=== PATIENT | male | born 1950 | race Caucasian/White ===

== ENCOUNTER → 2018-10-11 | Outpatient (CLI) | payer OTHER ==
[~2018-10-11] MED LIST: ADVAIR 100/501 E1 INH; ALBUTEROL0.09 MG/A1 INH; AMBIEN5 MG PO; ASPIR-LOX325 MG PO; B12,B-12,B 12500 MC1 PO; CLONAZEPAM0.125 MG PO; DEPAKOTE500 MG PO; FLEXERIL10 MG PO; FLOMAX0.4 MG PO; HYDROCODONE/ACE1 T11 PO; LASIX20 MG PO; LISINOPRIL2.5 MG PO; MAXIPIME2 GM IV; Micro K10 MEQ PO; NAPROSYN500 MG PO; NEURONTIN600 MG PO; NEURONTIN800 MG PO; NEXIUM40 MG PO; NITROGLYCERIN; NORCO 325 MG-101 TAB PO; PAXIL30 M1 PO; PAXIL30 MG PO; PRAVASTATIN SOD10 MG PO; PRAVASTATIN SOD20 MG PO; PRILOSEC20 MG PO; RESTORIL15 MG PO; SOLU-MEDROL IV; SYMBICORT1 AE1 INH; SYMBICORT1 AER INH; VICODIN ES 7501 TA1 PO
[2018-10-11 20:25] LABS: BUN 24 mg/dl (7-24); CHLORIDE 109 mmol/L (98-107); CREATININE 0.93 mg/dL (0.70-1.30); POTASSIUM 3.7 mmol/L (3.5-5.1); SODIUM 144 mmol/L (136-145)
== END | disposition home or self-care (01) ==
LOC: LAB 19:07
PROVIDERS: Internal Medicine
DX: I50.20 Unspecified systolic (congestive) heart failure (principal)

== ENCOUNTER 2019-03-02 05:45 | Emergency (ER) | payer OTHER ==
[~2019-03-02] VITALS: Ht 170.1 cm; Wt 65.8 kg
== END 2019-03-02 08:02 | disposition left against medical advice (07) ==
LOC: ED 05:45
DX: S00.01XA Abrasion of scalp, initial encounter (principal); F10.920 Alcohol use, unspecified with intoxication, uncomplicated; J44.1 Chronic obstructive pulmonary disease with (acute) exacerbation; Z79.899 Other long term (current) drug therapy; Z79.82 Long term (current) use of aspirin; X58.XXXA Exposure to other specified factors, initial encounter; Y93.89 Activity, other specified; Y92.89 Other specified places as the place of occurrence of the external cause; Y99.9 Unspecified external cause status; Y90.9 Presence of alcohol in blood, level not specified

== ENCOUNTER 2019-08-11 05:45 | Inpatient (IN) | payer OTHER ==
[~2019-08-11] VITALS: Ht 172.7 cm; Wt 62.7 kg
[2019-08-11 05:45] VITALS: BP 104/70
--- NOTE | 2019-08-11 06:18 | NUR ---
PATIENT BROUGHT TO THE E.R FOR SHORTNESS OF BREATH. PER DOCTORS ORDER PATIENT PLACED ON A BIPAP AT 12 IPAP/8 EPAP WITH 40% OF OXYGEN. PATIENT SEEMS TO BE COMFORTABLE AND SPO2 IS 99% WITH DIMISHED BREATH SOUNDS, THAT ARE IMPROVING. RN AND DOCTOR ARE AWARE.
[2019-08-11 06:26] LABS: HEMATOCRIT 35.1 % (42.0-52.0); MEAN CELL VOLUME 83.8 fl (80.0-94.0); MEAN CORPUSCULAR HGB 25.8 pg (27.0-31.0); MEAN CORPUSCULAR HGB CONC 30.8 g/dl (33.0-37.0); MEAN PLATELET VOLUME 11.9 fl (9.6-12.3); NUCLEATED RED BLOOD CELL 0.2 % (0.0-0.0); PLATELET COUNT AUTOMATED 291 10*3/uL (130-400); RED BLOOD COUNT 4.19 10*6/uL (4.50-5.90); RED CELL DISTRI WIDTH 19.7 % (0-14.5); WHITE BLOOD COUNT 24.6 10*3/uL (4.8-10.8)
[2019-08-11 06:26] LABS: ABG BASE EXCESS 7.4 mmol/L (-2.0-2.0); ARTERIAL BLOOD GAS PH 7.389 (7.35-7.45)
[2019-08-11 06:39] LABS: ACT PARTIAL THROMBO TIME 28.2 SECONDS (20.0-32.1); INTERNATIONAL NORM RATIO 1.1 (2.0-3.5)
[2019-08-11 06:47] LABS: ALBUMIN 3.3 gm/dl (3.1-4.5); ALKALINE PHOSPHATASE 82 U/L (45-117); BUN 50 mg/dl (7-24); CHLORIDE 97 mmol/L (98-107); CREATININE 1.45 mg/dL (0.70-1.30); POTASSIUM 4.3 mmol/L (3.5-5.1); SGOT/AST 29 IU/L (3-35); SGPT/ALT 35 U/L (12-78); SODIUM 137 mmol/L (136-145); TOTAL PROTEIN 7.6 gm/dL (6.4-8.2)
[2019-08-11 06:48] LABS: TROPONIN I < 0.015 ng/ml (<0.045)
--- NOTE | 2019-08-11 06:59 | NUR ---
PT HAS MULTIPLE SM SCABBED AREAS TO EXTREMITIES.
[2019-08-11 07:09] LABS: PLATELET SUFFICIENCY NORMAL (NORMAL); TOTAL CELLS COUNTED 100 #CELLS
--- NOTE | 2019-08-11 07:21 | NUR ---
PT REFUSING BIPAP MASK, STATES HE WANTS TO WEAR NC. PT PLACED ON 4LPM NC. PT TOLERATING WELL, PT 98% ON 4LPM NC. PT HAS CALL LIGHT IN REACH. DENIES FURTHER NEEDS.
--- NOTE | 2019-08-11 07:33 | NUR ---
PT RESTING QUEITY, REFUSING BI-PAP. REMIANS ON 4L NC POX 97%. PT IS A PATIENT OF [facility]. DR TRACEY TO BE CALLED FOR THE ADMISSION. PT RESPIRATIONS EASY NO DISTRESS NOTED. CALL LIGHT IN REACH WILL MONITOR.
[2019-08-11 07:36] VITALS: BP 105/71
--- NOTE | 2019-08-11 08:16 | NUR ---
PT OFF THE UNIT FOR CT SCAN, THEN WILL BE TRANSFER TO THE 4TH FLOOR, ROOM 408-1.
[2019-08-11 09:00] VITALS: BP 96/57
--- NOTE | 2019-08-11 09:00 | NUR ---
A 69, admitted to , under the services of SWEETIE Chatman MD with a diagnosis of COPD EXACERBATION, PNEUMONIA. Chief complaint is SHORTNESS OF BREATH. Patient arrived via stretcher from ER. Monitor applied. Initial assessment completed. Vital signs taken and recorded. SWEETIE CHATMAN MD notified of admission to the unit. Orders received. See assessment for past medical history, medications and allergies. Patient and/or family oriented to unit. [facility] visitation policy reviewed. Clothing/patient valuable form completed. VIRGINIA ATKINS
[2019-08-11] MEDS ORDERED: XANAX0.5 MG PO (10:52)
[2019-08-11] MEDS ORDERED: CARDIZEM CD240 M1 PO (10:52)
[2019-08-11] MEDS ORDERED: ELIQUIS5 M1 PO (10:53)
[2019-08-11] MEDS ORDERED: LOPRESSOR50 M1 PO (10:54)
[2019-08-11] MEDS ORDERED: PREDNISONE10 M1 PO (10:55)
[2019-08-11] MEDS ORDERED: NEURONTIN300 MG PO (10:55)
[2019-08-11] MEDS ORDERED: TRELEGY ELLIPT1 EACH INH (10:56)
[2019-08-11] MEDS ORDERED: AMIODARONE HYD200 MG PO (10:57)
--- NOTE | 2019-08-11 11:00 | NUR ---
HOME MEDS VERIFIED WITH PHARMACY. [facility] [phone].
--- NOTE | 2019-08-11 11:11 | NUR ---
PATIENT REFUSING ECHO.
--- NOTE | 2019-08-11 11:30 | NUR ---
PHYSICAL THERAPY Ho bauman chart reviewed pt unavailable as out of room for testing,will follow at a later date. Barbara Borrego PT
--- NOTE | 2019-08-11 11:35 | NUR ---
POSTURAL DRAINAGE DONE. PT TOLERATED WELL.
[2019-08-11 11:39] LABS: ABG BASE EXCESS 8.2 mmol/L (-2.0-2.0); ARTERIAL BLOOD GAS PH 7.39 (7.35-7.45)
[2019-08-11 12:00] VITALS: BP 104/78
--- NOTE | 2019-08-11 12:41 | NUR ---
PHYSICAL THERAPY Eval completed on the fourth floor with full report to follow. Spoke with CM reg son concerns for home, however per pt her son lives with her and is "there all the time" helps her with her ADL's and has HH 2 x week. Recomend SNF pending progress with Amb/transfers vs Home with son 24 hr care/support depending on what actual home situation is, per LUIS ALBERTO pt was just discharged from SNF and refusing discharge back to SNF and wants to return home with HH. Barbara Brorego PT
[2019-08-11] MEDS ORDERED: ASPIRIN CHEWABL81 MG PO (13:33)
[2019-08-11] MEDS ORDERED: Ipratropium Brom3 ML INH (13:34)
[2019-08-11] MEDS ORDERED: MAGOX 400400 MG PO (13:35)
[2019-08-11] MEDS ORDERED: KLOR-CON M2020 ME1 PO (13:35)
[2019-08-11] MEDS ORDERED: HEALTHYLAX17 GM PO (13:36)
[2019-08-11] MEDS ORDERED: PRAVACHOL40 MG PO (13:37)
[2019-08-11] MEDS ORDERED: PROAIR DIGIHAL90 MCG INH (13:38)
[2019-08-11] MEDS ORDERED: OMEPRAZOLE MAGN20 MG PO (13:47)
[2019-08-11] MEDS ORDERED: MIRTAZAPINE30 M1 PO (13:47)
[2019-08-11 15:24] LABS: BILIRUBIN NEGATIVE (NEGATIVE); CLARITY SL CLOUDY (CLEAR); COLOR YELLOW (YELLOW); GLUCOSE NEGATIVE (NEGATIVE); KETONE NEGATIVE (NEGATIVE)
[2019-08-11 15:25] LABS: BLOOD 2+ (NEGATIVE); LEUKO ESTERASE 2+ (NEGATIVE); NITRITE POSITIVE (NEGATIVE); PH 7.5 (5.0-9.0); RBC 21-30 rbc/hpf (0-2); SPECIFIC GRAVITY 1.005 (1.005-1.030); UROBILINOGEN 0.2 E.U./dl (0.2-1.0)
[2019-08-11 15:26] LABS: BACTERIA 1+; WBC TNTC wbc/hpf (0-5)
--- NOTE | 2019-08-11 15:30 | NUR ---
PT RESTING IN BED. VOICES NO CONCERNS AT THIS TIME. RESPS EASY AND NON LABORED. NO S/S OF DISTRESS NOTED. VSS. 3L OXYGEN INTACT. DENIES SOB. WHITE BOARD UPDATED. CALL LIGHT WITHIN REACH.
[2019-08-11 15:36] LABS: URINE CHLORIDE, RANDOM < 10 mmol/L
[2019-08-11 16:00] VITALS: BP 94/63
--- NOTE | 2019-08-11 16:53 | NUR ---
DR DAVENPORT NOTIFIED OF NEW CONSULT. NO NEW ORDERS
--- NOTE | 2019-08-11 16:53 | NUR ---
PER DR MCMILLAN OBTAIN RECORDS FROM [facility] AND ORDER MORNING LAB WORK.
--- NOTE | 2019-08-11 18:01 | NUR ---
CONSENT GIVEN FOR REQUEST FOR MEDICAL RECORDS
[2019-08-11 20:00] VITALS: BP 98/68
--- NOTE | 2019-08-11 21:00 | NUR ---
PATIENT RESTING IN BED. VOICES NO COMPLAINTS AT THIS TIME. BED IN LOWEST POSITION,CALL LIGHT WITHIN REACH, BED ALARM ON. WILL CONTINUE TO MONITOR.
[2019-08-12] VITALS: BP 94/74
--- NOTE | 2019-08-12 02:51 | NUR ---
PATIENT REFUSING TO KEEP 2 BED RAILS UP. EXPLAINED TO PATIENT IT IS FOR PATIENT SAFETY. PATIENT STATES "OKAY YOU CAN PUT IT UP BUT I KNOW HOW TO PUT IT BACK DOWN." BED ALAMR ON. WILL CONTINUE TO MONITOR.
--- NOTE | 2019-08-12 03:00 | NUR ---
PATIENT SLEEPING, RESPIRATIONS EASY, NON LABORED. WILL CONTINUE TO MONITOR.
[2019-08-12 06:36] LABS: HEMATOCRIT 32.5 % (42.0-52.0); MEAN CELL VOLUME 86.7 fl (80.0-94.0); MEAN CORPUSCULAR HGB 25.3 pg (27.0-31.0); MEAN CORPUSCULAR HGB CONC 29.2 g/dl (33.0-37.0); MEAN PLATELET VOLUME 10.8 fl (9.6-12.3); NUCLEATED RED BLOOD CELL 0.2 % (0.0-0.0); PLATELET COUNT AUTOMATED 207 10*3/uL (130-400); RED BLOOD COUNT 3.75 10*6/uL (4.50-5.90); RED CELL DISTRI WIDTH 19.7 % (0-14.5); WHITE BLOOD COUNT 17.2 10*3/uL (4.8-10.8)
[2019-08-12 06:51] VITALS: BP 107/50
[2019-08-12 06:53] LABS: BUN 42 mg/dl (7-24); CHLORIDE 103 mmol/L (98-107); CHOLESTEROL 116 mg/dL (<200); CREATININE 1.27 mg/dL (0.70-1.30); HDL CHOLESTEROL 40 mg/dl (40-60); LDL CHOLESTEROL 62 mg/dL (9-159); POTASSIUM 3.7 mmol/L (3.5-5.1); SODIUM 141 mmol/L (136-145); TRIGLYCERIDES 68 mg/dl (<150); VLDL CHOLESTEROL 14 mg/dL (6-40)
--- NOTE | 2019-08-12 06:55 | NUR ---
PATIENT WOKEN UP TO TAKE MORNING MEDICATION, VERY DROWSY. VITALS WNL. WILL CONTINUE TO MONITOR.
[2019-08-12 07:06] LABS: INTERNATIONAL NORM RATIO 1.1 (2.0-3.5)
--- NOTE | 2019-08-12 07:30 | NUR ---
PT SLEEPING/DROWSY. AROUSES EASILY. VSS. RESPS EASY AND NON LABORED. NO S/S OF DISTRESS NOTED. WHITE BOARD UPDATED. POSTERIOR CRACKLES NOTED IN BOTH LUNG BASES. CALL LIGHT WITHIN REACH. BED ALARM ON.
[2019-08-12 07:31] LABS: PLATELET SUFFICIENCY NORMAL (NORMAL); POLYCHROMASIA SLIGHT; TOTAL CELLS COUNTED 100 #CELLS
[2019-08-12 07:32] LABS: TARGET CELLS FEW
[2019-08-12 08:00] VITALS: BP 110/54
[2019-08-12 08:37] LABS: VITAMIN D, 25-HYDROXY 34.6 ng/mL (30-100)
--- NOTE | 2019-08-12 09:28 | NUR ---
CASE MANAGEMENT IN TO SEE PT. STATES HE HAS TO USE BATHROOM. THIS NURSE IN TO HELP PT. PT STARTED YELLING AT THIS NURSE THAT HE DID NOT GET BREAKFAST. EXPLAINED TO HIM THAT I CAME IN THIS MORNING AND TRIED TO WAKE HIM UP MULTIPLE TIMES. PT STATES "YOU PEOPLE CAN WAKE ME UP ALL NIGHT LONG BUT NOT FOR F@#$ING BREAKFAST". OFFERED TO ORDER PT BREAKFAST AND HE THREW PHONE AND VARIOUS OTHER ITEMS AROUND IN ROOM. VERBAL DE-ESCALATION IMPLEMENTED. PT CALMED DOWN. STATES HES GOING BACK TO SLEEP. ASSISTED BACK TO BED. CALL LIGHT WITHIN REACH. BED ALARM ON.
--- NOTE | 2019-08-12 10:06 | NUR ---
PTS FAMILY CALLED IN. UPDATED ON POC. QUESTIONS ANSWERED.
--- NOTE | 2019-08-12 11:25 | NUR ---
PTS CELL PHONE HEARD RINGING IN ROOM. TARI HAD CALLED AND STATED SHE COULD NOT REACH HIM. INTO PTS ROOM. PT AGAIN AGITATED. STATES HES NOT ANSWERING THE PHONE FOR ANYONE. XANAX GIVEN PER PRN ORDER. WILL CONTINUE TO MONITOR. ASKED PT IF HE WOULD LIKE TO ORDER LUNCH AND HE STATED "WHAT FOR I WONT GET THE DAMN SH*T ANYWAYS". EXPLAINED TO PT THAT I WOULD HELP HIM ORDER AND MAKE SURE HE GETS HIS FOOD. STATES TO "GET THE F@#K OUT OF HIS ROOM". CALL LIGHT WITHIN REACH. BED ALARM ON.
--- NOTE | 2019-08-12 11:34 | NUR ---
CIGARETTE PACKAGE EXAMINER IN TO DO 1200 VITALS. PT SCREAMING AT HER TELLING TO GET AWAY FROM HIM.
--- NOTE | 2019-08-12 11:36 | NUR ---
CALL PLACED TO DR MCMILLAN REGARDING PTS BEHAVIOR. STATES TO GIVE ATIVAN 1MG IV NOW AND CONTINUE TO MONITOR. ORDERS VERIFIED AND REPEATED BACK.
--- NOTE | 2019-08-12 11:42 | NUR ---
LATE NOTE: OVERHAULER HELPER ATTEMPTED TO SPEAK WITH THE PATIENT. PATIENT STATED THAT HE RESIDES AT HOME WITH TARI. PATIENT STATED HE USES A CANE AND WEARS OXYGEN AT NIGHT. THIS OVERHAULER HELPER WAS TALKING TO PATIENT HE ATTEMPTED TO GET OUT OF BED TO USE THE BATHROOM. BED ALARM STARTED RINGING. OVERHAULER HELPER WAS ABLE TO GET THE PATIENT TO REMAIN SEATED. OVERHAULER HELPER NOTIFIED JOEY RAMÍREZ OF PATIENT NEEDING TO USE RESTROOM. OVERHAULER HELPER INFORMED THE PATIENT THAT JOEY RAMÍREZ WOULD BE IN TO ASSIST HIM. SECONDS LATER JOEY RAMÍREZ WAS IN TO ASSIST THE PATIENT TO THE BATHROOM. OVERHAULER HELPER SPOKE WITH JOEY RAMÍREZ. PATIENT WAS CURRENTLY HAVING BEHAVIORS. OVERHAULER HELPER REACHED OUT TO FERNY HUNG-DPOA-[facility], SHE STATED THE PATIENT IS CURRENTLY LIVING WITH HER AT [address] [place] [phone]. SHE STATED THAT THE PATIENT DOES STILL HAVE HIS HOME IN [facility]. SHE STATED THE PATIENT HAS BEEN LIVING WITH HER FOR APPROXIMATELY 2 YEARS. SHE IS HIS SECOND OFFICER. SHE STATED THE PATIENT IS PRETTY INDEPENDENT. HE DOES USE A CANE. SHE DOES ASSIT HIM WITH GETTING OUT OF THE BATH TUB. SHE STATED THE PATIENT DOES DRIVE SOME TMES. THE PATIENT DOES HAVE OXYGEN AT HOME FROM [facility]. HE USES [facility]. FERNY STATED THE PATIENT HAS A HX OF BEING BELLIGERENT/COMBATIVE WHEN IN A HOSPITAL SETTING HIS ANXIETY TAKES OVER. PER FERNY THE PATIENT HAS A LOT OF FAMILY STRESSORS AT THE MOMENT. FERNY STATED THAT THE PATIENT DOES BECOME FORGETFUL AT TIMES. FERNY IS UNSURE OF PATIENTS NEEDS UPON DISCHARGE AT THIS TIME. CASE MANAGEMENT TO FOLLOW.
--- NOTE | 2019-08-12 11:48 | NUR ---
PT MEDICATED PER DR SORTO ORDER. WILL CONTINUE TO MONITOR. RESPS EASY AND NON LABORED. NO S/S OF DISTRESS. X2 SIDE RAILS UP. BED ALARM ON. CALL LIGHT WITHIN REACH.
--- NOTE | 2019-08-12 12:24 | NUR ---
PT SLEEPING. MEDICATION APPEARS EFFECTIVE. RESPS EASY AND NON LABORED. NO S/S OF DISTRESS. X2 SIDE RAILS UP. BED ALARM ON. CALL LIGHT WITHIN REACH.
--- NOTE | 2019-08-12 13:15 | NUR ---
PT REFUSING TO RE-APPLY HEART MONITOR AT THIS TIME
--- NOTE | 2019-08-12 13:31 | NUR ---
PT REFUSING IV ANTIBIOTICS AT THIS TIME. STATES HE "ISNT TAKING A F@#$ING THING". EXPLAINED RATIONALE/USE FOR MEDICATION. PT STATES "I HAVNT HAD A F@#$ING THING TO EAT ALL DAY". ASKED PT IF HE WOULD LIKE TO ORDER SOMETHING FOR LUNCH. STATED "NOPE" AND SHOOK HEAD NO. ASKED PT IF HE WOULD LIKE THIS NURSE TO HAVE SOMETHING SENT UP TO HIS ROOM. PT STATED TO GET OUT OF HIS ROOM. CURRENTLY SITTING UP IN BED PLAYING ON PHONE. RESPS EASY AND NON LABORED. NO S/S OF DISTRESS. OXYGEN INTACT. BED ALARM ON. CALL LIGHT WITHIN REACH.
--- NOTE | 2019-08-12 13:55 | NUR ---
TARI CALLED TO CHECK ON PT. ASKED IF PT WAS OKAY BC HE STILL WILL NOT ANSWER THE PHONE. EXPLAINED CURRENT SITUATION TO HER. ASKED IF I COULD TRANSFER CALL INTO PTS ROOM. CALL TRANSFERRED PER REQUEST. ENCOURAGED PT TO ACCEPT THE PHONE CALL.
[2019-08-12 16:00] VITALS: BP 116/82
--- NOTE | 2019-08-12 17:00 | NUR ---
DR DAVENPORT INTO SEE PT
--- NOTE | 2019-08-12 17:20 | NUR ---
PER DR DAVENPORT GIVE 40MG IV LASIX NOW AND REPEAT DOSE IN THE MORNING.
--- NOTE | 2019-08-12 17:31 | NUR ---
PT AGREEABLE TO TAKE LASIX. RESPS EASY AND NON LABORED. PT WAS NOTED TO BE WHEEZING.DENIES SOB. VSS. OXYGEN INTACT-SPO2 WNL.NO S/S OF DISTRESS NOTED. WILL ASK RESPIRATORY TO COME GIVE A BREATHING TX AT THIS TIME. BED ALARM ON. CALL LIGHT WITHIN REACH.
--- NOTE | 2019-08-12 17:40 | NUR ---
RESPIRATORY INTO PTS ROOM
--- NOTE | 2019-08-12 18:00 | NUR ---
PT RESTING IN BED. RESPS EASY AND NON LABORED. NO S/S OF DISTRESS NOTED. BED ALARM ON. CALL LIGHT WITHIN REACH.
--- NOTE | 2019-08-12 19:00 | NUR ---
REPORT RECEIVED FROM DESIREE COOK. PT LYING IN BED AT THIS TIME. O2 INTACT. NO S/S OF DISTRESS NOTED, CALL LIGHT IN REACH
[2019-08-12 20:00] VITALS: BP 96/67
--- NOTE | 2019-08-12 20:00 | NUR ---
PT ENCOURAGED TO WEAR HEART MONITOR, STILL REFUSING
--- NOTE | 2019-08-12 22:10 | NUR ---
PT SLEEPING AT THIS TIME. CALL LIGHT IN REACH
[2019-08-13] VITALS: BP 130/86
--- NOTE | 2019-08-13 02:00 | NUR ---
PT IS SLEEPING AT THIS TIME. O2 INTACT. NO S/S OF DISTRESS, CALL LIGHT IN REACH
--- NOTE | 2019-08-13 07:07 | NUR ---
Shift chart check completed.
--- NOTE | 2019-08-13 07:21 | NUR ---
PER POWER MANAGER RN PT REFUSED MORNING LAB WORK
--- NOTE | 2019-08-13 07:30 | NUR ---
PT SITTING UP IN BED. RESPS EASY AND NON LABORED. NO S/S OF DISTRESS NOTED. 3L OXYGEN INTACT.VSS.WHITE BOARD UPDATED. CONTINUES TO REFUSE HEART MONITOR. PLAN OF CARE DISCUSSED W PT. BED ALARM ON. CALL LIGHT WITHIN REACH. PT ASSISTED TO ORDER BREAKFAST.
--- NOTE | 2019-08-13 07:47 | NUR ---
PT TOOK MORNING MEDICATIONS WITHOUT INCIDENT.
[2019-08-13 08:00] VITALS: BP 125/82
--- NOTE | 2019-08-13 09:14 | NUR ---
Discharge instructions reviewed with patient/family. Patient receptive and verbalizes understanding. Follow-up care arranged. Written instructions given to patient/family. DESIREE SIEGEL The Discharge Plan/Instructions have been completed. discontinued. Site asymptomatic. Pressure applied. Sterile dressing applied. DESIREE SIEGEL
--- NOTE | 2019-08-13 09:25 | NUR ---
FERNY CALLED. UPDATED ON PLAN OF CARE. QUESTIONS ANSWERED
--- NOTE | 2019-08-13 11:49 | NUR ---
PT RESTING IN BED. RESPS EASY AND NON LABORED. NO S/S OF DISTRESS NOTED. OXYGEN INTACT. BED ALARM ON. CALL LIGHT WITHIN REACH.
[2019-08-13 12:00] VITALS: BP 116/66
[2019-08-13 16:00] VITALS: BP 104/71
--- NOTE | 2019-08-13 18:18 | NUR ---
TARI CALLED. UPDATED ON PLAN OF CARE. QUESIONS ANSWERED.
--- NOTE | 2019-08-13 19:10 | NUR ---
REPORT RECEIVED FROM DESIREE COOK. PT SLEEPING AT THIS TIME. NO S/S OF DISTRESS. O2 INTACT. CALL LIGHT IN REACH
[2019-08-13 20:00] VITALS: BP 113/74
--- NOTE | 2019-08-13 20:00 | NUR ---
PT STILL REFUSING HERAT MONITOR AT THIS TIME.
--- NOTE | 2019-08-13 21:00 | NUR ---
PT WATCHING TV AT THIS TIME, CALL LIGHT IN REACH
[2019-08-14] VITALS (7 sets, daily range): BP systolic 100–120; BP diastolic 59–74
--- NOTE | 2019-08-14 00:34 | NUR ---
PT LYING IN BED AT THIS TIME. NO S/S OF DISTRESS NOTED. O2 INTACT. CALL LIGHT IN REACH
--- NOTE | 2019-08-14 01:14 | NUR ---
XANAX GIVEN PER ORDER FOR COMPLAINTS OF ANXITEY. WILL MONITOR
--- NOTE | 2019-08-14 02:00 | NUR ---
XANAX APPEARS EFFECTIVE, PT SLEEPING.
--- NOTE | 2019-08-14 04:00 | NUR ---
PT SLEEPING AT THIS TIME. O2 INTACT. CALL LIGHT IN REACH
--- NOTE | 2019-08-14 05:00 | NUR ---
24 HR chart check completed.
--- NOTE | 2019-08-14 05:19 | NUR ---
IN TO SEE PT. PT REFUSING MORNING MEDICATIONS AT THIS TIME.
--- NOTE | 2019-08-14 05:34 | NUR ---
LAB IN TO SEE PT THIS AM. PT REFUSING LAB WORK. PT ALSO REFUSING BED CHANGE
--- NOTE | 2019-08-14 09:00 | NUR ---
Overweaver in to see patient. He is sitting on the edge of his bed without distress noted. He states he lives with his friend, Edna, in [place]. He states there are 5 outside steps and no steps once inside the home. He uses [facility] in [place] and his PCP is Dr. Borrego. He uses a cane for ambulation and has O2 @ 3L nc prn and a nebulizer. He is unsure of his O2 supplier. He states he used it for about an 1 hour before coming to the hospital. He was recently in [facility]. Discussed short term rehab and he refuses. Discussed home health care services and he is agreeable. He doesn't care what home health company but he would like nursing and therapy. When medically stable he will be discharged to home with home health care services. He states his friend, Edna, will provide transportation on discharge.
--- NOTE | 2019-08-14 09:11 | NUR ---
MEDICATED WITH PRN PO NORCO FOR GENERALIZED CHRONIC BODY PAIN.
--- NOTE | 2019-08-14 09:21 | NUR ---
MEDICATED WITH PRN PO XANAX FOR ANXIETY.
--- NOTE | 2019-08-14 09:30 | NUR ---
Occupational Therapy evaluation completed on four with full evaluation to follow. Recommend occupational therapy per plan of care and home with HH SN, OT, and PT with continued supervision assistance upon discharge. Thank you for this referral. Ifeoma Cline OTR/L
--- NOTE | 2019-08-14 09:30 | NUR ---
Physical Therapy evaluation completed on fourth floor with full evaluation to follow. Recommend physical therapy per plan of care and home w with production metal sprayer and HH services upon discharge if continues to do well. Thank you for this referral. Barbara Borrego PT
--- NOTE | 2019-08-14 10:00 | NUR ---
PRN PO NORCO SOMEWHAT EFFECTIVE, PER PATIENT.
--- NOTE | 2019-08-14 10:30 | NUR ---
Spoke to Dr. Kahn regarding continuation or discontinuation of awake overnight monitor. New orders received to discontinue telemetry.
[2019-08-14 14:55] LABS: HEMATOCRIT 33.5 % (42.0-52.0); MEAN CELL VOLUME 89.1 fl (80.0-94.0); MEAN CORPUSCULAR HGB 25.3 pg (27.0-31.0); MEAN CORPUSCULAR HGB CONC 28.4 g/dl (33.0-37.0); PLATELET COUNT AUTOMATED 200 10*3/uL (130-400); RED BLOOD COUNT 3.76 10*6/uL (4.50-5.90); RED CELL DISTRI WIDTH 20.9 % (0-14.5); WHITE BLOOD COUNT 32.9 10*3/uL (4.8-10.8)
[2019-08-14 15:13] LABS: ALBUMIN 2.8 gm/dl (3.1-4.5); ALKALINE PHOSPHATASE 67 U/L (45-117); BUN 33 mg/dl (7-24); CHLORIDE 107 mmol/L (98-107); CREATININE 1.33 mg/dL (0.70-1.30); POTASSIUM 4.2 mmol/L (3.5-5.1); SGOT/AST 10 IU/L (3-35); SGPT/ALT 29 U/L (12-78); SODIUM 144 mmol/L (136-145); TOTAL PROTEIN 6.5 gm/dL (6.4-8.2)
[2019-08-14 15:19] LABS: PLATELET SUFFICIENCY NORMAL (NORMAL); POLYCHROMASIA SLIGHT; TARGET CELLS FEW; TOTAL CELLS COUNTED 100 #CELLS; TOXIC GRANULATION SLIGHT
[2019-08-14 15:20] LABS: OVALOCYTES FEW
--- NOTE | 2019-08-14 18:20 | NUR ---
MEDICATED WITH PRN PO NORCO AND XANAX FOR GENERALIZED BODY PAIN AND ANXIETY.O
--- NOTE | 2019-08-14 19:10 | NUR ---
REPORT RECEIVED FROM LINDSEY COOK. PT TALKING ON PHONE AT THIS TIME. NO S/S OF DISTRESS NOTED. CALL LIGHT IN REACH
--- NOTE | 2019-08-14 21:00 | NUR ---
PT LYING IN BED AT THIS TIME. NO COMPLAINTS, CALL LIGHT IN REACH
--- NOTE | 2019-08-14 21:08 | NUR ---
RESTORIL GIVEN FOR COMPLAINTS OF INSOMNIA. WILL MONITOR.
--- NOTE | 2019-08-14 22:00 | NUR ---
RESTORIL EFFECTIVE, PT SLEEPING AT THIS TIME.
--- NOTE | 2019-08-14 23:00 | NUR ---
PT ASLEEP. O2 INTACT. CALL LIGHT IN REACH
[2019-08-15] VITALS: BP 128/73
--- NOTE | 2019-08-15 01:00 | NUR ---
PT AWAKE AT THIS TIME. PLAYING ON PHONE O2 INTACT, CALL LIGHT IN REACH
--- NOTE | 2019-08-15 03:00 | NUR ---
PT SLEEPING AT THIS TIME. O2 INTACT, CALL LIGHT IN REACH
[2019-08-15 06:10] LABS: MEAN CELL VOLUME 87.8 fl (80.0-94.0); MEAN CORPUSCULAR HGB 25.5 pg (27.0-31.0); MEAN PLATELET VOLUME 10.6 fl (9.6-12.3); NUCLEATED RED BLOOD CELL 0.1 % (0.0-0.0); PLATELET COUNT AUTOMATED 196 10*3/uL (130-400); RED BLOOD COUNT 3.53 10*6/uL (4.50-5.90); RED CELL DISTRI WIDTH 20.7 % (0-14.5); WHITE BLOOD COUNT 31.9 10*3/uL (4.8-10.8)
[2019-08-15 06:34] LABS: BUN 36 mg/dl (7-24); CHLORIDE 108 mmol/L (98-107); CREATININE 1.32 mg/dL (0.70-1.30); POTASSIUM 4.2 mmol/L (3.5-5.1); SODIUM 143 mmol/L (136-145)
[2019-08-15 06:54] LABS: TOTAL CELLS COUNTED 100 #CELLS
[2019-08-15 06:55] LABS: OVALOCYTES FEW; PLATELET SUFFICIENCY NORMAL (NORMAL); POLYCHROMASIA SLIGHT; TARGET CELLS FEW; TOXIC GRANULATION SLIGHT
--- NOTE | 2019-08-15 07:25 | NUR ---
PHYSICAL THERAPY Patient seen this am 1;1 for therapy visit and was just returning to his room in w/c from x-ray upon therapist arrival. Patient identified by name / and presents with continuos O2-2L via NC. Patient also reports feeling very weak / tired this morning and transfers sit to stand CGA x 1. Patient ambulates with use of st cane, 15'x 1 to bathroom, CGA, then additional 25'x 1, CGA, while demonstrating very slow, unsteady step sequence. Patient needed v/c to increase stride with "head up" posture and returned to bedside chair with increased fatigue. Patient SpO2 / HR remained WFL's throughout all treatment as patient remained in bedside chair with call light, tray table, telephone and body alarm for safety. Will continue per POC as tolerated, total treatment time 16 minutes. Dwight Braden, UTILIZATION MANAGEMENT RN
--- NOTE | 2019-08-15 07:30 | NUR ---
PT SITTING UP IN CHAIR. VOICES NO CONCERNS AT THIS TIME. RESPS EASY AND NON LABORED. NO S/S OF DISTRESS NOTED. VSS. WHITE BOARD UPDATDE. POC DISCUSSED W PT. BODY ALARM INTACT. CALL LIGHT WITHIN REACH. PT STATES HE FEELS MUCH BETTER. LUNGS CLEAR/DIM.
--- NOTE | 2019-08-15 07:45 | NUR ---
OT NOTE Pt was seen this A.M. 1:1 for 15 minute OT session. Upon arrival pt was sitting upright in the transport chair returning from a test. Pt identified by name and and had complaints of "chronic" pain all over. Pt presented to therapy with continuous 2L-O2 via NC which he remained on throughout the entire session. While seated pt donned B socks while bringing one leg up to his knee HI. Sit to stand completed from chair level with CGA and use of straight cane for UE support. Functional mobility was then completed to the bathroom with CGA and use of straight cane. There he transferred on/off standard commode with CGA and use of grab bar for UE support. Pt then stood sink side while washing his hands with CGA for safety. Challenged pt's dynamic standing balance while weight shifting, crossing midline, and reaching over all planes. Pt was able to maintain F+ standing balance throughout. Pt was left sitting upright in the recliner with call light in hand, tray table in place, and body alarm activated for safety. Continue with rec D/C plan to home with home health. SPIKE Sotelo/Stevo
[2019-08-15 08:00] VITALS: BP 138/93
--- NOTE | 2019-08-15 09:00 | NUR ---
Plum Packer in to see patient. No new needs or request at this time. Discussed short term SNF and he refuses. Discussed home health care services and he is agreeable. When provided with a list of agencies he chose [facility]. When medically stable he will be discharged to home with [facility] care services.
--- NOTE | 2019-08-15 09:47 | NUR ---
SPOKE W DR CLEMENTE REGARDING CLARIFICATION OF ULTRASOUND. STATES SHE WANTS PT TO HAVE A RENAL US AND NO CANCEL THE US DOPPLER RENAL.
--- NOTE | 2019-08-15 10:20 | NUR ---
MESSAGE LEFT W DR PATTON ANSWERING SERVICE REGARDING CONSULT
--- NOTE | 2019-08-15 10:28 | NUR ---
SPOKE W DR RAMIREZ REGARDING URINE OUTPUT. TOTAL OUPUT AFTER LASIX THIS MORNING FROM 6-10AM IS 1300CC. STATES GAMEMASTER NEED TO BE MONITORING URINE OUTPUT MORE CLOSELY.
--- NOTE | 2019-08-15 10:34 | NUR ---
PT STATES HE DOESNT FEEL GOOD. WHEN ASKED WHAT IS WRONG HE STATES HE DOES NOT KNOW. VITALS CHECKED AND ALL WNL. 3L OXYGEN INTACT. RESPS EASY AND NON LABORED. NO S/S OF DISTRESS NOTED. WILL CONTINUE TO MONITOR. PT A/O X3. NEURO WNL.
[2019-08-15 11:29] LABS: ABG BASE EXCESS 6.1 mmol/L (-2.0-2.0); ARTERIAL BLOOD GAS PH 7.348 (7.35-7.45)
[2019-08-15 12:00] VITALS: BP 106/78
--- NOTE | 2019-08-15 13:00 | NUR ---
PT SLEEPING IN BED. NO S/S OF DISTRESS NOTED. RESPS EASY AND NON LABORED. OXYGEN INTACT. VSS. WILL CONTINUE TO MONITOR. BED ALARM ON. CALL LIGHT WITHIN REACH
--- NOTE | 2019-08-15 14:16 | NUR ---
FAMILY UPDATED ON POC. QUESTIONS ANSWERED
--- NOTE | 2019-08-15 14:57 | NUR ---
EATING. REQUESTS ECHO TO BE DONE TOMORRROW MORNING.
--- NOTE | 2019-08-15 15:10 | NUR ---
PT SITTING UP IN BED EATING. RESPS EASY AND NON LABORED. NO S/S OF DISTRESS. OXYGEN INTACT. VOICES NO CONCERNS AT THIS TIME. BED ALARM ON. CALL LIGHT WITHIN REACH.
[2019-08-15 16:00] VITALS: BP 115/74
--- NOTE | 2019-08-15 19:10 | NUR ---
REPORT RECEIVED FROM DESIREE COOK. PT SLEEPING AT THIS TIME. O2 INTACT. NO S/S OF DISTRESS NOTED. CALL LIGHT IN REACH OF PT
[2019-08-15 20:00] VITALS: BP 113/68
--- NOTE | 2019-08-15 21:03 | NUR ---
DR. VYAS NOTIFIED OF PT HR IN 120'S. PT RECENTLY HAD BREATHING TX. ORDERED TO KEEP AN EYE ON HR AT THIS TIME. NO NEW ORDERS.
--- NOTE | 2019-08-15 23:00 | NUR ---
PT SLEEPING AT THIS TIME. O2 INTACT. CALL LIGHT IN REACH
--- NOTE | 2019-08-15 23:21 | NUR ---
PT AWAKENED AT THIS TIME. ASKING FOR SLEEPING PILL. RESTORIL GIVEN. WILL MONITOR EFFECTIVENESS
[2019-08-16] VITALS: BP 117/84
--- NOTE | 2019-08-16 00:10 | NUR ---
RESTORIL EFFECTIVE, PT SLEEPING AT THIS TIME.
--- NOTE | 2019-08-16 02:00 | NUR ---
PT SLEEPING AT THIS TIME.
--- NOTE | 2019-08-16 04:00 | NUR ---
PT SLEEPING WITH CALL LIGHT IN REACH. O2 INTACT. RESPIRATIONS EASY AND UNLABORED. NO S/S OF DISTRESS NOTED
[2019-08-16 05:57] LABS: MEAN CELL VOLUME 89.6 fl (80.0-94.0); MEAN CORPUSCULAR HGB 25.4 pg (27.0-31.0); MEAN CORPUSCULAR HGB CONC 28.4 g/dl (33.0-37.0); MEAN PLATELET VOLUME 10.6 fl (9.6-12.3); NUCLEATED RED BLOOD CELL 0.1 10*3/uL (0.0-0.0); NUCLEATED RED BLOOD CELL 0.2 % (0.0-0.0); PLATELET COUNT AUTOMATED 173 10*3/uL (130-400); RED BLOOD COUNT 3.46 10*6/uL (4.50-5.90); RED CELL DISTRI WIDTH 20.8 % (0-14.5); WHITE BLOOD COUNT 32.8 10*3/uL (4.8-10.8)
[2019-08-16 06:11] LABS: BUN 41 mg/dl (7-24); CHLORIDE 104 mmol/L (98-107); CREATININE 1.35 mg/dL (0.70-1.30); POTASSIUM 4.8 mmol/L (3.5-5.1); SODIUM 141 mmol/L (136-145)
[2019-08-16 07:11] LABS: PLATELET SUFFICIENCY NORMAL (NORMAL); TOTAL CELLS COUNTED 100 #CELLS
--- NOTE | 2019-08-16 07:30 | NUR ---
PT RESTING IN BED. VOICES NO CONCERNS AT THIS TIME. RESPS EASY AND TACHYPNEIC. NO IMMEDIATE S/S OF DISTRESS NOTED. VSS. OXYGEN INTACT. WHITE BOARD UPDATED. POC DISCUSSED W PT. BED ALARM ON. CALL LIGHT WITHIN REACH. RHONCHI NOTED T/O.
--- NOTE | 2019-08-16 07:36 | NUR ---
Shift chart check completed.
[2019-08-16 08:00] VITALS: BP 123/79
--- NOTE | 2019-08-16 08:45 | NUR ---
PHYSICAL THERAPY Patient seen this am 1;1 for therapy visit and was in the bathroom upon therapist arrival. Patient identified by name / and presented with continuous O2-3L via NC. Patient ambulated with use st cane, 20'x 1, CGA, demonstrating very slow, unsteady gait pattern and increased SOB / fatigue. Patient SpO2 88%, HR 100 bpm following gait ex and needed seated rest break approx 1 minute to recover with SpO2 95%, however HR ranging between 125-130 bpm before returning to 98 bpm. Patient instructed, then performed seated B LE therex, all planes, x 10 reps each to increase LE strength without c/o and remained seated EOB with call light, tray table and telephone. Will continue per POC as tolerated, total treatment time 16 minutes. Dwight Braden, STRAP MAKING MACHINE OPERATOR
--- NOTE | 2019-08-16 09:08 | NUR ---
Lard Tub Washer in to see patient. He is sitting on the edge of his bed. Therapy in room. Discussed short term rehab and he is agreeable. Discussed the 3 local facilities and he is unsure of where at this time as he wants to see what facilities take his insurance. canvas worker apprentice notified.
--- NOTE | 2019-08-16 09:10 | NUR ---
OT NOTE Pt was seen this A.M. 1:1 for 25 minute OT session. Upon arrival pt was sitting upright in the bathroom on the standard commode. Pt identified by name and and had complaints of generalized fatigue and weakness. Pt presented to therapy with continuous 3L-O2 via NC which he remained on throughout the entire session. Pt completed toileting and clothing manageement with SBA. Pt then stood sink side while washing his hands and completing hair care with SBA for safety. Functional mobility was then completed back to the EOB with CGA and use of straight cane for UE support. Upon returning to the EOB pt's SpO2 dropped to 88% and heart rate 100 bpm. After aprox 2 minutes pt's SpO2 raised to 92% and heart rate 121bpm. Pt was educated on energy conservation and breathing techniques, SpO2 raised to 95% and heart rate 130 bpm. Challenged pt's dynamic standing balance while weight shifting, crossing midline, and reaching over all planes and pt was able to maintain F+/G- standing balance throughout. Pt was left supine in bed with call light in hand, tray table in place, and phone in reach. Continue with POC as able. SPIKE Sotelo/Stevo
--- NOTE | 2019-08-16 09:40 | NUR ---
POLICE RADIO DISPATCHER FAXED DEMOGRAPHICS TO [facility]- FOR OON BENEFITS TO BE REVIEWED.
--- NOTE | 2019-08-16 10:52 | NUR ---
LANDMEN FAXED COMPLETE REFERRAL TO [facility] FOR REVIEW. PRECERT WILL BE REQUIRED.
--- NOTE | 2019-08-16 11:36 | NUR ---
Heading Pinner in to see patient. Informed patient Joel [facility] is reviewing his case for rehab. Explained location is in [place] and he is agreeable. anode worker following.
[2019-08-16 12:00] VITALS: BP 104/74
--- NOTE | 2019-08-16 12:52 | NUR ---
[facility] IS UNABLE TO ACCEPT THE PATIENT DUE COSTLY MEDICATIONS. CHIEF OPERATING OFFICER FAXED REFERRAL TO [facility] TO BE REVIEWED. CRUSHER HERBER IS AWARE.
--- NOTE | 2019-08-16 14:44 | NUR ---
PRECERT WILL BE REQUIRED, PATIENT HAS BEEN ACCEPTED TO [facility].
--- NOTE | 2019-08-16 15:45 | NUR ---
NOTIFIED DR ADRIAN AND DR CLEMENTE OF LACTIC ACID. BOTH STATE TO START NORMAL SALINE @60ML/H AND MAKE SURE LASIX IS HELD
[2019-08-16 16:00] VITALS: BP 118/76
--- NOTE | 2019-08-16 16:17 | NUR ---
NASAL COVID SWAB COLLECTED AT THIS TIME AND WALKED TO LAB.
--- NOTE | 2019-08-16 17:44 | NUR ---
DR ADRIAN NOTIFIED OF LACTIC ACID
--- NOTE | 2019-08-16 19:52 | NUR ---
DR THORNTON NOTIFIED OF LACTIC ACID 2.9.
[2019-08-16 20:00] VITALS: BP 128/88
--- NOTE | 2019-08-16 22:50 | NUR ---
XANAX ADMINISTERED FOR PT C/O ANXIETY AND DIFFICULTY FALLING ASLEEP. WILL MONITOR.
--- NOTE | 2019-08-16 23:45 | NUR ---
PT ASLEEP. NO SIGNS OF DISCOMFORT OR DISTRESS NOTED.
[2019-08-17] VITALS (8 sets, daily range): BP systolic 120–153; BP diastolic 73–90
--- NOTE | 2019-08-17 02:35 | NUR ---
24 HOUR CHART CHECK COMPLETE.
[2019-08-17 05:52] LABS: HEMATOCRIT 30.5 % (42.0-52.0); MEAN CELL VOLUME 88.2 fl (80.0-94.0); MEAN CORPUSCULAR HGB 25.1 pg (27.0-31.0); MEAN CORPUSCULAR HGB CONC 28.5 g/dl (33.0-37.0); MEAN PLATELET VOLUME 10.5 fl (9.6-12.3); NUCLEATED RED BLOOD CELL 0.1 10*3/uL (0.0-0.0); NUCLEATED RED BLOOD CELL 0.3 % (0.0-0.0); PLATELET COUNT AUTOMATED 167 10*3/uL (130-400); RED BLOOD COUNT 3.46 10*6/uL (4.50-5.90); WHITE BLOOD COUNT 31.3 10*3/uL (4.8-10.8)
[2019-08-17 06:14] LABS: CHLORIDE 107 mmol/L (98-107); SODIUM 143 mmol/L (136-145)
[2019-08-17 06:19] LABS: BUN 44 mg/dl (7-24); CREATININE 1.37 mg/dL (0.70-1.30)
[2019-08-17 07:06] LABS: PLATELET SUFFICIENCY NORMAL (NORMAL); TOTAL CELLS COUNTED 100 #CELLS
--- NOTE | 2019-08-17 07:30 | NUR ---
Patient resting quietly with no c/o discomfort. Respirations easy and regular. Vital signs stable. No overt distress. PETAR MENDEZ
--- NOTE | 2019-08-17 07:40 | NUR ---
LEAVING TO SURGERY.
--- NOTE | 2019-08-17 08:00 | NUR ---
PHYSICAL THERAPY Patient was out of his room this am for a medical test when approached for therapy and not available at this time for treatment. Will continue per POC as able. Dwight Braden, CANVAS SHOP LABORER
--- NOTE | 2019-08-17 08:48 | NUR ---
OT NOTE Attempted to see pt this A.M. for OT session and upon arrival pt was out of the room for a medical procedure. Will check back at a later time/date and continue with POC as able. SPIKE Sotelo/Stevo
--- NOTE | 2019-08-17 11:02 | NUR ---
PHYSICAL THERAPY Patient was sound asleep following early am medical procedure and unable to fully arouse / appropriate for therapy. Patient O2 NC was adjusted due to assisted out of his Nose and remained in bed with call light / bed alarm for safety. Will continue per POC as able. Dwight Braden, PACE ANALYST
--- NOTE | 2019-08-17 11:20 | NUR ---
Network Desktop Support Specialist in to see patient. No new needs or request at this time. Discussed he has been accepted at [facility] for rehab and he is agreeable. When medically stable and precert has been received he will be discharged to [facility]. restaurant worker following.
--- NOTE | 2019-08-17 11:28 | NUR ---
PRECERT IS PENDING. [facility] FAXED UPDATES TO [facility].
--- NOTE | 2019-08-17 11:55 | NUR ---
ADJUSTMENT CLERK COMPLETED HENS.
--- NOTE | 2019-08-17 14:03 | NUR ---
OT NOTE Attempted to see pt this P.M. for OT session and upon arrival pt was supine in bed asleep. Pt would arouse to verbal stimuli however would only stay awake for a minute at a time. Pt declined therapy at this time due to level of fatigue. Pt was left supine in bed with bed alarm activated for safety. Continue with POC as able. ANGELES Sotelo
--- NOTE | 2019-08-17 16:00 | NUR ---
Patient resting quietly with no c/o discomfort. Respirations easy and regular. Vital signs stable. No overt distress. PETAR MENDEZ
--- NOTE | 2019-08-17 19:25 | NUR ---
24 HR chart check completed.
[2019-08-18] VITALS: BP 128/64
--- NOTE | 2019-08-18 00:21 | NUR ---
PATIENT REQUESTING A XANEX TO HELP SLEEP. STATES HE KEEPS WAKING UP. MEDICATED AT THIS TIME WITH XANEX. VOICES NO OTHER COMPLAINTS. WILL CHECK EFFECTIVENESS.
--- NOTE | 2019-08-18 02:00 | NUR ---
PATIENT SLEEPING, XANEX EFFECTIVEN. RESPIRATIONS EASY, NON LABORED. NO SIGNS OF DISTRESS. BED IN LOWEST POSITION,CALL LIGHT WITHIN REACH. BED ALARM ON.
--- NOTE | 2019-08-18 05:41 | NUR ---
PATIENT SLEEPING, RESPIRATIONS EASY, NON LABORED. WILL CONTINUE TO MONITOR.
[2019-08-18 06:13] LABS: HEMATOCRIT 29.3 % (42.0-52.0); MEAN CELL VOLUME 87.5 fl (80.0-94.0); MEAN CORPUSCULAR HGB 25.4 pg (27.0-31.0); NUCLEATED RED BLOOD CELL 0.1 10*3/uL (0.0-0.0); NUCLEATED RED BLOOD CELL 0.3 % (0.0-0.0); PLATELET COUNT AUTOMATED 157 10*3/uL (130-400); RED BLOOD COUNT 3.35 10*6/uL (4.50-5.90); WHITE BLOOD COUNT 27.1 10*3/uL (4.8-10.8)
[2019-08-18 06:20] LABS: BUN 43 mg/dl (7-24); CHLORIDE 105 mmol/L (98-107); POTASSIUM 4.8 mmol/L (3.5-5.1); SODIUM 143 mmol/L (136-145)
[2019-08-18 06:47] LABS: TOTAL CELLS COUNTED 100 #CELLS
[2019-08-18 06:48] LABS: PLATELET SUFFICIENCY NORMAL (NORMAL); TARGET CELLS FEW
[2019-08-18 06:50] LABS: POLYCHROMASIA SLIGHT; STOMATOCYTE FEW
--- NOTE | 2019-08-18 07:00 | NUR ---
THERAPY IN TO WORK WITH PATIENT.
--- NOTE | 2019-08-18 07:45 | NUR ---
PHYSICAL THERAPY Patient seen this am 1;1 for therapy visit and was just awakening supine in bed upon therapist arrival. Patient identified by name / while presenting with continuos O2-3L via NC. OT custody assistant was also present for observation only as patient recorded resting SpO2 94%, HR 111 bpm. Patient transfers supine to sit EOB, SBA x 1 and needed a few minutes static EOB sit to collect himself. Patient then transfers sit to stand SBA and ambulates with use st cane, 20'x 2 to bathroom, CGA, demonstrating slow, cautious gait pattern, and unsteady step sequence in tight bathroom spaces. Patient also needed v/c to improve extended O2 hose safety upon return to EOB sit wiht mild fatigue. Patient performed 5 sit to stand transfers to improve standing activity tolerance, recording SpO2 91%, HR 138 bpm and remained EOB sit awaiting breakfast with call light, tray table and telephone. Will continue per POC as tolerated, total treatment time 16 minutes. Dwight Braden, BUTTON PUSHER
[2019-08-18 08:00] VITALS: BP 121/70
--- NOTE | 2019-08-18 08:00 | NUR ---
ASSESSMENT COMPLETE. PATIENT STATES HE IS FEELING BETTER THAN YESTERDAY. NO COMPLAINTS AT THIS TIME. CALL LIGHT IN REACH.
--- NOTE | 2019-08-18 08:10 | NUR ---
OT NOTE Pt was seen this A.M. 1:1 for 25 minute OT session. Upon arrival pt was supine in bed. Pt identified by name and and had no complaints at this time. Pt presented to therapy with continuous 3L-O2 via NC which he remained on throughout the entire session, pt's resting SpO2 94% and heart rate 111 bpm. Pt transferred supine to sit EOB with SBA. While sitting EOB pt donned B socks with SBA. Sit to stand completed from bed level with SBA and use of straight cane followed by functional mobility to the bathroom with CGA and use of straight cane for UE support. There he transferred on/off standard commode with SBA and use of grab bar for UE support. Pt then stood sink side while washing his hands, face, and completing hair care with SBA. Throughout all mobility and transfers pt required max verbal prompts for safety and management of the O2 line. Functional mobility completed back to the EOB, SpO2 92% and heart rate 138 bpm. While sitting EOB he completed BUE towel exercises over all planes of motion for 1 X 10 to increase and restore maximum functional strength. Pt was left sitting upright on the EOB with call light in hand, tray table in place, and phone in reach. Continue with POC as able. SPIKE Sotelo/Stevo
--- NOTE | 2019-08-18 09:30 | NUR ---
PATIENT WAS DENIED SNF. PEER TO PEER MUST BE COMPLETED BY 4:30PM TODAY. P2P NUMBER IS [phone]. WILL NOTIFY PRODUCT SAFETY AND STANDARDS ENGINEER.
--- NOTE | 2019-08-18 10:06 | NUR ---
Notified Dr. Kahn of SNF denial and the option to do a peer to peer. Set up peer to peer to be completed by 4:30 pm today.
[2019-08-18 12:00] VITALS: BP 134/78
--- NOTE | 2019-08-18 12:02 | NUR ---
SNF DENIAL HAS BEEN OVERTURNED PATIENT CAN GO TO [facility] WHEN COVID PCR RETURNS AND IS MEDICALLY STABLE. PER KYARA WITH PATIENTS INSURANCE NEXT REVIEW IS 08/22/2019.
--- NOTE | 2019-08-18 12:46 | NUR ---
OCCUPATIONAL THERAPY CO-SIGN I approve of the Occupational Therapy notes written above. SUNI HOOVER, OTR/L
--- NOTE | 2019-08-18 12:56 | NUR ---
PHYSICAL THERAPY CO-SIGN I approve of the Physical Therapy notes written above. Barbara Borrego PT
--- NOTE | 2019-08-18 13:25 | NUR ---
UPDATED PATIENTS ON POC AND ANSWERED HER QUESTIONS.
--- NOTE | 2019-08-18 15:10 | NUR ---
FIRE TRUCK DRIVER COMPLETED HENS. FIRE TRUCK DRIVER FAXED UPDATES TO [facility].
--- NOTE | 2019-08-18 15:53 | NUR ---
24 HR chart check completed.
[2019-08-18 16:00] VITALS: BP 121/56
[2019-08-18 20:00] VITALS: BP 122/54
--- NOTE | 2019-08-18 21:30 | NUR ---
MEDICATED PATIENT WITH TYLENOL AT THIS TIME FOR COMPLAINTS OF LEFT SHOULDER PAIN. RATES 12/15. WILL CHECK EFFECTIVENESS.
--- NOTE | 2019-08-18 23:49 | NUR ---
CALLED DR. AMANDA TO REORDER NORCO AND XANEX FOR PATIENT. PATIENT C/O LEFT SHOULDER PAIN. RATES 12/15. PREVIOUS TYLENOL GIVEN NOT EFFECTIVE. PATIENT VERY AGITATED, SLAMMING DOOR. PER DR. ADEN KIM TO REORDER BOTH BUT MAKE THE NORCO Q6HR INSTEAD OF Q4HR
[2019-08-19] VITALS: BP 126/61
--- NOTE | 2019-08-19 | NUR ---
OFFERED PATIENT A ABDON. PATIENT VERY AGITATED STATED "TO GET THE FUCK OUT OF MY ROOM. I DONT WANT ANY OF YOUR SHIT." WILL CONTINUE TO MONITOR.
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
--- NOTE | 2019-08-19 01:21 | NUR ---
PATIENT WALKED OUT OF ROOM WITH NO OXYGEN ON. WHEN ASKED WHAT HE WAS DOING PATIENT STATED"GOING ON A FUCKING WALK" PATIENTS GAIT UNSTEADY, HX OF FALLS. PATIENT WALKED TO WINDOW SEAL. WHEN NURSING STAFF ATTEMPTED TO CHECK PATIENT PULSE OX, PATIENT STARTED CUSSING AND YELLING AT STAFF. PULSE OX AT THIS TIME 79%. INSTURCTED PATIENT HE NEEDED TO PUT OXYGEN ON FOR HIS OWN SAFETY. PATIENT REFUSED. PATIENT VERY HOSTILE WITH STAFF AND REFUSING TO RETURN TO HIS ROOM. ROCAEL BERMUDEZ CALLED AT THIS TIME.
--- NOTE | 2019-08-19 01:25 | NUR ---
SECRUITY AND DOCTORS ON FLOOR. PATIENT ESCORTED BACK INTO ROOM.
--- NOTE | 2019-08-19 01:30 | NUR ---
DR. DAVIES AND DR. GONZALES IN PATIENTS ROOM. PATIENT NOW REQUESTING A NORCO FOR PAIN. PATIENT MEDICATED AT THIS TIME. STATES PAIN IS ALL OVER. PATIENT STILL REFUSING OXYGEN BUT NOW AGREEING TO ALLOW RESPIRATORY TO CHECK HIS PULSE OX. AT REST, PATIENTS PULSE OX IS 90-91% ON RA. DOCTORS ARE AWARE AND OKAY WITH HIS PULSE OX. PATIENT STILL VERY RUDE. REFUSING BED ALARM AND REQUESTING DOOR TO BE SHUT. WILL CONTINUE TO MONITOR.
--- NOTE | 2019-08-19 02:51 | NUR ---
PATIENT FORM MAKER PLASTER LIGHT, STATES HE NEEDS HELP. WHEN ENTERING, PATIENT NOW WEARING OXYGEN. STATES HE CANT BREATHE AND WOULD LIKE A BREATHING TREATMENT RESPIRATORY CALLED.
[2019-08-19 07:10] LABS: HEMATOCRIT 30.2 % (42.0-52.0); MEAN CELL VOLUME 86.8 fl (80.0-94.0); MEAN CORPUSCULAR HGB 25.3 pg (27.0-31.0); MEAN CORPUSCULAR HGB CONC 29.1 g/dl (33.0-37.0); MEAN PLATELET VOLUME 10.4 fl (9.6-12.3); NUCLEATED RED BLOOD CELL 0.1 10*3/uL (0.0-0.0); NUCLEATED RED BLOOD CELL 0.3 % (0.0-0.0); PLATELET COUNT AUTOMATED 169 10*3/uL (130-400); RED BLOOD COUNT 3.48 10*6/uL (4.50-5.90); RED CELL DISTRI WIDTH 20.7 % (0-14.5); WHITE BLOOD COUNT 30.7 10*3/uL (4.8-10.8)
[2019-08-19 07:34] LABS: BUN 41 mg/dl (7-24); CHLORIDE 102 mmol/L (98-107); POTASSIUM 4.1 mmol/L (3.5-5.1); SODIUM 142 mmol/L (136-145)
[2019-08-19 08:00] VITALS: BP 115/58
[2019-08-19 08:01] LABS: TOTAL CELLS COUNTED 100 #CELLS
[2019-08-19 08:02] LABS: PLATELET SUFFICIENCY NORMAL (NORMAL); POLYCHROMASIA SLIGHT; TARGET CELLS FEW
[2019-08-19 12:00] VITALS: BP 110/66
[2019-08-19 12:07] LABS: ACID FAST SPEC PROCESSING Concentration (.)
[2019-08-19 16:00] VITALS: BP 109/89
--- NOTE | 2019-08-19 19:00 | NUR ---
ASSUMED CARE FOR THIS PT AT THIS TIME. AWAKE IN BED WATCHING TV. DRY PROJECT GEOPHYSICIST COUGH NOTED. LUNGS CLEAR/DIM T/O. DENIES SOB. CALL LIGHT IN REACH.
[2019-08-19 20:00] VITALS: BP 142/55
--- NOTE | 2019-08-19 20:07 | NUR ---
PT C/O LT SHOULDER PAIN 11/15. MEDICATED W/NORCO. PT RESTING QUIETLY IN BED WATCHING TV. CALL LIGHT IN REACH.
--- NOTE | 2019-08-19 21:07 | NUR ---
PT STATES THAT NORCO DID NOT HELP HIS SHOULDER PAIN. WILL NOTIFY MD. PT REPOSITIONED FOR COMFORT AND AREA MASSAGED. CALL LIGHT IN REACH.
[2019-08-20] VITALS: BP 113/64
[2019-08-20 08:00] VITALS: BP 130/58
--- NOTE | 2019-08-20 08:21 | NUR ---
PT MEDICATED WITH PRN NORCO FOR C/O LEFT SHOULDER PAIN. PT RATES PAIN 09/14. WILL MONITOR.
--- NOTE | 2019-08-20 09:10 | NUR ---
PRN NORCO SOMEWHAT EFFECTIVE PER PT
[2019-08-20 12:00] VITALS: BP 103/77
--- NOTE | 2019-08-20 14:32 | NUR ---
PT MEDICATED WITH PRN NORCO FOR C/O LEFT SHOULDER PAIN WHIC HWAS AN OLD INJURY PER PT. PT RATES PAIN 09/14. WILL MONITOR
--- NOTE | 2019-08-20 15:15 | NUR ---
PRN NORCO EFFECTIVE PER PT.
[2019-08-20 16:00] VITALS: BP 109/55
[2019-08-20 20:00] VITALS: BP 115/89
--- NOTE | 2019-08-20 20:18 | NUR ---
RESTING IN BED. RESPIRATIONS EASY. LUNGS DIMINISHED, CLEAR. PULSE OX 97% RA, O2 PRESENT AT BEDSIDE FOR PRN USE. CLAIMS NON-PROD COUGH. REQUESTED AND RECEIVED NORCO PER PRN ORDER FOR C/O SHOULDER PAIN RATING A 9. CALL LIGHT WITHIN REACH. WILL MONITOR FOR EFFECTIVENESS
--- NOTE | 2019-08-20 21:00 | NUR ---
STATES EARLIER NORCO "HELPING" WITH PAIN. CALL LIGHT WITHIN REACH. NO FURTHER VOICED COMPLAINTS
[2019-08-21] VITALS: BP 135/63
--- NOTE | 2019-08-21 | NUR ---
SLEEPING. NO DISTRESS NOTED. RESPIRATIONS EASY. VSS. CALL LIGHT WITHIN REACH
--- NOTE | 2019-08-21 00:53 | NUR ---
24 HR chart check completed.
--- NOTE | 2019-08-21 02:03 | NUR ---
REQUESTED AND RECEIVED NORCO PER PRN ORDER FOR COMPLAINTS OF SHOULDER PAIN RATING A 10. CALL LIGHT WITHIN REACH. WILL MONITOR
[2019-08-21 05:53] LABS: HEMATOCRIT 27.3 % (42.0-52.0); MEAN CELL VOLUME 85.8 fl (80.0-94.0); MEAN CORPUSCULAR HGB 25.8 pg (27.0-31.0); MEAN PLATELET VOLUME 10.4 fl (9.6-12.3); NUCLEATED RED BLOOD CELL 0.1 10*3/uL (0.0-0.0); NUCLEATED RED BLOOD CELL 0.3 % (0.0-0.0); PLATELET COUNT AUTOMATED 143 10*3/uL (130-400); RED BLOOD COUNT 3.18 10*6/uL (4.50-5.90); WHITE BLOOD COUNT 26.8 10*3/uL (4.8-10.8)
[2019-08-21 05:57] LABS: BUN 41 mg/dl (7-24); CHLORIDE 100 mmol/L (98-107); CREATININE 1.15 mg/dL (0.70-1.30); SODIUM 138 mmol/L (136-145)
--- NOTE | 2019-08-21 06:00 | NUR ---
SLEEPING. NO DISTRESS NOTED. RESPIRATIONS EASY. CALL LIGHT WITHIN REACH. NO VOICED COMPLAINTS
[2019-08-21 06:09] LABS: DIGOXIN 1.19 ng/ml (0.8-2.0)
[2019-08-21 07:06] LABS: PLATELET SUFFICIENCY NORMAL (NORMAL); POLYCHROMASIA SLIGHT; TOTAL CELLS COUNTED 100 #CELLS
[2019-08-21 08:00] VITALS: BP 148/85
--- NOTE | 2019-08-21 08:14 | NUR ---
MEDICATED WITH PRN NORCO PER ORDER AND REQUEST FOR C/O OF "PAIN ALL OVER THIS OLD BODY."
--- NOTE | 2019-08-21 09:00 | NUR ---
PHYSICAL THERAPY Patient seen this am 1:1 for therapy visit and was sitting up on EOB upon therapist arrival. Patient identified by name / and presents with continuous O2-3L via NC. OT volunteer assistant was also present this morning for observation only as patient reports 9/10 L shoulder pain. Patient transfers sit to stand CGA and ambulates with use of st cane, 20'x 2 to bathroom, CGA and recorded resting SpO2 97%, HR 82 bpm. Patient also ambulated additional 100'x 2, st cane, CGA, demonstrating slow mell with decreased stride. Patient fatigued quickly upon return to EOB sit, needing v/c for purse lip breathing technique. Patient recorded SpO2 88%, HR 103 bpm following gait ex and after seated rest break approx 1 minute recorded SpO2 95%, HR 103 bpm. Patient remained EOB sit with call light, tray table and telephone but refused to have bed alarm activated. Patient instructed to not get up without hospistal staff Supervision and verbally agreed. Will continue per POC as tolerated, total treatment time 19 minutes. Dwight Braden, CHERRY CUTTER
--- NOTE | 2019-08-21 09:02 | NUR ---
Spoke to Omer SHORT, regarding SNF. She is adamant about patient not going to a SNF as she also takes care of her 76 yo father and doesn't want to take a chance with [facility]. She states patient has had [facility] home [facility] in the past and would like to have their services. Dr. Kahn notified.
--- NOTE | 2019-08-21 09:04 | NUR ---
ABDON MCDOWELL PATIENT IS PARTICIPATING IN PHYSICAL THERAPY.
--- NOTE | 2019-08-21 09:20 | NUR ---
OT NOTE Pt was seen this A.M. 1:1 for 25 minute OT session. Upon arrival pt was supine in bed. Pt identified by name and and had complaints of L shoulder pain which he did not rate on 0-10 pain scale. Pt presented to therapy with continuous 3L-O2 via NC which he remained on throughout the entire session. Pt's resting SpO2 97% and heart rate 82 bpm. Pt transferred supine to sit EOB with supervision. While sitting EOB pt donned socks and shoes with SBA while using compensatory technique of bringing his leg up to bed level. Sit to stand then completed from bed level with SBA and use of straight cane for UE support. Functional mobility was then completed to the bathroom with SBA and use of cane, throughout mobility pt required mod verbal prompts for slowing down due to being impulsive and presenting with poor safety awareness. Pt was educated on safety awareness which he continued to present with poor carry over increasing risk of falls. Pt transferred on/off standard commode with CGA and use of grab bar. Functional mobility completed back to the EOB. Challenged pt's dynamic standing tolerance needed for increased I in self care tasks and functional transfers, pt was able to tolerate aprox 4 minutes at a time before sitting due to SpO2 dropping to 88% and heart rate 103. With verbal prompts for breathing techniques within aprox 5 seconds pt's SpO2 raised back to 93% and heart rate 105 bpm. While seated EOB pt completed BUE towel exercises with mod resistance for 3 X 10 to increase and restore maximum functional strength. Pt was left sitting upright on the EOB with call light in hand, tray table in place, and phone in reach. Continue with POC as able. ANGELES Sotelo
--- NOTE | 2019-08-21 09:21 | NUR ---
PER SHOW CARD WRITER HERBER SANTOS REFERRAL FAXED TO [facility]. WILL NOTIFIY TAVON ORTEGA OF THE PATIENT RETURNING HOME WITH HOME HEALTH.
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
[2019-08-21] MEDS ORDERED: FLUCONAZOLE100 MG PO ×2 (11:18→15:50)
[2019-08-21 12:00] VITALS: BP 125/77
--- NOTE | 2019-08-21 12:23 | NUR ---
Received call from Velma at [facility] requesting updated address for [facility]. Faxed updated address.
--- NOTE | 2019-08-21 14:38 | NUR ---
MEDICATED WITH PRN NORCO PER ORDER AND REQUEST.
[2019-08-21] MEDS ORDERED: K-TAB20 MEQ PO (16:00)
--- NOTE | 2019-08-21 16:28 | NUR ---
PATIENT TO BE DISCHARGED TO HOME.
--- NOTE | 2019-08-21 17:22 | NUR ---
PATIENT HAS A RIDE HOME NOW AND IS DISCHARGED TO HOME WITH BELONGINGS.
--- NOTE | 2019-08-22 07:20 | NUR ---
Faxed discharge instructions to [facility]
--- NOTE | 2019-08-22 07:35 | NUR ---
PHYSICAL THERAPY CO-SIGN I approve of the Physical Therapy notes written above. Barbara Borrego PT
--- NOTE | 2019-08-22 07:52 | NUR ---
OCCUPATIONAL THERAPY CO-SIGN I approve of the Occupational Therapy notes written above. SUNI HOOVER, OTR/L
== END 2019-08-21 17:34 | disposition home health service (06) | DRG 871 ==
LOC: ED 05:45 → EDHOLD 07:00 → 4E 07:00 → EDHOLD 07:29 → 4E 08:26
PROVIDERS: Emergency Medicine; Internal Medicine; Internal Medicine Cardiovascular Disease; Internal Medicine Critical Care Medicine; Internal Medicine Nephrology; ADMIT Internal Medicine
PROC: 0BC78ZZ Extirpation of Matter from Left Main Bronchus, Via Natural or Artificial Opening Endoscopic (ICD-10-PCS; principal; 2019-08-17)
PROC: 0BC58ZZ Extirpation of Matter from Right Middle Lobe Bronchus, Via Natural or Artificial Opening Endoscopic (ICD-10-PCS; principal; 2019-08-17)
PROC: 0BC88ZZ Extirpation of Matter from Left Upper Lobe Bronchus, Via Natural or Artificial Opening Endoscopic (ICD-10-PCS; principal; 2019-08-17)
PROC: 0BCB8ZZ Extirpation of Matter from Left Lower Lobe Bronchus, Via Natural or Artificial Opening Endoscopic (ICD-10-PCS; principal; 2019-08-17)
PROC: 0BC98ZZ Extirpation of Matter from Lingula Bronchus, Via Natural or Artificial Opening Endoscopic (ICD-10-PCS; principal; 2019-08-17)
PROC: 0BC18ZZ Extirpation of Matter from Trachea, Via Natural or Artificial Opening Endoscopic (ICD-10-PCS; principal; 2019-08-17)
PROC: 0BC48ZZ Extirpation of Matter from Right Upper Lobe Bronchus, Via Natural or Artificial Opening Endoscopic (ICD-10-PCS; principal; 2019-08-17)
PROC: 0BC68ZZ Extirpation of Matter from Right Lower Lobe Bronchus, Via Natural or Artificial Opening Endoscopic (ICD-10-PCS; principal; 2019-08-17)
PROC: 0BC38ZZ Extirpation of Matter from Right Main Bronchus, Via Natural or Artificial Opening Endoscopic (ICD-10-PCS; principal; 2019-08-17)
DX: A41.9 Sepsis, unspecified organism (principal); J18.9 Pneumonia, unspecified organism; N17.0 Acute kidney failure with tubular necrosis; J96.21 Acute and chronic respiratory failure with hypoxia; J96.22 Acute and chronic respiratory failure with hypercapnia; E46 Unspecified protein-calorie malnutrition; I48.92 Unspecified atrial flutter; J44.0 Chronic obstructive pulmonary disease with (acute) lower respiratory infection; N39.0 Urinary tract infection, site not specified; J44.1 Chronic obstructive pulmonary disease with (acute) exacerbation; I48.21 Permanent atrial fibrillation; I50.40 Unspecified combined systolic (congestive) and diastolic (congestive) heart failure; Z68.1 Body mass index [BMI] 19.9 or less, adult; J20.9 Acute bronchitis, unspecified; F32.9 Major depressive disorder, single episode, unspecified; F41.9 Anxiety disorder, unspecified; I25.10 Atherosclerotic heart disease of native coronary artery without angina pectoris; I05.2 Rheumatic mitral stenosis with insufficiency; F17.210 Nicotine dependence, cigarettes, uncomplicated; B96.1 Klebsiella pneumoniae [K. pneumoniae] as the cause of diseases classified elsewhere; R91.1 Solitary pulmonary nodule; E87.5 Hyperkalemia; N18.9 Chronic kidney disease, unspecified; G89.29 Other chronic pain; K21.9 Gastro-esophageal reflux disease without esophagitis; E78.00 Pure hypercholesterolemia, unspecified; N40.0 Benign prostatic hyperplasia without lower urinary tract symptoms; Z20.828 Contact with and (suspected) exposure to other viral communicable diseases; Z88.8 Allergy status to other drugs, medicaments and biological substances; Z79.82 Long term (current) use of aspirin; Z79.899 Other long term (current) drug therapy; Z79.01 Long term (current) use of anticoagulants; Z95.5 Presence of coronary angioplasty implant and graft

== ENCOUNTER 2019-08-22 18:48 | Inpatient (IN) | payer OTHER ==
[~2019-08-22] VITALS: Ht 172.7 cm; Wt 66.5 kg
[~2019-08-22 18:48] MED LIST changes: +AMIODARONE HYD200 MG PO; +ASPIRIN CHEWABL81 MG PO; +CARDIZEM CD240 M1 PO; +ELIQUIS5 M1 PO; +FLUCONAZOLE100 MG PO; +HEALTHYLAX17 GM PO; +Ipratropium Brom3 ML INH; +K-TAB20 MEQ PO; +KLOR-CON M2020 ME1 PO; +LOPRESSOR50 M1 PO; +MAGOX 400400 MG PO; +MIRTAZAPINE30 M1 PO; +NEURONTIN300 MG PO; +OMEPRAZOLE MAGN20 MG PO; +PRAVACHOL40 MG PO; +PREDNISONE10 M1 PO; +PROAIR DIGIHAL90 MCG INH; +TRELEGY ELLIPT1 EACH INH; +XANAX0.5 MG PO
[2019-08-22 18:59] VITALS: BP 110/65
[2019-08-22 19:27] LABS: HEMATOCRIT 28.5 % (42.0-52.0); MEAN CORPUSCULAR HGB 25.3 pg (27.0-31.0); MEAN CORPUSCULAR HGB CONC 28.8 g/dl (33.0-37.0); MEAN PLATELET VOLUME 9.8 fl (9.6-12.3); NUCLEATED RED BLOOD CELL 0.1 10*3/uL (0.0-0.0); NUCLEATED RED BLOOD CELL 0.5 % (0.0-0.0); PLATELET COUNT AUTOMATED 143 10*3/uL (130-400); RED BLOOD COUNT 3.24 10*6/uL (4.50-5.90); RED CELL DISTRI WIDTH 20.6 % (0-14.5); WHITE BLOOD COUNT 21.7 10*3/uL (4.8-10.8)
[2019-08-22 19:43] LABS: ALKALINE PHOSPHATASE 60 U/L (45-117); CHLORIDE 100 mmol/L (98-107); SGOT/AST 16 IU/L (3-35); SGPT/ALT 38 U/L (12-78); SODIUM 138 mmol/L (136-145); TOTAL PROTEIN 6.1 gm/dL (6.4-8.2)
[2019-08-22 19:50] LABS: BUN 63 mg/dl (7-24)
[2019-08-22 19:52] LABS: TROPONIN I 0.056 ng/ml (<0.045)
[2019-08-22 19:59] LABS: PLATELET SUFFICIENCY LOW (NORMAL); TOTAL CELLS COUNTED 100 #CELLS
[2019-08-22 20:00] LABS: POLYCHROMASIA SLIGHT
[2019-08-22 20:01] LABS: OVALOCYTES FEW; STOMATOCYTE FEW
[2019-08-22 20:50] VITALS: BP 113/56
--- NOTE | 2019-08-22 21:15 | NUR ---
RN READY FOR PATIENT TO BE TRANSPORTED TO ICCU AT THIS TIME, RESIDENT ORDERING CT SCAN AND WANTS DONE PRIOR TO TAKING UPSTAIRS. PATIENT GOING TO CT SCAN AT THIS TIME.
[2019-08-22 22:15] VITALS: BP 109/55
--- NOTE | 2019-08-22 22:15 | NUR ---
A 69, admitted to ICCU, under the services of SWEETIE Chatman MD with a diagnosis of CHF. Chief complaint is SHORTNESS OF BREATHE. Patient arrived via bed from ER. Monitor applied. Initial assessment completed. Vital signs taken and recorded. SWEETIE CHATMAN MD notified of admission to the unit. Orders received. See assessment for past medical history, medications and allergies. Patient and/or family oriented to unit. [facility] ICCU visitation policy reviewed. Clothing/patient valuable form completed. SPOKE WITH ERIN VYAS. MED REC UP-TO-DATE, ORDERS RECEIVED. BRANDY CRUZ
[2019-08-22 22:31] LABS: ACT PARTIAL THROMBO TIME 23.1 SECONDS (20.0-32.1)
[2019-08-22 22:41] LABS: BILIRUBIN NEGATIVE (NEGATIVE); BLOOD NEGATIVE (NEGATIVE); CLARITY CLEAR (CLEAR); COLOR YELLOW (YELLOW); GLUCOSE NEGATIVE (NEGATIVE); KETONE NEGATIVE (NEGATIVE); LEUKO ESTERASE NEGATIVE (NEGATIVE); NITRITE NEGATIVE (NEGATIVE); UROBILINOGEN 0.2 E.U./dl (0.2-1.0)
[2019-08-22 23:20] LABS: RBC 0-2 rbc/hpf (0-2); WBC 0-2 wbc/hpf (0-5)
--- NOTE | 2019-08-22 23:30 | NUR ---
DR. DAVENPORT NOTIFIED OF CONSULT FOR ELEVATED TROPONINS. PATIENT CONDITION REVIEWED. DR. DAVENPORT STATES HE WILL SEE THE PATIENT TOMORROW.
[2019-08-23] VITALS: BP 116/56
[2019-08-23 01:11] LABS: BUN 61 mg/dl (7-24); CHLORIDE 99 mmol/L (98-107); CREATININE 1.23 mg/dL (0.70-1.30); SODIUM 139 mmol/L (136-145)
[2019-08-23 01:14] LABS: POTASSIUM 4.5 mmol/L (3.5-5.1)
--- NOTE | 2019-08-23 02:45 | NUR ---
NORCO GIVEN PER PT REQUEST FOR LEFT SHOULDER PAIN RATED A 6/10. PATIENT SAYS THE PAIN ONLY HURTS WHEN HES TRYING TO GET UP. WILL CONTINUE TO MONITOR AND REASSESS. CALL LIGHT WITHIN REACH.
--- NOTE | 2019-08-23 03:40 | NUR ---
NORCO EFFECTIVE. PATIENT SLEEPING AT THIS TIME.
[2019-08-23 04:00] VITALS: BP 107/54
[2019-08-23 05:19] LABS: BUN 60 mg/dl (7-24); CHLORIDE 100 mmol/L (98-107); CREATININE 1.22 mg/dL (0.70-1.30); POTASSIUM 4.3 mmol/L (3.5-5.1); SODIUM 141 mmol/L (136-145)
[2019-08-23 06:04] LABS: HEMATOCRIT 27.9 % (42.0-52.0); MEAN CORPUSCULAR HGB 25.2 pg (27.0-31.0); MEAN CORPUSCULAR HGB CONC 28.7 g/dl (33.0-37.0); MEAN PLATELET VOLUME 11.4 fl (9.6-12.3); NUCLEATED RED BLOOD CELL 0.1 10*3/uL (0.0-0.0); NUCLEATED RED BLOOD CELL 0.5 % (0.0-0.0); PLATELET COUNT AUTOMATED 154 10*3/uL (130-400); RED BLOOD COUNT 3.17 10*6/uL (4.50-5.90); RED CELL DISTRI WIDTH 20.5 % (0-14.5); WHITE BLOOD COUNT 19.5 10*3/uL (4.8-10.8)
[2019-08-23 06:38] LABS: TOTAL CELLS COUNTED 100 #CELLS
[2019-08-23 06:39] LABS: PLATELET SUFFICIENCY NORMAL (NORMAL); POLYCHROMASIA SLIGHT; TARGET CELLS FEW
[2019-08-23 06:40] LABS: OVALOCYTES FEW
--- NOTE | 2019-08-23 07:45 | NUR ---
ORTHOS OBTAINED BY MACKENZIE MACIEL RN, SEE INTERVENTION. PATIENT TOLERATED WELL.
--- NOTE | 2019-08-23 07:47 | NUR ---
PHYSICAL THERAPY Screen and PT eval received will follow thank you Barbara Borrego PT
--- NOTE | 2019-08-23 07:51 | NUR ---
ATTEMPTED TO CALL DR RIVERA REGARDING CONSULT, NO ANSWER. WILL RETRY.
[2019-08-23 08:00] VITALS: BP 110/60
--- NOTE | 2019-08-23 08:13 | NUR ---
CONSULT CALLED TO INFECTIOUS DISEASE AT THIS TIME.
--- NOTE | 2019-08-23 08:30 | NUR ---
CONSULT CALLED TO DR RIVERA AT THIS TIME
--- NOTE | 2019-08-23 09:00 | NUR ---
NORCO GIVEN FOR C/O SHOULDER PAIN, PATIENT YELLING OUT AT THIS TIME. STANDING AT END OF BED, YELLING AT [facility] AND LOUDLY SWEARING. MULTIPLE REDIRECTION ATTEMPTS WERE MADE. NONE WERE SUCCESSFUL
--- NOTE | 2019-08-23 09:30 | NUR ---
PATIENT BATHED AT THIS TIME, BED WAS ALSO CHANGED WHILE PATIENT WAS UP IN THE CHAIR AT THE BEDSIDE. TOLERATED WELL. RN WILL CONTINUE TO MONITOR
--- NOTE | 2019-08-23 09:39 | NUR ---
DR RIVERA IN TALKING WITH PATIENT AT THIS TIME.
--- NOTE | 2019-08-23 10:15 | NUR ---
PATIENT HAS SETTLED DOWN AND IS NO LONGER YELLING. PATIENT STATES PAIN MEDIATION HAS HELPED BUT IT STILL HURTS.
--- NOTE | 2019-08-23 10:45 | NUR ---
Arcade Games Mechanic in to talk to patient. Patient states lives at home with his friend, Omer. There are 5 outside steps in the home. Physician: Dr. Borrego Pharmacy: [facility] Home health services: [facility] Patient's level of ADLs: MINIMAL ASSIST Patient has working utilities: yes DME: cane, O2 @ 3L nc, nebulizer, O2 supplier unknown Follow-up physician's appointment after d/c: he prefers to make his own follow up appt after discharge Does patient want to access PORTAL?: no Discharge plan discussed with patient. He lives with a friend. He needs assistance with his ADLs and ambulates with a cane. Discussed short term rehab and he is agreeable. Asked if CM could call Omer and he said yes. Will reach out to Omer. HERBER SIDDIQI
--- NOTE | 2019-08-23 10:50 | NUR ---
DR DAVENPORT IN TO SEE PATIENT
--- NOTE | 2019-08-23 11:07 | NUR ---
Spoke to friend and POA, Omer, regarding discharge planning. Explained patient would like to go to a SNF and she states "He never said that to me." She would like to discuss with patient prior to making a decision.
--- NOTE | 2019-08-23 11:28 | NUR ---
STATIONARY ENGINEER SUPERVISOR FAXED REFERRAL TO [facility] TO BE REVIEWED.
[2019-08-23 12:00] VITALS: BP 125/76; BP 92/39
[2019-08-23 14:06] LABS: ABG BASE EXCESS 11.3 mmol/L (-2.0-2.0); ARTERIAL BLOOD GAS PH 7.412 (7.35-7.45)
--- NOTE | 2019-08-23 14:40 | NUR ---
NURSING OUTREACH AND EDUCATION SOCIAL WORKER MADE AWARE OF ORDER TO TRANSFER PATIENT TO TELEMETRY
--- NOTE | 2019-08-23 14:43 | NUR ---
Discussed discharge planning with Dr. Vazquez and patient. Patient is agreeable to go to [facility] as previously. Asked if he spoke to his POA, Omer, and he stated that he did and then called her on his cell phone. Discussed short term rehab with Omer and she is agreeable with his decision. Explained it would be [facility] as that was patient's choice. Discussed the facility not having any positive COVID cases as that was a main concern of hers last admission. Discussed all patients have to be tested prior to discharging to any of our local facilities and she verbalized an understanding. piggery worker notified.
--- NOTE | 2019-08-23 15:16 | NUR ---
PRECERT IS REQUIRED FOR SNF PLACEMENT. PATIENT HAS BEEN ACCEPTED AT [facility]. [facility] STATED PATIENT REQUIRES NEW COVID TESTING. HOSE FINISHER HERBER IS AWARE.
--- NOTE | 2019-08-23 15:30 | NUR ---
DR RIVERA CALLED IN AND REQUESTED PATIENT TO HAVE CT CHEST W/O CONTRAST AND TO OBTAIN A FECAL OCCULT BLOOD.
--- NOTE | 2019-08-23 15:56 | NUR ---
Patient resting quietly with no c/o discomfort,APPEARS TO BE SLEEPING WITH EYES CLOSED. Respirations easy and regular. Vital signs stable. No overt distress. AGUSTINA RAY
[2019-08-23 16:00] VITALS: BP 135/82; BP 98/60
--- NOTE | 2019-08-23 16:43 | NUR ---
PATIENT AGAIN STANDING AT THE END OF THE BED, YELLING AT THE RN'S. SWEARING LOUDLY AND BECOMING AGGRESSIVE. PATIENT HAS SLAMMED PHONE DOWN ON THE TABLE.
--- NOTE | 2019-08-23 16:57 | NUR ---
PATIENT HAS MADE MULTIPLE THREATS TO THESE RN, CONTINUES TO COME TO THE DESK AND YELL AND SWEAR AT THE NURSES. CONTINUES TO BE LOUD AND AGGRESSIVE. PATIENT STANDING AT DESK CALLING MULTIPLE PEOPLE ON HIS CELL PHONE. PATIENT HAS SHOVED PHONE IN THE FACE OF THIS RN AND IS BECOMING LOUD. RN CALLED DR MCMILLAN AT THIS TIME, DR MCMILLAN STATES TO CHANGE DIET ORDER TO MAKE PATIENT HAPPY
--- NOTE | 2019-08-23 17:34 | NUR ---
PATIENT HAS RECIEVED DINNER TRAY BUT CONTINUES TO YELL OUT AND SWEAR ABOUT THE DIFFERENT THINGS ON HIS DINNER TRAY. REFUSING TO ALLOW RN TO RECOONECT THE HEART MONITOR.
--- NOTE | 2019-08-23 17:45 | NUR ---
PATIENT CONTINUES TO BE OFF THE HEART MONITOR, IS REFUSING TO ALLOW THIS RN OR OTHERS TO PLACE HIM BACK ON THE HEART MONITOR. PATIENT STATES "WE CAN TRY LATER"
--- NOTE | 2019-08-23 18:07 | NUR ---
PATIENT MEDICATED WITH PRN NORCO FOR COMPLAINTS OF SHOULDER PAIN AT THIS TIME. RN WILL MONITOR FOR EFFECTIVENESS
[2019-08-23 20:00] VITALS: BP 97/44
--- NOTE | 2019-08-23 20:00 | NUR ---
PT SITTING UP ON SIDE OF BED TALKING ON PHONE, A&O, PLESANT AND COOPERATIVE. RESP NONLABORED. NO ACUTE DISTRESS NOTED. NO COMPLAINTS VOICED. DENIES ANY PAIN OR DISCOMFORT AT THIS TIME. SAMARA PATENT.
--- NOTE | 2019-08-23 23:08 | NUR ---
MEDICATED WITH NORCO PER PRN ORDER FOR C/O LEFT SHOULDER PAIN.
[2019-08-24] VITALS (13 sets, daily range): BP systolic 92–134; BP diastolic 42–58
--- NOTE | 2019-08-24 00:48 | NUR ---
DR CAGLE NOTIFIED OF + BLOOD CULTURES GPC IN PAIRS AND CLUSTERS IN ANEROBIC BOTTLE.
--- NOTE | 2019-08-24 04:41 | NUR ---
MEDICATED WITH NORCO PER PRN ORDER FOR C/O LAFT SHOULDER PAIN.
[2019-08-24 06:04] LABS: HEMATOCRIT 26.1 % (42.0-52.0); MEAN CELL VOLUME 87.9 fl (80.0-94.0); MEAN CORPUSCULAR HGB 25.3 pg (27.0-31.0); MEAN CORPUSCULAR HGB CONC 28.7 g/dl (33.0-37.0); MEAN PLATELET VOLUME 10.7 fl (9.6-12.3); NUCLEATED RED BLOOD CELL 0.2 10*3/uL (0.0-0.0); NUCLEATED RED BLOOD CELL 0.8 % (0.0-0.0); PLATELET COUNT AUTOMATED 141 10*3/uL (130-400); RED BLOOD COUNT 2.97 10*6/uL (4.50-5.90); RED CELL DISTRI WIDTH 20.6 % (0-14.5); WHITE BLOOD COUNT 21.2 10*3/uL (4.8-10.8)
[2019-08-24 06:20] LABS: TOTAL CELLS COUNTED 100 #CELLS
[2019-08-24 06:21] LABS: OVALOCYTES FEW; PLATELET SUFFICIENCY NORMAL (NORMAL); POLYCHROMASIA SLIGHT; STOMATOCYTE FEW; TARGET CELLS FEW
[2019-08-24 06:30] LABS: CHLORIDE 99 mmol/L (98-107); CREATININE 1.16 mg/dL (0.70-1.30); POTASSIUM 4.4 mmol/L (3.5-5.1); SODIUM 139 mmol/L (136-145)
[2019-08-24 06:40] LABS: BUN 50 mg/dl (7-24)
--- NOTE | 2019-08-24 09:00 | NUR ---
Deputy Fire Chief in to see patient. No new needs or request at this time. When medically stable and auth is received he will be discharged to [facility]. asbestos removal worker following.
--- NOTE | 2019-08-24 09:15 | NUR ---
Pt voiced pain to left shoulder. Pain radiating to arm, balta 12/15. Medicated with Morco as ordered.
--- NOTE | 2019-08-24 10:55 | NUR ---
PHYSICAL THERAPY Eval received chart reviewed attempted to see pt in ICCU, however pt being transfered to telemetry floor will complete eval later this PM as pt available. Barbara Borrego PT
--- NOTE | 2019-08-24 11:25 | NUR ---
PT VOCIED FEELING BETTER AFTER NORCO. SOME RELIEF FROM SHOULDER PAIN. PT DID NOT WANT A BATH THIS AM. VOICED HE WOULD GET ONE LATER. PT TRANSFERED TO MED-SURG VIA BED IN STABLE CONDITION. REPORT GIVEN TO DEBBY.
--- NOTE | 2019-08-24 12:28 | NUR ---
Occupational therapy order received and chart reviewed. Attempted to see patient this morning in the [facility] however patient in process of being transferred to medical floor. Will follow up. Thank you. Ifeoma Cline, OTR/L
--- NOTE | 2019-08-24 13:30 | NUR ---
Occupational Therapy evaluation completed on five with full evaluation to follow. Recommend occupational therapy per plan of care and SNF upon discharge. Thank you for this referral. Ifeoma Cline OTR/L
--- NOTE | 2019-08-24 14:30 | NUR ---
VITALS OBTAINED AT THIS TIME. BLOOD CONSENT SIGNED. PT EDUCATED ON BLOOD ADMINISTRATION.
--- NOTE | 2019-08-24 15:00 | NUR ---
BLOOD ADMINISTRATION STARTED AT THIS TIME. VITALS OBTAINED.
--- NOTE | 2019-08-24 15:27 | NUR ---
Physical Therapy evaluation completed on 5th floor with full evaluation to follow. Recommend physical therapy per plan of care and SNF upon discharge. Thank you for this referral. Barbara Borrego PT
--- NOTE | 2019-08-24 15:45 | NUR ---
NO S/S OF BLOOD REACTION. PT HAS NO STATED COMPLAINTS. 3L NC INTACT. CALL LIGHT WITHIN REACH. WILL CONTINUE TO MONITOR.
--- NOTE | 2019-08-24 17:40 | NUR ---
BLOOD ADMINISTRATION IS COMPLETE. PT'S VITALS ARE STABLE. NO S/S OF REACTION. NO STATED COMPLAINTS. BED IN LOWEST PRINCESS POSITION. CALL LIGHT WITHIN REACH. WILL CONTINUE TO MONITOR.
--- NOTE | 2019-08-24 19:31 | NUR ---
24 HR CHART CHECK COMPLETE.
--- NOTE | 2019-08-24 20:19 | NUR ---
PT IS SITTING UP IN BED AT THIS TIME. NO C/O PAIN VOICED. 3L NC IN USE, RESPS ARE EASY AND NONLABORED. BED IS LOW, CALL LIGHT WITHIN REACH. WILL CONTINUE TO MONITOR.
[2019-08-25] VITALS: BP 119/60
--- NOTE | 2019-08-25 04:22 | NUR ---
PT MEDICATED WITH PRN NORCO FOR C/O PAIN IN LEFT FOOT RATED A 10/10. WILL MONITOR FOR EFFECTIVENESS.
--- NOTE | 2019-08-25 05:10 | NUR ---
PT ASLEEP IN BED AT THIS TIME. NO S/S OF DISTRESS NOTED. PRN NORCO APPEARS TO BE EFFECTIVE.
[2019-08-25 06:52] LABS: HEMATOCRIT 26.5 % (42.0-52.0); MEAN CELL VOLUME 86.3 fl (80.0-94.0); MEAN CORPUSCULAR HGB 25.7 pg (27.0-31.0); MEAN CORPUSCULAR HGB CONC 29.8 g/dl (33.0-37.0); MEAN PLATELET VOLUME 11.2 fl (9.6-12.3); NUCLEATED RED BLOOD CELL 0.3 10*3/uL (0.0-0.0); NUCLEATED RED BLOOD CELL 1.8 % (0.0-0.0); PLATELET COUNT AUTOMATED 131 10*3/uL (130-400); RED BLOOD COUNT 3.07 10*6/uL (4.50-5.90); RED CELL DISTRI WIDTH 19.9 % (0-14.5); WHITE BLOOD COUNT 15.1 10*3/uL (4.8-10.8)
[2019-08-25 07:12] LABS: TOTAL CELLS COUNTED 100 #CELLS
[2019-08-25 07:13] LABS: OVALOCYTES FEW; PLATELET SUFFICIENCY NORMAL (NORMAL); POLYCHROMASIA SLIGHT; TARGET CELLS FEW
[2019-08-25 07:22] LABS: BUN 42 mg/dl (7-24); CHLORIDE 101 mmol/L (98-107); CREATININE 0.97 mg/dL (0.70-1.30); POTASSIUM 3.9 mmol/L (3.5-5.1); SODIUM 141 mmol/L (136-145)
[2019-08-25 08:00] VITALS: BP 110/77
--- NOTE | 2019-08-25 08:23 | NUR ---
GRAPHIC USER INTERFACE DESIGNER FAXED UPDATES TO [facility].
--- NOTE | 2019-08-25 08:30 | NUR ---
0800 AM ASSESSMENT COMPLETE. PT SLEEPING, AROUSES EASILY. LUNGS WITH SCATTERED RHONCHI ON 3L NC. DENIES C/O AT PRESENT TIME. BED IN LOW LOCKED POSITION. CALL LIGHT IN REACH. WILL MONITOR.
--- NOTE | 2019-08-25 08:43 | NUR ---
PRECERT HAS BEEN STARTED.
--- NOTE | 2019-08-25 09:30 | NUR ---
Wood Last Maker in to see patient. No new needs or request at this time. When medically stable and auth is received he will be discharged to [facility]. social welfare research worker following.
--- NOTE | 2019-08-25 09:45 | NUR ---
PHYSICAL THERAPY Patient seen this am 1;1 for therapy visit and was resting supine in bed upon therapist arrival. Patient identified by name / and reports 8/10 R LE pain / edema from recent fall at home. Patient presents with continuos O2-3L via NC and records resting SpO2 92%, HR 97 bpm prior to transfering supine to sit EOB SBA. Patient completed several sit to stand transfers at bedside, use of wh walker standing support and ambulated 10'x 1 to bathroom, CGA, then additional 30'x 1, wh walker, demonstrating slow, cautious gait pattern and still pretty unsteady during all turns. Patient returned to EOB sit and remained with call light, tray table and telephone as patient refused bed alarm. Patient instructed to call for assistance for all standing activities and verbally voiced his understanding. Will continue per POC as tolerated, total treatment time 15 minutes. Dwight Braden, DATA SUPPORT ANALYST
--- NOTE | 2019-08-25 10:05 | NUR ---
OT NOTE Pt was seen this date for 1:1 25 minute therapy treatment and was identified by name and . Upon arrival pt supine in bed w 3LO2 via NC. Pt appeared tired but was agreeable to treatment. Pt complained of pain in L shoulder which he did not rate on 0-10 pain scale and RLE 8.5/10 pain. Pt also presented with mild edema in B feet. At rest pts SpO2 was 92% and heart rate 97bpm. Pt transferred to EOB w S and requested to don shoes. Pt doffed socks using a compensatory strategy of bringing his leg up onto his knee w S. Pt attempted to don shoes but refused to utalize compensatory technique resulting in Mod A to complete task. S/SUPERVISOR FLOOR ASSEMBLY applied gait belt to pt for safety. Pt ambulated to bathroom w SBA and completed a stand<>sit transfer on/off commode with supervision requiring verbal cues for hand placement on grab bar for safety. Pt demonstrated poor safety awareness w O2 cord mgmt and as a result education was reinforced w fair carryover. Pt returned seated at EOB for a rest break w a SpO2 of 86% and heart rate of 107bpm. After 2 min rest break SpO2 read 97% and heart rate 99bpm. Pt then requested if he could wear his gown "like a robe" for comfort. Pt completed a sit to stand from EOB to perform UB dressing w Darion and used a compensatory technique by dressing his LUE as it was more painful and displayed limited ROM. At end of session pt seated at EOB w shoes donned, call light within reach, and 3LO2 via NC intact. Attempted to apply bed alarm for safety however pt adamantly refused. Continue w recommended D/C to SNF. Sharmaine Meade, Gamal/SPIKE Kwan/Stevo
--- NOTE | 2019-08-25 10:21 | NUR ---
NORCO GIVEN FOR C/O BLE PAIN. RATES 6/10 ON PAIN SCALE. WILL MONITOR.
--- NOTE | 2019-08-25 11:27 | NUR ---
DR. HAGER NOTIFIED OF CONSULT
--- NOTE | 2019-08-25 11:30 | NUR ---
ABDON HELPING, NO FULLLY EFFECTIVE. WILL MONITOR.
[2019-08-25 12:00] VITALS: BP 117/55
--- NOTE | 2019-08-25 12:37 | NUR ---
OCCUPATIONAL THERAPIST'S ASSISTANT COMPLETED HENS.
--- NOTE | 2019-08-25 12:46 | NUR ---
MORPHINE GIVEN FOR C/O BLE PAIN. RATES 8/10 ON PAIN SCALE. WILL MONITOR.
--- NOTE | 2019-08-25 13:10 | NUR ---
Discussed continuation/discontinuation of telemetry with Dr. Frost. He states he will reorder the monitor due to patient having a fib and going into RVR occasionally.
--- NOTE | 2019-08-25 14:35 | NUR ---
OCCUPATIONAL THERAPY CO-SIGN I approve of the Occupational Therapy notes written above. SUNI HOOVER, OTR/L
--- NOTE | 2019-08-25 14:50 | NUR ---
SITTING AT BEDSIDE. DENIES C/O, O2 MAINTAINED VIA NC. DENIES C/O AT PRESENT TIME. CALL LIGHT IN REACH. WILL MONITOR.
--- NOTE | 2019-08-25 15:07 | NUR ---
Spoke to Omer SHORT, regarding waiting on insurance approval for patient to go to SNF. She states patient called her and said he is not able to go to SNF. Explained his insurance has to give SNF approval and he has to be negative COVID. She verbalized an understanding. Discussed with patient also and he verbalized an understanding.
--- NOTE | 2019-08-25 15:23 | NUR ---
PHYSICAL THERAPY CO-SIGN I approve of the Physical Therapy notes written above. Barbara Borrego PT
--- NOTE | 2019-08-25 15:51 | NUR ---
REFUSED AEROSOL TREATMENT AT THIS TIME PT. BATHING
[2019-08-25 16:00] VITALS: BP 116/59
--- NOTE | 2019-08-25 16:27 | NUR ---
RECEIVED A CALL FROM INSURANCE THAT PT SNF WAS DENIED DUE TO PT NOT BEING STABLE TO DISCHARGE. A PEER TO PEER COULD BE COMPLETED BY NOON TOMORROW. AT [phone]. DR MCMILLAN INFORMED OR PEER TO PEER NUMBER BUT STATES PT IS NOT STABLE DUE TO GI BLEED SO HE WILL BE STAYING.
[2019-08-25 20:00] VITALS: BP 150/58
--- NOTE | 2019-08-25 20:00 | NUR ---
AWAKE & ALERT RESTING IN BED. 02 INTACT; DYSPNIC AT REST. PT. ADAMANTLY REFUSES TO LET ME PUT THE BED ALARM ON EVEN THOUGH I EXPLAINED BENEFITS OF IT. CALL LIGHT REMAINS WITHIN REACH. EDUCATED PATIENT ON PUTTING VENEER CLIPPER HELPER LIGHT IF HE NEEDS HELP GETTING OOB. PT. VERBALIZED UNDERSTANDING.
--- NOTE | 2019-08-25 20:28 | NUR ---
MEDICATED WITH NORCO FOR C/O SHOULDER PAIN RATED AN 8/10.
--- NOTE | 2019-08-25 21:15 | NUR ---
RESTING IN BED WITH EYES CLOSED; NORCO APPARENTLY EFFECTIVE.
[2019-08-26] VITALS: BP 115/48
--- NOTE | 2019-08-26 02:47 | NUR ---
MEDICATED WITH NORCO FOR C/O SHOULDER PAIN.
--- NOTE | 2019-08-26 03:30 | NUR ---
RESTING IN BED WITH EYES CLOSED; NORCO APPARENTLY EFFECTIVE.
[2019-08-26 06:02] LABS: HEMATOCRIT 28.3 % (42.0-52.0); MEAN CELL VOLUME 88.4 fl (80.0-94.0); MEAN CORPUSCULAR HGB 25.6 pg (27.0-31.0); MEAN PLATELET VOLUME 12.1 fl (9.6-12.3); NUCLEATED RED BLOOD CELL 0.2 % (0.0-0.0); PLATELET COUNT AUTOMATED 130 10*3/uL (130-400); RED CELL DISTRI WIDTH 20.6 % (0-14.5); WHITE BLOOD COUNT 12.6 10*3/uL (4.8-10.8)
[2019-08-26 06:27] LABS: ALBUMIN 2.7 gm/dl (3.1-4.5); BUN 39 mg/dl (7-24); CHLORIDE 100 mmol/L (98-107); POTASSIUM 4.5 mmol/L (3.5-5.1); SGOT/AST 19 IU/L (3-35); SGPT/ALT 41 U/L (12-78); SODIUM 140 mmol/L (136-145); TOTAL PROTEIN 6.3 gm/dL (6.4-8.2)
[2019-08-26 06:28] LABS: ALKALINE PHOSPHATASE 76 U/L (45-117); BILIRUBIN, DIRECT 0.2 mg/dL (0.0-0.2); CREATININE 1.27 mg/dL (0.70-1.30)
[2019-08-26 07:52] LABS: PLATELET SUFFICIENCY NORMAL (NORMAL); POLYCHROMASIA SLIGHT; TOTAL CELLS COUNTED 100 #CELLS
[2019-08-26 08:00] VITALS: BP 140/60
--- NOTE | 2019-08-26 08:15 | NUR ---
ABDON FOR 8/10 SHOULDER PAIN
--- NOTE | 2019-08-26 09:15 | NUR ---
PAIN MED EFFECTIVE
[2019-08-26 12:00] VITALS: BP 123/54
[2019-08-26 16:00] VITALS: BP 130/63
--- NOTE | 2019-08-26 16:00 | NUR ---
Consent obtained for EGD and colonscopy with biospies.
--- NOTE | 2019-08-26 16:52 | NUR ---
Held dax due to procedure tomorrow with biospies.
[2019-08-26 20:00] VITALS: BP 129/81
--- NOTE | 2019-08-26 23:00 | NUR ---
PT. C/O ABOUT NOT BEING ABLE TO BREATHE & REQUESTING AN AEROSOL TX.
--- NOTE | 2019-08-26 23:05 | NUR ---
CALLED DR. MCMILLAN PERTAINING TO PRN AEROSOL TX'S; NEW ORDER RECEIVED.
--- NOTE | 2019-08-26 23:42 | NUR ---
PT. STILL HAVING DIFFICULTY BREATHING. SITTING UP AT BEDSIDE. TOOK PATIENT HOT TEA & MEDICATED HIM WITH XANAX FOR ANXIETY & NORCO FOR PAIN. CALL LIGHT WITHIN REACH; WILL CONTINUE TO MONITOR.
[2019-08-27] VITALS (19 sets, daily range): BP systolic 102–168; BP diastolic 46–89
--- NOTE | 2019-08-27 00:30 | NUR ---
RESTING IN BED WITH EYES CLOSED; 02 ON. CALL LIGHT WITHIN REACH.
--- NOTE | 2019-08-27 02:00 | NUR ---
PT. UP AGAIN & STATING THAT HE CANNOT BREATHE. O2 NOT IN USE; PUT 02 BACK IN. PT. ENCOURAGED TO USE URINAL RATHER THAN EXPEND HIS ENERGY GOING TO THE BATHROOM. PT. INSISTS ON GOING TO THE BATHROOM. ENCOURAGED HIM TO USE CALL LIGHT IF HE NEEDS HELP. VERBALIZED UNDERSTANDING.
--- NOTE | 2019-08-27 04:00 | NUR ---
RESTING IN BED WITH EYES CLOSED. 02 INTACT. CALL LIGHT WITHIN REACH.
--- NOTE | 2019-08-27 06:26 | NUR ---
MEDICATED WITH XANAX FOR ANXIETY & NORCO FOR C/O GENERALIZED DISCOMFORT.
[2019-08-27 06:31] LABS: BASO % 0.1 % (0.0-1.0); EOS # 0.1 10*3/uL (0.0-0.4); EOS % 0.6 % (1.0-4.0); HEMATOCRIT 26.7 % (42.0-52.0); LYMPH # 1.1 10*3/uL (1.3-4.4); LYMPH % 6.8 % (27.0-41.0); MEAN CELL VOLUME 87.5 fl (80.0-94.0); MEAN CORPUSCULAR HGB 25.9 pg (27.0-31.0); MEAN CORPUSCULAR HGB CONC 29.6 g/dl (33.0-37.0); MEAN PLATELET VOLUME 11.1 fl (9.6-12.3); MONO # 1.3 10*3/uL (0.1-1.0); MONO % 7.9 % (3.0-9.0); NEUT # 13.7 10*3/uL (2.3-7.9); NUCLEATED RED BLOOD CELL 0.1 % (0.0-0.0); PLATELET COUNT AUTOMATED 127 10*3/uL (130-400); RED BLOOD COUNT 3.05 10*6/uL (4.50-5.90); RED CELL DISTRI WIDTH 20.9 % (0-14.5); WHITE BLOOD COUNT 16.5 10*3/uL (4.8-10.8)
[2019-08-27 06:55] LABS: ALBUMIN 2.6 gm/dl (3.1-4.5); BUN 32 mg/dl (7-24); CHLORIDE 97 mmol/L (98-107); CREATININE 0.74 mg/dL (0.70-1.30); SGOT/AST 27 IU/L (3-35); SGPT/ALT 52 U/L (12-78); SODIUM 140 mmol/L (136-145)
[2019-08-27 06:58] LABS: ALKALINE PHOSPHATASE 64 U/L (45-117); TOTAL PROTEIN 5.8 gm/dL (6.4-8.2)
[2019-08-27 07:04] LABS: POTASSIUM 3.5 mmol/L (3.5-5.1)
--- NOTE | 2019-08-27 07:42 | NUR ---
SENT TO SURGERY VIA BED FOR EGD/COLONOSCOPY
--- NOTE | 2019-08-27 08:18 | NUR ---
DR. MCMILLAN AWARE OF POSITIVE BLOOD CULTURE RESULTS
--- NOTE | 2019-08-27 08:25 | NUR ---
PER DR. MCMILLAN REQUEST, CALLED ANSWERING SERVICE TO NOTIFY ID OF POSITIVE BLOOD CULTURE RESULTS, June EDITOR HOUSE ORGAN, AWAIT CALL BACK
[2019-08-27 09:09] LABS: COMPLEMENT C4 16 mg/dL (14-44)
--- NOTE | 2019-08-27 09:11 | NUR ---
LUDWIG LEE NP WITH ID, CALLED BACK, AWARE OF BLOOD CULTURE RESULTS, NO NEW ORDERS AT THIS TIME
--- NOTE | 2019-08-27 09:35 | NUR ---
RETURN FROM SURGERY
--- NOTE | 2019-08-27 10:30 | NUR ---
DR. MCMILLAN IN TO SEE PATIENT. ORDER TO GIVE ONE UNIT OF BLOOD TODAY
--- NOTE | 2019-08-27 12:27 | NUR ---
PT AWARE DR. MCMILLAN ORDERED ANOTHER UNIT OF BLOOD, AGREEABLE AT THIS TIME
--- NOTE | 2019-08-27 12:40 | NUR ---
PT UNDERSTANDS PRBC INFUSION, UNDERSTANDS S/S TO REPORT TO NURSE. WILL MONITOR ACCORDING TO POLICY.
--- NOTE | 2019-08-27 14:55 | NUR ---
PT COMPLAIN OF SHOULDER PAIN 10/15, NORCO GIVEN. WILL MONITOR FOR EFFECTIVENESS
--- NOTE | 2019-08-27 15:15 | NUR ---
BLOOD TRANSFUSION COMPLETE.SEE TRANSFUSION SCREEN
--- NOTE | 2019-08-27 17:41 | NUR ---
CALLED DR. HAGER, PT HAD BEEN REQUESTING FOR SCOPE TO BE REPETED THIS HOSPITAL STAY. DISCUSS WITH PHYSICIAN, PHYSICIAN WANTS TO DO AN OUTPATIENT WHEN PATIENT CAN HAVE A BETTER PREP. DISCUSS PT RECEIVING XARELTO, PER PHYSICIAN THE BIOPSY DONE TODAY DOES NOT REQUIRE FOR XARELTO TO BE HELD. PATIENT UPDATED WITH PLAN OF CARE
--- NOTE | 2019-08-27 20:00 | NUR ---
PATIENT STATES THAT HE IS SHORT OF BREATH AND DOESN'T FEEL LIKE HES GETTING ANY OXYGEN HIS NOSE IS STUFFY. ORDER RECIEVED FROM. DR. MCMILLAN FOR OCEAN NASAL SPRAY AND PATIENT REQUESTED HIS OXYGEN BE INCREASED BY 1L. PATIENTS O2 SAT'S MID 90'S ON 3L, BUT INCREASED PATIENT TO 4L. CALL LIGHT WITHIN REACH, WILL MONITOR
--- NOTE | 2019-08-27 21:49 | NUR ---
PRN NORCO AND XANAX GIVEN FOR PT COMPLAINTS OF PAIN IN THE LEFT SHOULDER AND GENERALIZED PAIN RATING IT 8/10. AND FOR ANXIETY. CALL LIGHT WITHIN REACH, WILL MONITOR
--- NOTE | 2019-08-27 22:30 | NUR ---
PRN MEDICATION APPEARS EFFECTIVE, PT SLEEPING
--- NOTE | 2019-08-27 23:56 | NUR ---
ENCOURAGED PATIENT TO USE URINAL WHEN HE NEEDS TO URINATE, INSTEAD OF GETTING UP TO THE BEDSIDE COMMODE BECAUSE EVRYTIME HE DOES HE BECOMES SHORT OF BREATH. PATIENT STATES HE WANTS TO GET UP AND ON HIS FEET AND NOT JUST USE THE URINAL. PATIENT OXYGEN SATURATION MAINTAINING MID 90'S.
[2019-08-28] VITALS: BP 141/80
--- NOTE | 2019-08-28 00:05 | NUR ---
PRN MORPHINE GIVEN FOR PT COMPLAINTS OF GENERALIZED PAIN BUT ESPECIALLY IN THE LEFT SHOULDER RATING IT 8/10. CALL LIGHT WITHIN REACH, WILL MONITOR
--- NOTE | 2019-08-28 01:00 | NUR ---
PRN MORPHINE SOMEWHAT EFFECTIVE PER PT. PATIENT SITTING UP AT BEDSIDE. NO DISTRESS NOTED. 4L INTACT. CALL LIGHT WITHIN REACH, WILL MONITOR
--- NOTE | 2019-08-28 02:08 | NUR ---
PATIENT SLEEPING, NO DISTRES NOTED. BREATHING IS EASY AND REGULAR ON 4L. CALL LIGHT WITHIN REACH, WILL MONITOR
--- NOTE | 2019-08-28 02:56 | NUR ---
24 HR chart check completed.
--- NOTE | 2019-08-28 04:39 | NUR ---
PRN NORCO GIVEN FOR PT COMPLAINTS OF LEFT SHOULDER PAIN. RATING IT 9/10. CALL LIGHT WITHIN REACH, WILL MONITOR
--- NOTE | 2019-08-28 05:30 | NUR ---
PRN NORCO SOMEWHAT EFFECTIVE PER PT
[2019-08-28 06:25] LABS: BASO % 0.2 % (0.0-1.0); EOS # 0.3 10*3/uL (0.0-0.4); EOS % 2.6 % (1.0-4.0); HEMATOCRIT 31.8 % (42.0-52.0); LYMPH # 1.2 10*3/uL (1.3-4.4); MEAN CELL VOLUME 86.9 fl (80.0-94.0); MEAN CORPUSCULAR HGB 26.2 pg (27.0-31.0); MEAN CORPUSCULAR HGB CONC 30.2 g/dl (33.0-37.0); MEAN PLATELET VOLUME 11.9 fl (9.6-12.3); MONO # 1.3 10*3/uL (0.1-1.0); MONO % 10.6 % (3.0-9.0); NUCLEATED RED BLOOD CELL 0.3 % (0.0-0.0); PLATELET COUNT AUTOMATED 124 10*3/uL (130-400); RED BLOOD COUNT 3.66 10*6/uL (4.50-5.90); RED CELL DISTRI WIDTH 20.3 % (0-14.5)
--- NOTE | 2019-08-28 06:34 | NUR ---
PATIENT UPSET ABOUT DIET. EXPLAINED RATIONALE AND WHY HE IS ON THE DIET. HE STATED HE WANTS OFF THE DIET AND THAT HE WILL TAKE THE CONSEQUENCES OF WHAT COMES WITH A REGULAR DIET. ASKED PATIENT TO JUST TRY HIS DIET FOR BREAKFAST RIGHT NOW AND SEE WHAT THE SURGEON SAYS WHEN HE COMES IN
[2019-08-28 08:00] VITALS: BP 113/50
--- NOTE | 2019-08-28 08:49 | NUR ---
PT YELLING OUT THAT HE IS SIGNING OUT AND GOING HOME, "CALL THE DOCTOR, THIS DIET IS SHIT" EXPLAINED TO PATIENT WHY PATIENT IS ON A BLAND DIET, PT DOES NOT WANT TO FOLLOW THIS DIET. WILL CONTINUE TO REINFORCE IMPORTANCE OF DIET AND WILL DISCUSS WITH DR. MCMILLAN
--- NOTE | 2019-08-28 08:49 | NUR ---
PT COMPLAIN OF PAIN, SHOULDER 12/15.NORCO GIVEN.
--- NOTE | 2019-08-28 09:31 | NUR ---
PEER TO PEER WAS DONE AND OVER TURNED. AWAITING COVID TESTING RESULTS. ONCE RECEIVED AND IS MEDICALLY STABLE PATIENT CAN GO TO [facility].
--- NOTE | 2019-08-28 10:47 | NUR ---
OT NOTE Attempted to see pt this A.M. for OT session. Upon arrival pt was supine in bed asleep with O2 NC out of his nose and difficult to arouse to verbal or tactile prompts. SpO2 checked and was reading 69%. Notified pt's nurse who came to bedside and applied 4L-O2 via NC. Over aprox 5 minutes pt slowly raised to 90% and throughout heart rate reading 80-100 bpm. No treatment provided at this time due to pt being inappropriate for therapy. Pt was left supine in bed under nursing care. Will check back at a later time/date and continue with POC as able. SPIKE Sotelo/Stevo
--- NOTE | 2019-08-28 10:47 | NUR ---
PT WAS IN TO SEE PATIENT, PT HAD OXYGEN OFF, DIFFICULT TO AROUSE PER PT. PLACED PATIENT BACK ON NC OXYGEN AT 4 LITERS. SAO2 WHEN PT WENT INTO ROOM WAS 69%, ONCE OXYGEN PLACED ON PATIENT, OXYGEN SLOWLY OVER 5 MINUTES CAME UP TO 92%. HEART RATE REMAIN BETWEEN 80-100 AFIB. PT ABLE TO OPEN EYES WHEN RN SAID PATIENT NAME AND LIGHT STERNAL RUB.
--- NOTE | 2019-08-28 11:00 | NUR ---
DR. CLEMENTE AWARE THAT PATIENT HAD OXYGEN OFF AND SAO2 DROP THAT RECOVERED WITH NC OXYGEN REPLACED. NO NEW ORDERS AT THIS TIME
--- NOTE | 2019-08-28 11:21 | NUR ---
PHYSICAL THERAPY Patient was supine in bed this am when approached for therapy visit and was very lethargic, shallow breathing and did not have his nasal canula with continuos O2-3L in his nose as it was lying beside him in bed. Patient did not arouse to both verbal / tactile stimuli and recorded SpO2 69%, HR 95 bpm. OT materials assistant was also present this morning as Nurse notified immediately as therapist attempted to apply O2 which seemed to alarm patient who attempted to block O2 from being reapplied. Nurse arrived and assisted therapist in replacing NC and bumped his O2 to 4L. Patient SpO2 increased to 90%, as patient remained in bed under Nursing direct Supervision. Will continue per POC as able. Dwight Braden, RECONCILIATION ANALYST
--- NOTE | 2019-08-28 11:26 | NUR ---
PT REMAIN DROWSY, RESPIRATORY IN TO GIVE SCHEDULED BREATHING TREATMENT, NO DISTRESS NOTED AT THIS TIME
--- NOTE | 2019-08-28 11:31 | NUR ---
RN WENT INTO PATIENT ROOM TO CHECK ON PATIENT, PT HAD OXYGEN OFF, SAO2 86%,PLACED BACK ON NC 4 LITERS, SAO2 92% AT 1134. PT WOKE UP WHEN NURSE MOVED BLANKETS TO LACE SAO2 SENSOR ON FINGER, ASKED WHAT NURSE WAS DOING THEN WENT BACK TO SLEEP. PT CONTINUES TO BE DROWSY. WILL CONTINUE TO MONITOR PATIENT.
[2019-08-28 12:00] VITALS: BP 112/71
--- NOTE | 2019-08-28 12:26 | NUR ---
PT HAD NC OXYGEN OFF, SAO2 80%, NC 4 LITERS PLACED BACK IN NOSE PT CAME UP TO 92 % AT 1225. PT DROWSY HOWVER MORE CONVERSATIONAL, ANSWERED THAT HE DID NOT WANT LUNCH AT THIS TIME, AND STATED HE WATNS TO GO HOME. WILL CONTINUE TO MONITOR
--- NOTE | 2019-08-28 13:00 | NUR ---
PHYSICAL THERAPY Patient seen this pm 1:1 for therapy visit and was resting supine bed upon therapist arrival. Patient identified by name / and presented with continuos O2-4L via NC. OT office services assistant was present this afternoon for observation as patient presented with shallow breathing. Patient reports no new c/o's other than generalized, global weakness and transfers supine to sit EOB with Min/CGA. Patient completed sit to stand CGA, demonstrating slow initial rise and use of st cane for standing support. Patient ambulated 10'x 2 to bathroom, st cane, CGA, demonstrating very slow mell and quick onset of fatigue. Patient needed v/c to prevent getting tangled up in O2 cord and required seated rest, recording SpO2 82%, HR 113 bpm. It took approx 2 minutes seated rest to return to > 90% SpO2 as patient requested to ambulate second trial, 20'x 2, st cane, CGA, demonstrating once again quick onset of fatigue, recording SpO2 82%, HR 90 bpm. Patient returned to EOB sit awaiting lunch and remained with call light, tray table, telphone and bed alarm for safety. Will continue per POC as tolerated, total treatment time 17 minutes. Dwight Braden, TOP STITCHER
--- NOTE | 2019-08-28 13:10 | NUR ---
OT NOTE Checked w nurse Saida prior to treatment for approval to treat. Pt seen this date for 1:1 therapy session for 20 min and was identified by name and . Upon arrival pt supine in bed and asleep and recieving 4LO2 via NC. Pt awoke easily and was agreeable to treatment. Pt performed bed mobility from supine to seated at EOB w SBA. Pt then ambulated into bathroom with use of SC and transfered to the commode w CGA for safety w good hand placement. Pt completed toilet hygine w SBA. Noted mild shaking throughout. [facility] placement and CGA. Pt then ambulated to sink to wash hands w SC and CGA for balance. Pt required Mod verbal cues for proper breathing technique, which pt presented with poor carryover. Pt then returned to seated at EOB w CGA. SpO2 read 82% and heart rate 113bpm. After 2 min rest break SpO2 read 92% and heart rate 89bpm. At end of session pt seated at EOB w call light in reach, bed alarm activated for safety, O2 via NC intact at 4LO2 and bed side table ready for lunch. Continue w current D/C plan to SNF. Gamal Felix/SPIKE Kwan/Stevo
--- NOTE | 2019-08-28 14:02 | NUR ---
PT ALERT AND AWAKE, SITTING AT SIDE OF BED EATING LUNCH. PT STATES NO NEEDS AT THIS TIME
[2019-08-28 16:00] VITALS: BP 117/54
[2019-08-28 16:08] LABS: ATYPICAL PANCA <1:20 titer (Neg:<1:20); CYTOPLASMIC (C-ANCA) <1:20 titer (Neg:<1:20)
[2019-08-28 20:00] VITALS: BP 131/62
--- NOTE | 2019-08-28 20:35 | NUR ---
XANAX GIVEN PER PATIENT REQUEST FOR COMPLAINTS OF ANXIETY. WILL ASSESS EFFECTIVENESS.
--- NOTE | 2019-08-28 20:47 | NUR ---
UPDATED PATIENT'S FAMILY MEMBER. SHE STATED PATIENT NORMALLY GETS XANAX AT HOME "REGULARLY" AND THAT SHE BELIEVES THE PATIENT NEEDS IT ROUTINELY WHILE HERE IN THE HOSPITAL. FAMILY MEMBER STATED PATIENT HAS BEEN CALLING HER AND YELLING AND THEN HANGING UP. SHE REQUESTED THAT DR MCMILLAN CONTACT HER TOMORROW. WILL LET DAYSHIFT NURSE KNOW.
[2019-08-29] VITALS: BP 105/50
[2019-08-29 00:50] VITALS: BP 131/60
--- NOTE | 2019-08-29 00:50 | NUR ---
NORCO GIVEN PER PATIENT REQUEST FOR COMPLAINTS OF SHOULDER PAIN AND HEADACHE RATED 9/10. WILL ASSESS EFFECTIVENESS.
--- NOTE | 2019-08-29 01:45 | NUR ---
NORCO EFFECTIVE PER PATIENT.
--- NOTE | 2019-08-29 05:52 | NUR ---
NORCO GIVEN PER PATIENT REQUEST FOR COMPLAINTS OF PAIN RATED 7/10. WILL ASSESS EFFECTIVENESS.
[2019-08-29 06:13] LABS: BUN 26 mg/dl (7-24); CHLORIDE 98 mmol/L (98-107); CREATININE 1.12 mg/dL (0.70-1.30); POTASSIUM 3.8 mmol/L (3.5-5.1); SODIUM 141 mmol/L (136-145)
[2019-08-29 06:18] LABS: HEMATOCRIT 32.4 % (42.0-52.0); MEAN CELL VOLUME 87.8 fl (80.0-94.0); MEAN CORPUSCULAR HGB CONC 29.6 g/dl (33.0-37.0); MEAN PLATELET VOLUME 12.1 fl (9.6-12.3); NUCLEATED RED BLOOD CELL 0.4 % (0.0-0.0); PLATELET COUNT AUTOMATED 127 10*3/uL (130-400); RED BLOOD COUNT 3.69 10*6/uL (4.50-5.90); RED CELL DISTRI WIDTH 20.8 % (0-14.5); WHITE BLOOD COUNT 9.3 10*3/uL (4.8-10.8)
--- NOTE | 2019-08-29 06:38 | NUR ---
PATIENT YELLING OUT FROM ROOM. WHEN I ENTERED HE STATED HE WANTED HIS XANAX AND THAT HE WAS "FED UP" THAT HE DIDN'T GET IT. I NOTIFIED PATIENT THAT HE HAS TO ASK FOR PRN MEDICATIONS INCLUDING PAIN MEDICATIONS. PATIENT STATED HE DIDN'T GET HIS PAIN MED THIS MORNING. REMINDED PATIENT THAT I HAD JUST ADMINISTERED HIM NORCO PER HIS REQUEST WITH HIS CARAFATE. PATIENT STATED "OK GIVE ME MY XANAX RIGHT NOW". XANAX GIVEN PER PATIENT REQUEST. WILL ASSESS EFFECTIVENESS.
--- NOTE | 2019-08-29 06:50 | NUR ---
NORCO SOMEWHAT EFFECTIVE PER PATIENT. PAIN 4/10. WILL CONTINUE TO MONITOR.
[2019-08-29 07:18] LABS: BASOPHILS 1 % (0-1); OVALOCYTES FEW; PLATELET SUFFICIENCY LOW (NORMAL); POLYCHROMASIA SLIGHT; TARGET CELLS FEW; TOTAL CELLS COUNTED 100 #CELLS; TOXIC GRANULATION SLIGHT
[2019-08-29 08:00] VITALS: BP 110/58
--- NOTE | 2019-08-29 09:04 | NUR ---
LEYDI CONFIRMED WITH EYAL ORTEGA THAT THE PATIENT IS ABLE TO ADMIT AND IS ABLE TO COME WITH A PENDING COVID RESULT WITH PRIOR DISCHARGE THE PATIENT TESTED NEGATIVE ON 08/16/2019. LEYDI NOTIFIED REAL TIME TRADER.
--- NOTE | 2019-08-29 09:08 | NUR ---
Notified Dr. Vazquez patient can go to [facility] when medically stable
[2019-08-29 12:00] VITALS: BP 116/79
--- NOTE | 2019-08-29 12:18 | NUR ---
XANAX 0.5 MG GIVEN FOR C/O ANXIETY.
--- NOTE | 2019-08-29 12:19 | NUR ---
NORCO 5/325 MG GIVEN FOR C/O GENERALIZED PAIN,10/15.
[2019-08-29] MEDS ORDERED: XARE20MG PO (12:20)
[2019-08-29] MEDS ORDERED: XANAX0.5 MG PO (12:20)
--- NOTE | 2019-08-29 12:39 | NUR ---
WAREHOUSE FORKLIFT OPERATOR INFORMED OF PATIENT DISCHARGE. WAREHOUSE FORKLIFT OPERATOR SPOKE WITH BECKI COLE WHO SPOKE WITH JOEY IBARRA. WAREHOUSE FORKLIFT OPERATOR CONTACTED [facility]. THEY ARE ABLE TO TRANSPORT THE PATIENT AT 2:30PM TODAY. WAREHOUSE FORKLIFT OPERATOR CONTACTED FERNY AND INFORMED HER OF THIS. WAREHOUSE FORKLIFT OPERATOR NOTIFIED EYAL ORTEGA. WAREHOUSE FORKLIFT OPERATOR WILL FAX DEMOGRAPHICS TO [facility] AND DISCHARGE ORDERS TO [facility]
--- NOTE | 2019-08-29 14:16 | NUR ---
REPORT CALLED TO [facility] NURSE THO.AWAITING PEDIATRIC INTENSIVE PHYSICIAN BY [facility].
--- NOTE | 2019-08-29 15:30 | NUR ---
Discharge instructions reviewed with patient/family. Patient receptive and verbalizes understanding. Follow-up care arranged. Written instructions given to patient/family. MELISSA LUTZ
--- NOTE | 2019-08-30 08:42 | NUR ---
PHYSICAL THERAPY CO-SIGN I approve of the Physical Therapy notes written above. HERBER FOX PT, DPT
--- NOTE | 2019-08-30 08:42 | NUR ---
OCCUPATIONAL THERAPY CO-SIGN I approve of the Occupational Therapy notes written above. Emily Vela OTR/L
== END 2019-08-29 15:30 | disposition other institution (70) | DRG 280 ==
LOC: ED 18:48 → EDHOLD 20:33 → ICCU 20:33 → 5E 20:33 → ICCU 20:55 → 5E 08-24 11:50
PROVIDERS: Emergency Medicine; Internal Medicine; Internal Medicine Critical Care Medicine; Internal Medicine Nephrology; Student in an Organized Health Care Education/Training Program; ADMIT Internal Medicine
PROC: 30233N1 Transfusion of Nonautologous Red Blood Cells into Peripheral Vein, Percutaneous Approach (ICD-10-PCS; principal; 2019-08-24)
PROC: 0DJD8ZZ Inspection of Lower Intestinal Tract, Via Natural or Artificial Opening Endoscopic (ICD-10-PCS; 2019-08-27)
PROC: 0DB68ZX Excision of Stomach, Via Natural or Artificial Opening Endoscopic, Diagnostic (ICD-10-PCS; 2019-08-27)
DX: I50.43 Acute on chronic combined systolic (congestive) and diastolic (congestive) heart failure (principal); J18.9 Pneumonia, unspecified organism; I21.4 Non-ST elevation (NSTEMI) myocardial infarction; K25.0 Acute gastric ulcer with hemorrhage; J44.0 Chronic obstructive pulmonary disease with (acute) lower respiratory infection; E44.0 Moderate protein-calorie malnutrition; I48.20 Chronic atrial fibrillation, unspecified; J44.1 Chronic obstructive pulmonary disease with (acute) exacerbation; J96.10 Chronic respiratory failure, unspecified whether with hypoxia or hypercapnia; R78.81 Bacteremia; M25.512 Pain in left shoulder; E86.0 Dehydration; D64.9 Anemia, unspecified; I25.10 Atherosclerotic heart disease of native coronary artery without angina pectoris; E78.00 Pure hypercholesterolemia, unspecified; N40.0 Benign prostatic hyperplasia without lower urinary tract symptoms; B95.7 Other staphylococcus as the cause of diseases classified elsewhere; B37.9 Candidiasis, unspecified; K21.9 Gastro-esophageal reflux disease without esophagitis; R23.3 Spontaneous ecchymoses; R73.9 Hyperglycemia, unspecified; E87.5 Hyperkalemia; E83.41 Hypermagnesemia; Z20.828 Contact with and (suspected) exposure to other viral communicable diseases; F32.9 Major depressive disorder, single episode, unspecified; F41.9 Anxiety disorder, unspecified; R21 Rash and other nonspecific skin eruption; R91.8 Other nonspecific abnormal finding of lung field; Z88.8 Allergy status to other drugs, medicaments and biological substances; Z87.01 Personal history of pneumonia (recurrent); Z95.5 Presence of coronary angioplasty implant and graft; Z68.20 Body mass index [BMI] 20.0-20.9, adult; Z79.82 Long term (current) use of aspirin; Z79.899 Other long term (current) drug therapy

== ENCOUNTER 2019-09-02 01:49 | Inpatient (IN) | payer OTHER ==
[~2019-09-02] VITALS: Ht 167.6 cm; Wt 50.5 kg
[2019-09-02] VITALS (42 sets, daily range): BP systolic 75–134; BP diastolic 45–80
[~2019-09-02 01:49] MED LIST changes: +XARE20MG PO
--- NOTE | 2019-09-02 01:55 | NUR ---
PT BEING PLACED ON BIPAP BY RT AT THIS TIME FOR SEVERELY INCREASED WOB.
--- NOTE | 2019-09-02 01:55 | NUR ---
Pt placed on BiPap 12/6 and 40%. Alarms on and audible. Pt given a double Albuterol breathing tx. BBS wheezy.
--- NOTE | 2019-09-02 01:57 | NUR ---
RESPIRATORY AT BEDSIDE FOR BIPAP, 12/6 50%.
--- NOTE | 2019-09-02 02:02 | NUR ---
EKG COMPLETED AND RESULTS GIVEN TO MD FOR REVIEW.
--- NOTE | 2019-09-02 02:03 | NUR ---
NICOTINE PATCH NOTED TO RT UPPER SHOULDER.
[2019-09-02 02:13] LABS: BASO % 0.2 % (0.0-1.0); EOS # 0.1 10*3/uL (0.0-0.4); EOS % 0.8 % (1.0-4.0); HEMATOCRIT 29.5 % (42.0-52.0); LYMPH # 1.3 10*3/uL (1.3-4.4); LYMPH % 13.1 % (27.0-41.0); MEAN CELL VOLUME 87.5 fl (80.0-94.0); MEAN CORPUSCULAR HGB 25.5 pg (27.0-31.0); MEAN CORPUSCULAR HGB CONC 29.2 g/dl (33.0-37.0); MEAN PLATELET VOLUME 10.8 fl (9.6-12.3); MONO % 9.8 % (3.0-9.0); NEUT # 7.5 10*3/uL (2.3-7.9); NEUT % 74.2 % (47.0-73.0); NUCLEATED RED BLOOD CELL 0.1 10*3/uL (0.0-0.0); NUCLEATED RED BLOOD CELL 0.5 % (0.0-0.0); PLATELET COUNT AUTOMATED 138 10*3/uL (130-400); RED BLOOD COUNT 3.37 10*6/uL (4.50-5.90); RED CELL DISTRI WIDTH 21.4 % (0-14.5)
[2019-09-02 02:22] LABS: ACT PARTIAL THROMBO TIME 30.8 SECONDS (20.0-32.1); INTERNATIONAL NORM RATIO 1.1 (2.0-3.5)
[2019-09-02 02:28] LABS: ALBUMIN 2.5 gm/dl (3.1-4.5); ALKALINE PHOSPHATASE 81 U/L (45-117); BUN 21 mg/dl (7-24); CHLORIDE 104 mmol/L (98-107); CREATININE 0.88 mg/dL (0.70-1.30); POTASSIUM 4.1 mmol/L (3.5-5.1); SGOT/AST 19 IU/L (3-35); SGPT/ALT 28 U/L (12-78); SODIUM 142 mmol/L (136-145)
[2019-09-02 02:33] LABS: TOTAL PROTEIN 6.2 gm/dL (6.4-8.2); TROPONIN I 0.021 ng/ml (<0.045)
--- NOTE | 2019-09-02 02:40 | NUR ---
INFUSION OF NITRO INITIATED AT 5MCG/MIN.
--- NOTE | 2019-09-02 02:47 | NUR ---
IV SITE IN LAC DISCONTINUED.NEW IV ESTABLISHED IN PT LT WRIST WITH 22 GAUGE ANGIOCATH.
[2019-09-02] MEDS ORDERED: XANAX0.5 MG PO (02:57)
[2019-09-02] MEDS ORDERED: TRELEGY ELLIPT1 EACH INH (02:59)
[2019-09-02] MEDS ORDERED: PROAIR RESPICL90 MCG INH (02:59)
[2019-09-02 03:05] LABS: ABG BASE EXCESS 7.8 mmol/L (-2.0-2.0); ARTERIAL BLOOD GAS PH 7.381 (7.35-7.45)
--- NOTE | 2019-09-02 03:18 | NUR ---
NITRO DRIP STOPPED AT THIS TIME PER MD CALDERON VERBAL ORDER.BP 80/53.
--- NOTE | 2019-09-02 03:29 | NUR ---
BP 75/51, AWARE.
--- NOTE | 2019-09-02 03:35 | NUR ---
PT NOTED TO HAVE BILAT LOW EXT RASH WITH WHEEPING, PHOTOS TAKEN.ECCHYMOSIS NOTED TO RT BUTTOCK/HIP AREA.ECCHYMOSIS NOTED TO UPPER LEFT ARM.
--- NOTE | 2019-09-02 03:46 | NUR ---
INFUSION OF DOPAMINE INITIATED @ 5MCG/KG/MIN PER MD CALDERON.TO BE TITRATED [id number] BY 2MCG FOR GOAL OF MAP 80.CURRENT BP 99/57 MAP 72.
--- NOTE | 2019-09-02 03:53 | NUR ---
PT AWAITING TRANSPORT TO [facility],JOEY BERRIOS NOTIFIED AWAITING RESPIRATORY TO ASSIST WITH PT TRANSPORT ON BIPAP.
--- NOTE | 2019-09-02 04:10 | NUR ---
A 69 YEAR OLD MALE PATIENT, admitted to [facility], under the services of SWEETIE Chatman MD with a diagnosis of RESPIRATORY FAILURE, ACUTE PULMONARY EDEMA, HISTORY OF COPD AND HISTORY OF AFIB. Chief complaint is EMS WAS CALLED TO [facility], PATIENT 84% ON 6LNC, C/O ABDOMINAL PAIN AND SHORTNESS PF BREATH. Patient arrived via CART WITH RN from ER. Monitor applied. Initial assessment completed. Vital signs taken and recorded. SWEETIE CHATMAN MD notified of admission to the unit. Orders received. See assessment for past medical history, medications and allergies. Patient and/or family oriented to unit. [facility]. Clothing/patient valuable form completed. AGUSTINA RAY
--- NOTE | 2019-09-02 04:32 | NUR ---
JOEY LORD @ [facility] CONTACTED AND UPDATED ON PT ADMISSION.
[2019-09-02] MEDS ORDERED: NICODERM CQ1 EAC2 T (04:34)
[2019-09-02] MEDS ORDERED: [UNRECOGNIZED DRUG - OTHER] IM (04:36)
[2019-09-02] MEDS ORDERED: PULMICORT0.5 MG/2 M INH (04:41)
--- NOTE | 2019-09-02 05:10 | NUR ---
CALL TO DR MCMILLAN AT THIS TIME FOR ADMISSION ORDERS. ORDERS RECIEVED.
--- NOTE | 2019-09-02 05:28 | NUR ---
DR DAVENPORT CALLED WITH CONSULT. STATES HE WILL BE IN AND CHANGE THINGS AROUND TODAY
--- NOTE | 2019-09-02 05:33 | NUR ---
SPOKE WITH DR RIVERA, NO NEW ORDERS
[2019-09-02 06:06] LABS: ALBUMIN 2.6 gm/dl (3.1-4.5); ALKALINE PHOSPHATASE 87 U/L (45-117); BUN 22 mg/dl (7-24); CHLORIDE 103 mmol/L (98-107); CREATININE 0.94 mg/dL (0.70-1.30); POTASSIUM 3.8 mmol/L (3.5-5.1); SGOT/AST 18 IU/L (3-35); SGPT/ALT 30 U/L (12-78); SODIUM 141 mmol/L (136-145); TOTAL PROTEIN 6.6 gm/dL (6.4-8.2)
[2019-09-02 06:21] LABS: HEMATOCRIT 31.4 % (42.0-52.0); MEAN CORPUSCULAR HGB 25.5 pg (27.0-31.0); MEAN CORPUSCULAR HGB CONC 29.3 g/dl (33.0-37.0); MEAN PLATELET VOLUME 11.8 fl (9.6-12.3); NUCLEATED RED BLOOD CELL 0.3 % (0.0-0.0); PLATELET COUNT AUTOMATED 138 10*3/uL (130-400); RED BLOOD COUNT 3.61 10*6/uL (4.50-5.90); RED CELL DISTRI WIDTH 21.3 % (0-14.5)
--- NOTE | 2019-09-02 06:52 | NUR ---
PATIENT RESTING WELL WEARING THE BIPAP, EYES ARE SHUT, APPEARS TO BE SLEEPING, DOPAMINE GTT IS CURRENTLY AT 5MCG/KG/MIN. MAP ABOVE 65 AT THIS TIME. PASTOR PATENT FOR CLEAR STRAW COLORED URINE. NO SIGNS OR SYMPTOMS OF DISTRESS
[2019-09-02 07:13] LABS: OVALOCYTES FEW; PLATELET SUFFICIENCY NORMAL (NORMAL); POLYCHROMASIA SLIGHT; TOTAL CELLS COUNTED 100 #CELLS
--- NOTE | 2019-09-02 07:37 | NUR ---
Shift chart check completed.24 HR chart check completed.
--- NOTE | 2019-09-02 08:10 | NUR ---
ON ASSESSMENT PATIENT IS SLEEPING SOUNDLY, DID NOT AWAKEN HIM AT THIS TIME. AUSCULTATED HIS LUNGS ANTERIORLY. HIS LEGS ARE EDEMATOUS WITH SOME SEEPING. DOPAMINE DRIP HAS BEEN TITRATED FROM 5MCG/KG/MIN TO 3MCG/KG/MIN AND MAP HAS BEEN 65 OR GREATER. HR IS 100-130, ATRIAL FIB/RBBB. PASTOR PATENT CLEAR YELLOW URINE. HE'S ON BIPAP 02/10. THE FIO2 HAS BEEN TITRATED FROM 50% TO 45% WITH PULSE OX STAYING >94%. SEE ALL APPROPRIATE INTERVENTIONS.
--- NOTE | 2019-09-02 09:37 | NUR ---
DR DAVENPORT HERE TO SEE PATIENT. DOPAMINE OFF PER HIS DIRECTION.
--- NOTE | 2019-09-02 10:15 | NUR ---
PT'S GIRLFRIEND HAS CALLED. PT AWAKE ENOUGH TO TELL ME I CAN TALK TO HER. PASSWORD ESTABLISHED.
--- NOTE | 2019-09-02 11:39 | NUR ---
DR RIVERA HAS VISITED.
--- NOTE | 2019-09-02 11:51 | NUR ---
OFF BIPAP PER PATIENT REQUEST.
--- NOTE | 2019-09-02 12:14 | NUR ---
PT. PLACED ON BIPAP.
--- NOTE | 2019-09-02 14:26 | NUR ---
AWAKE FOR ORAL MEDS WHICH HE TOOK WITHOUT DIFFICULTY. OFF BIPAP, ONTO NASAL CANNULA. HE DECLINES ANY FOOD AT THIS TIME.
--- NOTE | 2019-09-02 16:37 | NUR ---
PT HAS BEEN OUT OF BED TO [facility] FOR MODERATELY LARGE MUSHY BM. PT HAS A HEMORRHOID THAT IS OOZING AFTER BM. PT CLAIMS "HAS BEEN HAPPENING FOR AWHILE". BACK TO BED. DYSPNEIC/WHEEZING WITH EXERTION.
--- NOTE | 2019-09-02 17:24 | NUR ---
PT ATE A POPSICLE. I HAVE OFFERED TO ORDER HIM FOOD SEVERAL TIMES, BUT HE HAS DECLINED.
--- NOTE | 2019-09-02 22:10 | NUR ---
PATIENT PROVIDED WITH POPSICLE PER REQUEST, PATIENT DENIES WANTING REAL FOOD AT THIS TIME HE STATES HE IS NOT THAT HUNGRY. RN WILL CONTINUE TO MONITOR
--- NOTE | 2019-09-02 23:05 | NUR ---
PATIENT CALLED RN INTO ROOM, COMPLAINING THAT PASTOR CATHETER IS HURTING. THIS RN FLUSHED CATHETER AND REPOSITIONED PATIENT STATED THAT IT ALSO FELT LIKE IT WAS PULLING. PATIENT STATES THAT THIS FELT A LITLE BETTER BUT IT PROBABLY WONT HELP.
--- NOTE | 2019-09-02 23:10 | NUR ---
PATIENT CALLED THIS RN INTO ROOM COMPLAINING OF INABILITY TO SLEEP HERE AND IS REQUESTING SLEEPING PILL. RN TO CALL DOCTOR TO INQUIRE ABOUT MEDICATION
--- NOTE | 2019-09-02 23:15 | NUR ---
DR DEYANIRA YBARRA DREGRJUAN PATIENTS REQUEST OF SLEEPING PILL AND INABILITY TO SLEEP HERE. ORDERS RECIEVED FOR TRAZADONE 50MG QHS PRN
--- NOTE | 2019-09-02 23:26 | NUR ---
PATIENT MEDICATED WITH TRAZADONE PER ORDERS FOR COMPLAINTS ON INSOMNIA. PATIENT WAS THEN PLACED ON BIPAP BY RESPIRATORY THERAPIST. RN WILL CONTINUE TO MONITOR
[2019-09-03] VITALS: BP 96/40
--- NOTE | 2019-09-03 01:10 | NUR ---
PATIENT CALLED RN INTO ROOM, REQUESTING TO HAVE BIPAP TKEN OFF, STATES HE"CANNOT TAKE IT ANYMORE" WHEN THIS RN ASKED WHAT HE MEANT HE STATED "THE MASK WAS TOO TIGHT" WHEN THIS RN OFFERED TO REPOSITION MASK PATIENT DECLINED AND STATED HE "JUST DIDNT WANT TO WEAR IT" OXYGEN WAS REAPPLIED VIA NASAL CANNULA AT 6 LITERS. OXYGEN SATURATION REMAINS 94-98% RN WILL CONTINUE TO MONITOR
[2019-09-03 04:00] VITALS: BP 106/47
--- NOTE | 2019-09-03 05:14 | NUR ---
RESPIRATORY PAGED FOR PRN BREATHING TREATMENT
--- NOTE | 2019-09-03 05:25 | NUR ---
PLACED ON BIPAP AT THIS TIME, PATIENT HAS BECAME AUDIBLY WHEEZY AND LUNGS HAVE BECOME VERY DIMINSHED.
[2019-09-03 05:58] LABS: ALBUMIN 2.5 gm/dl (3.1-4.5); ALKALINE PHOSPHATASE 66 U/L (45-117); BUN 28 mg/dl (7-24); CHLORIDE 107 mmol/L (98-107); POTASSIUM 4.1 mmol/L (3.5-5.1); SGOT/AST 12 IU/L (3-35); SGPT/ALT 24 U/L (12-78); SODIUM 144 mmol/L (136-145); TOTAL PROTEIN 6.1 gm/dL (6.4-8.2)
[2019-09-03 06:04] LABS: BASO % 0.1 % (0.0-1.0); HEMATOCRIT 28.5 % (42.0-52.0); LYMPH # 1.1 10*3/uL (1.3-4.4); LYMPH % 7.5 % (27.0-41.0); MEAN CELL VOLUME 87.4 fl (80.0-94.0); MEAN CORPUSCULAR HGB 25.8 pg (27.0-31.0); MEAN CORPUSCULAR HGB CONC 29.5 g/dl (33.0-37.0); MEAN PLATELET VOLUME 12.3 fl (9.6-12.3); MONO # 1.2 10*3/uL (0.1-1.0); MONO % 7.7 % (3.0-9.0); NEUT # 12.6 10*3/uL (2.3-7.9); PLATELET COUNT AUTOMATED 169 10*3/uL (130-400); RED BLOOD COUNT 3.26 10*6/uL (4.50-5.90); RED CELL DISTRI WIDTH 21.6 % (0-14.5)
--- NOTE | 2019-09-03 07:14 | NUR ---
Shift chart check completed.24 HR chart check completed.
[2019-09-03 08:00] VITALS: BP 126/71; BP 130/80
--- NOTE | 2019-09-03 08:36 | NUR ---
ON ASSESSMENT PATIENT IS RESTING EASILY ON BIPAP. "I'M SO TIRED". I OFFERED BREAKFAST BUT HE'S DECLINED FOR NOW. HIS AM MEDS GIVEN, INCLUDING HIS SCHEDULED XANAX. BACK ONTO BIPAP FOR NOW. MONITOR AF/RBBB WITH VR 80-100. SEE ALL APPROPRIATE INTERVENTIONS.
--- NOTE | 2019-09-03 10:58 | NUR ---
PATIENT CONTINUES TO SLEEP LIKE HE DID YESTERDAY, WEARING BIPAP. NO DISTRESS. NO DYSRHYTHMIAS.
[2019-09-03 12:00] VITALS: BP 135/74
--- NOTE | 2019-09-03 14:09 | NUR ---
DR RIVERA AND DEYANIRA HAVE BOTH VISITED. [facility]ED TO [facility].
[2019-09-03 16:00] VITALS: BP 113/58
--- NOTE | 2019-09-03 16:39 | NUR ---
ATE FAIR FOR LUNCH, INCLUDING PULMOCARE SUPPLEMENT. PT C/O HEMORRHOIDS "HANGING OUT OF ME" AND THERE ARE. AFTER THE WORK OF BATHING AND EATING PATIENT ASKED TO "GO BACK ON THAT MACHINE". ON BIPAP AND HE'S SLEEPING EASILY.
[2019-09-03 20:00] VITALS: BP 113/38
--- NOTE | 2019-09-03 20:11 | NUR ---
PT. RESTING IN BED. HEP LOCK IN LW AND RAN ASYMPT. LUNGS DIMINISHED BILAT, PULSE OX 95% ON 6L NC. ABDOMEN SOFT, NONDISTENDED AND NORMO. 2+PEDAL AND 1+BLE EDEMA NOTED. PASTOR CATHETER DRAINING A CLEAR YELLOW URINE. BLE LOWER LEGS HAVE STRIATIONS, NONSEEPING AT THIS TIME. PT. STATES HE IS VERY SOB WITH MINIMAL EXERTION, SLIGHT SOB NOTED AT REST WHILE ON NC EATING POPSICLE. JANENE JUNIOR RN
--- NOTE | 2019-09-03 21:24 | NUR ---
DR. MCMILLAN CALLED REGARDING PT'S INSISTANCE HE BE NOTIFIED OF NEED FOR PAIN MED IN LEFT SHOULDER FROM FALL 1-[address] MCMILLAN CALLED, ORDERS RECEIVED. JANENE JUNIOR RN
--- NOTE | 2019-09-03 21:28 | NUR ---
PT. GIVEN DESYREL AND XANAX AT 2103 FOR COMPLAINTS OF INSOMNIA AND ANXIETY. STATED HE CANT BREATH, PULSE OX 95% ON 6L NC. RESP NOTIFIED AND IS PLACING PATIENT BACK ON BIPAP.
--- NOTE | 2019-09-03 21:50 | NUR ---
PT. TALKING ON TELEPHONE. INCREASING SOB NOTED. PULSE OX 82% ON 6L, BIPAP PLACED BACK ON PATIENT.
--- NOTE | 2019-09-03 21:54 | NUR ---
PT. GIVEN NORCO AT 2145 ORDERED FOR CONTINUING COMPLAINTS OF LEFT SHOULDER PAIN.
--- NOTE | 2019-09-03 22:13 | NUR ---
PT. MINIMALLY DROWSY, BUT MUCH CALMER, DESYREL INEFFECTIVE, XANAX EFFECTIVE. PT. DOES STATE NORCO EFFECTIVE FOR SHOULDER PAIN. JANENE JUNIOR RN
[2019-09-04] VITALS (9 sets, daily range): BP systolic 112–161; BP diastolic 57–94
--- NOTE | 2019-09-04 02:00 | NUR ---
PT. ASKED TO HAVE BIPAP REMOVED FOR A BREAK. ASKING TO HAVE BIPAP PLACED BACK ON AFTER 3 MINUTES, PULSE OX MID 80'S. RESP. NOTIFIED. JANENE JUNIOR RN
[2019-09-04 04:34] LABS: BASO % 0.1 % (0.0-1.0); HEMATOCRIT 27.4 % (42.0-52.0); LYMPH # 0.9 10*3/uL (1.3-4.4); LYMPH % 8.2 % (27.0-41.0); MEAN CELL VOLUME 90.1 fl (80.0-94.0); MEAN CORPUSCULAR HGB 25.3 pg (27.0-31.0); MEAN CORPUSCULAR HGB CONC 28.1 g/dl (33.0-37.0); MEAN PLATELET VOLUME 10.8 fl (9.6-12.3); MONO # 0.5 10*3/uL (0.1-1.0); MONO % 4.7 % (3.0-9.0); NEUT # 9.1 10*3/uL (2.3-7.9); NEUT % 86.3 % (47.0-73.0); PLATELET COUNT AUTOMATED 150 10*3/uL (130-400); RED BLOOD COUNT 3.04 10*6/uL (4.50-5.90); RED CELL DISTRI WIDTH 21.3 % (0-14.5); WHITE BLOOD COUNT 10.6 10*3/uL (4.8-10.8)
[2019-09-04 04:46] LABS: BUN 35 mg/dl (7-24); CHLORIDE 108 mmol/L (98-107); CREATININE 0.93 mg/dL (0.70-1.30); POTASSIUM 4.1 mmol/L (3.5-5.1); SODIUM 143 mmol/L (136-145)
--- NOTE | 2019-09-04 06:03 | NUR ---
PT. CONTNUES TO WEAR BIPAP WHILE SLEEPING. SMALL BREAKS OF DRINKS OF WATER THROUGHOUT THE NIGHT. JANENE JUNIOR RN
--- NOTE | 2019-09-04 06:58 | NUR ---
JASPER HILTON,ELISA Silverman [id number] Please refer to the physician's history and physical for past medical history, comorbid conditions, and allergies. Diagnosis: HISTORY OF COPD, RESPIRATORY FAILURE, ACUTE Gerard Score: 13,MODERATE RISK WOUND DESCRIPTIONS: This nurse along with with Natalia Mitchell RN evaluated patient for skin impairments. Wound Number: 1 Location of the wound: left lower extremity Thickness: Partial Size: 33.0cm x 29.5cm x <0.1cm Tunneling: none Undermining: none Sinus Tract: none Presence of Exudate: none Amount: none Color: Red Odor: None Periwound Skin Appearance: Normal Wound edges: approximated Pain (associated with wound): none at time of assessment How does patient state this happened? pt states this has been going on for 4 weeks Wound Number: 2 Location of the wound: right lower extremity Thickness: Partial Size:33.0cm x 30.0cm x <0.1cm Tunneling: none Undermining: none Sinus Tract: none Presence of Exudate: none Amount: none Color: Red Odor: None Periwound Skin Appearance: Normal Wound edges: approximated Pain (associated with wound): none at time of assessment How does patient state this happened? pt states this has been going on for 4 weeks Surface the patient is resting on: XPRT SKIN PREVENTION RECOMMENDATION: 1. Pressure redistribution support surface as appropriate 2. Elevate heels 3. Remove boots/TEDS every shift and reapply 4. Head of bed 30 degrees as tolerated 5. Assess nutrition and hydration 6. Manage moisture 7. Avoid the use of containment devices while in bed 8. Use absorptive products on surfaces limit layers of linens on bed 9. Turn and reposition every 1-2 hours in bed and every 1 hour in chair as tolerated 10. Weight shifts every 15 minutes while up in chair 11. Offloading with pillows or device to keep heels elevated off bed 12. Monitor skin at least every shift 13. Inspect under medical devices twice a day WOUND TREATMENT RECOMMENDATIONS: Consult podiatry for areas to bilateral lower extremities. Cleanse bilateral lower extremities with soap and water pat areas dry then apply aquaphor ointment bid. Heel raiser pro boots to bilateral feet while in bed
--- NOTE | 2019-09-04 07:35 | NUR ---
PATIENT TAKEN OFF OF BI-PAP, PLACED ON 6 L/M CANNULA.
--- NOTE | 2019-09-04 08:23 | NUR ---
OPERATION SUPERVISOR FAXED CLINICAL UPDATES TO [facility].
--- NOTE | 2019-09-04 08:33 | NUR ---
Awake and alert. SOB at rest. Breakfast ordered. off bi-pap to 6l NC.
--- NOTE | 2019-09-04 08:45 | NUR ---
PRECERT IS NEEDED FOR PATIENT TO RETURN TO [facility].
--- NOTE | 2019-09-04 09:00 | NUR ---
Submarine Advisory Team Watch Officer in to see patient. He was just put on bipap per respiratory. Patient wanted to know if the bipap could be removed. Explained CM will stop back in to talk to him later to keep the bipap on at this time. He verbalized an understanding.
--- NOTE | 2019-09-04 13:03 | NUR ---
Patient remains on bipap. Will follow up at a later time.
--- NOTE | 2019-09-04 13:57 | NUR ---
Patient remains on bipap. Will follow up at a later time. He is short term at [facility].
--- NOTE | 2019-09-04 20:56 | NUR ---
PT. RESTING IN BED, COMPLAINS OF CONSTIPATON, GIVEN MIRALAX AT 1934 ORDERED. XANAX ALSO GIVEN AT THAT TIME FOR ANXIETY. PT. STATED HE FELT NERVOUS. PT. STATES XANAX MILDLY EFFECTIVE FOR NERVES. HEPLOCKS IN RAN AND LW ASYMPT. LUNGS DIMINISHED WITH AN EXP. WHEEZE BILAT, PULSE OX 96% ON 6L NC. ABDOMEN SOFT, NONDISTENDED AND NORMO. 2+PEDAL AND 1+BLE EDEMA NOTED. STRIATIONS TO BILAT LOWER LEGS, NONSEEPING AT THIS TIME. LOTION APPLIED. HEMORROID CREAM ALSO APPLIED PER PT REQUEST. JANENE JUNIOR RN
--- NOTE | 2019-09-04 21:40 | NUR ---
PT. GIVEN WALESKAYREL AT 2135 FOR INSOMNIA AND NORCO AT 2136 FOR PAIN IN LEFT SHOULDER ORDERED PER PT. REQUEST.
--- NOTE | 2019-09-04 23:00 | NUR ---
Pt placed on BiPap 12/6 and 40%. Alarms on and audible. SpO2 94%
[2019-09-05] VITALS: BP 145/81
--- NOTE | 2019-09-05 00:16 | NUR ---
PT. REQUESTS TO COME OFF BIPAP TO EAT PIE. CURRENTLY ON 6L NC, PULSE OX 93%. DESYREL INEFFECTIVE FOR SLEEP FOR LONG PERIODS. NORCO EFFECTIVE FOR PAIN. JANENE JUNIOR RN
--- NOTE | 2019-09-05 01:30 | NUR ---
Pt placed back on BiPap after nurse took him off for a snack. Alarms are on and audible. Spo2 94%
--- NOTE | 2019-09-05 03:22 | NUR ---
Pt off BiPap at this time. Pt is using the bedside commode.
--- NOTE | 2019-09-05 03:50 | NUR ---
Pt back on BiPap. Alarms on and audible. SpO2 99%
[2019-09-05 04:00] VITALS: BP 122/64
--- NOTE | 2019-09-05 04:36 | NUR ---
Upon discharge recommend patient to follow up for wound care in outpatient setting continue current wound care orders at discharging facility.
[2019-09-05 05:41] LABS: CHLORIDE 105 mmol/L (98-107); CREATININE 1.03 mg/dL (0.70-1.30); POTASSIUM 3.8 mmol/L (3.5-5.1); SODIUM 144 mmol/L (136-145)
[2019-09-05 05:44] LABS: BUN 45 mg/dl (7-24)
[2019-09-05 06:13] LABS: BASO % 0.1 % (0.0-1.0); HEMATOCRIT 29.9 % (42.0-52.0); LYMPH # 1.2 10*3/uL (1.3-4.4); LYMPH % 10.2 % (27.0-41.0); MEAN CELL VOLUME 88.2 fl (80.0-94.0); MEAN CORPUSCULAR HGB 26.3 pg (27.0-31.0); MEAN CORPUSCULAR HGB CONC 29.8 g/dl (33.0-37.0); MEAN PLATELET VOLUME 11.8 fl (9.6-12.3); MONO % 8.6 % (3.0-9.0); NEUT # 9.7 10*3/uL (2.3-7.9); NEUT % 80.3 % (47.0-73.0); PLATELET COUNT AUTOMATED 187 10*3/uL (130-400); RED BLOOD COUNT 3.39 10*6/uL (4.50-5.90); RED CELL DISTRI WIDTH 20.5 % (0-14.5)
[2019-09-05 08:00] VITALS: BP 136/85
--- NOTE | 2019-09-05 08:14 | NUR ---
Awakened for VS , Then to radiology for chest pa/lat. tele montor applied prior to departure. On completion of x-ray pt. was taken to 523 via transport. Report given to Lashawn COOK. All belongings sent to %e with pt.
--- NOTE | 2019-09-05 09:00 | NUR ---
News Assistant in to see patient. He is sitting on the edge of his bed eating breakfast. Discussed going back to [facility] and he states he does not want to return to [facility]. He states 1st shift was the worst but would not elaborate, he did like the therapy, but was upset that he didn't know he had to be in a 14 day quarantine. Explained CM was unaware of the quarantine also until after he was discharged. He would like to see how he works with therapy before deciding on what he wants to do on discharge. He would like to go home with home health care services. Will wait for therapy suggestion. fuller brush worker following.
--- NOTE | 2019-09-05 11:23 | NUR ---
10"10 PT PLACED ON BIPAP PER PT REQUEST. RESPS REGULAR AND SLIGHTLY LABORED. SYSTEM CHECKED AND FX'ING. RR 25-28 SPO2 98 VIA 02/10 40%. DA GIVEN
[2019-09-05 12:00] VITALS: BP 142/65
--- NOTE | 2019-09-05 14:15 | NUR ---
PT SHORT OF BREATH WHILE WORKING WITH PT/OT. RESP CONTACTED AND PT PLACED ON BIPAP, PULSE OX NPW IN UPPER 90'S. FAN PLACED IN ROOM PER PT REQUEST. CALL LIGHT IN REACH. WILL MONITOR
--- NOTE | 2019-09-05 14:15 | NUR ---
PHYSICAL THERAPY Attempted to see pt for evaluation, pt resting on BIPAP agreeable to therapy spoke with nursing ok to see but to have respiratory take off BIPAP and transition to 02 NC. Resp contacted over phone and up to place pt on 6L 02 NC. Initiated evaluation 02 sats 91-90% on 6L, with further conversation discussing rehab stay prior to admit pt becoming more SOB, HR 100-107 RR 24. Pt stating he felt like he needed a breathing treatment contacted respiratory reg pt request. Pt also wanting to use BSC, however ed pt need for resp rx/assessment and can use bedpan. While waiting for respiratory pt becoming more SOB with 02 levels dropping to 86%, Nsg contacted and in to assess pt. Respiratory contacted again regarding increase SOB/02 levels. Resp therapist in to see pt placing him back on BIPAP and for respiratory treatment. Deferred further therapy at this time updated/spoke with primary nurse and case management. Will follow in the AM as appropriate. Barbara Borrego PT
--- NOTE | 2019-09-05 14:15 | NUR ---
OT NOTE Occupational therapy order received and chart reviewed. Upon arrival, patient resting on Bipap, nursing gave approval to call and have respiratory remove Bipap and transition to 6LNC for OT evaluation. Following respiratory placing patient on 6LO2, patient very SOB at 90-91% SpO2 supine with HOB elevated. With further conversation, patient continued to be SOB HR 100-107 bpm, RR 24. Patient stated he felt like he needed a breathing treatment. OTR called respiratory over phone and nursing into room to assess. Patient educated on pursed lip breathing. While waiting to be placed on Bipap, patient decreased to 86-88% SpO2 on 6LO2, nursing in room. Respiratory in room placing patient on Bipap at conclusion. Will attempt to see patient at a later date for completion of an OT evaluation. Thank you. Ifeoma Cline OTR/Stevo
[2019-09-05 16:00] VITALS: BP 147/82
--- NOTE | 2019-09-05 18:09 | NUR ---
PT REQUESTED AND WAS MEDICATED WITH DULCOLAX FOR C/O CONSTIPATION AND XANAX FOR C/O ANXIETY. WILL MONITOR
--- NOTE | 2019-09-05 18:49 | NUR ---
14:30 PT ON BIPAP X 4 HRS. PT TAKEN OFF OF BIPAP FOR PHYSICAL THERAPY.
--- NOTE | 2019-09-05 18:50 | NUR ---
15:00 PT C/O OF SOB POST PHYSICAL THERARPY. PT PLACED BACK OF BIPAP. DA GIVEN. PT ON X 45 MINS. 15:45 PT PLACED ON 6 L NC. INSTRUCTED PT ON PURSED LIP BREATHIGN. INSTRUCTED TO USE DURING THERAPY AND T/O THE DAY.
[2019-09-05 20:30] VITALS: BP 152/80
--- NOTE | 2019-09-05 21:17 | NUR ---
PT REQUESTED AND RECEIVED PO NORCO FOR C/O HEADACHE AND NECK/BL SHOULDER PAIN RATED 8.5/10. WILL MONITOR EFFECTIVENESS. IV ALBUMIN COMPLETE. IV SITE FLUSHED AND IV LASIX ADMINISTERED SLOWLY PER ORDER. PASOTR IN PLACE TO MEASURE ACCURATE OUTPUT. CALL LIGHT IN REACH.
--- NOTE | 2019-09-05 21:54 | NUR ---
EARLIER MEDICATION EFFECTIVE PER PT. WILL MONITOR. CALL LIGHT IN REACH.
--- NOTE | 2019-09-05 22:11 | NUR ---
PT HAS HAD 2 SMALL BMs SINCE PO DULCOLAX GIVEN.
[2019-09-06] VITALS: BP 141/81
[2019-09-06 04:30] VITALS: BP 146/94
--- NOTE | 2019-09-06 05:37 | NUR ---
EARLIER XANAX APPEARS EFFECTIVE. PT SLEEPING, EASILY AROUSABLE. PT PLACED BACK ON BIPAP PER REQEUST. POX 93% AT THIS TIME.
[2019-09-06 07:08] LABS: BASO % 0.1 % (0.0-1.0); EOS % 0.3 % (1.0-4.0); HEMATOCRIT 28.5 % (42.0-52.0); LYMPH # 1.7 10*3/uL (1.3-4.4); LYMPH % 14.1 % (27.0-41.0); MEAN CELL VOLUME 90.2 fl (80.0-94.0); MEAN CORPUSCULAR HGB 25.9 pg (27.0-31.0); MEAN CORPUSCULAR HGB CONC 28.8 g/dl (33.0-37.0); MEAN PLATELET VOLUME 11.1 fl (9.6-12.3); MONO # 1.1 10*3/uL (0.1-1.0); MONO % 8.8 % (3.0-9.0); NEUT # 9.1 10*3/uL (2.3-7.9); NEUT % 76.1 % (47.0-73.0); PLATELET COUNT AUTOMATED 186 10*3/uL (130-400); RED BLOOD COUNT 3.16 10*6/uL (4.50-5.90); RED CELL DISTRI WIDTH 20.3 % (0-14.5); WHITE BLOOD COUNT 11.9 10*3/uL (4.8-10.8)
[2019-09-06 07:37] LABS: BUN 45 mg/dl (7-24); CHLORIDE 105 mmol/L (98-107); POTASSIUM 3.6 mmol/L (3.5-5.1); SODIUM 145 mmol/L (136-145)
[2019-09-06 08:00] VITALS: BP 142/82
--- NOTE | 2019-09-06 09:00 | NUR ---
Nanny/Household Manager in to see patient. Discussed short term SNF and remains agreeable. He doesn't want to return to [facility]. Awaiting acceptance at [facility]. soaking tank worker following for SNF referrals.
--- NOTE | 2019-09-06 09:38 | NUR ---
Nutritional Support Note: Regular diet order with 1 can Pulmocare with meals is approriate. Pt eating 100%. Wounds noted to right and left leg. Continue to encourage 100% intake at meals and supplement as ordered. No other nutrition intervention needed at this time. Will follow if needed. Heather Lewis Nutrtion Support Services Instructional Support Specialist
--- NOTE | 2019-09-06 09:41 | NUR ---
PATIENT IS OON FOR OEL, IS IN NETWORK WITH [facility] BUT THERE ARE NO BEDS AVAILABLE. REFERRAL WAS SENT AND BEING REVIEWED BY [facility]. WILL NEED PT/OT EVALS FOR PRECERT, WHEN THE PATIENT IS MEDICALLY STABLE.
--- NOTE | 2019-09-06 10:01 | NUR ---
[facility] DENIED PATIENT. [facility] IS AWARE.
--- NOTE | 2019-09-06 10:07 | NUR ---
PATIENT'S POX 82% ON O2 6L NC, OFF BIPAP TO EAT BREAKFAST AND USE BSC. PLACED ON BIPAP, POX UP TO 97%.
--- NOTE | 2019-09-06 11:32 | NUR ---
Prism Inspector in to discuss other SNF options. He is currently on bipap.
--- NOTE | 2019-09-06 11:45 | NUR ---
DR. MALLORY NOTIFIED OF PALLIATIVE CARE CONSULT.
--- NOTE | 2019-09-06 11:45 | NUR ---
REFRACTORY PRODUCTS SUPERVISOR FAXED REFERRAL TO [facility] FOR REVIEW.
[2019-09-06 12:00] VITALS: BP 132/67
--- NOTE | 2019-09-06 13:30 | NUR ---
OT NOTE Occupational therapy order received and chart reviewed. Attempted to see patient at bedside this PM, no OT services provided. Per nursing notes in AM, patient was on Bipap, placed on 6LO2 NC for breakfast and SpO2 decreased to 82% and re-placed on Bipap. Spoke with George and Keke from respiratory in regards to activity level, O2 demand, and maintaining 86-88% off Bipap. Respiratory therapist accompanied therapy into room to assess patient. While on Bipap, patient at 89-92% SpO2. Respiratory therapist placed patient on 15L, 50% Thuy/Venturi mask and SpO2 decreased to 79%, and Bipap was donned. Will continue to follow and complete OT evaluation at a later date when appropriate. Thank you. Ifeoma Cline, OTR/L
--- NOTE | 2019-09-06 13:35 | NUR ---
PHYSICAL THERAPY Attempted to see pt at the bedside for evaluation, noted nsg notes earlier in the day that pt's 02 dropping to 82% on 6L 02 NC with eating breakfast having to be placed back on BIPAP. Spoke with respiratory dept/therapists George/Keke regarding activity and 02 levels and recomendations for other options for 02. Respiratory up with rehab staff to assess use of Thuy/Venturi Mask at 50% at 15L. On BIPAP pt 91-92% once placed on Thuy Mask by respiratory pt 02 levels dropping to 79%. Resp therapist placed pt back on BIPAP. Further activity defered at this time as nsg then in to administer medications. Per resp to attempt to keep 02 levels 86% or greater. Will discuss pt's status at medical meeting 09/07/19 and follow as appropriate. Barbara Borrego PT
--- NOTE | 2019-09-06 14:07 | NUR ---
Application Defense Manager in to discuss SNF. He is currently on bipap. Will follow up at a later time.
[2019-09-06 16:00] VITALS: BP 131/80
--- NOTE | 2019-09-06 17:45 | NUR ---
PT SLEEPING, RESP EASY AND NONALBORED ON BIPAP. CALL LIGHT IN REACH. WILL MONITOR.
--- NOTE | 2019-09-06 19:00 | NUR ---
PT REQUESTED AND WAS MEDICATED WITH NORCO FOR C/O BILATERAL RIB PAIN. CALL LIGHT IN REACH. WILL MONITOR
--- NOTE | 2019-09-06 19:26 | NUR ---
PT PLACED ON NIV AT THIS TIME. 40%. SAO2 WAS 82% ON 6L. SATS AFTER 5 MINUTES CAME UP TO 96%.
--- NOTE | 2019-09-06 19:50 | NUR ---
PER PT, NORCO HE RECEIVED WAS HELPFUL FOR HEAD/NECK PAIN. PT LYING IN BED AT THIS TIME. BIPAP IN PLACE, RESPS EASY AND UNLABORED. CALL LIGHT IN REACH
[2019-09-06 20:00] VITALS: BP 146/89
--- NOTE | 2019-09-06 23:56 | NUR ---
24 HR chart check completed.
[2019-09-07] VITALS: BP 135/85
--- NOTE | 2019-09-07 02:00 | NUR ---
PT SLEEPING AT THIS TIME. BIPAP IN PLACE. CALL LIGHT IN REACH
--- NOTE | 2019-09-07 03:40 | NUR ---
NORCO GIVEN PER ORDER FOR COMLPAINTS OF BACK PAIN. WILL MONITOR.
--- NOTE | 2019-09-07 04:25 | NUR ---
PER PT, NORCO EFFECTIVE FOR BACK PAIN.
--- NOTE | 2019-09-07 04:30 | NUR ---
REPIRATORY TO FLOOR TO ASSESS PT BIPAP THAT IS ALARMING. PT VOICES NO COMPLAINTS, CALL LIGHT IN REACH
[2019-09-07 05:50] VITALS: BP 126/88
--- NOTE | 2019-09-07 06:20 | NUR ---
PT ASSISTED TO CHAIR AT THIS TIME. BIPAP IN PLACE, NO S/S OF DISTRESS NOTED. IV ANTIBIOTIC INFUSING WITHOUT DIFFICULTY. CALL LIGHT IN REACH
[2019-09-07 06:29] LABS: BASO % 0.1 % (0.0-1.0); EOS % 0.1 % (1.0-4.0); HEMATOCRIT 31.6 % (42.0-52.0); LYMPH # 1.9 10*3/uL (1.3-4.4); LYMPH % 13.5 % (27.0-41.0); MEAN CELL VOLUME 90.8 fl (80.0-94.0); MEAN CORPUSCULAR HGB 26.1 pg (27.0-31.0); MEAN CORPUSCULAR HGB CONC 28.8 g/dl (33.0-37.0); MEAN PLATELET VOLUME 11.9 fl (9.6-12.3); MONO # 1.3 10*3/uL (0.1-1.0); MONO % 9.1 % (3.0-9.0); NEUT # 10.8 10*3/uL (2.3-7.9); NEUT % 76.7 % (47.0-73.0); RED BLOOD COUNT 3.48 10*6/uL (4.50-5.90); RED CELL DISTRI WIDTH 20.1 % (0-14.5); WHITE BLOOD COUNT 14.1 10*3/uL (4.8-10.8)
[2019-09-07 06:30] LABS: PLATELET COUNT AUTOMATED 262 10*3/uL (130-400)
[2019-09-07 06:31] LABS: BUN 51 mg/dl (7-24); CHLORIDE 102 mmol/L (98-107); CREATININE 1.02 mg/dL (0.70-1.30); POTASSIUM 3.7 mmol/L (3.5-5.1); SODIUM 146 mmol/L (136-145)
--- NOTE | 2019-09-07 06:35 | NUR ---
ATTEMPTED TO CALL DR. DAVIES WITH CRITICAL CO2 OF 42. DR. DAVIES STATED "WE ARE NOT SUPPOSED TO COVER DR. MCMILLAN'S PATIENTS OR DO ORDERS" WILL CALL DR. MCMILLAN.
--- NOTE | 2019-09-07 06:42 | NUR ---
ATTEMPTED TO CALL NOTIFY DR. MCMILLAN OF CRITICAL LAB, UNABLE TO DO SO AT THIS TIME. WILL TRY AGAIN.
[2019-09-07 08:00] VITALS: BP 123/64
--- NOTE | 2019-09-07 08:45 | NUR ---
OT NOTE Occupational therapy order received. Attempted to see patien this AM, per nursing, patient is OOB in the chair on 8L O2 high-flow NC and wears BiPap as needed. Per discussion with nursing, patient is awaiting further lab results and to hold therapy. Will check back later this AM for completion of an OT eval. Ifeoma Cline, OTR/L
--- NOTE | 2019-09-07 08:55 | NUR ---
PATIENT IS UP IN CHAIR.
--- NOTE | 2019-09-07 08:58 | NUR ---
PHYSICAL THERAPY Spoke with primary nurse, pt is OOB in chair but now using 8L 02 HF NC, previously on 6L 02 regular NC. Continues to wear BIPAP as needed. Per nsg pt to have ABG's drawn again this AM due to critical CO2 level. Will await lab draws and further assessement by MD prior to any therapy. Barbara Borrego PT
--- NOTE | 2019-09-07 08:59 | NUR ---
OIL FIRE SPECIALIST FAXED REFERRAL TO [facility] FOR REVIEW.
[2019-09-07 09:30] LABS: ABG BASE EXCESS 11.4 mmol/L (-2.0-2.0); ARTERIAL BLOOD GAS PH 7.413 (7.35-7.45)
--- NOTE | 2019-09-07 11:02 | NUR ---
MEDICATED WITH PRN DULCOLAX PER ORDER AND REQUEST.
--- NOTE | 2019-09-07 11:18 | NUR ---
SANITATION WORKER CLEANING MACHINERY SPOKE WITH THE PATIENT. SANITATION WORKER CLEANING MACHINERY EXPLAINED ALL FOXES ARE FULL/OON. SANITATION WORKER CLEANING MACHINERY EXPLAINED REFERRAL WAS SENT TO [place] [facility] AND [facility]. SANITATION WORKER CLEANING MACHINERY EXPLAINED A QUARATINE WOULD BE DONE AT ANY FACILITY. PATIENT STATED HE DID NOT WANT TO BE "COOPED UP". PATIENT ASKED IF HE "COULD GO HOME AND ". SANITATION WORKER CLEANING MACHINERY EXPLAINED THAT ALL OPTIONS WERE HIS. SANITATION WORKER CLEANING MACHINERY EXPLAINED IF THAT IS WHAT HE WOULD WANT TO DO ITS HIS RIGHT AND WE COULD GET SERVICES IN TO ASSIST HIM. PATIENT DOES HAVE A PALLIATIVE CONSULT WITH DR. MALLORY. PATIENT WAS UNDECIDED ON WHICH DIRECTION HE WOULD LIKE TO PROCEED WITH. THE PATIENT ASKED THIS SANITATION WORKER CLEANING MACHINERY TO REACH OUT TO HIS DPOA-HC ELZBIETA. SANITATION WORKER CLEANING MACHINERY SPOKE WITH ELZBIETA SANITATION WORKER CLEANING MACHINERY EXPLAINED ALL OPTIONS TO HER THEY WERE EXPLAINED TO THE PATIENT. ELZBIETA ASKED THAT A REFERRAL BE SENT TO [facility]. SANITATION WORKER CLEANING MACHINERY FAXED REFERRAL TO [facility]. SANITATION WORKER CLEANING MACHINERY RECEIVED CALL BACK FROM [facility]. [facility] IS OON. CERTIFIED ORTHOTIC FITTER IS AWARE. SANITATION WORKER CLEANING MACHINERY WILL CONTINUE TO FOLLOW.
--- NOTE | 2019-09-07 11:23 | NUR ---
IF PATIENT DECIDES TO GO TO A SNF; PRECERT WILL BE REQUIRED AND WILL NEED PT/OT EVALS TO SUBMIT THE PRECERT.
[2019-09-07 12:00] VITALS: BP 115/69
--- NOTE | 2019-09-07 14:45 | NUR ---
Physical Therapy evaluation completed on 5th floor with full evaluation to follow. Recommend physical therapy per plan of care and LTACH upon discharge. Thank you for this referral. Barbara Borrego PT
--- NOTE | 2019-09-07 15:07 | NUR ---
MEDICATED WITH PRN NORCO PER ORDER FOR GENERALIZED PAIN ALL OVER.
--- NOTE | 2019-09-07 15:30 | NUR ---
PT SITTING UP IN CHAIR. VOICES NO CONCERNS AT THIS TIME. RESPS EASY AND NON LABORED. WHEEZES NOTED T/O. SOB/DESATS W MINIMAL EXERTION. ON 10 L HFNC. VSS. WHITE BOARD UPDATED. POC DISCUSSED W PT AND FAMILY. CALL LIGHT WITHIN REACH.
--- NOTE | 2019-09-07 15:30 | NUR ---
Occupational Therapy evaluation completed on five with full evaluation to follow. Recommend occupational therapy per plan of care and LTACH upon discharge. Thank you for this referral. Ifeoma Cline OTR/L
[2019-09-07 16:00] VITALS: BP 121/72
--- NOTE | 2019-09-07 16:00 | NUR ---
NORCO MOSTLY EFFECTIVE PER PT
[2019-09-07 20:00] VITALS: BP 127/68
--- NOTE | 2019-09-07 23:14 | NUR ---
PATIENT REFUSING TO WEAR BIPAP AT THIS TIME. IS WATCHING TV. WILL REATTEMPT LATER
[2019-09-08] VITALS: BP 152/87
--- NOTE | 2019-09-08 00:05 | NUR ---
JENNACO GIVEN FOR PAIN FROM BOTH SIDES AROUND TO BACK AND SHOULDERS RATED A 10
--- NOTE | 2019-09-08 00:34 | NUR ---
PLACED PATIENT ON BIPAP FOR HS
--- NOTE | 2019-09-08 00:59 | NUR ---
ABDON EFFECTIVE PATIENT RESTING COMFORTABLY IN ROOM
[2019-09-08 06:39] LABS: BASO % 0.1 % (0.0-1.0); EOS % 0.1 % (1.0-4.0); HEMATOCRIT 32.9 % (42.0-52.0); LYMPH # 1.9 10*3/uL (1.3-4.4); LYMPH % 12.6 % (27.0-41.0); MEAN CELL VOLUME 91.4 fl (80.0-94.0); MEAN CORPUSCULAR HGB 25.8 pg (27.0-31.0); MEAN CORPUSCULAR HGB CONC 28.3 g/dl (33.0-37.0); MEAN PLATELET VOLUME 11.8 fl (9.6-12.3); MONO # 1.5 10*3/uL (0.1-1.0); MONO % 9.9 % (3.0-9.0); NEUT # 11.4 10*3/uL (2.3-7.9); NEUT % 76.4 % (47.0-73.0); PLATELET COUNT AUTOMATED 315 10*3/uL (130-400); RED CELL DISTRI WIDTH 20.1 % (0-14.5); WHITE BLOOD COUNT 14.9 10*3/uL (4.8-10.8)
[2019-09-08 06:58] LABS: BUN 58 mg/dl (7-24); CHLORIDE 102 mmol/L (98-107); POTASSIUM 4.5 mmol/L (3.5-5.1); SODIUM 144 mmol/L (136-145)
--- NOTE | 2019-09-08 07:13 | NUR ---
PT NOT ON BIPAP AT THIS TIME
--- NOTE | 2019-09-08 07:22 | NUR ---
Shift chart check completed.
[2019-09-08 08:09] VITALS: BP 118/80
--- NOTE | 2019-09-08 09:06 | NUR ---
PT C/O 06/15 ACHING CHRONIC BACK PAIN. ALSO REQUESTING A XANAX. MEDICATED PER ORDER. WILL MONITOR FOR RELIEF. RESPS EASY AND NON LABORED. VSS. CALL LIGHT WITHIN REACH. BODY ALARM INTACT
--- NOTE | 2019-09-08 09:52 | NUR ---
MEDICATIONS EFFECTIVE PER PT
--- NOTE | 2019-09-08 10:30 | NUR ---
OT NOTE Pt seen this date 1:1 for 25 min therapy session. Pt identifed by name and . Pt presented to therapy on 10LO2 HF NC which remained intact throughout entire therapy session. Upon arrival pt seated in bedside chair w SpO2 reading 94%. With exertion d/t talking pts SpO2 dropped to 82%. Pt educated on pursed lip breathing requiring Mod verbal cues throughout session and correcting his posture w fair followthrough. After 4 min pts SpO2 returned to 99%. Pt completed sit to stand w ww and CGA where he stood for 4 min w SpO2 remaining between 95%-100%. Pt returned to seated in bedside chair w ww and CGA where his SpO2 read 98% after aprox 2 min. Pt stood from bedside chair and ambulated to bedside commode w ww and CGA requiring 1 verbal cues to turn towards all lines for safety. Pt transferred to commode surface w ww and CGA where his SpO2 read 98%. Once seated pts SpO2 read 96%. After 1 min seated on bedside commode w SBA pts SpO2 read 99%. Pt stood from commode level w ww and CGA to ambulate back to bedside chair. While walking pts SpO2 read 92%. Pt returned to seated in bedside chair w ww and CGA where his SpO2 read 87%. After a 5 min recovery time pts SpO2 returned to 93%. Pt required education on energy concervation and work simplification to control SpO2 levels d/t impulsive eagerness to complete more physical activity. At end of session pt seated at in bedside chair w body alarm activated, call light in reach, and bedside table in place. Continue w current D/C to LTACH. Sharmaine Meade, S/SPIKE Kwan/Stevo
--- NOTE | 2019-09-08 10:40 | NUR ---
PHYSICAL THERAPY Patient seen this am 1:1 for therapy visit and was sitting up in bedside chair upon therapist arrival. Patient identified by name / and presented with continuos O2-10L via NC. OT health assistant was also present for observation this sesssion and patient records resting SpO2 94% prior to transfering sit to stand MIN A, use of walker standing support. Patient tolerated approx 3 minutes static stand, Fair+ posture, receiving v/c for purse lip breathing technique. Patient also ambulated 5'x 1 to BSC, then additional 20'x 1, wh walker, CGA, dmeonstrating very slow, cautious gait pattern. Patient quickly fatigued upon return to bedside chair, recording SpO2 93%. Following brief seated rest approx 1 minute recorded SpO2 99% and remained in chair with call light, tray table, telephone and body alarm for safety. Will continue per POC as tolerated, total treatment time 17 minutes. Dwight Braden, SLIVER CUTTER
--- NOTE | 2019-09-08 11:46 | NUR ---
PT NOT ON BIPAP AT THIS TIME
--- NOTE | 2019-09-08 11:50 | NUR ---
DR RIVERA INTO SEE PT. PT STATES HE IS UNSURE OF WHERE HE WANTS TO GO ON DISCHARGE. EXPLAINED THAT CASE MANAGEMENT WAS NOT HERE TODAY AND PT WOULD LIKELY BE HERE UNTIL WEDNESDAY. CURRENTLY RESTING IN CHAIR. RESPS EASY AND NON LABORED. 10L HFNC INTACT ALONG WITH CONT. SPO2. WILL CONTINUE TO MONITOR. BODY ALARM INTACT.
[2019-09-08 12:00] VITALS: BP 116/85
--- NOTE | 2019-09-08 13:22 | NUR ---
OCCUPATIONAL THERAPY CO-SIGN I approve of the Occupational Therapy notes written above. SUNI HOOVER, OTR/L
--- NOTE | 2019-09-08 14:51 | NUR ---
PT SLEEPING IN CHAIR. RESPS EASY AND NON LABORED. OXYGEN INTACT. CALL LIGHT WITHIN REACH. BODY ALARM INTACT.
--- NOTE | 2019-09-08 15:15 | NUR ---
PT NOT ON BIPAP AT THIS TIME
[2019-09-08 16:00] VITALS: BP 120/67
--- NOTE | 2019-09-08 17:03 | NUR ---
PT MEDICATED FOR C/O ACHING CHRONIC BACK PAIN. ALSO REQUESTING XANAX. WILL CONTINUE TO MONITOR FOR RELIEF. VOICES NO OTHER CONCERNS AT THIS TIME. RESPS EASY AND NON LABORED. VSS. CALL LIGHT WITHIN REACH. BODY ALARM INTACT
--- NOTE | 2019-09-08 18:00 | NUR ---
PER PT-PAIN MED MOSTLY EFFECTIVE
[2019-09-08 20:00] VITALS: BP 110/74
--- NOTE | 2019-09-08 22:10 | NUR ---
DR DAVIES AWARE OF PATIENT REQUESTING BREATHING TREATMENT. ORDER TAKEN FOR ONE TIME ALBUTEROL
[2019-09-09] VITALS (7 sets, daily range): BP systolic 103–131; BP diastolic 60–81
--- NOTE | 2019-09-09 05:44 | NUR ---
PATIENT CUSSING AT THIS RN AND PAOLO ELENA. STATES "GET THE FUCK OUT OF THE ROOM. HOW DARE YOU WAKE ME UP FOR A TINY ASS PILL AT 5:30 IN THE MORNING." PATIENT WAS ENCOURAGED TO LAY BACK DOWN IN BED FOR SAFETY PRECAUTIONS. PATIENT CONTINUES TO YELL AND CUSS. BED ALARM ON, BED IN LOWEST POSITION, CALL LIGHT IN REACH
[2019-09-09 06:46] LABS: BASO % 0.1 % (0.0-1.0); EOS % 0.1 % (1.0-4.0); LYMPH # 1.1 10*3/uL (1.3-4.4); LYMPH % 10.2 % (27.0-41.0); MEAN CELL VOLUME 91.2 fl (80.0-94.0); MEAN CORPUSCULAR HGB 26.1 pg (27.0-31.0); MEAN CORPUSCULAR HGB CONC 28.7 g/dl (33.0-37.0); MEAN PLATELET VOLUME 11.8 fl (9.6-12.3); MONO # 1.3 10*3/uL (0.1-1.0); MONO % 11.8 % (3.0-9.0); NEUT # 8.3 10*3/uL (2.3-7.9); NEUT % 77.1 % (47.0-73.0); NUCLEATED RED BLOOD CELL 0.3 % (0.0-0.0); PLATELET COUNT AUTOMATED 292 10*3/uL (130-400); RED BLOOD COUNT 3.29 10*6/uL (4.50-5.90); RED CELL DISTRI WIDTH 19.9 % (0-14.5); WHITE BLOOD COUNT 10.7 10*3/uL (4.8-10.8)
[2019-09-09 06:56] LABS: BUN 63 mg/dl (7-24); CHLORIDE 104 mmol/L (98-107); CREATININE 1.21 mg/dL (0.70-1.30); POTASSIUM 3.6 mmol/L (3.5-5.1); SODIUM 142 mmol/L (136-145)
--- NOTE | 2019-09-09 07:57 | NUR ---
PT NOT ON BIPAP AT THIS TIME
--- NOTE | 2019-09-09 10:31 | NUR ---
VITALS ARE FOLLOWED BP 116/71 PULSE OX 95% HR 82 RESP 20 TEMP 97.6 UPON ASSESSMENT PATIENT IS A & O X4. HE IS ON 8L VIA NC. PATIENT HAS BILATERAL INSPIRATORY AND EXPIRATORY WHEEZING IN ALL LOBES WITH LABORED BREATHING HEART AUSUCLTATION SHOWED POSSIBLE MURMUR ALONG WITH FLUID BUILD UP. PATIENT STATES HE HASNT HAD A BOWEL MOVMENT IN 4 DAYS. ABDOMEN SHOWED DISTENTION BUT NORMAL BOWEL SOUNDS. PATIENT COMPLAINED OF A LEFT SIDED AMDOMINAL PAIN THAT WAS CONSTANT WHERE HE DESCRIBED SHARP. SKIN SHOWED SOME CYANOSIS ON NOSE. CAP REFILL WAS NORMAL ON ALL EXTREMITIES. BOTH LOWER EXTREMITIES HAD CRACKS ON THE SHINS FROM SWELLING. +2 PITTING EDEMA IN BOTH FEET. BREN CHENEY/IRENE COOK
--- NOTE | 2019-09-09 11:17 | NUR ---
PT NOT ON BIPAP AT THIS TIME
--- NOTE | 2019-09-09 14:14 | NUR ---
Discussed incentive spirometer intervention with patient. Patient showed demonstration on proper technique and usage. Willie CHENEY/[place] COOK
--- NOTE | 2019-09-09 15:15 | NUR ---
PT NOT ON BIPAP AT THIS TIME
--- NOTE | 2019-09-09 15:25 | NUR ---
PLACED PT ON BIPAP PER PT REQUEST. PT TOLERATING WELL
--- NOTE | 2019-09-09 17:41 | NUR ---
MEDICATED WITH PRN XANAX PER ORDER.
--- NOTE | 2019-09-09 18:08 | NUR ---
Rounded on patient and gave all info and report to nurse in charge. Patient was asleep and resting Willie CHENEY/leann barajas
--- NOTE | 2019-09-09 22:32 | NUR ---
SPOKE WITH KARON DEVI, STATES THAT SHE WILL BE UP TO GIVE PATIENT A BREATHING TREATMENT AND PUT HIM ON HIS BIPAP PER HIS REQUEST.
--- NOTE | 2019-09-09 22:52 | NUR ---
PLACED PATIENT ON BIPAP FOR HS
[2019-09-10] VITALS: BP 95/76
[2019-09-10 05:59] VITALS: BP 130/70
--- NOTE | 2019-09-10 06:23 | NUR ---
DULCOLAX ADMINISTERED FOR PT C/O CONSTIPATION. STATES THAT HIS LAST BM WAS "A COUPLE DAYS AGO".
[2019-09-10 06:46] LABS: BASO % 0.1 % (0.0-1.0); EOS % 0.2 % (1.0-4.0); HEMATOCRIT 30.8 % (42.0-52.0); LYMPH # 1.4 10*3/uL (1.3-4.4); LYMPH % 10.9 % (27.0-41.0); MEAN CELL VOLUME 93.3 fl (80.0-94.0); MEAN CORPUSCULAR HGB 26.4 pg (27.0-31.0); MEAN CORPUSCULAR HGB CONC 28.2 g/dl (33.0-37.0); MEAN PLATELET VOLUME 12.4 fl (9.6-12.3); MONO # 1.5 10*3/uL (0.1-1.0); MONO % 11.8 % (3.0-9.0); NEUT # 9.7 10*3/uL (2.3-7.9); NEUT % 76.2 % (47.0-73.0); NUCLEATED RED BLOOD CELL 0.1 10*3/uL (0.0-0.0); NUCLEATED RED BLOOD CELL 0.5 % (0.0-0.0); PLATELET COUNT AUTOMATED 331 10*3/uL (130-400); RED CELL DISTRI WIDTH 20.5 % (0-14.5); WHITE BLOOD COUNT 12.7 10*3/uL (4.8-10.8)
[2019-09-10 06:53] LABS: BUN 65 mg/dl (7-24); CHLORIDE 106 mmol/L (98-107); POTASSIUM 3.5 mmol/L (3.5-5.1); SODIUM 146 mmol/L (136-145)
[2019-09-10 08:00] VITALS: BP 142/86
--- NOTE | 2019-09-10 08:13 | NUR ---
ASSESSMENT COMPLETE. RESPIRATORY THERAPIST STATES PT OXYGEN WAS AT 99% SO HE IS BUMPED FROM 7L TO 6 L HIGH FLOW NASAL CANNULA. PT COMPLAINS OF SOB AND BACK PAIN WHICH HE STATES "IS FROM THE BED". HE VOICES NO OTHER CONCERNS AT THIS TIME. CALL LIGHT WITHIN REACH, WILL CONTINUE TO MONITOR
--- NOTE | 2019-09-10 10:50 | NUR ---
PT PLACED ON BIPAP AT THIS TIME
--- NOTE | 2019-09-10 10:50 | NUR ---
DR RIVERA IN PT ROOM
[2019-09-10 12:00] VITALS: BP 114/68
--- NOTE | 2019-09-10 13:50 | NUR ---
PT TAKEN OFF BIPAP AND PLACED BACK ON 6L HFNC. SITTING IN CHAIR WITH HIS CALL LIGHT WITHIN REACH, WILL MONITOR
[2019-09-10 16:00] VITALS: BP 159/87
--- NOTE | 2019-09-10 17:08 | NUR ---
Shift chart check completed.
--- NOTE | 2019-09-10 18:51 | NUR ---
PT PLACED ON BIPAP
--- NOTE | 2019-09-10 19:00 | NUR ---
PLACED PATIENT ON BIPAP
[2019-09-10 20:00] VITALS: BP 123/81
--- NOTE | 2019-09-10 20:51 | NUR ---
KARON, RT, NOTIFIED THAT PATIENT WAS TAKEN OFF BIPAP, HFNC PLACED ON AT THIS TIME.
--- NOTE | 2019-09-10 22:54 | NUR ---
PATIENT REQUESTING TO BE PLACE BACK ON BIPAP
[2019-09-11] VITALS: BP 118/75
--- NOTE | 2019-09-11 | NUR ---
TRAZADONE ADMINISTERED FOR PT C/O DIFFICULTY FALLING ASLEEP.
--- NOTE | 2019-09-11 02:30 | NUR ---
PATIENT NOT COOPERATING, REFUSING TO LAY IN BED. EXPLAINED THAT HE IS WEAK AND SHOULD SIT SO THAT HE DOESN'T FALL AND HE REFUSES. REFUSING TO SIT IN THE BED SIDE CHAIR. SPOKE WITH DR MCMILLAN REGARDING XANAX FALLING OFF EMAR, STATES THAT I CAN RESTART IT. ORDER PLACED.
--- NOTE | 2019-09-11 02:30 | NUR ---
REMOVED FROM BIPAP PER PATIENT REQUEST
--- NOTE | 2019-09-11 02:44 | NUR ---
XANAX ADMINISTERED AT THIS TIME.
[2019-09-11 05:27] VITALS: BP 110/70
--- NOTE | 2019-09-11 05:43 | NUR ---
PLACED PATIENT ON BIPAP
--- NOTE | 2019-09-11 07:00 | NUR ---
JASPER HILTON,ELISA Silverman [id number] Please refer to the physician's history and physical for past medical history, comorbid conditions, and allergies. Diagnosis: HISTORY OF COPD, RESPIRATORY FAILURE, ACUTE Gerard Score: 15,AT RISK WOUND DESCRIPTIONS: This nurse along with with Natalia Mitchell RN evaluated patient for skin impairments. Wound Number:1 left lower extremity red blanchable areas noted. No open areas noted at time of assessment. No draiange noted at time of assessment. Wound Number:2 right lower extremity red blanchable areas noted. No open areas noted at time of assessment. No draiange noted at time of assessment. Surface the patient is resting on: Isoflex SKIN PREVENTION RECOMMENDATION: 1. Pressure redistribution support surface as appropriate 2. Elevate heels 3. Remove boots/TEDS every shift and reapply 4. Head of bed 30 degrees as tolerated 5. Assess nutrition and hydration 6. Manage moisture 7. Avoid the use of containment devices while in bed 8. Use absorptive products on surfaces limit layers of linens on bed 9. Turn and reposition every 1-2 hours in bed and every 1 hour in chair as tolerated 10. Weight shifts every 15 minutes while up in chair 11. Offloading with pillows or device to keep heels elevated off bed 12. Monitor skin at least every shift 13. Inspect under medical devices twice a day WOUND TREATMENT RECOMMENDATIONS: Continue heel raiser pro boots to bilateral feet Continue aquaphor ointment to bilateral feet.
[2019-09-11 07:06] LABS: MEAN CELL VOLUME 93.8 fl (80.0-94.0); MEAN CORPUSCULAR HGB 26.3 pg (27.0-31.0); MEAN PLATELET VOLUME 12.1 fl (9.6-12.3); NUCLEATED RED BLOOD CELL 0.3 % (0.0-0.0); PLATELET COUNT AUTOMATED 357 10*3/uL (130-400); RED CELL DISTRI WIDTH 20.6 % (0-14.5); WHITE BLOOD COUNT 11.5 10*3/uL (4.8-10.8)
[2019-09-11 07:21] LABS: BUN 71 mg/dl (7-24); CHLORIDE 105 mmol/L (98-107); CREATININE 1.33 mg/dL (0.70-1.30); POTASSIUM 3.8 mmol/L (3.5-5.1); SODIUM 144 mmol/L (136-145)
--- NOTE | 2019-09-11 07:30 | NUR ---
IN PT ROOM TO CHANGE BATTERY IN THE DENTAL LABORATORY TECHNICIAN APPRENTICE AND TO PLACE PT BACK ON OXYGEN. PT IS ON BIPAP AT THIS TIME AND IS RESTING. CALL LIGHT NEAR PATIENT, WILL CONTINUE TO MONITOR
[2019-09-11 07:37] LABS: PLATELET SUFFICIENCY NORMAL (NORMAL); POLYCHROMASIA SLIGHT; TOTAL CELLS COUNTED 100 #CELLS
--- NOTE | 2019-09-11 07:37 | NUR ---
PHYSICAL THERAPY CO-SIGN I approve of the Physical Therapy notes written above. Barbara Borrego PT
[2019-09-11 07:38] LABS: OVALOCYTES FEW; TARGET CELLS FEW
--- NOTE | 2019-09-11 08:08 | NUR ---
GUEST RELATIONS AGENT LEFT [place] FOR RETURN CALL WITH [facility].
--- NOTE | 2019-09-11 08:10 | NUR ---
OT NOTE Attempted therapy session this date. Upon arrival pt on BiPap. Will check back again at later time/date. Continue w POC as able. Gamal Felix/SPIKE Kwan/Stevo
--- NOTE | 2019-09-11 08:48 | NUR ---
CALLED DR FLETCHER TO SEE IF PATIENT SHOULD BE GIVEN HER COUMADIN OR NOT INCASE SHE IS GOING TO HAVE HER PROCEDURE DONE TODAY. HE STATES TO HOLD THE COUMADIN THIS MORNIING
--- NOTE | 2019-09-11 08:54 | NUR ---
COST CONTROL ANALYST FAXED UPDATES TO [facility].
--- NOTE | 2019-09-11 08:55 | NUR ---
PRECERT WILL BE REQUIRED FOR SNF PLACEMENT.
--- NOTE | 2019-09-11 08:59 | NUR ---
Discussed continuation or discontinuation of monitor worker. New order received to continue monitor worker.
[2019-09-11 09:12] VITALS: BP 110/64
--- NOTE | 2019-09-11 09:13 | NUR ---
MANAGER ADMINISTRATION REACHED OUT TO [facility] ELZ[facility]ETA. MANAGER ADMINISTRATION EXPLAINED THAT [facility] IS OON. MANAGER ADMINISTRATION EXPLAINED REFERRALS WERE STILL OUT FOR [place]. SHE STATED SHE WOULD LEAN MORE TOWARDS [facility]. MANAGER ADMINISTRATION EXPLAINED ANOTHER COVID TEST WOULD BE REQUIRED PER FACILITY. SHE UNDERSTOOD. ELZBIETA STATED SHE WOULD LIKE A REFERRAL MADE TO [facility]. MANAGER ADMINISTRATION CALLED AND LEFT A MESSAGE FOR [facility]. MANAGER ADMINISTRATION TO FOLLOW. BEVEL POLISHER IS AWARE.
--- NOTE | 2019-09-11 09:56 | NUR ---
STAFF COMMAND AND CONTROL OFFICER WAS IN TO SPEAK WITH THE PATIENT HE STATED HE WOULD LIKE TO GO TO [facility]. STAFF COMMAND AND CONTROL OFFICER EXPLAINED THAT [facility] IS OON. STAFF COMMAND AND CONTROL OFFICER EXPLAINED SPOKE ELZBIETA AND A CALL IS OUT TO [facility] TO SEE IF THEY ACCEPT THE INSURANCE. PATIENT WAS AGREEABLE. ANOTHER COVID TEST HAS BEEN ORDERED FOR [facility]. STAFF COMMAND AND CONTROL OFFICER INQURIED ABOUT COST FOR [facility] OUT OF POCKET. THE COST IS $1800.00. STAFF COMMAND AND CONTROL OFFICER PROVIDED THIS NUMBER TO ELZBIETA. CARBONATION EQUIPMENT TENDER IS AWARE. STAFF COMMAND AND CONTROL OFFICER TO CONTINUE TO FOLLOW.
--- NOTE | 2019-09-11 11:07 | NUR ---
CRUSHER AND BLENDER OPERATOR RECEIVED CALL FROM [facility]. SHE IS CONCERNED WITH THE PATIENTS RESPIRATORY STATUS. MAX STATED THERE IS ONLY 1 RN TO 20 RESIDENCE. CRUSHER AND BLENDER OPERATOR CONTACTED ELZBIETA ABOUT THIS. SHE STATED TO HOLD OFF ON THE [facility] REFERRAL SHE WANTS TO SPEAK WITH DR. MCMILLAN ABOUT THE PATIENT [facility] PROGNOIS. SHE STATED THE PATIENT WOULD RATHER BE AT HOME ON HOSPICE THEN IN A FACILITY. CRUSHER AND BLENDER OPERATOR NOTIFIED MANAGER REIMBURSEMENT HERBER. WILL AWAIT TO HEAR ABOUT THE OUTCOME OF THE DPOA- AND DR. SORTO CONVERSATION.
[2019-09-11 12:00] VITALS: BP 142/86
--- NOTE | 2019-09-11 12:40 | NUR ---
PHYSICAL THERAPY Patient seen this pm 1:1 for therapy visit and was supine in bed upon therapist arrival. Patient identified by name / and presented with continuous O2-L via hfnc. Patient reported no new c/o's and recorded resting SpO2 88%, HR 97 bpm prior to transfering supine to sit EOB with MIN A, recording SpO2 82%, HR 105 bpm secondary to increased exertion. Patient tolerated static EOB sit x 4 minutes, SBA, then completed sit to stand transfer, CGA, recording SpO2 90%, 120 HR, tolerating approx 3 minutes static stand. Patient demonstrated initial "slouched" standing posture and was able to correct following v/c. Patient needed brief seated rest due to quick onset of fatigue. Patient performed second sit to stand, CGA, use of wh walker standing support and ambulated 12'x 1, wh walker, CGA demonstrating slow mell, decreased stride and increased SOB, returning to bedside chair. Patient recorded SpO2 84%, HR 112 bpm following gait and needed approx 6-8 minutes seated rest while returning to 91% Spo2, HR 97 bpm. Patient remained in bedside chair with call light, tray table, telephone and body alarm for safety as lunch was ordered. Will continue per POC as tolerated, total treatment time 18 minutes. Dwight Braden, WEB OPERATIONS ADMINISTRATOR
--- NOTE | 2019-09-11 13:00 | NUR ---
OT NOTE Pt seen this date 1:1 for 30 min therapy session. Pt identified by name and and had complaints of increased fatigue due to complaints of not sleeping the night before. Upon arrival pt supine in bed laying on his R side w 6LO2 high-flow via NC which remained intact throughout entire session. At rest sidelying pts SpO2 read 88% and HR 97 bpm . Pt completed bed mobility from supine in bed to seated at EOB w SBA w SpO2 reading 82% and HR 103 bpm. Pt remained seated at EOB for 4 min when his SpO2 returned to 90% and HR 120 bpm w education provided on proper breathing and posture w fair followthrough. Pt stood from bed level w ww and CGA where he maintained standing w ww and CGA for 3 min before his SpO2 read 86%. Pt returned to seated at EOB to recover w ww and CGA for 1 min w SpO2 returning to 90%. Pt stood from seated at EOB w ww and CGA and ambulated around bed to bedside chair w ww and CGA. Pt returned to seated in bedside chair where his SpO2 read 86-87%. Reinforced education for proper breathing and positioning w fair followthrough. After an 8 min recovery SpO2 read between 89-91%. After 11 total minutes seated in bedside chair pts SpO2 read 91-95%. At end of session pt seated in bedside chair w body alarm activated, call light in reach, bedside table in place, and SpO2 reading 91% and HR 97 bpm. Continue w current D/C plan to LTACH. Gamal Felix/SPIKE Kawn/Stevo
--- NOTE | 2019-09-11 13:09 | NUR ---
DR MCMILLAN IN TO SEE PATIENT AT THIS TIME
--- NOTE | 2019-09-11 13:24 | NUR ---
Discussed discharge planning with resident, Dr. Hayden Kahn. Notified DPOAH Omer would like to speak to Dr. Khan regarding the possibility of hospice at home. Resident to discuss with Dr. Kahn.
--- NOTE | 2019-09-11 14:58 | NUR ---
PHYSICAL THERAPY Pt's 02 requirements have gone from 8-10 L 02 HFNC over weekend with pt today now using 6L 02 HFNC. Pt tolerating standing/OOB activities. New Goals 1 week: Amb 15ft w FWW cga x 1 maintaining 02 level 88% or greater with activity. Will continue to follow monitor progress, per MD/LUIS ALBERTO cont to look at placement however now possiblity of hospice care. Will await medical team meeting 09/11 regarding terminal supervisor prognosis and discharge plans. Barbara Borrego PT
--- NOTE | 2019-09-11 15:06 | NUR ---
DR CLEMENTE IN TO SEE PATIENT
--- NOTE | 2019-09-11 15:19 | NUR ---
COMMODITY INDUSTRY ANALYST RECIEVED A MESSAGE FROM ELZBIETA ASKING IF [facility] WOULD STILL CONSIDER THE PATIENT. COMMODITY INDUSTRY ANALYST FAXED UPDATED PT/OT NOTE AND ASKED [facility] TO REVIEW IT.
--- NOTE | 2019-09-11 15:24 | NUR ---
NEIGHBORHOOD AIDE REACHED OUT [facility]. THEY ARE A COVID POSITIVE BUILDING AND ARE NOT ACCEPTING ANY NEW REFERRALS AT THIS TIME. INCOMING FREIGHT CLERK HERBER IS AWARE AND NEIGHBORHOOD AIDE LET [facility] KNOW ABOUT THIS WELL.
[2019-09-11 16:00] VITALS: BP 122/75
--- NOTE | 2019-09-11 17:30 | NUR ---
Shift chart check completed.
[2019-09-11 20:00] VITALS: BP 117/77
--- NOTE | 2019-09-11 22:47 | NUR ---
XANAX AND TRAZADONE ADMINISTERED FOR PT C/O ANXIETY AND INABILITY TO SLEEP. WILL CONTINUE TO MONITOR AND REASSESS.
--- NOTE | 2019-09-11 23:32 | NUR ---
PATIENT APPEARS TO BE MORE RELAXED. LAYING IN BED WITH BIPAP ON. GAVE ME A THUMBS UP UPON ENTRANCE TO ROOM. WILL CONTINUE TO MONITOR.
[2019-09-12] VITALS: BP 142/95
--- NOTE | 2019-09-12 02:16 | NUR ---
OFF BIPAP AT THIS TIME. BACK ON 6L HFNC PER PT REQUEST.
--- NOTE | 2019-09-12 02:17 | NUR ---
OT NOTE Pt seen this date 1:1 for 24 min therapy session. Pt identified by name and presenting to therapy w 8LO2 HF via NC which remained intact throughout entire session. Upon arrival pt seated on bedside commode w SpO2 reading 80% and HR 106 bpm. Pt rated global pain at a 4/10 on a scale og 0-10. Prior to starting treatment spoke with pt's nurse Radha who reported that pt was okay to be treated at this time, nurse reported that pt's SpO2 had been jumping anywhere from 70's-90's%. Pt stood from bedside commode and completed a SPT to seated at EOB w CGA utilizing his BUE for support on arm rest and bed rail. Once seated at EOB pts SpO2 read 77% and HR 126 bpm. Pt remained seated at EOB for 10 min to recover w SpO2 readings ranging from 79%-87%. Pt completed sit to stand from EOB w ww and CGA where pt stood for aprox 1 min w SpO2 reading 82%-85%. Pt ambulated around bed w ww and CGA. Pt then transferred to seated at EOB w ww and CGA for aprox 2 min rest break w SpO2 reading 80%-84%. Pt stood from EOB w ww and CGA and transferred into bedside chair w ww and CGA w fair technique d/t fatigue. At end of session pt seated in bedside chair w body alarm activated, call light in reach, bedside table in place, SpO2 reading 86% and receiving 8LO2 HF via NC. Continue w D/C to LTACH. Gamal Felix/SPIKE Kwan/Stevo
--- NOTE | 2019-09-12 02:41 | NUR ---
JENNACO FELL OFF EMAR. DR DAVIES STATES IT CAN BE RESTARTED AT THIS TIME. PT C/O PAIN RELATED TO "LAYING IN BED ALL THE TIME".
--- NOTE | 2019-09-12 02:50 | NUR ---
NORCO ADMINISTERED FOR PT C/O PAIN IN HIS BACK AND SHOULDERS RATED A 10/10. WILL CONTINUE TO MONITOR.
--- NOTE | 2019-09-12 03:30 | NUR ---
PT RESTING. NO SIGNS OF DISCOMFORT OR DISTRESS NOTED.
--- NOTE | 2019-09-12 07:52 | NUR ---
IN PT ROOM AT THIS TIME, PT IS ON BIPAP. BREAKFAST JUST ARRIVED AND HE STATES HE WILL STAY ON THE BIPAP A LITTLE LONGER. CALL LIGHT PLACED NEAR HIM AND HE WILL RING IT WHEN HE IS READY TO BE TAKEN OFF THE BIPAP. WILL MONITOR
--- NOTE | 2019-09-12 07:55 | NUR ---
07:15 PT PLACED ON BIPAP AT THIS TIME PER PT REQUEST. PT SITTING ON EDGE OF BED WITH MILD TO MODERATE RESP DISTRESS. PT FEELS LSESS SOB ON BIPAP. DA ADMINISTERED VIA BIPAP. SYSTEM CHECKED AND FX'ING.
--- NOTE | 2019-09-12 09:15 | NUR ---
PT TAKEN OFF BIPAP AND PLACED ON 6L HFNC. WILL MONITOR
--- NOTE | 2019-09-12 09:57 | NUR ---
OVEN PRESS TENDER SPOKE WITH PATIENTS DPOA-HC SHE IS NOW REQUESTING THAT THE PATIENT BE REFERRED CLOS[facility] TO [facility]IR [facility]. COVID TESTING RESULT IS STILL PENDING. OVEN PRESS TENDER FAXED REFERRAL TO [facility]. ELEMENTARY ART TEACHER HERBER IS AWARE.
--- NOTE | 2019-09-12 10:51 | NUR ---
CALLED DR ADAMES PER PT REQUEST OF NEEDING SOMETHING STRONGER FOR PAIN. WILL DC NORCO 5 MG AND ADD NORCO 10 MG
--- NOTE | 2019-09-12 11:02 | NUR ---
PRN NORCO PO GIUEN FOR COMPLAINTS OF BACK PAIN, WILL MONITOR FOR EFFECTIVNESS
--- NOTE | 2019-09-12 11:24 | NUR ---
OT NOTE Attempted to see pt this date. Upon arrival pt sidelaying in bed receiving 8LO2 via HF NC w bed alarm activated. Pt denied therapy verbalizing "I'm not getting up I just got comfortable" rating global pain at a 10/10 on a 0-10 pain scale. Pt made limited eye contact and had a dry and quiet voice. S/ASSET PROTECTION OFFICER offered encouragement to participate in therapy and pt yelled "get out". Will check back again at later time/date. Continue w POC as able. Sharmaine Meade, S/TROY SPIKE Sotelo/Stevo
--- NOTE | 2019-09-12 11:30 | NUR ---
PHYSICAL THERAPY Patient was resting soundly supine in bed when approached for am therapy visit and presented with continuos O2-8L via hfnc. Patient did not open his eyes, however voiced 10/10 global pain and stated he was very uncomfortable. Patient unable to participate due to pain c/o and remained in bed with bed alarm activated for safety. Will continue per POC as able. Dwight Braden, DESIGN SALES CONSULTANT
--- NOTE | 2019-09-12 11:50 | NUR ---
DR MCMILLAN IN TO SEE PATIENT
[2019-09-12 12:00] VITALS: BP 139/91
--- NOTE | 2019-09-12 12:00 | NUR ---
PT STATES NORCO EFFECTIVE
--- NOTE | 2019-09-12 12:14 | NUR ---
Discussed referral sent to [facility], awaiting acceptance, with resident Dr. Hayden Kahn.
--- NOTE | 2019-09-12 12:20 | NUR ---
LATE NOTE: CARPENTER BRIDGE FAXED REFERRAL TO [facility]. [facility] DOES NOT HAVE ANY BEDS AVAILABLE AND NO PROJECTED TIME FRAME. [facility]: SAID THE PATIENT IS TO COMPLEX AND THEY ARE NOT ABLE TO ACCEPT. CARPENTER BRIDGE NOTIFIED FAIRING WORKER HERBER OF THIS.
--- NOTE | 2019-09-12 13:23 | NUR ---
COMMERCIAL INTELLIGENCE MANAGER AND MAINFRAME SYSTEMS ADMINISTRATOR HERBER SPOKE WITH THE PATIENT. COMMERCIAL INTELLIGENCE MANAGER EXPLAINED TO THE PATIENT THE SEVERAL REFERRALS MADE TO SNFs IN THE [facility]. COMMERCIAL INTELLIGENCE MANAGER EXPLAINED THEY ARE NOT ABLE TO ACCEPT HIM. COMMERCIAL INTELLIGENCE MANAGER EXPLAINED TO THE PATIENT THERE IS AN ACCEPTING FACILITY -[facility] PATIENT STATED SEVERAL TIMES "LET'S GO". PATIENT IS AGREEABLE TO GO TO [place]. PATIENT STATED HIS SON DUONG HAS HIS BELONGINGS FROM [facility]. THE PATIENT STATED IT WAS OKAY TO SPEAK WITH DUONG OR DUONGS GIRLFRIEND ANDRES. COMMERCIAL INTELLIGENCE MANAGER WILL ATTEMPT TO REACH DUONG OR ANDRES.
[2019-09-12 16:00] VITALS: BP 104/66
--- NOTE | 2019-09-12 16:26 | NUR ---
PT PALCED BACK ON BIPAP
--- NOTE | 2019-09-12 16:30 | NUR ---
PATIENT PLACED ON BI-PAP 02/10, 40%. PULSE OX 95%.
--- NOTE | 2019-09-12 18:05 | NUR ---
PT TAKEN OFF BIPAP
[2019-09-12 20:00] VITALS: BP 110/77
--- NOTE | 2019-09-12 21:18 | NUR ---
PATIENT MEDICATED WITH XANAX, TRAZODONE AND NORCO FOR COMPLAINTS OF ANXIETY, INSOMNIA AND PAIN. WILL MONITOR FOR EFFECTIVENESS. CALL LIGHT IN REACH.
--- NOTE | 2019-09-12 22:15 | NUR ---
TRAZODONE, NORCO AND XANAX EFFECTIVE AT THIS TIME. PATIENT IN BED WITH EYES CLOSED. NO SIGNS OR SYMPTOMS OF DISTRESS NOTED.
[2019-09-13] VITALS: BP 112/81
--- NOTE | 2019-09-13 02:56 | NUR ---
02:35 REMOVED FROM BIPAP AND PLACED ON 8L HFNC PER PT REQUEST.
--- NOTE | 2019-09-13 07:00 | NUR ---
ARRIVED ON SHIFT, RECEIVED REPORT FROM OFFGOING NURSE, ASSUMED CARE OF PATIENT.
[2019-09-13 07:01] LABS: HEMATOCRIT 30.4 % (42.0-52.0); MEAN CELL VOLUME 92.4 fl (80.0-94.0); MEAN CORPUSCULAR HGB 25.8 pg (27.0-31.0); MEAN PLATELET VOLUME 12.1 fl (9.6-12.3); NUCLEATED RED BLOOD CELL 0.1 10*3/uL (0.0-0.0); NUCLEATED RED BLOOD CELL 0.5 % (0.0-0.0); PLATELET COUNT AUTOMATED 398 10*3/uL (130-400); RED BLOOD COUNT 3.29 10*6/uL (4.50-5.90); RED CELL DISTRI WIDTH 21.2 % (0-14.5); WHITE BLOOD COUNT 13.3 10*3/uL (4.8-10.8)
[2019-09-13 07:28] LABS: ALBUMIN 5.2 gm/dl (3.1-4.5); CREATININE 1.45 mg/dL (0.70-1.30); POTASSIUM 4.1 mmol/L (3.5-5.1); TOTAL PROTEIN 7.5 gm/dL (6.4-8.2)
--- NOTE | 2019-09-13 07:35 | NUR ---
INTRODUCED SELF TO PATIENT, BED IN LOW POSITION, WITH WHEEL LOCKS ENGAGED, SIDE RAILS UP X 2 FOR TURNING AND REPOSITIONING, BED ALARM ON, CALL LIGHT WITHIN REACH, NO NEEDS VOICED AT THIS TIME, WHITE BOARD UPDATED.
[2019-09-13 07:54] LABS: PLATELET SUFFICIENCY NORMAL (NORMAL); POLYCHROMASIA SLIGHT; SCHISTOCYTES FEW; TARGET CELLS FEW; TOTAL CELLS COUNTED 100 #CELLS
[2019-09-13 08:00] VITALS: BP 121/82
--- NOTE | 2019-09-13 08:00 | NUR ---
QUALITY ASSURANCE INTERN FAXED UPDATES TO [facility]. QUALITY ASSURANCE INTERN ASKED FOR PASRR FROM [facility] TO BE EMAILED TO THIS QUALITY ASSURANCE INTERN SO THAT THIS QUALITY ASSURANCE INTERN CAN FORWARD IT OVER TO [facility]. AWAITING UPDATED PT/OT NOTES FOR THE PRECERT TO BE STARTED.
--- NOTE | 2019-09-13 08:05 | NUR ---
PHYSICAL THERAPY Patient seen this am 1;1 for therapy visit and was sitting up on EOB upon therapist arrival. Patient identified by name / and presented with continuos O2-11L via hfnc. Patient reports no new c/o's and recorded resting SpO2 89%, HR 105-125 bpm. Patient was pleasant this morning performing several sit to stand transfers, CGA, tolerating approx 2 minutes static stand with use of wh walker standing support. Patient recorded SpO2 86%, HR 110 bpm following standing activity and needed seated rest break to continuoe treatment. Patient also ambulated 20'x 1 to bedside chair, wh walker, CGA, demonstrating very slow, cautious gait pattern. Patient demonstrated improved safety awareness with Good upright posture and increased fatigue. Following seated 20 second rest, patient recorded SpO2 93%, HR 112 and remained in chair with call light, tray table, telephone and body alarm as breakfast arrived. Will continue per POC as tolerated, total treatment time 17 minutes. Dwight Braden, FACING SLITTER
--- NOTE | 2019-09-13 08:23 | NUR ---
OT NOTE Pt seen this date 1:1 for 18 min therapy session. Pt identified by name and . Upon arrival pt seated at EOB receiving 11LO2 HF via NC which remained intact throughout entire session. At rest seated at EOB pts SpO2 read 89% and HR 120 bpm. Pt rated low back pain and L shoulder pain at a 4/10 on a 0-10 pain scale. Pt stood from seated at EOB w ww and CGA, challenged pt's static standing tolerance needed for enhanced endurance pt was able to tolerate 2 minutes after which his SpO2 read 86% and HR 113 bpm resulting in a return to seated at EOB w ww and CGA. After a 30 sec rest break pts SpO2 read 93% and heart rate 105 bpm. Then pt stood from bedlevel w ww and CGA and ambulated around bed to bedside chair. During ambulation pts SpO2 read 81% and HR 110 bpm. Pt transferred to seated in bedside chair w ww and CGA. After 20 sec seated pts SpO2 read 92% and HR 109 bpm. At end of session pt seated in bedside chair w body alarm activated, call light in reach, bedside table in place and 11LO2 HF via NC intact. Continue w current D/C to [facility]. Sharmaine Meade, S/LOCKER ATTENDANT SPIKE Sotelo/Stevo
--- NOTE | 2019-09-13 08:55 | NUR ---
Dr. Hayden Kahn notified of wound care recommendations
--- NOTE | 2019-09-13 09:32 | NUR ---
PATIENT C/O NECK AND SHOULDER PAIN RATES AN 8/10 CHRONIC ACHING PAIN MEDICATED WITH NORCO ORDSERED PRN.
--- NOTE | 2019-09-13 10:32 | NUR ---
PATIENT REPORTS MODERATE RELIEF FROM NORCO GIVEN X 1 HOUR AGO, RATES PAIN BACK AND NECK 3/10
--- NOTE | 2019-09-13 10:55 | NUR ---
DIRECTOR OF ACQUISITIONS [facility]
[2019-09-13 12:00] VITALS: BP 139/79
--- NOTE | 2019-09-13 13:30 | NUR ---
PATIENT TAKEN OFF OF BI-PAP, PLACED ON 10 L/M HIGH FLOW CANNULA.
--- NOTE | 2019-09-13 15:17 | NUR ---
PT MEDICATED WITH XANAX FOR C/O ANXIETY. CALL LIGHT IN REACH. WILL MONITOR
[2019-09-13 16:00] VITALS: BP 100/72
--- NOTE | 2019-09-13 16:01 | NUR ---
STRING STUDIES DIRECTOR AND POPULATION HEALTH MANAGER HERBER SPOKE WITH THE PATIENT. PATIENT IS UPSET THAT HE IS STILL IN THIS FACILITY. PATIENT IS WANTING TO BE DISCHARGED TO SNF. PRECERT FOR SNF IS PENDING. STRING STUDIES DIRECTOR SPOKE WITH SHAD SEVERAL TIMES ABOUT THE PRECERT. COBY SHOULD KNOW IF PRECERT IS BACK BY 5PM TONIGHT. IF NOT IT WILL BE TOMORROW. AFTER A LENGTHY CONVERSATION PATIENT APOLOGIZED FOR HIS BEHAVIOR AND STATED HIS ANXIETY GOT THE BEST OF HIM. PATIENT IS AWARE THAT IF NOTHING IS HEARD BY 5 PM THEN PRECERT WILL LIKELY COME TOMORROW. WORK MARBLE MACHINE TENDER IS AWARE THAT SHAD MAY BE CALLING IN REGARDS TO PRECERT. STRING STUDIES DIRECTOR TO FOLLOW.
--- NOTE | 2019-09-13 16:17 | NUR ---
XANAX EFFECTIVE, HE IS QUITE A BIT BETTER HE IS NO LONGER AGGITATED.
--- NOTE | 2019-09-13 19:57 | NUR ---
24 HR CHART CHECK COMPLETE.
[2019-09-13 20:00] VITALS: BP 123/83
[2019-09-14] VITALS: BP 121/81
--- NOTE | 2019-09-14 03:12 | NUR ---
PT MEDICATED WITH PRN XANAX. WILL MONITOR FOR EFFECTIVENESS.
[2019-09-14 07:58] LABS: CREATININE 1.82 mg/dL (0.70-1.30)
[2019-09-14 08:00] VITALS: BP 139/92
[2019-09-14 08:26] LABS: POTASSIUM 5.1 mmol/L (3.5-5.1)
--- NOTE | 2019-09-14 08:28 | NUR ---
TWISTER OPERATOR IN TO SPEAK WITH THE PATIENT. PATIENT IS UPSET THE [facility] FOR [facility] DID NOT COME. TWISTER OPERATOR EXPLAINED UPDATES WERE FAXED THIS MORNING AND SHOULD HEAR SOMETHING HOPEFULLY SOON. PATIENT STATED HE WAS GETTING DRESSED AND LEAVING. TWISTER OPERATOR EXPLAINED HE COULD SIGN OUT AMA BUT EXPLAINED HE WOULD NEED TO HAVE O2 BROUGHT TO HIM. PATIENT STATED ALL HIS TANKS WERE EMPTY. PATIENT THEN STATED "WHAT CHOICE DO I HAVE." TWISTER OPERATOR EXPLAINED THE PRECERT PROCESS AGAIN, TWISTER OPERATOR EXPLAINED ITS HIS RIGHT IF HE WANTS TO GO AMA.
--- NOTE | 2019-09-14 08:30 | NUR ---
Plant Science Professor in to see patient. He is sitting on the edge of his bed. Nurse in room. Discussed still waiting on approval authorization and he verbalized an understanding. ornamental metal worker following for referral to [facility] pending insurance approval.
--- NOTE | 2019-09-14 08:44 | NUR ---
PT GIVEN NORCO 100-325 MG TAB AT THIS TIME FOR C/O PAIN TO BACK AND SHOULDERS. WILL MONTIOR FOR EFFECTIVENESS. CALL LIGHT IN REACH.
[2019-09-14 08:52] VITALS: BP 132/70
--- NOTE | 2019-09-14 09:15 | NUR ---
PT GIVEN 1X DOSAGE OF 0.25MG XANAX PER PHYSICIAN ORDER FOR ANXIETY. WILL MONITOR FOR EFFECTIVENESS. CALL LIGHT IN REACH.
--- NOTE | 2019-09-14 09:22 | NUR ---
Discussed discharge planning with resident, Dr. Kahn. Informed waiting on insurance authorization for approval to be discharged to [facility]. expeller worker following.
--- NOTE | 2019-09-14 09:30 | NUR ---
PT BLADDER SCANNED PER PHYSICIAN ORDERS. PT IS FOUND TO HAVE GREATER THAN 351 CC OF URINE ON BLADDER SCAN. DR CLEMENTE NOTIFIED OF THIS. PHYSICIAN STATES TO HAVE PT VOID AND THEN BLADDER SCAN AGAIN FOR POST VOID RESIDUAL URINE. PT IS ASKED TO URINATE BUT STATES THAT HE DOES NOT WANT TO AT THIS TIME AND THAT HE WILL WHEN HE WAKES UP FROM HIS NAP. WILL CONTINUE TO ENCOURAGE PT TO URINATE AND WILL OBTAINED POST VOID BLADDER SCAN AT THAT TIME. WILL NOTIFY PHYSICIAN WITH RESULTS.
--- NOTE | 2019-09-14 09:44 | NUR ---
ABDON EFFECTIVE PER PT.
--- NOTE | 2019-09-14 10:15 | NUR ---
XANAX EFFECTIVE PER PT.
--- NOTE | 2019-09-14 10:57 | NUR ---
PER SHAD PATIENTS CLINICALS HAVE BEEN SENT TO THE MD FOR FURTHER REVIEW. NEWBORN PHOTOGRAPHER SPOKE WITH LAW LIBRARIAN HERBER ABOUT THIS.
--- NOTE | 2019-09-14 11:18 | NUR ---
OT NOTE Attempted to see pt this A.M. Upon arrival pt sidelaying in bed asleep w bed alarm activated and 10LO2 HF via NC intact. Pt identified by name and . Pt was difficult to awake. Pt unable to keep eyes open and had a quiet raspy and hard to understand voice. Pt unable to maintain conversation. Innapropriate to treat at this time. Will check back again at later time/date. Continue w POC as able. Sharmaine Meade, Gamal/SPIKE Kwan/Stevo
--- NOTE | 2019-09-14 11:18 | NUR ---
PHYSICAL THERAPY Patient was resting comfortably supine in bed this am when approached for therapy visit. Patient presented with contiuous O2-10L via hfnc, recording SpO2 93%, HR 112 bpm. Patient could hardly keep his eyes open and was hard to understand secondary to soft "puffy" voice. Patient stated he was too exhausted to participate in therapy this morning, requesting to remain in bed to sleep. Will continue per POC as able. Dwight Braden, ELECTRICAL LOGGING OPERATOR
--- NOTE | 2019-09-14 11:55 | NUR ---
[facility]. She states she just spoke to Dr. Kahn and Dr. Kahn asked her to call . Discussed insurance denied his SNF stay. Discussed hospice at home and she states that will not happen as she doesn't have the space for it at her home and she works all day and will not be able to meet his needs. She said "Dr. Kahn just said the other day he didn't need hospice yet. He still has a lot of spunk in him. The medical system is broken. [facility] and [facility] about had it. Dr. Kahn needs to do whatever he needs to do in order to get him to a SNF." Notified Dr. Kahn.
[2019-09-14 12:00] VITALS: BP 139/98
--- NOTE | 2019-09-14 12:06 | NUR ---
PT ASKED TO VOID INTO URINAL AT THIS TIME IN ORDER TO BE BLADDER SCANNED AND IN ORDER TO SEND ORDERED UA. PT STATES THAT HE DOES NOT WANT TO AT THIS TIME AND STATES THAT HE WILL "IN A LITTLE BIT". WILL CONTINUE TO MONITOR HIM AND NOTIFY PHYSICIAN OF RESULTS.
--- NOTE | 2019-09-14 13:36 | NUR ---
SNF denied after peer to peer per Dr. Kahn. Insurance states options would be: 1. Home Health 2. 24 hour care 3. LTC facility Informed Tarry at [facility] of denial and questioned [facility] starting the Medicaid process. Awaiting response.
--- NOTE | 2019-09-14 13:45 | NUR ---
Received call from [facility] possibly taking patient pending [place] Medicaid. They would need bank statements and paperwork. Also a PASSR and LOC. sanitation worker hosing machinery to reach out to family. Dr. Kahn notified. Inpatient hospice not an option per Dr. Kahn.
--- NOTE | 2019-09-14 14:43 | NUR ---
PT SITTING UP IN CHAIR, TALKING WITH FAMILY ON PHONE. RESPIRATORY THERAPIST STATES THAT HE WILL BE BACK TO PUT PT ON BIPAP. PT RESPIRATIONS ARE UNLABORED AT THIS TIME. OXYGEN IN PLACE. SAFETY MEASURES IN PLACE. CALL LIGHT IN REACH.
--- NOTE | 2019-09-14 14:44 | NUR ---
BRONZE CHASER SPOKE WITH THE PATIENTS FAMILY ANDRES PATIENTS SON DUONG IS STILL AT WORK. BRONZE CHASER EXPLAINED THE DPOA-HC IS REFUSING TO TAKE THE HOME. BRONZE CHASER EXPLAINED THAT SNF WAS DECLINED AFTER THE PEER TO PEER. BRONZE CHASER EXPLAINED THAT THE PATIENT COULD GO HOME WITH HOSPICE OR COULD POSSIBLY GO PENDING MEDICAID TO [facility]. [facility] WOULD REQUIRE $5700 UP FRONT IT WOULD BE PRIVATE PAY UNTIL THE APPLICATION WOULD BE FINALIZED. BRONZE CHASER EXPLAINED THE PATIENT COULD SIGN OUT AMA AT ANY POINT THOUGH. ANDRES STATED SHE WOULD WAIT TO SPEAK WITH DUONG.
[2019-09-14 14:49] LABS: URINE CHLORIDE, RANDOM < 10 mmol/L
[2019-09-14 15:03] LABS: BILIRUBIN 1+ (NEGATIVE); BLOOD NEGATIVE (NEGATIVE); CLARITY SL CLOUDY (CLEAR); COLOR YELLOW (YELLOW); GLUCOSE NEGATIVE (NEGATIVE); KETONE NEGATIVE (NEGATIVE); SPECIFIC GRAVITY 1.015 (1.005-1.030)
[2019-09-14 15:04] LABS: BACTERIA 1+; HYALINE CAST 51-100; LEUKO ESTERASE NEGATIVE (NEGATIVE); MUCOUS 1+; NITRITE NEGATIVE (NEGATIVE); UROBILINOGEN 0.2 E.U./dl (0.2-1.0)
--- NOTE | 2019-09-14 15:12 | NUR ---
PT POST VOID RESIDUAL FROM BLADDER SCANNER IS GREATER THAN 231 CC. WILL NOTIFY PHYSICIAN.
--- NOTE | 2019-09-14 15:15 | NUR ---
NOTIFIED DR MCMILLAN OF POST VOID RESIDUAL ON BLADDER SCANNER.
[2019-09-14 16:00] VITALS: BP 105/61
--- NOTE | 2019-09-14 16:52 | NUR ---
PT GIVEN XANAX 0.5 MG AT THIS TIME S/S OF ANXIETY. WILL MONITOR FOR EFFECTIVENESS. CALL LIGHT IN REACH.
--- NOTE | 2019-09-14 17:40 | NUR ---
NORCO GIVEN AT THIS TIME FOR C/O BACK PAIN. WILL MONITOR FOR EFFECTIVENESS. CALL LIGHT IN REACH.
--- NOTE | 2019-09-14 17:52 | NUR ---
XANAX EFFECTIVE PER PT
--- NOTE | 2019-09-14 18:40 | NUR ---
ABDON EFFECTIVE PER PT.
--- NOTE | 2019-09-14 19:24 | NUR ---
24 HR CHART CHECK COMPLETE.
[2019-09-14 20:00] VITALS: BP 118/82
[2019-09-15] VITALS: BP 118/85
--- NOTE | 2019-09-15 02:56 | NUR ---
PT MEDICATED WITH PRN NORCO FOR C/O PAIN RATED A 10/10. WILL MONITOR FOR EFFECTIVENESS.
--- NOTE | 2019-09-15 07:30 | NUR ---
BIPAP OFF PER PTS. REQUEST. O2 ON VIA HFNC AT 10L.
[2019-09-15 08:00] VITALS: BP 140/72
--- NOTE | 2019-09-15 08:00 | NUR ---
PHYSICAL THERAPY Patient seen this am 1;1 for therapy visit and was sitting up EOB with OT office assistant present upon therapist arrival. Patient identified by name / and presented with "slouched" seated posture. Patient educated on importance of improved posture to assist with breathing technique as therapist was unable to record SpO2 secondary to cold extremities. Patient tolerated static EOB sit x 7-8 minutes, CGA to prevent increased L side lean. Patient completed sit to stand, MIN A, however could only tolerate < 30 seconds static stand tolerance due to quick onset of fatiuge. Patient became angry when instructed to return to supine in bed, demanding to remain EOB sit. Nurse arrived to replace Telemetry battery and stated he could remain EOB sit with bed activated and she would check on him. Patient remained EOB sit with call light, tray table and bed alarm awaiting breakfast. Will continue per POC as tolerated, total treatment time 16 minutes. Dwight Braden, ARMATURE STRAIGHTENER
--- NOTE | 2019-09-15 08:22 | NUR ---
OT NOTE Pt seen this date 1:1 for 20 min therapy session. Upon arrival pt seated in bed w bed alarm activated and 10LO2 via HF NC which pt was not wearing, O2 was immediately rectified w pts SpO2 reading 88% and HR 120 bpm. Pt identified by name and . Pt completed transfer to seated at EOB w SBA where SpO2 read in the mid 80s% and HR between 110-125 bpm. Pt remained seated at EOB for aprox 5 min w SBA with SpO2 reading high 80s% w education provided for proper breathing technique and posture to increase O2 stats w good carryover. Pt completed sit to stand w Darion and verbal prompts for hand placement for improved technique and increased I. Challenged pt's static standing tolerance for enhanced endurance pt was able to tolerate aprox 90 sec before therapist requested for pt to sit due to SpO2 being unable to maintain accurate reading d/t pts cold fingers. Nurse notified and present. Pt refused to return to supine in bed w warm blankets as an attempt to improve SpO2 reading. As a result, pt educated in importance of having an accurate SpO2 reading to continue activity along w the safety risks associated w pts continuous request to walk w inaccurate readings. Pt continued to adamately refuse to return to supine in bed. At end of session pt seated at EOB w nurse present, bed alarm activated and 10LO2 via HF NC intact. Continue w POC as able. Gamal Felix/SPIKE Kwan/Stevo
--- NOTE | 2019-09-15 08:25 | NUR ---
Senior Hardware Design Engineer and Hogshead Weigher in to see patient. Therapy working with patient. Discussed discharge planning with Dr. Vazquez. Informed patient has been denied SNF and LTAC and family refusing to take patient home with hospice. New order received for inpatient hospice consult. Dr. Acosta notified and will see patient today. rocket test fire worker following for referral to [facility].
--- NOTE | 2019-09-15 08:39 | NUR ---
DR MCMILLAN NOTIFIED THAT PT HAS INCREASED ANXIETY AT THIS TIME. NEW ORDERS RECEIVED FOR XANAX 0.5 MG X1 PO NOW. ORDERS PLACED AND WILL MEDICATE WHEN AVAILABLE. DR MCMILLAN GIVES OKAY TO CHANGE 2V CHEST XRAY TO PORTABLE 1V AT THIS TIME, WELL. APPROPRIATE ORDERS PLACED.
--- NOTE | 2019-09-15 09:04 | NUR ---
XANAX 0.5 MG TAB GIVEN AT THIS TIME FOR INCREASED ANXIETY. WILL MONITOR FOR EFFECTIVENESS. PT SITTING UP ON SIDE OF BED, EATING BREAKFAST. APPROPRIATE BODY ALARMS IN PLACE. WILL MONITOR. CALL LIGHT IN REACH.
--- NOTE | 2019-09-15 09:20 | NUR ---
KNOT PICKER CLOTH EMAILED REFERRAL TO [facility]. PER [facility] AMIN PENCILLER ANA M WILL BE DOWN TO ASSESS THE PATIENT AROUND 11:30AM.
--- NOTE | 2019-09-15 09:59 | NUR ---
XANAX 0.5 MG TAB EFFECTIVE AT THIS TIME.
--- NOTE | 2019-09-15 10:19 | NUR ---
PT GIVEN NORCO 10-325 MG TAB AT THIS TIME FOR C/O BACK PAIN. WILL MONTOR FOR EFFECTIVENESS OF MEDICATION.
--- NOTE | 2019-09-15 10:25 | NUR ---
PT IS BLADDER SCANNED FOR QSHIFT BLADDER SCAN ORDER. BLADDER SCANNER SHOWS >239 CC. APPROPRIATE CHARTING COMPLETED FOR THIS.
--- NOTE | 2019-09-15 10:32 | NUR ---
Inspector Air Carrier in to see patient. Discussed with patient that an inpatient hospice consult was ordered and that a nurse by the name of ANA M from [facility] would be coming in about 1130 to speak with him about their services. He verbalized an understanding and wishes for CM to be in room at 1130.
--- NOTE | 2019-09-15 10:54 | NUR ---
NURSES' ASSOCIATION COUNSELOR REACHED OUT TO ANDRES, PATIENTS SONS GIRLFRIEND. PATIENT PREVIOUSLY GAVE PERMISSION TO SPEAK WITH HER. NURSES' ASSOCIATION COUNSELOR EXPLAINED THE ORDER FOR INPATIENT HOSPICE. NURSES' ASSOCIATION COUNSELOR EXPLAINED THE RN WOULD BE IN TO ACCESS THE PATIENT. PER ANDRES, PATIENTS SON DUONG IS WORKING UNTIL 4PM TODAY. NURSES' ASSOCIATION COUNSELOR EXPLAINED HE WOULD BE RECEIVING A CALL FROM [facility]. NURSES' ASSOCIATION COUNSELOR EXPLAINED THE PROCESS FOR IN PATIENT HOSPICE IF THE PATIENT IS APPROPRIATE. NURSES' ASSOCIATION COUNSELOR EXPLAINED IF THE PATIENT DOES NOT QUALIFY, HE COULD GO HOME WITH HOSPICE IF THEY WOULD CONSIDER HAVING HIM THERE AT HER HOME. NURSES' ASSOCIATION COUNSELOR EXPLAINED THAT THE PATIENTS DPOA-HC ELZBIETA REFUSED TO HAVE HIM BACK AT HER HOME PER HEALTH AND SAFETY COORDINATOR NOTE. ANDRES SAID SHE WOULD SPEAK WITH DUONG.
--- NOTE | 2019-09-15 11:09 | NUR ---
ABDON EFFECTIVE PER PT.
--- NOTE | 2019-09-15 11:12 | NUR ---
DR MALLORY IN TO TALK WITH PATIENT AT THIS TIME.
--- NOTE | 2019-09-15 11:16 | NUR ---
PT. PLACED ON BIPAP TO REST.
--- NOTE | 2019-09-15 11:22 | NUR ---
OCCUPATIONAL THERAPY CO-SIGN I approve of the Occupational Therapy notes written above. SUNI HOOVER, OTR/L
--- NOTE | 2019-09-15 11:23 | NUR ---
PHYSICAL THERAPY CO-SIGN I approve of the Physical Therapy notes written above. Barbara Borrego PT
--- NOTE | 2019-09-15 11:50 | NUR ---
Spoke to Dr. Acosta regarding [facility] hospice. He states he saw the patient and agrees with [facility] hospice. Dr. Acsota states he spoke to Dr. Kahn regarding [facility] hospice. Dr. Acosta states patient's code status needs to be changed and that he asked nurse to call the [facility]. Discussed with patient and he is agreeable to be a DNRCC. Asked patient if he wanted chest compressions, if he wanted staff to push on his chest to get his heart restarted, patient states "you will break me." Asked patient if he wanted a tube placed in his throat to help him breathe if he needed it and he stated no. Asked patient if he wanted medications through his IV to restart his heart and he stated what are they going to do. He asked what would the medications do if no compressions or intubation. Nurse called [facility]. CM spoke to DPOAH, Omer, regarding changing patient's code status. She wanted to know how long the patient had if he was put on hospice. Explained there is no way to know. Discussed chest compressions, intubation, and medications. She would like to speak to patient and patient's son, Michael prior to making any decisions. She is requesting to see patient and asked what time CM was here until. Explained CM is here until 1530 and she states she would be at the hospital between 2p-3p. She asked CM/SW to meet her when she comes and CM/SW agreed. Explained she will need to wear a mask and come in through the front door to get a visitor sticker and have her temperature checked. She verbalized an understanding. Spoke to inpatient manager of disaster recovery regarding family wishing to come in to see patient to make a determination of [facility] hospice, received permission. sheet metal production worker notified. Notified patient Omer will be coming about 2pm. He asks if he needs to get dressed now. Explained he is not discharged from the hospital yet and that Omer said she was not able to take care of him at home. Explained discharge planning would be discussed further when Omer comes at 2pm. He states he just wants to go home.
[2019-09-15 12:00] VITALS: BP 119/62
--- NOTE | 2019-09-15 14:22 | NUR ---
MANAGER OF MARKETING LEFT MESSAGES FOR [facility] LOC[facility] REQUESTING RETURN CALL TO SEE ABOUT DPOA-HC PAPERS. MANAGER OF MARKETING SPOKE WITH ELZBIETA WHO STATED SHE WOULD LOOK FOR THEM BUT NOT SURE WHERE THEY ARE LOCATED.
[2019-09-15 16:00] VITALS: BP 141/99
--- NOTE | 2019-09-15 16:00 | NUR ---
DPOA- ELZBIETA IS HERE AT THIS TIME. DPOA STATES THAT SHE DOES NOT HAVE A COPY OF POA PAPERS AT THIS TIME. MUSIC VIDEO DIRECTOR NOTIFIED OF THIS. DPOA STATES THAT PATIENT'S SON DUONG WILL BE OFF OF WORK SOON AND THAT HE WILL COME TO HOSPITAL AT THAT TIME. DPOA STATES THAT SHE AND PT SON WILL DISCUSS CODE STATUS AT THAT TIME.
--- NOTE | 2019-09-15 16:02 | NUR ---
15:09 PT REQUESTED DA. PT OOB IN CHAIR. RESPS SLIGHTLY LABORED. PT PLACED ON BIPAP. RESPS UNLABORED. PT RESTING COMFORTABLY. DA GIVEN VIA BIPAP.
[2019-09-15 16:50] LABS: ATYPICAL PANCA <1:20 titer (Neg:<1:20); CYTOPLASMIC (C-ANCA) <1:20 titer (Neg:<1:20)
--- NOTE | 2019-09-15 16:58 | NUR ---
DPOA-HC AND FRIEND ARE SITTING IN ROOM WITH PATIENT AT THIS TIME. AWAITING ARRIVAL OF PT SON, DUONG.
--- NOTE | 2019-09-15 18:19 | NUR ---
DR MCMILLAN IS IN TO TALK WITH PT JAC WATTERS AND DPOA-GILMER RUFF AT THIS TIME.
--- NOTE | 2019-09-15 19:36 | NUR ---
RENY THERE IS NO ORDER IN PLACE FOR PATIENT'S CODE STATUS. DR MCMILLAN NOTIFIED AND STATES TO PLACE AN ORDER FOR DNR CC-ARREST, VERIFIED BY 2 RNS. PHYSICIAN STATES THAT HE WILL SIGN PAPER TOMORROW.
--- NOTE | 2019-09-15 20:00 | NUR ---
PT IN NO ACUTE DISTRESS. LONG DISCUSSION HAD WITH SON REGARDING WISHES FOR PT AND PT'S NEEDS, I.E. BIPAP COMPLIANCE. SON AGREES AND HE WILL ENCOURAGE PT TO WEAR.
--- NOTE | 2019-09-15 20:36 | NUR ---
PLACED PATIENT ON BIPAP
[2019-09-15 21:33] VITALS: BP 113/71
[2019-09-16] VITALS: BP 122/90
--- NOTE | 2019-09-16 01:07 | NUR ---
PATIENT C/O ABDOMINAL PAIN. RATES 10/15. MEDICATED WITH NORCO AT THIS TIME. WILL CHECK EFFECTIVENESS.
--- NOTE | 2019-09-16 01:12 | NUR ---
MEDICATED WITH PO DULCOLAX AND MIRALAX FOR C/O ABDOMINAL PAIN AND DISTENDED WITH PALPATION.
--- NOTE | 2019-09-16 02:46 | NUR ---
ENTIRE/24 HR chart check completed.
--- NOTE | 2019-09-16 04:43 | NUR ---
Patient resting quietly with no c/o discomfort. Respirations easy and regular. Vital signs stable. No overt distress. PETAR MENDEZ
--- NOTE | 2019-09-16 06:00 | NUR ---
PT WORE BIPAP ALL NIGHT AND WAS REPOSITIONED FROM BED TO CHAIR MULTIPLE TIMES, STANDING VERY WELL WITH ASSISTANCE X2.
[2019-09-16 06:04] LABS: MEAN CELL VOLUME 94.4 fl (80.0-94.0); MEAN CORPUSCULAR HGB 26.3 pg (27.0-31.0); MEAN CORPUSCULAR HGB CONC 27.8 g/dl (33.0-37.0); MEAN PLATELET VOLUME 12.1 fl (9.6-12.3); NUCLEATED RED BLOOD CELL 0.4 10*3/uL (0.0-0.0); NUCLEATED RED BLOOD CELL 1.8 % (0.0-0.0); PLATELET COUNT AUTOMATED 450 10*3/uL (130-400); RED BLOOD COUNT 3.39 10*6/uL (4.50-5.90); RED CELL DISTRI WIDTH 21.8 % (0-14.5); WHITE BLOOD COUNT 19.5 10*3/uL (4.8-10.8)
[2019-09-16 06:36] LABS: CREATININE 2.32 mg/dL (0.70-1.30); POTASSIUM 5.8 mmol/L (3.5-5.1)
[2019-09-16 07:12] LABS: PLATELET SUFFICIENCY HIGH (NORMAL); SCHISTOCYTES FEW; TOTAL CELLS COUNTED 100 #CELLS
--- NOTE | 2019-09-16 09:41 | NUR ---
69 year old male admitted with resp failure, acute pulmonary edema with history of afib and COPD, history of seizure and back pain, history of smoking and alcohol. Code status DNR-arrest IV L wrist, dressing is clean and intact Pain: no current complaints of pain Neuro: A&O with periods of confussion, up in relcliner 2 person transfer assist. Resp: O2 is 98% on bipap, with dimished breath sounds. Cardio: heart sounds are present with a fib, no edema noted pulse is 113 bpm, cap refill <3 secs Gastro: reg diet, bowel sounds are active in all quadrants, abdomen is firm and distended : voiding with urinal urine is yellow and clear. Musculoskeletal: generalized weakness on all extremities Skin: cool, intact, discoloration in LE. Vitals: HR 113, BP 106/73, O2 98%, TEMP 94.2 Axillary RR 17 bpm Heather aware of current assessment. Too MALDONADO/[place]ia COOK
--- NOTE | 2019-09-16 10:54 | NUR ---
PHONED DR. MCMILLAN TO REQUEST PORTABLE CHEST XRAY OPPOSED TO 2V IN RADIOLOGY. HE GAVE ORDER TO DAMONE TO PORTABLE
--- NOTE | 2019-09-16 11:02 | NUR ---
PATIENT REQUEST TO COME OFF BIPAP FOR BREAKFAST. PATIENT PLACED ON 10 L/M HI-CHRIST CANNULA
--- NOTE | 2019-09-16 11:22 | NUR ---
Rounded on patient vitals temp: 97.3 F oral O2 97% with bipap HR 85 BP 121/78 Resp 17 bpm patient is upright in chair with alarms intact and call light in reach with no complaints of pain dana slaughter/leann barajas
--- NOTE | 2019-09-16 14:15 | NUR ---
PATIENT TAKEN OFF OF BI-PAP, PLACED ON 10 L/M HIGH FLOW.
--- NOTE | 2019-09-16 15:08 | NUR ---
PATIENT CURRENTLY OFF BIPAP ON 10 L/M NC, SPO2 89% HR 109, ENCOURAGED PATIENT TO GO BACK ONTO BIPAP. PATIENT PLACED ON 02/10 WITH 40%.
[2019-09-16 16:00] VITALS: BP 108/82
[2019-09-16 17:19] LABS: ALBUMIN 4.9 gm/dl (3.1-4.5); CREATININE 2.32 mg/dL (0.70-1.30); POTASSIUM 5.4 mmol/L (3.5-5.1); TOTAL PROTEIN 7.3 gm/dL (6.4-8.2)
--- NOTE | 2019-09-16 17:29 | NUR ---
PATIENT PLACED BACK ON BIPAP /, 40% HR 105 SPO2 97%.
--- NOTE | 2019-09-16 17:58 | NUR ---
DR MCMILLAN TELEPHONED CONCERNING COMMUNICATION WITH PATIENT FAMILY. MYSELF AND PHYSICIANS HAVE TRIED TO REACH FAMILY CONCERNING PATIENTS CURRENT MEDICAL STATE. REACHED FAMILY FRIEND WHO LIVES IN HOME SHE REFUSED TO GIVE SONS PHONE NUMBER. STATED SHE WOULD CALL HIM AND HAVE HIM CALL US BACK. HE HAS NOT RETURNED CALL.
--- NOTE | 2019-09-16 18:16 | NUR ---
PT REQUESTED AND WAS MEDICATED WITH NORCO FOR C/O GENERALIZED PAIN. CALL LIGHT IN REACH. WILL MONITOR
--- NOTE | 2019-09-16 18:23 | NUR ---
Reported off to pt nurse, Jodi. dana CHENEY/leann COOK
--- NOTE | 2019-09-16 18:27 | NUR ---
SPOKE TO DR CLEMENTE VIA TELEPHONE CONCERNING PATIENTS POTASSIUM AND LACTIC ACID LEVEL. SHE TELEPHONE ORDERRED IV LASIX, DEXTROSE AND INSULIN. SEE EMAR.
--- NOTE | 2019-09-16 19:36 | NUR ---
24 HR chart check completed.
[2019-09-16 20:00] VITALS: BP 132/94
[2019-09-16 20:02] LABS: CREATININE 2.41 mg/dL (0.70-1.30); POTASSIUM 4.9 mmol/L (3.5-5.1)
--- NOTE | 2019-09-16 20:30 | NUR ---
MESSAGE LEFT FOR NICOLE REGARDING HIS CONSULTATION.
--- NOTE | 2019-09-16 20:40 | NUR ---
DR RIVERA STATES MOVE TO ICU.
--- NOTE | 2019-09-16 20:46 | NUR ---
DR HAGER STATES HE WILL SEE PT IN AM AND INSERT TEMPORARY DIALYSIS CATH AT BEDSIDE TO GROIN IF FEASIBLE. RN TO HAVE KIT AT THE BEDSIDE.
--- NOTE | 2019-09-16 20:50 | NUR ---
CONSULT MESSAGE LEFT FOR DR VELAZQUEZ WITH ANSWERING SERVICE.
--- NOTE | 2019-09-16 20:58 | NUR ---
DR VELAZQUEZ STATES NO CHANGE IN CARE AT PRESENT. SHE WILL WAIT FOR DIALYSIS CATHETER PLACEMENT/DIALYSIS TO SEE IF KIDNEY FUNCTION IMPROVES AND FEELS HE IS HAVING REACTIVE LEUKOCYTOSIS. SHE IS AWARE THAT HE IS CURRENTLY ON IV STEROIDS AND GETTING A KUB.
--- NOTE | 2019-09-16 21:04 | NUR ---
DR MCMILLAN UPDATED ON CONSULTS AND THEIR DECISIONS ON CURRENT TX. HE'S AWARE THAT PT WILL BE TRANSFERRED TO ICU BED 5. NO FURTHER ORDERS RECEIVED.
--- NOTE | 2019-09-16 21:30 | NUR ---
PT MOVED TO ICU.
--- NOTE | 2019-09-16 21:41 | NUR ---
PATIENT RECIEVED IN ICU, REPORT RECIEVED FROM PETAR
[2019-09-16 22:00] VITALS: BP 125/81
--- NOTE | 2019-09-16 22:05 | NUR ---
SON DUONG UPDATED ON POC, PENDING TX/TESTING AND TRANSFER TO THE ICU. HE WILL BE IN TO VISIT TOMORROW AFTERNOON AROUND 2PM. HE STATES THAT HIS FATHER IS REQUESTING AN AWARD CLERK VISIT, POSSIBLY ON WEDNESDAY, TO RESOLVE PERSONAL LEGAL ISSUES, AND POSSIBLY POA. DUONG STATES THAT ELZBIETA, HIS FEMALE FRIEND WHOM HE LIVES WITH, CLAIMS TO HAVE POA YET HE IS AWARE THAT SHE HAS NOT BEEN ABLE TO PRODUCE PAPERWORK. DUONG UNDERSTANDS THAT UNTIL SHE DOES, NEXT OF KIN HE WILL MAKE DECISIONS WHEN HIS FATHER IS UNABLE TO DO SO. DUONG STATES THAT THERE IS TENSION BETWEEN HIMSELF AND ELZBIETA AFTER ELZBIETA MOVED THE PT FROM DUONG'S CARE TO HER OWN AND HE HAS STEADILY DECLINED. CURRENTLY THE PT IS ALERT, ORIENTED AND AWARE OF FUTURE PROCEDURES/TXS. [facility] IS ACCEPTING OF ALL CURRENT/PENDING PLANS FOR CARE.
--- NOTE | 2019-09-16 22:08 | NUR ---
LAB HERE FOR PRIYA
[2019-09-17] VITALS (8 sets, daily range): BP systolic 101–126; BP diastolic 69–86
--- NOTE | 2019-09-17 00:27 | NUR ---
CALLED WITH RESULTS OF LACTIC ACID AND KUB, NO ORDERS GIVEN.
--- NOTE | 2019-09-17 02:20 | NUR ---
NORCO GIVEN FOR PAIN RATED A 8 TO LOWER BACK
--- NOTE | 2019-09-17 02:49 | NUR ---
INTERNAL NOSE IS VERY DRY AND IRRITATED, AQUAPHOR APPLIED TO BILATERAL NARES
--- NOTE | 2019-09-17 03:30 | NUR ---
Pt still resting on BiPap at this time. Alarms on and audible. SpO2 98% Duoderm was applied to the bridge of the nose by the nurse. Nose is reddened.
[2019-09-17 05:32] LABS: CREATININE 2.21 mg/dL (0.70-1.30); POTASSIUM 4.8 mmol/L (3.5-5.1)
--- NOTE | 2019-09-17 06:13 | NUR ---
CALLED FOR LACTIC ACID 2.9 AND BLOOD SUGAR LEVELS STEADILY INCREASED OVER PAST SEVERAL LABS, ORDERED SLIDING SCALE AND BS CHECKS AC/HS
[2019-09-17 07:21] LABS: TOTAL CELLS COUNTED 100 #CELLS
[2019-09-17 07:22] LABS: PLATELET SUFFICIENCY HIGH (NORMAL); TARGET CELLS FEW
[2019-09-17 07:24] LABS: HEMATOCRIT 29.8 % (42.0-52.0); MEAN CELL VOLUME 91.4 fl (80.0-94.0); MEAN CORPUSCULAR HGB 26.1 pg (27.0-31.0); MEAN CORPUSCULAR HGB CONC 28.5 g/dl (33.0-37.0); MEAN PLATELET VOLUME 12.4 fl (9.6-12.3); NUCLEATED RED BLOOD CELL 0.3 10*3/uL (0.0-0.0); NUCLEATED RED BLOOD CELL 1.3 % (0.0-0.0); PLATELET COUNT AUTOMATED 440 10*3/uL (130-400); RED BLOOD COUNT 3.26 10*6/uL (4.50-5.90); RED CELL DISTRI WIDTH 21.7 % (0-14.5); WHITE BLOOD COUNT 22.5 10*3/uL (4.8-10.8)
--- NOTE | 2019-09-17 08:11 | NUR ---
Asleep. VSS. sidelying to right w/ bi-pap on. abdomen soft , non-tender. Marroquin cath patent draining caio urine. Striations remain to BLE.
--- NOTE | 2019-09-17 10:08 | NUR ---
Awakened for meds. To HF NC at 8L. discussed intubation , pt. wanted to know how long he would have it. Informed that there is no way to determine that. Stated " well I want to , because I have a new grandbaby , that I haven't seen yet" . Meds given and breakfast was ordered.
--- NOTE | 2019-09-17 10:11 | NUR ---
0915 Dr. Almendarez in and spoke at length w/ Dr. Vazquez as to Dialysis line placement. It was decided to hold off for now.
--- NOTE | 2019-09-17 12:25 | NUR ---
aSSISTED TO SIDE OF BED FOR LUNCH. o2 TO 8l HF/NC.. aFTER LUNCH , RETURNED TO BED AND BI-PAP RE-PLACED. rESTING QUIETLY W/ EYES CLOSED AT THIS TIME.
--- NOTE | 2019-09-17 14:51 | NUR ---
PATIENT CURRENTLY OFF BIPAP, ON HFNC @ 10L SPO2 96% HR 111.
--- NOTE | 2019-09-17 15:30 | NUR ---
Bi-pap off for lunch , To HF/NC. sitting at bedside for lunch. Dr. Vazquez in to [facility]. Orders recieved.
--- NOTE | 2019-09-17 16:18 | NUR ---
Dr. Kahn in to [facility]. Discussed code status w/ pt. Full Code status reinacted.
--- NOTE | 2019-09-17 16:55 | NUR ---
PATIENT PLACED BACK ON BIPAP / 40% HR 105 SPO2 97%.
--- NOTE | 2019-09-17 20:00 | NUR ---
Patient on high ruth nasal canula, tolerating well. Sitting to side of bed, just finished dinner. pox 97%. Denies shortness of breath at rest. Patient denies the need to have a bm at this time. Patient adjusted in bed to lay down for bath. Patient has call light in reach.
--- NOTE | 2019-09-17 21:30 | NUR ---
Pt placed on BiPap 12/6 and FiO2 40%. Alarms on and audible. SpO2 97%
--- NOTE | 2019-09-17 22:04 | NUR ---
Patient has complaint of shoulder pain, and back pain, he states its arthritis all over. Patient also requested his xanax. [place] and xanax given. Will monitor and reassess.
--- NOTE | 2019-09-17 23:15 | NUR ---
Patient resting on bipap, no signs of distress, norco and xanax effective.
[2019-09-18] VITALS: BP 102/65
[2019-09-18 04:00] VITALS: BP 120/75
--- NOTE | 2019-09-18 05:15 | NUR ---
Patient awaken for morning meds and bs check and patient stated he needed a pain pill for his arthritis. Big Arm given. Will monitor and reassess.
--- NOTE | 2019-09-18 07:24 | NUR ---
ZINC PLATE GRAINER ATTEMPTED TO REACH [facility]. LEFT MESSAGE FOR A RETURN CALL.
--- NOTE | 2019-09-18 07:34 | NUR ---
JASPER HILTON,ELISA Silverman [id number] Please refer to the physician's history and physical for past medical history, comorbid conditions, and allergies. Diagnosis: HISTORY OF COPD, RESPIRATORY FAILURE, ACUTE Gerard Score: 14,MODERATE RISK WOUND DESCRIPTIONS: This nurse along with with Natalia Mitchell RN evaluated patient for skin impairments. Wound Number:1 left lower extremity red blanchable areas noted. No open areas noted at time of assessment. No draiange noted at time of assessment. Wound Number:2 right lower extremity red blanchable areas noted. No open areas noted at time of assessment. No draiange noted at time of assessment. Surface the patient is resting on: Isoflex SKIN PREVENTION RECOMMENDATION: 1. Pressure redistribution support surface as appropriate 2. Elevate heels 3. Remove boots/TEDS every shift and reapply 4. Head of bed 30 degrees as tolerated 5. Assess nutrition and hydration 6. Manage moisture 7. Avoid the use of containment devices while in bed 8. Use absorptive products on surfaces limit layers of linens on bed 9. Turn and reposition every 1-2 hours in bed and every 1 hour in chair as tolerated 10. Weight shifts every 15 minutes while up in chair 11. Offloading with pillows or device to keep heels elevated off bed 12. Monitor skin at least every shift 13. Inspect under medical devices twice a day WOUND TREATMENT RECOMMENDATIONS: Continue aquaphor ointment per order
[2019-09-18 08:18] LABS: HEMATOCRIT 28.1 % (42.0-52.0); MEAN CELL VOLUME 90.6 fl (80.0-94.0); MEAN CORPUSCULAR HGB 26.5 pg (27.0-31.0); MEAN CORPUSCULAR HGB CONC 29.2 g/dl (33.0-37.0); MEAN PLATELET VOLUME 11.6 fl (9.6-12.3); NUCLEATED RED BLOOD CELL 0.2 10*3/uL (0.0-0.0); NUCLEATED RED BLOOD CELL 0.9 % (0.0-0.0); PLATELET COUNT AUTOMATED 393 10*3/uL (130-400); RED CELL DISTRI WIDTH 21.3 % (0-14.5); WHITE BLOOD COUNT 23.3 10*3/uL (4.8-10.8)
[2019-09-18 08:34] LABS: ALBUMIN 4.5 gm/dl (3.1-4.5); CREATININE 1.67 mg/dL (0.70-1.30); POTASSIUM 4.1 mmol/L (3.5-5.1); TOTAL PROTEIN 6.7 gm/dL (6.4-8.2)
[2019-09-18 08:42] LABS: PLATELET SUFFICIENCY NORMAL (NORMAL); TOTAL CELLS COUNTED 100 #CELLS
--- NOTE | 2019-09-18 09:00 | NUR ---
STILL ON BIPAP, SLEEPING QUIETLY, AROUSES EASILY STATES FEELS 'OK"
--- NOTE | 2019-09-18 09:06 | NUR ---
PHYSICAL THERAPY Pt transferred to ICCU on 09/15 due to declining respiratory status, will require new PT eval once/if pt medically appropriate/stable, thank you. Barbara Borrego PT
--- NOTE | 2019-09-18 09:09 | NUR ---
OT NOTE Patient was transferred from the fifth floor to the ICCU on 09/16/2019. Patient previously on OT caseload. Will need new orders when patient is medically appropriate/stable for an OT evaluation. Thank you. Ifeoma Cline OTR/L
[2019-09-18 11:20] LABS: ABG BASE EXCESS 7.1 mmol/L (-2.0-2.0); ARTERIAL BLOOD GAS PH 7.387 (7.35-7.45)
--- NOTE | 2019-09-18 11:35 | NUR ---
NORCO FOR 10/10 BODY PAIN
[2019-09-18 12:00] VITALS: BP 117/70
--- NOTE | 2019-09-18 12:15 | NUR ---
[place] EFFECTIVE
[2019-09-18 13:39] LABS: ABG BASE EXCESS 6.4 mmol/L (-2.0-2.0); ARTERIAL BLOOD GAS PH 7.367 (7.35-7.45)
[2019-09-18 14:01] LABS: ABG BASE EXCESS 5.8 mmol/L (-2.0-2.0); ARTERIAL BLOOD GAS PH 7.337 (7.35-7.45)
--- NOTE | 2019-09-18 14:31 | NUR ---
SECTION LEADER AND MACHINE SETTER SPOKE WITH THE PATIENT. PATIENT WAS TALKING TO HIS SON DUONG. SECTION LEADER AND MACHINE SETTER EXPLAINED THE NEED FOR ESTABLISHING DPOA-HC SINCE THE CURRENT PAPERS CAN NOT BE LOCATED. PATIENT HAS BEEN DEEMED COMPETENT TO MAKE HIS OWN DECISION BY DR. ASH. WHEN ASKED WHO HE WOULD LIKE TO HAVE APPOINTED HIS DPOA-HC PATIENT STATED HIS SON DUONG. SECTION LEADER AND MACHINE SETTER WILL HELP THE PATIENT FILL OUT THE DPOA-HC. SECTION LEADER AND MACHINE SETTER WILL HAVE [address] A COPY IN THE PATIENTS CHART.
--- NOTE | 2019-09-18 15:30 | NUR ---
ETCHER ENAMELING SPOKE WITH DR. ASH. SHE STATED THE PATIENT WAS COMPETENT TO MAKE HIS OWN DECISION. ETCHER ENAMELING SPOKE WITH THE PATIENT ABOUT ESTABLISHING NEW DPOA-HC DOCUMENTS. PATIENT AGREED. ETCHER ENAMELING WENT OVER THE DOCUMENTS AND ASSISTED IN FILLING OUT THE DOCUMENTS. DOCUMENTS WERE SIGNED BY FLUSH TESTER REGINALDO NICHOLAS AND RT JANIS ALLEN. A COPY WAS EMAILED TO THE APPOINTED DUONG HUTCHINSON AT [email or web address] A COPY WAS PLACED IN THE PATIENTS CHART. THE ORIGINAL DOCUMENT WAS PLACED ON THE PATIENT GUM PULLER THE HOSPITAL ROOM.
[2019-09-18 16:00] VITALS: BP 99/69
[2019-09-18 20:00] VITALS: BP 114/75
--- NOTE | 2019-09-18 20:00 | NUR ---
PT SITTING UP IN BED TALKING ON PHONE. A&OX3. RESP DYSPNEIC AT REST. NO ACUTE DISTRESS NOTED. NO COMPLAINTS VOICED. HEPLOCK PATENT. NO S/S OF HYPO/HYPERGLYCEMIA NOTED.
--- NOTE | 2019-09-18 21:20 | NUR ---
MEDICATED WITH NORCO PER PRN ORDER FOR C/O PAIN.
[2019-09-19] VITALS: BP 117/91
[2019-09-19 04:00] VITALS: BP 107/73
--- NOTE | 2019-09-19 05:10 | NUR ---
MEDICATED WITH NORCO PER PRN ORDER FOR C/O PAIN.
[2019-09-19 05:52] LABS: ALBUMIN 4.5 gm/dl (3.1-4.5); CREATININE 1.63 mg/dL (0.70-1.30); POTASSIUM 4.1 mmol/L (3.5-5.1); TOTAL PROTEIN 7.2 gm/dL (6.4-8.2)
[2019-09-19 06:25] LABS: HEMATOCRIT 30.5 % (42.0-52.0); MEAN CELL VOLUME 92.1 fl (80.0-94.0); MEAN CORPUSCULAR HGB 25.7 pg (27.0-31.0); MEAN CORPUSCULAR HGB CONC 27.9 g/dl (33.0-37.0); MEAN PLATELET VOLUME 12.3 fl (9.6-12.3); NUCLEATED RED BLOOD CELL 0.3 10*3/uL (0.0-0.0); NUCLEATED RED BLOOD CELL 1.2 % (0.0-0.0); PLATELET COUNT AUTOMATED 453 10*3/uL (130-400); RED BLOOD COUNT 3.31 10*6/uL (4.50-5.90); RED CELL DISTRI WIDTH 21.7 % (0-14.5); WHITE BLOOD COUNT 28.1 10*3/uL (4.8-10.8)
[2019-09-19 06:53] LABS: TOTAL CELLS COUNTED 100 #CELLS
[2019-09-19 06:54] LABS: PLATELET SUFFICIENCY HIGH (NORMAL)
--- NOTE | 2019-09-19 07:26 | NUR ---
MARINE CARGO SURVEYOR FAXED REFERRAL TO [facility] FOR REVIEW.
[2019-09-19 08:00] VITALS: BP 120/60
--- NOTE | 2019-09-19 08:53 | NUR ---
Awake and alert. Sitting up at side of bed. Dr[facility].
--- NOTE | 2019-09-19 09:40 | NUR ---
Dr. Pressley in to [place], ok to transfer to [facility]. O2 decreased to 6L /HF per dr. Pressley request. Dr. Acosta in to [facility]. Remains on HF. Took breakfast well.
--- NOTE | 2019-09-19 10:13 | NUR ---
PATIENT SON DUONG STATED HE WOULD LIKE TO VISIT AND BRING IN AN APPLIED BEHAVIOR SPECIALIST TO ESTABLISH A WILL. MANUFACTURING TECHNICIAN REACHED OUT TO DIRECT[facility] OF [facility] ELOISA. ELOISA STATED THIS WOULD BE ALLOWED. MANUFACTURING TECHNICIAN NOTIFIED THE PATIENTS SON AND ASKED HIM TO NOTIFY WHEN THIS WOULD BE TAKING PLACE SO THIS MANUFACTURING TECHNICIAN CAN LET THE PROPER STAFF KNOW. MANUFACTURING TECHNICIAN TO FOLLOW.
--- NOTE | 2019-09-19 11:23 | NUR ---
After breakfast pt. was assisted into bed ab=nd Bi-pap was placed.
[2019-09-19 12:00] VITALS: BP 105/81
[2019-09-19 16:00] VITALS: BP 110/78
--- NOTE | 2019-09-19 18:36 | NUR ---
Up to BSC x 3 this shift for soft formed BM's. 1700 became agitated and started yelling out " I want beer" requesting to go home. States just wants to go home. Discussed disease and O2 usage. Discussed and offered antianxiety. Receptive and was medicated for high anxiety. Continued calling out, refusing to eat. for abt 1 hour. Then requested to be assisted into bed. , Currently lying quietly w/o distress.
--- NOTE | 2019-09-19 19:16 | NUR ---
MEDICATED WITH NORCO PER PRN ORDER FOR C/O BACK/RIB PAIN.
[2019-09-19 20:00] VITALS: BP 106/80
--- NOTE | 2019-09-19 20:00 | NUR ---
PT RESTING IN BED, A&OX3, COOPERATIVE WITH STAFF, RESP LABORED WITH ANY EXERTION AND AT REST. NO ACUTE DISTRESS OR DISCOMFORT NOTED. SAMARA PATENT. DAWIT PATENT. NO S/S OF HYPO/HYPERGLYCEMIA NOTED.
--- NOTE | 2019-09-19 22:15 | NUR ---
NORCO EFFECTIVE FOR PAIN.
--- NOTE | 2019-09-19 23:18 | NUR ---
MEDICATED WITH XANAX PER PRN ORDER FOR C/O ANXIETY.
--- NOTE | 2019-09-19 23:41 | NUR ---
11:30 PT PLACED ON BIPAP. RESTING COMFORTABLY. RESPS REGULAR AND UNNLABORED.
[2019-09-20] VITALS: BP 98/51
[2019-09-20 04:00] VITALS: BP 106/67
--- NOTE | 2019-09-20 04:02 | NUR ---
MEDICATED WITH NORCO PER PRN ORDER FOR C/O PAIN.
[2019-09-20 05:33] LABS: ALBUMIN 4.6 gm/dl (3.1-4.5); ALKALINE PHOSPHATASE 243 U/L (45-117); CHLORIDE 102 mmol/L (98-107); POTASSIUM 4.1 mmol/L (3.5-5.1); SGOT/AST 34 IU/L (3-35); SGPT/ALT 87 U/L (12-78); SODIUM 141 mmol/L (136-145); TOTAL PROTEIN 7.1 gm/dL (6.4-8.2)
[2019-09-20 05:38] LABS: BUN 95 mg/dl (7-24)
[2019-09-20 06:17] LABS: HEMATOCRIT 28.8 % (42.0-52.0); MEAN CELL VOLUME 90.3 fl (80.0-94.0); MEAN CORPUSCULAR HGB 25.4 pg (27.0-31.0); MEAN CORPUSCULAR HGB CONC 28.1 g/dl (33.0-37.0); MEAN PLATELET VOLUME 12.5 fl (9.6-12.3); NUCLEATED RED BLOOD CELL 0.2 10*3/uL (0.0-0.0); NUCLEATED RED BLOOD CELL 0.7 % (0.0-0.0); PLATELET COUNT AUTOMATED 377 10*3/uL (130-400); RED BLOOD COUNT 3.19 10*6/uL (4.50-5.90); RED CELL DISTRI WIDTH 21.5 % (0-14.5); WHITE BLOOD COUNT 29.5 10*3/uL (4.8-10.8)
[2019-09-20 07:48] LABS: PLATELET SUFFICIENCY NORMAL (NORMAL); TOTAL CELLS COUNTED 100 #CELLS
[2019-09-20 07:49] LABS: POLYCHROMASIA SLIGHT
[2019-09-20 08:00] VITALS: BP 111/74
--- NOTE | 2019-09-20 08:10 | NUR ---
IRON MOLDER HELPER NOTIFIED JOEY NAVA AND SECURITY ABOUT THE PATIENTS SON AND MISSILE AND MISSILE CHECKOUT TECHNICIAN SET TO COME IN AT 1PM TODAY. THIS WAS APPROVED BY DIRECTOR OF [facility] ELOISA.
--- NOTE | 2019-09-20 10:15 | NUR ---
OT NOTE Occupational therapy order received and chart reviewed. Per discussion with Dr. George in the ICCU, OTR to hold on therapy at this time due to patient currently on Bipap. Will check back later today for an OT evaluation. Thank you. Ifeoma Cline, OTR/L
--- NOTE | 2019-09-20 10:18 | NUR ---
PHYSICAL THERAPY Received new orders on pt to resume therapy, attempted to see pt in ICCU. Per to come back in the PM to attempt therapy as pt desated this AM and currently resting in bed on BIPAP will follow Barbara Borrego PT
[2019-09-20 12:00] VITALS: BP 106/76
--- NOTE | 2019-09-20 12:10 | NUR ---
PATIENT PLACED ON BI-PAP @ 40%, PULSE OX 93%.
--- NOTE | 2019-09-20 14:19 | NUR ---
PHYSICAL THERAPY Attempted to see pt this PM for therapy, pt in bed on BIPAP. Spoke with respiratory therapist Keke regarding therapy today and recommending to wait until the AM as had to increase 02 HFNC needs today when off BIPAP to 8L. Will follow in the AM with respiratory, contacted ICCU and discussed above recomendations reg performing therapy in the AM, will follow. Barbara Borrego PT
--- NOTE | 2019-09-20 14:34 | NUR ---
OT NOTE Occupational therapy order received and chart reviewed. Patient currently has BiPap on. Discussed with Adriana from respiratory and recommending to wait until AM for OT eval as patient's BiPap and Hi-flow O2 demand has increased today. Contacted ICCU and discussed recommendations on defering therapy this date. Will follow up with patient and respiratory therapy in AM. Ifeoma Cline OTR/Stevo
--- NOTE | 2019-09-20 14:37 | NUR ---
LIVESTOCK BUYER HAD A LENGTHY CONVERSATION WITH THE PATIENT. PATIENT MADE THE COMMENT "I'M NOT GONNA MAKE IT OUT OF HERE AM I". LIVESTOCK BUYER SPOKE WITH THE PATIENT ABOUT HIS OPTIONS WITH HIS CARE. PATIENT THEN STATED "I WANT TO FIGHT WITH EVERYTHING I HAVE". PATIENT IS A FULL CODE. [facility] HAS NOT HEARD BACK FROM THE INSURANCE. WILL FOLLOW UP TOMORROW.
[2019-09-20 16:00] VITALS: BP 100/67
--- NOTE | 2019-09-20 17:15 | NUR ---
PATIENT TRANSFERRED TO ROOM 406-2. RECEIVED REPORT FROM BRANDY COOK.
--- NOTE | 2019-09-20 17:40 | NUR ---
PT MEDICATED WITH PO NORCO PER PRN ORDER FOR C/O BACK/RIB PAIN. RATES PAIN 8/10. ALSO REQUESTED AND RECEIVED PO XANAX PER PRN ORDER FOR C/O ANXIETY. WILL MONITOR EFFECTIVENESS. CALL LIGHT WITHIN REACH.
--- NOTE | 2019-09-20 18:40 | NUR ---
EARLIER MEDS EFFECTIVE PER PT. WILL CONTINUE TO MONITOR.
[2019-09-20 20:00] VITALS: BP 98/53
[2019-09-21] VITALS: BP 100/65
--- NOTE | 2019-09-21 00:51 | NUR ---
PATIENT WANTS OFF BIPAP AND BACK ON NASAL CANNULA. PATIENT WANTED BACK IN BED AND BEGAN BEING RUDE AND YELLING AT STAFF. ASKED PATIENT TO LAY DOWN SO THAT WE COULD GET HIM SITUATED AND PATIENT STARTED CUSSING AT STAFFF AND REFUSED TO LAY DOWN. PATIENT SITTING ON SIDE OF BED, REFUSING BED ALARM AND TO LAY DOWN. 6L HIGH FLOW NASAL CANNULA INTACT. PATIENTS MERREM HOOKED UP AND INFUSING. BREATHING IS EASY AND REGULAR AND PATIENT HAS NO COMPLAITNS BESIDES HIS SIDE HURTING. PATIENT VERY UNSTEADY WHEN WALKING AND PATIENT STATED "TO HELL WITH YOU PEOPLE I'LL GET UP AND WALK IF I FEEL LIKE IT".
--- NOTE | 2019-09-21 01:54 | NUR ---
PRN NORCO AND XANAX GIVEN FOR PT COMPLAINTS OF PAIN IN HIS RIBS RATING IT 8/10 AND ANXIETY. CALL LIGHT WITHIN REACH, WILL MONITOR
--- NOTE | 2019-09-21 02:30 | NUR ---
PRN MEDICATION APPEARS EFFECTIVE, PT SLEEPING
--- NOTE | 2019-09-21 03:48 | NUR ---
NOTIFIED DR. DAVIES OF PATIENTS + BLOOD CULTURES. ORDERS RECIEVED FOR PATIENT TO HAVE [facility] TO DOSE AND REPEAT BLOOD CULTURES NOW. DR. DAVIES ALSO STATED THAT IT WAS OK TO GET THE PATIENTS MORNING LABS WITH THE STAT BLOOD CULTURES AT THIS TIME
[2019-09-21 04:17] LABS: HEMATOCRIT 28.3 % (42.0-52.0); MEAN CELL VOLUME 91.3 fl (80.0-94.0); MEAN CORPUSCULAR HGB 25.8 pg (27.0-31.0); MEAN CORPUSCULAR HGB CONC 28.3 g/dl (33.0-37.0); MEAN PLATELET VOLUME 11.6 fl (9.6-12.3); NUCLEATED RED BLOOD CELL 0.1 10*3/uL (0.0-0.0); NUCLEATED RED BLOOD CELL 0.4 % (0.0-0.0); PLATELET COUNT AUTOMATED 320 10*3/uL (130-400); RED CELL DISTRI WIDTH 21.4 % (0-14.5); WHITE BLOOD COUNT 31.6 10*3/uL (4.8-10.8)
[2019-09-21 04:39] LABS: PLATELET SUFFICIENCY NORMAL (NORMAL); TOTAL CELLS COUNTED 100 #CELLS
[2019-09-21 04:45] LABS: ALBUMIN 4.2 gm/dl (3.1-4.5); CREATININE 1.54 mg/dL (0.70-1.30); POTASSIUM 4.3 mmol/L (3.5-5.1); TOTAL PROTEIN 6.8 gm/dL (6.4-8.2)
--- NOTE | 2019-09-21 04:54 | NUR ---
GLUCOSE TAKEN FROM BMP. BS 142
--- NOTE | 2019-09-21 05:44 | NUR ---
PATIENT SITTING ON SIDE OF THE BED. REFUSING DAILY WEIGHT. REFUSING TO LAY BACK DOWN IN THE BED AND HAVE BED ALARM APPLIED. PATIENT REQUESTING TO STAND UP BUT WHEN ATTEMPTING TO HAVE PATIENT STAND HE YELLS AND STATES HE'S NOT READY. HE STATED HE WILL CALL WHEN HE'S READY AND TO NOT PUT THE BED ALARM. TOLD PATIENT NOT TO GET UP WITHOUT ASSISTANCE HE IS NOT STEADY ON HIS FEET. PATIENT VERBALIZED UNDERSTANDING AND STATED THAT HE WOULD CALL WHEN HE WANTED TO STAND
--- NOTE | 2019-09-21 06:16 | NUR ---
24 HR chart check completed.
[2019-09-21 08:00] VITALS: BP 119/96; BP 120/70
--- NOTE | 2019-09-21 08:00 | NUR ---
PHYSICAL THERAPY Respiratory therapist spoke with rehab staff this AM pt just placed on BIPAP and pt would be available for therapy later in the AM will follow Barbara Borrego PT
--- NOTE | 2019-09-21 08:00 | NUR ---
OT NOTE Occupational therapy order received. Spoke with Keke from respiratory therapy this morning. Per discussion, patient was just placed on Bipap and would be available for an OT evaluation later this AM. Will follow up, thank you. Ifeoma Cline, OTR/L
--- NOTE | 2019-09-21 09:01 | NUR ---
CURTAIN CLEANER SPOKE WITH [facility]. PATIENT HAS BEEN DENIED [facility]. CURTAIN CLEANER ASKED FOR THE REASON OF DENIAL. CHIRAG STATED "HE CAN [facility] THE [facility] THAT GENERALLY ISTHE DENIAL REASON. HONESTLY I'VE NEVER SEEN THEM OVERTURNED BUT WE CAN TRY IF YOU LIKE." CURTAIN CLEANER TO FAX UPDATES FOR ATTEMPT AT APPEAL FOR [facility]. PATIENT HAS ALSO BEEN DENIED SNF.
--- NOTE | 2019-09-21 09:24 | NUR ---
PATIENT RESTING WITH EYES CLOSED AT THIS TIME. RESPIRATIONS EASY AND UNLABORED ON BIPAP. NOT WOKEN AT THIS TIME FOR MORNING MEDICATIONS. WILL MONITOR.
--- NOTE | 2019-09-21 09:32 | NUR ---
DATA CENTER TECHNICIAN FAXED UPDATES FOR THE APPEALS PROCESS TO [facility].
--- NOTE | 2019-09-21 10:43 | NUR ---
PATIENT PLACED ON 6 L HIFLO NC FOR BREAKFAST. HR 127 PO 90%
--- NOTE | 2019-09-21 10:55 | NUR ---
OT NOTE Occupational therapy order received. Attempted to see patient however MD in room and he was eating his breakfast. Patient reporting he did not need assistance with his meal. Will check back at a later time for completion of an OT eval when available/appropriate. Thank you. Ifeoma Cline, OTR/L
--- NOTE | 2019-09-21 11:00 | NUR ---
PHYSICAL THERAPY Attempted to see pt at the bedside, just received his lunch tray and currently eating, pt wanting to eat prior to activity will follow Barbara Borrego PT
--- NOTE | 2019-09-21 11:05 | NUR ---
PATIENT REQUESTING MEDICATION FOR ANXIETY AND PAIN MEDICATION. XANAX AND NORCO ADMINISTERED PRESCRIBED. WILL MONITOR FOR EFFECTIVENESS.
--- NOTE | 2019-09-21 11:16 | NUR ---
PER DR. MCMILLAN, THE PATIENT WAS DENIED [facility] BUT APPROVED FOR SNF. SUPERVISOR METER SHOP WILL SPEAK WITH THE PATIENT. PATIENT WAS PREVIOUSLY AGREEABLE TO [facility].
[2019-09-21 12:00] VITALS: BP 119/51
--- NOTE | 2019-09-21 12:05 | NUR ---
PATIENT RESTING WITH EYES CLOSED. WILL MONITOR.
--- NOTE | 2019-09-21 14:42 | NUR ---
Occupational Therapy evaluation completed on four with full evaluation to follow. Recommend occupational therapy per plan of care and SNF upon discharge. Thank you for this referral. Ifeoma Cline OTR/L
[2019-09-21 16:00] VITALS: BP 100/70
--- NOTE | 2019-09-21 16:09 | NUR ---
Physical Therapy evaluation completed on 4th floor with full evaluation to follow. Recommend physical therapy per plan of care and SNF upon discharge. Thank you for this referral. Barbara Borrego PT
[2019-09-21 20:00] VITALS: BP 107/69
--- NOTE | 2019-09-21 21:23 | NUR ---
PT MEDICTAED WITH PRN NORCO AND XANAX FOR C/O PAIN 10/ AND ANXIETY. WILL MONITOR FOR EFFECTIVENESS.
[2019-09-22] VITALS (7 sets, daily range): BP systolic 102–120; BP diastolic 48–76
--- NOTE | 2019-09-22 02:56 | NUR ---
PT AGGITATED AND KNOCKING ITEMS OFF OF THE BEDSIDE TABLE. STATES HE WANTS HIS PAIN PILL NOW. PATIENT EDUCATED ON NEXT AVAILABLE DOSE. WILL CONTINUE TO MONITOR.
--- NOTE | 2019-09-22 03:30 | NUR ---
Pt finally went on the BiPap 40%. SpO2 94% Alarms on and audible
[2019-09-22 07:00] LABS: HEMATOCRIT 27.7 % (42.0-52.0); MEAN CELL VOLUME 90.8 fl (80.0-94.0); MEAN CORPUSCULAR HGB 26.2 pg (27.0-31.0); MEAN CORPUSCULAR HGB CONC 28.9 g/dl (33.0-37.0); MEAN PLATELET VOLUME 12.5 fl (9.6-12.3); NUCLEATED RED BLOOD CELL 0.3 10*3/uL (0.0-0.0); NUCLEATED RED BLOOD CELL 0.8 % (0.0-0.0); PLATELET COUNT AUTOMATED 312 10*3/uL (130-400); RED BLOOD COUNT 3.05 10*6/uL (4.50-5.90); RED CELL DISTRI WIDTH 21.8 % (0-14.5); WHITE BLOOD COUNT 32.8 10*3/uL (4.8-10.8)
[2019-09-22 07:13] LABS: CREATININE 1.7 mg/dL (0.70-1.30); POTASSIUM 4.1 mmol/L (3.5-5.1)
--- NOTE | 2019-09-22 07:27 | NUR ---
PLACED PATIENT ON BIPAP / WITH A BACK UP RATE OF 8, 40%.
--- NOTE | 2019-09-22 07:35 | NUR ---
PT UNSURE IF HE CAN TOLERATE GOING TO RADIOLOGY FOR 2 V CXR. ATTEMPTING TO REACH DR MCMILLAN RESIDENT AT THIS TIME WITH NO ANSWER
--- NOTE | 2019-09-22 07:42 | NUR ---
JASPER HILTON,ELISA Silverman [id number] Please refer to the physician's history and physical for past medical history, comorbid conditions, and allergies. Diagnosis: HISTORY OF COPD, RESPIRATORY FAILURE, ACUTE Gerard Score: 14,MODERATE RISK WOUND DESCRIPTIONS: This nurse along with with Natalia Mitchell RN evaluated patient for skin impairments. Wound Number:1 left lower extremity red blanchable areas noted. No open areas noted at time of assessment. No draiange noted at time of assessment. Bilateral feet cool to the touch. + 3 pitting edema noted at time of assessment. Wound Number:2 right lower extremity red blanchable areas noted. No open areas noted at time of assessment. No draiange noted at time of assessment. Bilateral feet cool to the touch. +3 pitting edema noted at time of assessment. Patient has small intact scabbed area noted to left side of neck. Patient unsure if he scratched himself. Surface the patient is resting on: Isoflex SKIN PREVENTION RECOMMENDATION: 1. Pressure redistribution support surface as appropriate 2. Elevate heels 3. Remove boots/TEDS every shift and reapply 4. Head of bed 30 degrees as tolerated 5. Assess nutrition and hydration 6. Manage moisture 7. Avoid the use of containment devices while in bed 8. Use absorptive products on surfaces limit layers of linens on bed 9. Turn and reposition every 1-2 hours in bed and every 1 hour in chair as tolerated 10. Weight shifts every 15 minutes while up in chair 11. Offloading with pillows or device to keep heels elevated off bed 12. Monitor skin at least every shift 13. Inspect under medical devices twice a day WOUND TREATMENT RECOMMENDATIONS: Continue lac hydrin to bilateral lower extremitie per provider. Apply moisturizing lotion to neck and allow time to dry. Continue heel raiser pro boots to bilateral feet patient refusing at time of assessment.
--- NOTE | 2019-09-22 07:56 | NUR ---
PHARMACY CALLED FOR MISSED DOSE OF VANC THAT WAS DUE AT 4AM. STATE THEY WILL SEND ONE UP.
[2019-09-22 08:00] LABS: TOTAL CELLS COUNTED 100 #CELLS
--- NOTE | 2019-09-22 08:00 | NUR ---
PT RESTING IN BED. VOICES NO CONCERNS AT THIS TIME. RESPS EASY AND NON LABORED. NO S/S OF DISTRESS. 6L HFNC INTACT. CRACKLES NOTED W PRODUCTIVE COUGH. VSS. WHITE BOARD UPDATED. POC DISCUSSED W PT. PASTOR PATENT FOR DARK ISAAK URINE. BIPAP IN ROOM AND TO BE USED PRN- 02/12, 35%. CALL LIGHT WITHIN REACH. BED ALARM ON. WILL CONTINUE TO MONITOR.
[2019-09-22 08:01] LABS: PLATELET SUFFICIENCY NORMAL (NORMAL)
--- NOTE | 2019-09-22 08:48 | NUR ---
LATE NOTE: CONTROLLER MECHANIC SPOKE WITH THE PATIENT AT BEDSIDE. PATIENT WANTED TO HAVE HIS WILL WITNESSED OR SIGNED. CONTROLLER MECHANIC HAD 2 RNS SIGNS. PER THE PATIENT HE WANTED HIS FRIEND STACEY TO DELIVER THE DOCUMENT TO HIS GENERAL LOT ATTENDANT. CONTROLLER MECHANIC MET WITH STACEY IN THE PARKING LOT AND PROVIDED HER WITH THE DOCUMENT. CONTROLLER MECHANIC ALSO SPOKE WITH THE PATIENT ABOUT BEING DENIED LTAC AND APPROVED FOR SNF. PATIENT WAS STILL AGREEABLE FOR SNF AND THE REFERRAL TO [facility]. THIS MORNING CONTROLLER MECHANIC FAXED CLINICAL UPDATES TO [facility]. PRECERT WILL BE REQUIRED. PATIENT WILL BE REQUIRED A NEW COVID SWAB THEY WANT IT DONE NO MORE THEN 24/48HRS BEFORE DISCHARGE BUT CANNOT EXCEED 72HRS. MARBLE MACHINE TENDER IS AWARE.
--- NOTE | 2019-09-22 09:30 | NUR ---
PHYSICAL THERAPY Attempted to see pt for therapy session just received breakfast tray, repositioned in bed for comfort and increase ease of eating will follow Barbara Borrego PT
--- NOTE | 2019-09-22 10:30 | NUR ---
PHYSICAL THERAPY Per nsg pt ok for activity, upon entering room pt alert agreeable to therapy. 02 at 6L HFNC 02 level 88-91% difficutly getting consistent reading from fingers of bilateral hands even with warming blankets/cleaning 02 sensor. Increased to 8L HFNC with therapy per resp recommendations 09/20 02 sensor moved to earlobe sats reading 96-98% currently no c/o pain or SOB Performed supine BLE ex 1 x 10 Ap's,HS,Hip Abd/Add,SAQ's with rest pds t/o with mild SOB sats 92-93%. Performed long sit x 2 in bed with cga x 1 sitting each attempt 1 minute 02 levels to 89-91% with increased SOB after returning to supported position on bed recovered 92-93% approx 30-45 seconds. HR 110-135 t/o. Respiratory in to assess pt and give breathing treatment updated on activity and 02 levels at 8L HFNC. At end of session pt left with Resp Therapist to give breathing rx and will turn down 02 levels to 6L HF[address] and place on BIPAP also discussed pulse ox that used earlobe for consistent reading. Tolerated well with rest periods throughout progressing with increase reps and longsit tolerance with stable 02 levels on 8L HFNC continue to monitor progress with further functional activity next session per ASHLEY Borrego PT
--- NOTE | 2019-09-22 10:36 | NUR ---
OT NOTE Patient participated in OT treatment this date to maximize safety and independence with ADLs, transfers. Patient agreeable to OT treatment, nursing gave approval prior to treatment. Patient supine in bed with HOB elevated on 6L [place] NC at 88-91% with difficulty getting consistent reading due to his digits on B/L hands being cold. OTR used a warming blanket, cleaned O2 censor without success. Per discussion with respiratory on 09/21/2019 patient can increase to 8L [place] NC with therapy and O2 censor moved to L ear, reading 96-98% SpO2 and HR 115-135 bpm. While supine with HOB elevated, patient participated in B/L UEs AROM exercises to increase strength for maximum ADL participation. Patient completed 1x5 R shoulder flexion (L shoulder deferred due to patient c/o severe pain), B/L elbow flex/ext, shoulder shrugs, and power hand grasps. Patient provided with frequent RBs d/t SOB and sats at 91-93% on 8L [place] NC. Patient participated in 2 "long sits" with CGA to increase core strength needed for ADLs. First attempt approx 1 min statically sitting with 89-91% SpO2 and HR 120-130 bpm followed by a RB. The second attempt approx 30-45 seconds where he participated in a light grooming task at 92-93% SpO2 on 8L [place] HR 115-130 bpm. Patient returrned supine in bed with respiratory therapy in room to conclude. Patient had all needs within reach, call mancilla in hand. Discussed with respiratory about patient's activity tolerance and SpO2 levels during our treatment. Will continue with POC as able, recommend d/c to SNF. Ifeoma Cline, OTR/L
--- NOTE | 2019-09-22 10:36 | NUR ---
[facility] CALLED. STATES DR DAVENPORT WANTS PT TO HAVE JAUN TODAT AT 4PM. SHE WILL CALL SURGERY TO FIND OUT IF THEY CAN. THERE IS NO ORDER AT THIS TIME FOR PROCEDURE.
--- NOTE | 2019-09-22 11:00 | NUR ---
SURGERY PACKET COMPLETED WITH PT AT THIS TIME.
--- NOTE | 2019-09-22 11:07 | NUR ---
[facility]LE [facility]EPT THE PATIENT. PRECERT HAS NOT BEEN STARTED OF THIS TIME.
--- NOTE | 2019-09-22 11:09 | NUR ---
PER DR DAVENPORT PT IS TO HAVE JAUN TODAY AT 4PM
--- NOTE | 2019-09-22 11:18 | NUR ---
PLACED PATIENT BACK ON BIPAP 02/12 40%. HR 115 SPO2 92%.
[2019-09-22 12:06] LABS: POTASSIUM 3.9 mmol/L (3.5-5.1)
[2019-09-22 12:16] LABS: HEMATOCRIT 27.5 % (42.0-52.0); MEAN CELL VOLUME 90.5 fl (80.0-94.0); MEAN CORPUSCULAR HGB 26.3 pg (27.0-31.0); MEAN CORPUSCULAR HGB CONC 29.1 g/dl (33.0-37.0); MEAN PLATELET VOLUME 12.6 fl (9.6-12.3); NUCLEATED RED BLOOD CELL 0.3 10*3/uL (0.0-0.0); NUCLEATED RED BLOOD CELL 0.8 % (0.0-0.0); PLATELET COUNT AUTOMATED 301 10*3/uL (130-400); RED BLOOD COUNT 3.04 10*6/uL (4.50-5.90); RED CELL DISTRI WIDTH 21.8 % (0-14.5); WHITE BLOOD COUNT 31.1 10*3/uL (4.8-10.8)
[2019-09-22 12:36] LABS: ACT PARTIAL THROMBO TIME 37.9 SECONDS (20.0-32.1); INTERNATIONAL NORM RATIO 1.8 (2.0-3.5)
[2019-09-22 12:43] LABS: PLATELET SUFFICIENCY NORMAL (NORMAL); TOTAL CELLS COUNTED 100 #CELLS
--- NOTE | 2019-09-22 13:36 | NUR ---
PATIENT TAKEN OFF BIPAP AND PLAED ON HFNC AT 6L HR 110, SPO2 95%.
--- NOTE | 2019-09-22 14:22 | NUR ---
PT REQUESTING PAIN MEDICINE AND SOMETHING FOR ANXIETY. ATTEMPTED TO REACH DR MCMILLAN AND HIS RESIDENT WITH NO ANSWER. WILL TRY AGAIN.
--- NOTE | 2019-09-22 14:26 | NUR ---
SPOKE WITH DR CLEMENTE WHO STATES PT CAN HAVE 0.5MG IV DILAUDID NOW
--- NOTE | 2019-09-22 14:44 | NUR ---
PT C/O 10/15 ACHING CHRONIC BACK PAIN. MEDICATED PER ORDER. WILL MONITOR FOR RELIEF. VOICES NO OTHER CONCERNS AT THIS TIME. RESPS EASY AND NON LABORED. NO S/S OF DISTRESS. VSS. OXYGEN INTACT. CALL LIGHT WITHIN REACH. BODY ALARM INTACT.
--- NOTE | 2019-09-22 15:00 | NUR ---
ANESTHESIA UP TO GET CONSENT FROM PATIENT.
--- NOTE | 2019-09-22 15:15 | NUR ---
ATTEMPTING TO REACH SON AND FERNY PER PTS REQUEST TO UPDATE THEM ON POC
--- NOTE | 2019-09-22 15:25 | NUR ---
FERNY CALLED BACK. UPDATED ON POC. QUESTIONS ANSWERED. TRANSFERRED PHONE CALL INTO PTS ROOM.
--- NOTE | 2019-09-22 15:38 | NUR ---
TRANSFERRED TO [phone]
--- NOTE | 2019-09-22 16:15 | NUR ---
PT TAKEN OFF FLOOR TO SURGERY
--- NOTE | 2019-09-22 17:00 | NUR ---
RECIEVED FROM OR AFTER JAUN PT INTUBATED/SEDATED/HAS PASTOR AND IV IN LEFT AC NGT INSERTED PER POLICY, DIPROVAN STARTED AT [address] NICOLE PEREZ IN 2 HOURS
--- NOTE | 2019-09-22 18:54 | NUR ---
CHART CHECK COMPLETE.
[2019-09-22 19:21] LABS: ABG BASE EXCESS 3.6 mmol/L (-2.0-2.0); ARTERIAL BLOOD GAS PH 7.356 (7.35-7.45)
--- NOTE | 2019-09-22 19:35 | NUR ---
DUNG, FROM RESP DEPT, OBTAINED ABG'S AND CALLED RESULTS TO DR RIVERA WELL CXR REPORT OF ETT 7.5CM ABOVE ETHAN. HE RECEIVED ORDERS, MADE VENT CHANGES, AND ADVANCED ETT ORDERED TO 25 AT THE LIP. PT APPEARS RELAXED ON PROPOFOL @ 10MCG. VSS.
--- NOTE | 2019-09-22 19:38 | NUR ---
PATIIENTS ENDOTRACHEAL TUBE ADVANCED TO [address] RIVERA AWARE, RN AWARE
--- NOTE | 2019-09-22 19:47 | NUR ---
SPUTUM CULTURE OBTAINED ORDERED AND SENT TO LAB.
--- NOTE | 2019-09-22 20:53 | NUR ---
PT TO HAVE ABG'S DONE AT 2130. XANAX GIVEN TO PROMOTE RELAXATION PRIOR TO ABG'S AND PLANNED BATH AND BED LINEN CHANGE.
--- NOTE | 2019-09-22 21:20 | NUR ---
XANAX EFFECTIVE...PT APPEARS RELAXED.
[2019-09-22 21:27] LABS: ABG BASE EXCESS 5.9 mmol/L (-2.0-2.0); ARTERIAL BLOOD GAS PH 7.399 (7.35-7.45)
--- NOTE | 2019-09-22 21:31 | NUR ---
DR RIVERA WAS NOTIFIED OF ABG RESULTS BY DUNG FROM RESP DEPT.
--- NOTE | 2019-09-22 22:05 | NUR ---
PT'S HAIR WASHED AND COMPLETE BATH & BED LINEN CHANGE DONE. PT TOLERATED WELL.
[2019-09-23] VITALS (10 sets, daily range): BP systolic 90–108; BP diastolic 54–78
--- NOTE | 2019-09-23 04:01 | NUR ---
VERSED IMMEDIATELY EFFECTIVE FOR PT AGITATION AND PULLING AT RESTRAINTS.
[2019-09-23 04:07] LABS: ALBUMIN 3.5 gm/dl (3.1-4.5); CREATININE 1.61 mg/dL (0.70-1.30); POTASSIUM 3.8 mmol/L (3.5-5.1); TOTAL PROTEIN 6.5 gm/dL (6.4-8.2)
[2019-09-23 06:05] LABS: HEMATOCRIT 28.2 % (42.0-52.0); MEAN CORPUSCULAR HGB 26.1 pg (27.0-31.0); MEAN CORPUSCULAR HGB CONC 28.7 g/dl (33.0-37.0); MEAN PLATELET VOLUME 12.5 fl (9.6-12.3); NUCLEATED RED BLOOD CELL 0.3 10*3/uL (0.0-0.0); NUCLEATED RED BLOOD CELL 0.9 % (0.0-0.0); PLATELET COUNT AUTOMATED 241 10*3/uL (130-400); RED CELL DISTRI WIDTH 21.9 % (0-14.5); WHITE BLOOD COUNT 29.6 10*3/uL (4.8-10.8)
--- NOTE | 2019-09-23 06:37 | NUR ---
VERSED IMMEDIATELY EFFECTIVE FOR AGITATION.
[2019-09-23 07:16] LABS: OVALOCYTES FEW; PLATELET SUFFICIENCY NORMAL (NORMAL); POLYCHROMASIA SLIGHT; TARGET CELLS FEW; TOTAL CELLS COUNTED 100 #CELLS
[2019-09-23 08:26] LABS: ABG BASE EXCESS 8.8 mmol/L (-2.0-2.0); ARTERIAL BLOOD GAS PH 7.489 (7.35-7.45)
[2019-09-23 08:59] LABS: ABG BASE EXCESS 8.2 mmol/L (-2.0-2.0); ARTERIAL BLOOD GAS PH 7.453 (7.35-7.45)
--- NOTE | 2019-09-23 09:32 | NUR ---
VERSED FOR ADDITIONAL SEDATION
--- NOTE | 2019-09-23 10:31 | NUR ---
DORIS LEVEL CALLED TO PHARMACY
--- NOTE | 2019-09-23 10:39 | NUR ---
MIRALAX FOR NO BM X 4 DAYS
--- NOTE | 2019-09-23 10:39 | NUR ---
XANAX PER REQUEST FOR ANXIETY
--- NOTE | 2019-09-23 10:46 | NUR ---
PAIN PILL PER REQUEST
--- NOTE | 2019-09-23 11:33 | NUR ---
NORCO AND XANAX ARE EFFECTIVE MIRALAX-NOT YET
--- NOTE | 2019-09-23 13:20 | NUR ---
DIPROVAN TURNED OFF
--- NOTE | 2019-09-23 13:50 | NUR ---
PT FULLY AWAKE, PLACED ON CPAP
--- NOTE | 2019-09-23 15:30 | NUR ---
13:45 VENT CHANGES PE RDR AZIZ. RN WEANED OFF SEDATION APPROX 1/2 PRIOR TO CHANGES. MODE CHANGED TO CPAP OF 5 PS 10. PT TOLERATING WELL. RESPS REGULAR AND UNLABORED. ABG TO FOLLOW.
[2019-09-23 15:31] LABS: ABG BASE EXCESS 9.9 mmol/L (-2.0-2.0); ARTERIAL BLOOD GAS PH 7.462 (7.35-7.45)
--- NOTE | 2019-09-23 16:29 | NUR ---
16:05 PT EXTUBATED WITHOUT INCIDENT. ORALLY SUCTIONED FOR SMALL TO MODERATE [id number]. PT'S COUGH PRODUCTIVE. PT PLACED ON BIPAP VIA MASK. SYSTEM CHECKED AND FX'ING. RESPS REGULAR AND UNLABORED. VITALS STABLE.BBSs EQUAL AND CLEAR.
--- NOTE | 2019-09-23 18:46 | NUR ---
HAS BEEN OFF BIPAP FOR DINNER, TOLERATED WELL
--- NOTE | 2019-09-23 21:55 | NUR ---
PATIENT C/O PAIN ON SIDES, BACK, AND SHOULDERS.
--- NOTE | 2019-09-23 22:55 | NUR ---
PATIENT'S PAIN DECREASED.
[2019-09-24] VITALS: BP 92/55
[2019-09-24 04:00] VITALS: BP 95/60
--- NOTE | 2019-09-24 05:08 | NUR ---
PATIENT AWAKE AND WANTING TO DRINK WATER. BIPAP MASK CHANGED TO NC 8L HIGH FLOW. TOLERATING NC WELL, MOVING IN BED AND DRINKING SPO2 98%
--- NOTE | 2019-09-24 05:30 | NUR ---
PATIENT REFUSING BLOODWORK TO MAGAZINE DESIGNER AND NURSE. BECOMING AGITATED WHEN ATTEMPTING TO DRAW BLOOD.
--- NOTE | 2019-09-24 06:21 | NUR ---
PATIENT SPO2 74% ON 7L NC. BIPAP REAPPLIED SPO2 97%.
--- NOTE | 2019-09-24 07:51 | NUR ---
PATIENT TAKEN OFF BIPAP AND PLACED ON 7L HFNC SPO2 99% HR 116.
--- NOTE | 2019-09-24 08:00 | NUR ---
PT VERY GRUMPY, REFUSES LABS, VITALS, YELLING AT STAFF DEMANDING TO GO HOME RIGHT NOW ADMITS TO BEING FEED UP WITH HIS OVERALL HEALTH
--- NOTE | 2019-09-24 08:34 | NUR ---
NORCO/XANAX GIVEN PER REQUEST
--- NOTE | 2019-09-24 09:38 | NUR ---
DILUADID/ATIVAN GIVEN FOR PAIN AND AGITATION
--- NOTE | 2019-09-24 09:40 | NUR ---
DILUADID/ATIVAN ARE EFFECTIVE PT COMFORTABLE PLACED ON BIPAP
--- NOTE | 2019-09-24 09:53 | NUR ---
DR DAVENPORT IN, DIG .25 GIVEN
--- NOTE | 2019-09-24 09:59 | NUR ---
PATIENT PLACED BACK ON BIPAP 02/10 40% HR 110 SPO2 97%
--- NOTE | 2019-09-24 10:00 | NUR ---
DIG EFFECTIVE HEART NOW DOWN TO 105 FROM 130'S
[2019-09-24 10:35] VITALS: BP 105/64
[2019-09-24 10:38] LABS: HEMATOCRIT 28.4 % (42.0-52.0); MEAN CELL VOLUME 92.2 fl (80.0-94.0); MEAN CORPUSCULAR HGB CONC 28.2 g/dl (33.0-37.0); MEAN PLATELET VOLUME 12.2 fl (9.6-12.3); NUCLEATED RED BLOOD CELL 0.2 10*3/uL (0.0-0.0); NUCLEATED RED BLOOD CELL 0.7 % (0.0-0.0); PLATELET COUNT AUTOMATED 232 10*3/uL (130-400); RED BLOOD COUNT 3.08 10*6/uL (4.50-5.90); WHITE BLOOD COUNT 26.7 10*3/uL (4.8-10.8)
[2019-09-24 10:53] LABS: ALBUMIN 3.4 gm/dl (3.1-4.5); ALKALINE PHOSPHATASE 346 U/L (45-117); CHLORIDE 104 mmol/L (98-107); CREATININE 1.22 mg/dL (0.70-1.30); SGOT/AST 28 IU/L (3-35); SGPT/ALT 53 U/L (12-78); SODIUM 144 mmol/L (136-145); TOTAL PROTEIN 6.4 gm/dL (6.4-8.2)
[2019-09-24 10:55] LABS: BUN 62 mg/dl (7-24)
[2019-09-24 10:59] LABS: PLATELET SUFFICIENCY NORMAL (NORMAL); POLYCHROMASIA SLIGHT; SCHISTOCYTES FEW; TARGET CELLS FEW; TOTAL CELLS COUNTED 100 #CELLS
[2019-09-24 11:00] LABS: OVALOCYTES FEW
--- NOTE | 2019-09-24 11:27 | NUR ---
PATIENT REMAINS ON BIAP RESTING COMFORTABLY SPO2 95% HR 95.
--- NOTE | 2019-09-24 14:52 | NUR ---
PATIENT CURRENTLY OFF BIPAP, ON HFNC 9L, SPO2 93%, HR 97.
[2019-09-24 16:00] VITALS: BP 109/52
--- NOTE | 2019-09-24 18:56 | NUR ---
DR. MCMILLAN NOTIFIED OF PATIENTS UNCOOPERATIVE AND AGGITATED STATE. THREATENING STAFF WHEN ATTEMPTING TO GET HIM INTO BED FOR SAFETY. . DAYLIGHT SHIFT NURSE UNABLE TO LEAVE ROOM, SECURITY CURRENTLY SITTING WITH PATIENT. ORDERS RECEIVED. JANENE JUNIOR RN
--- NOTE | 2019-09-24 19:46 | NUR ---
PT. RESTING QUIETLY, PLACED BACK ON BIPAP AT 1940 DUE TO SHORTNESS OF BREATH. PULSE OX 99%. JANENE JUNIOR RN
--- NOTE | 2019-09-24 19:48 | NUR ---
PT. GIVEN JOCELYN AT 1905 FOR RESTLESSNESS AND AGGITATION. CURRENTLY RESTING COMFORTABLY. JOCELYN EFFECTIVE.
[2019-09-24 20:00] VITALS: BP 116/44
--- NOTE | 2019-09-24 20:36 | NUR ---
PT. RESTING COMFORTABLY. HEP LOCK IN RAN ASYMPT. LUNGS DIMINISHED BILAT, PULSE OX 93-95% IB BIPAP. ABDOMEN SOFT, NONDISTENDED AND NORMO. BLE EDEMA WITH STRIATIONS ON LEGS NOTED. RESP. EASY AND REG CURRENTLY WHILE SLEEPING ON BIPAP. HR DOWN FROM 150'S TO 120-130'S CURRENTLY JANENE JUNIOR RN
[2019-09-25] VITALS (10 sets, daily range): BP systolic 91–124; BP diastolic 49–74
--- NOTE | 2019-09-25 04:07 | NUR ---
PT. WOKE UP PLEASANT AND COOPERATIVE. GIVEN XANAX AND NORCO ORDERED PER PT REQUEST.
--- NOTE | 2019-09-25 04:51 | NUR ---
PT. SLEEPING, XANAX AND NORCO EFFECTIVE. JANENE JUNIOR RN
[2019-09-25 06:11] LABS: HEMATOCRIT 26.4 % (42.0-52.0); MEAN CORPUSCULAR HGB CONC 27.7 g/dl (33.0-37.0); MEAN PLATELET VOLUME 12.4 fl (9.6-12.3); NUCLEATED RED BLOOD CELL 0.2 10*3/uL (0.0-0.0); NUCLEATED RED BLOOD CELL 0.6 % (0.0-0.0); PLATELET COUNT AUTOMATED 193 10*3/uL (130-400); RED BLOOD COUNT 2.81 10*6/uL (4.50-5.90); RED CELL DISTRI WIDTH 21.8 % (0-14.5); WHITE BLOOD COUNT 28.2 10*3/uL (4.8-10.8)
[2019-09-25 06:27] LABS: ALBUMIN 2.9 gm/dl (3.1-4.5); ALKALINE PHOSPHATASE 267 U/L (45-117); BUN 54 mg/dl (7-24); CHLORIDE 109 mmol/L (98-107); POTASSIUM 3.4 mmol/L (3.5-5.1); SGOT/AST 20 IU/L (3-35); SGPT/ALT 44 U/L (12-78); SODIUM 145 mmol/L (136-145); TOTAL PROTEIN 5.7 gm/dL (6.4-8.2)
[2019-09-25 06:48] LABS: PLATELET SUFFICIENCY NORMAL (NORMAL); POLYCHROMASIA SLIGHT; TARGET CELLS FEW; TOTAL CELLS COUNTED 100 #CELLS
[2019-09-25 06:49] LABS: SCHISTOCYTES FEW
--- NOTE | 2019-09-25 07:45 | NUR ---
PATIENT TAKEN DOWN TO RADIOLOGY FOR CXR. PATIENT TAKEN DOWN VIA WHEELCHAIR AND ACCOMPANIED BY NURSE.
--- NOTE | 2019-09-25 07:46 | NUR ---
PATIENT STARTS SHIFT AWAKE ON BIAP / 40% TOLERATING WELL. HR 91 SPO2 97%.
--- NOTE | 2019-09-25 08:15 | NUR ---
PATIENT RETURNED FROM RADIOLOGY. PATIENT PLACED IN BESIDE CHAIR AT THIS TIME. PATIENT O2 SATURATION HOLDING AT 96 OR GREATER ON 10L HI-FLOW NC. PATIENT HR IS AFIB 100'S AND PATIENT DENIES SHORTNESS OF BREATHE, OR DISCOMFORT. CALL LIGHT WITHIN REACH. SEE ASSESSMENT.
--- NOTE | 2019-09-25 08:56 | NUR ---
JASPER HILTON,ELISA Silverman [id number] Please refer to the physician's history and physical for past medical history, comorbid conditions, and allergies. Diagnosis: HISTORY OF COPD, RESPIRATORY FAILURE, ACUTE Gerard Score: 13,MODERATE RISK WOUND DESCRIPTIONS: This nurse was asekd by Dong COOK to evaluate patient's bridge of nose. Intact scabbed area noted at time of assessment. Patient states he may have scratched his nose. No drainage noted at time of assessment. Patient does wear bipap but area is not located where bipap rest. Surface the patient is resting on: Isoflex SKIN PREVENTION RECOMMENDATION: 1. Pressure redistribution support surface as appropriate 2. Elevate heels 3. Remove boots/TEDS every shift and reapply 4. Head of bed 30 degrees as tolerated 5. Assess nutrition and hydration 6. Manage moisture 7. Avoid the use of containment devices while in bed 8. Use absorptive products on surfaces limit layers of linens on bed 9. Turn and reposition every 1-2 hours in bed and every 1 hour in chair as tolerated 10. Weight shifts every 15 minutes while up in chair 11. Offloading with pillows or device to keep heels elevated off bed 12. Monitor skin at least every shift 13. Inspect under medical devices twice a day WOUND TREATMENT RECOMMENDATIONS: Cleanse bridge of nose with nss and apply sureprep around the wound hydrogel to wound bed and leave open air bid.
--- NOTE | 2019-09-25 09:40 | NUR ---
NORCO GIVEN PER PT REQUEST FOR LEFT ARM AND SHOULDER PAIN RATED A 6/10. PATIENT STATES THAT THE PAIN IS CHRONIC AND FEELS LIKE A DULL ACHE. WILL CONTINUE TO MONITOR AND REASSESS.
--- NOTE | 2019-09-25 10:30 | NUR ---
NORCO EFFECTIVE. PATIENT STATES HE IS ABLE TO MOVE HIS ARM BETTER AND RATES PAIN A 3/10. WILL CONTINUE TO MONITOR.
--- NOTE | 2019-09-25 11:40 | NUR ---
DR. DAVENPORT IN TO SEE PATIENT, PATIENT CONDITION REVIEWED, ORDERS TO ADD DIGOXIN 0.125 PO EVERY OTHER DAY DUE TO CKD.
--- NOTE | 2019-09-25 11:46 | NUR ---
PHYSICAL THERAPY Physical Therapy evaluation completed in [facility] with full evaluation to follow. Moderate complexity PT evaluation per chart review and evaluation. [id number]. Recommend physical therapy per plan of care and SNF upon discharge. Thank you for this referral. Haley Kraus,PT,DPT
--- NOTE | 2019-09-25 11:47 | NUR ---
Occupational Therapy evaluation completed on [facility] with full evaluation to follow. Recommend occupational therapy per plan of care and SNF upon discharge. Thank you for this referral. Ifeoma Cline OTR/L
--- NOTE | 2019-09-25 11:48 | NUR ---
PATIENT TAKEN OFF BIPAP AND PLACED ON 10L HFNC SO THAT THERAPY CAN WORK WITH PATIENT. HR 86 SPO2 99%.
--- NOTE | 2019-09-25 14:16 | NUR ---
Operations Supervisor [employer] Cleaning in to see patient. He is sitting up in his bedside chair talking to his friend, Omer, on the phone. When medically stable he will be discharged to [place]. core worker following.
--- NOTE | 2019-09-25 14:45 | NUR ---
DR. CLEMENTE IN TO SEE PATIENT AND DISCUSS PLAN OF CARE. ORDERS RECEIVED. SPOKE WITH DR. MCMILLAN VIA FACETIME WITH PATIENT. ORDERS RECEIVED.
--- NOTE | 2019-09-25 15:30 | NUR ---
PLACED PATIENT BACK ON BIPAP / 40%. HR 101 SPO2 100%
--- NOTE | 2019-09-25 15:40 | NUR ---
IV STARTED IN LEFT ARM DUE TO THE NEED TO TRANSFUSE BLOOD. PATIENT TOLERATED WELL.
--- NOTE | 2019-09-25 18:48 | NUR ---
PATIENT MEDICATED WITH NORCO AND XANAX FOR COMPLAINTS OF ANXIETY AND PAIN ALL OVER.
[2019-09-26] VITALS: BP 94/44
--- NOTE | 2019-09-26 00:15 | NUR ---
PT. GIVEN DESYREL AT 2121 PER PT REQUEST. SLEEPING AT 2230 AND CURRENTLY, DESYREL EFFECTIVE. JANENE JUNIOR RN
--- NOTE | 2019-09-26 01:43 | NUR ---
PT. PREPARED FOR TRANSFER, VITAL SIGNS WNL. ALL BELONGINGS SENT WITH PATIENT.
--- NOTE | 2019-09-26 02:10 | NUR ---
REPORT GIVEN TO GRAHAM COY PRIOR TO TRANSPORT.
--- NOTE | 2019-09-26 02:13 | NUR ---
PATIENT ARRIVED TO THE FLOOR AT THIS TIME. PATIENT ALERT AND ORIENTED. 10LHIGH FLOW. PASTOR DRAINING STRAW COLOR URINE. IV INTACT. BED IN LOWEST POSITION,CALL LIGHT WITHIN REACH. BED ALARM ON. WILL CONTINUE TO MONITOR.
--- NOTE | 2019-09-26 02:26 | NUR ---
PATIENT REQUESTING TO BE MEDICATED WITH NORCO AND XANEX BEFORE BEING PLACED BACK ON BIPAP. BOTH GIVEN AT THIS TIME. PATIENT RATING BACK PAIN,SIDE PAIN AND ABDOMINAL PAIN A 10/15. WILL CHECK EFFECTIVENESS.
--- NOTE | 2019-09-26 03:26 | NUR ---
PATIENT ASLEEP. BIPAP ON. NO SIGNS OF DISTRESS. NORCO AND XANEX EFFECTIVE. BED IN LOWEST POSITION,CALL LIGHT WITHIN REACH. BED ALARM ON WILL CONTINUE TO MONITOR.
[2019-09-26 03:28] LABS: HEMATOCRIT 30.2 % (42.0-52.0); MEAN CELL VOLUME 92.1 fl (80.0-94.0); MEAN CORPUSCULAR HGB 27.1 pg (27.0-31.0); MEAN CORPUSCULAR HGB CONC 29.5 g/dl (33.0-37.0); MEAN PLATELET VOLUME 11.8 fl (9.6-12.3); NUCLEATED RED BLOOD CELL 0.2 10*3/uL (0.0-0.0); NUCLEATED RED BLOOD CELL 0.5 % (0.0-0.0); PLATELET COUNT AUTOMATED 175 10*3/uL (130-400); RED BLOOD COUNT 3.28 10*6/uL (4.50-5.90); RED CELL DISTRI WIDTH 20.8 % (0-14.5); WHITE BLOOD COUNT 29.8 10*3/uL (4.8-10.8)
[2019-09-26 03:43] LABS: ALBUMIN 2.9 gm/dl (3.1-4.5); ALKALINE PHOSPHATASE 229 U/L (45-117); BUN 48 mg/dl (7-24); CHLORIDE 107 mmol/L (98-107); CREATININE 0.97 mg/dL (0.70-1.30); POTASSIUM 3.7 mmol/L (3.5-5.1); SGOT/AST 18 IU/L (3-35); SGPT/ALT 40 U/L (12-78); SODIUM 144 mmol/L (136-145); TOTAL PROTEIN 5.7 gm/dL (6.4-8.2)
[2019-09-26 04:09] LABS: PLATELET SUFFICIENCY NORMAL (NORMAL); TOTAL CELLS COUNTED 100 #CELLS
--- NOTE | 2019-09-26 06:33 | NUR ---
PATIENT BS 67. GIVEN 2 APPLE JUICES. WILL CONTINUE TO MONITOR.
--- NOTE | 2019-09-26 06:51 | NUR ---
PATIENT SCREAMING OUT, AGITATED. ASSISTED TO CHAIR. BODY ALARM PLACED. WILL CONTINUE TO MONITOR.
--- NOTE | 2019-09-26 07:40 | NUR ---
24 HR chart check completed.
[2019-09-26 08:00] VITALS: BP 109/70
--- NOTE | 2019-09-26 08:23 | NUR ---
ASSEMBLER [employer] FAXED UPDATES TO [facility]. COVID RESULTS WILL BE NEEDED 24/48HRS BEFORE PATIENT CAN ADMIT TO THE FACILITY WHEN MEDICALLY STABLE.
--- NOTE | 2019-09-26 08:57 | NUR ---
TOOK OVER THE CARE OF PATIENT. PT IS SITTING UP IN THE CHAIR ON THE BIPAP. PT STATED THAT HE WANTED THE BIPAP OFF AND HIS NC ON. PT WAS PLACED ON 10L O2 AND DENIED SHORTNESS OF BREATH. PT SHOWED LABORED BREATHING BUT SHOWED NO OTHER SIGNS OF DISTRESS. PT STATED HE WAS FINE AND WANTED TO DRINK SOME COFFEE. PT'S MEDS WERE GIVEN AND PT ASKED TO BE PLACED BACK ON THE BIPAP AFTERWARDS.
--- NOTE | 2019-09-26 11:15 | NUR ---
PHYSICAL THERAPY Patient seen this am 1;1 for therapy visit and was sitting up in bedside chair upon therapist arrival. Patient identified by name / and presented with continuos hi flow O2-10L via NC. Patient records resting SpO2 92%, HR 108 bpm prior to completing several sit to stand transfers, MIN A, use of wh walker, demonstrating very slow initial rise. Patient tolerated approx 1 minute static stand x several trials, recording SpO2 91%, HR 115 bpm. Patient still fatigues quickly, requiring v/c for purse lip breathing technique and needed brief seated rest break between standing attempts. Patient was also able to ambulate 12'x 1, wh walker, CGA, demonstrating very slow, cautious gait pattern and was very unsteady during 180 turn around. Patient returned to bedside chair and remained with call light, tray table, telephone, body alarm. SpO2 90%, HR 130 following gait and will continue per POC as tolerated, total treatment time 16 minutes. Dwight Braden, GAUGER CHIEF DELIVERY
--- NOTE | 2019-09-26 11:40 | NUR ---
OT NOTE Pt was seen this A.M. 1:1 for 30 minute OT session. Upon arrival pt was sitting upright in the recliner. Pt identified by name and and had no complaints at this time. Pt presented to therapy with continuous 10L high flow via NC which he remained on throughout the entire session. Pt's resting SpO2 92% and heart rate 108 bpm. While seated pt donned B socks with Darion for inital start over his toes, throughout task pt's SpO2 read 91% and heart rate 124 bpm. Sit to stand then completed from chair level with Darino and use of w/w for UE support. Pt educated on proper hand placement for increased I and enhanced safety. pt presented with fair carry over. Challenged pt's static standing tolerance needed for increased I in self care tasks and functional transfers, pt was able to tolerate aprox 60 seconds at a time before sitting due to fatigue, SpO2 read 93%. Pt then completed functional mobility to the bathroom and back with CGA and use of w/w with min verbal prompts for walker safety/management while turning, pt presented with poor carry over. Throughout mobility pt's SpO2 read 89% and heart rate 114 bpm. After a seated rest break pt completed BUE towel exercises over all planes of motion for 1 X 10 to increase and restore maximum functional use. Pt was left sitting upright in the recliner with call light in hand, tray table in place, and body alarm activated for safety. Continue with rec D/C plan to SNF. ANGELES Sotelo
[2019-09-26 12:00] VITALS: BP 115/78
--- NOTE | 2019-09-26 12:22 | NUR ---
Discussed discharge planning with Dr. Vazquez due to patient needing a COVID test 24-48 hours prior to discharge to [facility]. She states she will review.
[2019-09-26 16:00] VITALS: BP 127/86
--- NOTE | 2019-09-26 19:25 | NUR ---
PATIENT PLACED ON BIPAP 12/6 40%. HR 110 SPO2 95%.
[2019-09-26 20:00] VITALS: BP 112/63
--- NOTE | 2019-09-26 20:20 | NUR ---
PATIENT RIPPED BIPAP OFF, AGITATED SCREAMING, CUSSING AT STAFF. PATIENT SAYING HE HAS TO SHIT, PLACED ON THE BSC. PATIENTS BED SATURATED AND FLITHY. CHANGED AT THIS TIME. PATIENT HELPED BACK INTO BED. 10L HIGH FLOW NC PLACED. BED IN LOWEST POSITION CALL LIGHT WITHIN REACH. BED ALARM ON. WILL CONTINUE TO MONITOR.
--- NOTE | 2019-09-26 21:00 | NUR ---
NOTIFIED DR. LANG PATIENT NORCO FELL OFF OF MAY AND IT NEEDS REORDERED. PER DR LANG OKAY TO REORDER
--- NOTE | 2019-09-26 21:32 | NUR ---
PATIENT BLOOD SUGAR,88. OFFERED JUICES,SNACKS. PATIENT REFUSING. STATES "I DONT WANT NOTHING!" WILL CONTINUE TO MONITOR.
--- NOTE | 2019-09-26 21:37 | NUR ---
PATIENT REFUSING TO SIT BACK INTO BED. PATIENT REMAINS ON EDGE OF BED WITH BED ALARM ON. WANRED PATIENT ABOUT RISKS OF FALLING. STATING HE WANTS TO GET UP BUT REFUSING HELP FROM THE STAFF. VERY AGIGATED AND YELLING/CUSSING AT STAFF. WILL CONTINUE TO MONITOR.
--- NOTE | 2019-09-26 21:47 | NUR ---
PATIENT REFUSING TO HAVE BED ALARM ON.
[2019-09-27] VITALS: BP 112/70
--- NOTE | 2019-09-27 00:41 | NUR ---
PATIENT MEDICATED WITH NORCO AND XANEX AT THIS TIME PER REQUEST. PATIENT C/O PAIN ALL OVER. RATES 12/15. WILL CHECK EFFECTIVENESS.
--- NOTE | 2019-09-27 01:21 | NUR ---
OT NOTE Pt seen this date 1:1 for 25 min session. Upon arrival pt supine in bed w bed alarm activated and receiving 10LO2 HF via NC which remained intact throughout the entire treatment. Pt identified by name and and had no c/o pain this date. At rest supine in bed pts SpO2 read 99% and HR 95 bpm. Bed mobility completed to seated at EOB w SBA where his SpO2 read 99% and HR 106 bpm. He stood from EOB w CGA and use of ww. After standing for 3 min w CGA and use of ww pts SpO2 read 92% and HR 95-110 bpm. Pt stood for another minute before ambulating to bedside chair w CGA and use of ww. Transfer completed to seated in bedside chair w use of ww and CGA and verbal cues provided for hand placement w fair followthrough. He rested in bedside chair for aprox 2 min w verbal cues provided to improve posture to maintain O2 levels where his SpO2 read 90% and HR 111 bpm. Pt stood from bedside chair w use of ww and CGA followed by functional mobility w use of ww and CGA before returning to seated again in bedside chair w use of ww and CGA. After pts second walk his SpO2 read 93% and HR 107 bpm. At end of session pt seated in bedside chair w body alarm activated, call light in reach, bedside table in place and recieving 10LO2 HF via NC. Continue w current D/C to SNF. Gamal Felix/SPIKE Kwan/Stevo
--- NOTE | 2019-09-27 01:29 | NUR ---
12:55 PT PLACED ON BIPAP. RESPS REGULAR AND UNLABORED. TOLERATING WELL. SYSTEM CHECKED AND FX'ING.
--- NOTE | 2019-09-27 01:30 | NUR ---
PATIENT SLEEPING, NO SIGNS OF DISTRESS. NORCO AND XANEX EFFECTIVE. WILL CONTINUE TO MONITOR.
--- NOTE | 2019-09-27 03:57 | NUR ---
PATIENT SLEEPING WITH BIPAP ON. NO SIGNS OF DISTRESS. BED IN LOWEST POSITION,CALL LIGHT WITHIN REACH, BED ALARM ON. WILL CONTINUE TO MONITOR.
--- NOTE | 2019-09-27 04:08 | NUR ---
24 HR chart check completed.
--- NOTE | 2019-09-27 06:32 | NUR ---
NOTIFIED DR. CAGLE OF RESULTS. NO NEW ORDERS RECEIVED. WILL CONTINUE TO MONITOR.
--- NOTE | 2019-09-27 07:30 | NUR ---
PT RESTING IN BED. VOICES NO CONCERNS AT THIS TIME. RESPS EASY-NON LABORED AT THIS TIME. VSS. WHITE BOARD UPDATED. POC DISCUSSED W PT. A/O X3. WHEEZES T/O. 10 L HFNC/BIPAP 02/10, 40% PRN. MILDLY DYSPNEIC AT REST-BASELINE. PASTOR PATENT DRAINING DARK ISAAK. WILL CONTINUE TO MONITOR. CALL LIGHT WITHIN REACH. BED ALARM ON.
[2019-09-27 08:00] VITALS: BP 120/70
--- NOTE | 2019-09-27 09:02 | NUR ---
PT C/O 07/15 ACHING CHRONIC BACK PAIN AND REQUESTING A XANAX. MEDICATED PER ORDER. WILL MONITOR FOR RELIEF. RESTING IN BED. RESPS EASY AND NON LABORED. CALL LIGHT WITHIN REACH. BED ALARM ON
--- NOTE | 2019-09-27 09:04 | NUR ---
DIGITAL ASSET SPECIALIST FAXED UDPATES TO [facility].
--- NOTE | 2019-09-27 09:27 | NUR ---
PT ASSISTED TO BSC. TOLERATED WELL.
--- NOTE | 2019-09-27 10:27 | NUR ---
MEDICATIONS EFFECTIVE PER PT
--- NOTE | 2019-09-27 11:02 | NUR ---
PTS BLOOD SUGAR 84. STATES HE IS ASYMPTOMATIC. GIVEN APPLE JUICE. WILL CONTINUE TO MONITOR.
[2019-09-27 12:00] VITALS: BP 132/98
--- NOTE | 2019-09-27 13:10 | NUR ---
PHYSICAL THERAPY Patient seen this pm 1:1 for therapy visit and was resting supine in bed upon therapist arrival. Patient identified by name / and presented with continuos hi flow O2-10L via NC. Patient was pleasant this afternoon, voicing no new c/o's and was joined by OT office assistant receptionist for observation only this session. Patient records resting SpO2 99%, HR 95 bpm prior to transfering supine to sit EOB with MIN A. Patient performed sit to stand transfer, MIN A, v/c needed for proper hand placement, as patient tolerated approx 4 minutes static stand with use of walker, SBA x 1, recording SpO2 92%, HR ranging from 95-110 bpm. After a brief seated rest break, patient ambulated 8'x 2, CGA, wh walker, demonstrating very slow, cautious gait pattern and was a little unsteady during 180 degree turn around. Patient recorded SpO2 93%, HR 107 bpm following gait ex and returned to bedside chair. Patient remained in chair with call light, tray table, telephone and body alarm for safety. Will continue per POC as tolerated, total treatment time 18 minutes. Dwight Braden, BATCH ROLLER OPERATOR
--- NOTE | 2019-09-27 14:51 | NUR ---
PT RESTING IN CHAIR. VOICES NO CONCERNS. RESPS EASY AND NON LABORED AT THIS TIME. 10L HFNC INTACT. GIVEN HEADPHONES TO WATCH TV. PT IN VERY GOOD SPIRITS. WILL CONTINUE TO MONITOR. CALL LIGHT WITHIN REACH. BODY ALARM INTACT
[2019-09-27 16:00] VITALS: BP 110/81
--- NOTE | 2019-09-27 16:17 | NUR ---
PER DR CLEMENTE ITS OKAY TO GIVE PT HIS PAIN MEDICATION EARLY.
--- NOTE | 2019-09-27 16:20 | NUR ---
PT C/O 07/15 ACHING CHRONIC BACK PAIN AND REQUESTING A XANAX. MEDICATED PER ORDER. WILL MONITOR FOR RELEIF. STATES HE WANTS A BREATHING TX-WILL CALL RESPIRATORY. RESTING IN CHAIR. CALL LIGHT WITHIN REACH. BODY ALARM INTACT.
--- NOTE | 2019-09-27 17:20 | NUR ---
MEDICATIONS EFFECTIVE PER PT
--- NOTE | 2019-09-27 17:43 | NUR ---
PT ASSISTED BACK TO BED. RESPS EASY AND NON LABORED. NO S/S OF DISTRESS. ON BIPAP AT THIS TIME. BED ALRM PEDIATRIC SURGEON LIGHT WITHIN REACH.
--- NOTE | 2019-09-27 18:10 | NUR ---
DR MCMILLAN NOTIFIED PTS BLOOD CULTURES COMING BACK +GRAM COCCI IN PAIRS/CLUSTERS. STATES TO REDRAW 2 SETS OF BOTTLED BLOOD CULURES TODAY.
[2019-09-27 20:00] VITALS: BP 103/75
--- NOTE | 2019-09-27 20:37 | NUR ---
PATIENT PULSE OX DOWN TO 77% ON THE MONITOR. WHEN ENTERING PATIENTS ROOM, PATIENT HAD NASAL CANULA OFF. STATES HE HASNT HAD IT OFF LONG AND HES JUST BLOWING HIS NOSE. NASAL CANNULA PLACED BACK ON PATIENT. 10L. PATIENTS BREATHING LABORED, VERY SOB. NOTIFIED RESPIRATORY. PATIENT AGREEING TO BE PLACED ON BIPAP AT THIS TIME. WILL CONTINUE TO MONITOR.
--- NOTE | 2019-09-27 21:40 | NUR ---
NOTIFIED DR. CAGLE ON POSITIVE BLOOD CULTURES. NO NEW ORDERS RECEIVED. WILL CONTINUE TO MONITOR
[2019-09-28] VITALS: BP 102/84
--- NOTE | 2019-09-28 04:00 | NUR ---
PATIENT SLEEPING, NO SIGNS OF DISTRESS. BIPAP ON. BED IN LOWEST POSITION,CALL LIGHT WITHIN REACH. WILL CONTINUE TO MONITOR.
[2019-09-28 08:00] VITALS: BP 116/78
--- NOTE | 2019-09-28 08:22 | NUR ---
PRECERT IS REQUIRED FOR SNF PLACEMENT. COVID RESULT ARE REQUIRED FOR PLACEMENT. TESTER OPERATOR COMPLETED HENS.
--- NOTE | 2019-09-28 08:49 | NUR ---
NORCO 5/325MG PO GIVEN FOR C/O GENERALIZED PAIN. 12/15. ATIVAN 0.25MG GIVEN AT THIS TIME FOR ANXIETY PER PATIENT REQUEST.
--- NOTE | 2019-09-28 09:42 | NUR ---
OT NOTE Attempted to see pt this A.M. Upon arrival repiratory was present and starting pt on BiPap. Will check back at later time/date. Continue w POC as able. Gamal Felix/SPIKE Kwan/Stevo
--- NOTE | 2019-09-28 09:46 | NUR ---
PT. BACK ON BIPAP TO REST
--- NOTE | 2019-09-28 11:30 | NUR ---
Discussed discharge planning with Dr. Vazquez. Awaiting final BC results. If negative then a PICC line can be placed. He will need 4 weeks of IV Vanc OP. Awaiting COVID test results also. When medically stable and above items are met he will be discharged to [facility]. environmental services worker following.
[2019-09-28 12:00] VITALS: BP 117/75
--- NOTE | 2019-09-28 13:15 | NUR ---
OT NOTE Attempted to see pt this P.M. Upon arrival pt supine in bed w body alarm activated and receiving 10LO2 via HF NC. Pt presented to therapy avoidant of eye contact and refused therapy this date. Educated pt on importance of therapy and offered motivation and encouragement which was unsuccessful. Pt contiued to avoid eye contact and stating "no", "I'm not doing it" and "You might as well leave me alone". Will check back at later date/ time. Continue w current POC as able. Gamal Felix/SPIKE Kwan/Stevo
--- NOTE | 2019-09-28 13:20 | NUR ---
PHYSICAL THERAPY Patient was resting comfortably supine in bed and when approached a second time for therapy visit, stated he did not feel like doing anything. When questioned as to why? Patient became iritated, stating this was all a emily of "bullshit" and that all he wants is to go home. Therapist unable to redirect patient at this time and will continue per POC as able. Dwight Braden, RADIATION / CHEMISTRY TECHNICIAN
--- NOTE | 2019-09-28 13:24 | NUR ---
Experimental Mechanic in to see patient. No eye contact. He is upset that Dr. Pressley said he could be discharged. Explained his discharge is pending for his COVID results, BC results, and precert before he can go to [place]. Discussed he is still here in the hospital because he needs a PICC line as he will need 4 weeks of IV antibiotics. But a PICC line can not be placed until the final report on his BC are back and negative. He is very flat. Asked if he would like his window blinds open and he said no. Asked if he was going to eat his meal and he said no. Asked if CM could come back and see him at a later time and originally he said no but later agreed.
--- NOTE | 2019-09-28 14:08 | NUR ---
SODA FOUNTAIN MANAGER NOITIFIED PYROTECHNICIAN ,WHILE I WAS WITH ANOTHER PT, PER MONITOR MR HUTCHINSON SPO2 IN MID TO HIGH 80'S VIA CONTINUOUS PULSE OX. MULTIPLE ATTEMPTS TO PLACE PT ON BIPAP BUT PT REFUSES. NOTIFIED DR MCMILLAN. ORDER FOR ATIVAN 0.5 MG IVP TO BE GIVEN NOW.
--- NOTE | 2019-09-28 14:17 | NUR ---
PT.'S SPO2 86% ON 10L HFNC. STATES HE FEELS A LITTLE SHORT OF BREATH. PT. PLACED BACK ON BIPAP. TOLERATING WELL. SPO2 RECOVERED TO 93% RR 20.
[2019-09-28 16:00] VITALS: BP 110/65
--- NOTE | 2019-09-28 17:31 | NUR ---
NORCO 10/325 GIVEN DUE TO C/O GENERALIZED PAIN ALL OVER, 12/15. XANAX ALSO GIVEN AT THIS TIME DUE TO C/O ANXIETY.
[2019-09-28 20:00] VITALS: BP 96/66
--- NOTE | 2019-09-28 21:00 | NUR ---
PATIENT VOICED NO COMPLAINTS AT THIS TIME. NO DISTRESS NOTED, RESP ARE EASY AND REGULAR. BED ALARM IS INTACT, BED LOCKED IN LOWEST POSITION. CALL LIGHT WITHIN REACH.
--- NOTE | 2019-09-28 21:11 | NUR ---
Pt. blood sugar result 90. NO COVERAGE NEEDED DEBBY ROSENBERG
--- NOTE | 2019-09-28 21:52 | NUR ---
PATIENT REQUESTED TO BE PLACED ON BIPAP, RESP THERAPIST INFORMED.
--- NOTE | 2019-09-28 22:00 | NUR ---
Pt placed on BiPap 12/6 and FiO2 40%. SpO2 96%. Alarms on and audible.
--- NOTE | 2019-09-28 22:11 | NUR ---
TRAZODONE SOMEWHAT EFFECTIVE. PATIENT IS ON/OFF WITH SLEEP AT THIS TIME.
--- NOTE | 2019-09-28 22:53 | NUR ---
24 HR chart check completed.
[2019-09-29] VITALS: BP 107/62
--- NOTE | 2019-09-29 01:56 | NUR ---
PATIENT PLACED BACK ON BIPAP PER REQUEST WITH SETTINGS PER [id number]. PATIENT TOLERATED WELL SPO2 AT 98% ON 40% FIO2
--- NOTE | 2019-09-29 03:05 | NUR ---
INFORMED THAT NOTED THAT VANCOMYCIN IV "FELL OFF" EMAR AFTER 7 DAYS WITH VANC TROUGH DUE AT 0330 AND INFECTIOUS DISEASE NOTE FROM YESTERDAY STATED TO CONTINUE VANCOMYCIN. STATED TO REORDER VANC AND AND WAIT FOR TROUGH
--- NOTE | 2019-09-29 03:23 | NUR ---
INFORMED THAT PATIENT REFUSED LAB DRAW AT THIS TIME EVEN AFTER EDUCATION WITH IMPORTANCE OF VANC TROUGH LEVEL TO RECIEVE ATX. STATED TO HOLD TROUGH TILL 0530 AND RETRY WITH AM LAB WORK AND IF TROUGH IS NORMALIZED TO RESTART ORIGINAL VANC DOSAGE AFTER LAB RESULTS.
--- NOTE | 2019-09-29 05:37 | NUR ---
PER PATIENTS REQUEST, REMOVED BIPAP. ON 10L HFNC, TOLERATING WELL. SPO2 MID 90'S
--- NOTE | 2019-09-29 06:13 | NUR ---
INFORMED THAT PATIENT REFUSED ALL AM LAB EVEN AFTER EDUCATION.
--- NOTE | 2019-09-29 06:17 | NUR ---
PATIENT MEDICATED WITH NORCO AND XANAX FOR C/O 10/10 BACK PAIN AND AGITATION. WILL MONITOR
--- NOTE | 2019-09-29 06:45 | NUR ---
INFORMED THAT PATIENT IS NOW AGREEING TO HAVE LAB WORK DRAWN AND THAT PATIENT DID NOT FOLLOW THROUGH WITH NM BODY SCAN DUE TO HAVING TO LAY FLAT FOR 1/2 HOUR WITHOUT MOVEMENT, PATIENT THINK MAYBE HE CAN DID IT WITH BIPAP BUT WINDOW FOR BLOOD WORK TO BE DRAWN HAS PASSED. ALSO, INFORMED THAT BC FROM 09/24 ARE COMING BACK FOR [facility] EPI. STATED OK, NO NEW ORDERS FOR NOW
[2019-09-29 07:11] LABS: HEMATOCRIT 28.4 % (42.0-52.0); MEAN CELL VOLUME 92.8 fl (80.0-94.0); MEAN CORPUSCULAR HGB 26.8 pg (27.0-31.0); MEAN CORPUSCULAR HGB CONC 28.9 g/dl (33.0-37.0); MEAN PLATELET VOLUME 11.5 fl (9.6-12.3); PLATELET COUNT AUTOMATED 114 10*3/uL (130-400); RED BLOOD COUNT 3.06 10*6/uL (4.50-5.90); RED CELL DISTRI WIDTH 20.6 % (0-14.5); WHITE BLOOD COUNT 21.4 10*3/uL (4.8-10.8)
[2019-09-29 07:26] LABS: ALKALINE PHOSPHATASE 199 U/L (45-117); BUN 24 mg/dl (7-24); CHLORIDE 101 mmol/L (98-107); CREATININE 0.85 mg/dL (0.70-1.30); POTASSIUM 3.9 mmol/L (3.5-5.1); SGOT/AST 20 IU/L (3-35); SGPT/ALT 36 U/L (12-78); SODIUM 140 mmol/L (136-145); TOTAL PROTEIN 6.5 gm/dL (6.4-8.2); VANCOMYCIN TROUGH 15.6 ug/mL (10-20)
[2019-09-29 07:54] LABS: POLYCHROMASIA SLIGHT; SCHISTOCYTES FEW; TOTAL CELLS COUNTED 100 #CELLS
[2019-09-29 07:55] LABS: PLATELET SUFFICIENCY LOW (NORMAL)
[2019-09-29 08:00] VITALS: BP 108/70; BP 128/50
--- NOTE | 2019-09-29 10:37 | NUR ---
OT NOTE Attempted to see pt this A.M. Upon arrival pt was on BiPap no treatment provided . Will check back again at later time/ date. Continue w POC as able. Gamal Felix/SPIKE Kwan/Stevo
--- NOTE | 2019-09-29 10:40 | NUR ---
PHYSICAL THERAPY Patient was resting supine in bed on Bi Pap when approached for therapy this am and not appropriate for treatment at this time. Will continue per POC as able. Dwight Braden, FLATWORK FOLDER
[2019-09-29 12:00] VITALS: BP 106/67
--- NOTE | 2019-09-29 13:06 | NUR ---
OT NOTE Attempted to see pt this P.M. Upon arrival pt was receiving Bipap and no treatment was provied. Will attempt to see pt again at later time/ date. Continue w POC as able. Gamal Felix/SPIKE Kwan/Stevo
--- NOTE | 2019-09-29 13:10 | NUR ---
PHYSICAL THERAPY Patient was sleeping soundly on Bi Pap this pm when approached for second therapy attempt. Per discussion with Nurse, will continue per POC as able. Dwight Braden, WEIGHT ENGINEER
--- NOTE | 2019-09-29 13:31 | NUR ---
Possible discharge on Wednesday pending blood cultures final results per Dr. Kahn.
--- NOTE | 2019-09-29 13:53 | NUR ---
PHYSICAL THERAPY CO-SIGN I approve of the Physical Therapy notes written above. Barbara Borrego PT
--- NOTE | 2019-09-29 14:07 | NUR ---
LEYDI REACHED OUT TO ELVA CONCERNING PATIENTS COVID NEGATIVE STATUS X3 NOW AND WAITING FOR THE FINAL CULTURES TO RETURN. PER MAX-NATALIA THE PATIENT WILL NOT BE REQUIRED ANOTHER COVID TEST TO ADMIT TO THEIR FACILITY.
--- NOTE | 2019-09-29 14:13 | NUR ---
OCCUPATIONAL THERAPY CO-SIGN I approve of the Occupational Therapy notes written above. Emily Vela OTR/L
--- NOTE | 2019-09-29 14:41 | NUR ---
PRECERT IS STILL REQUIRED FOR ADMISSION TO [facility].
[2019-09-29 16:00] VITALS: BP 111/67
[2019-09-29 20:00] VITALS: BP 125/72
--- NOTE | 2019-09-29 21:39 | NUR ---
PATIENT MEDICATED WITH TRAZODONE/XANAX/NORCO FOR C/O INSOMNIA/AGITATION/BACK PAIN 10/15. WILL MONITOR
--- NOTE | 2019-09-29 22:39 | NUR ---
TRAZODONE/XANAX/NORCO EFFECTIVE
[2019-09-30] VITALS: BP 134/68
[2019-09-30 06:28] LABS: BASO % 0.2 % (0.0-1.0); EOS # 0.3 10*3/uL (0.0-0.4); EOS % 1.5 % (1.0-4.0); HEMATOCRIT 28.4 % (42.0-52.0); LYMPH # 1.5 10*3/uL (1.3-4.4); LYMPH % 8.5 % (27.0-41.0); MEAN CELL VOLUME 93.7 fl (80.0-94.0); MEAN CORPUSCULAR HGB 27.4 pg (27.0-31.0); MEAN CORPUSCULAR HGB CONC 29.2 g/dl (33.0-37.0); MEAN PLATELET VOLUME 12.3 fl (9.6-12.3); MONO # 1.4 10*3/uL (0.1-1.0); MONO % 7.7 % (3.0-9.0); NEUT # 14.7 10*3/uL (2.3-7.9); NEUT % 81.2 % (47.0-73.0); PLATELET COUNT AUTOMATED 102 10*3/uL (130-400); RED BLOOD COUNT 3.03 10*6/uL (4.50-5.90); RED CELL DISTRI WIDTH 20.5 % (0-14.5); WHITE BLOOD COUNT 18.1 10*3/uL (4.8-10.8)
--- NOTE | 2019-09-30 06:31 | NUR ---
PATIENT MEDICATED WITH NORCO AND XANAX FOR AGITATION AND BACK PAIN 10/15. WILL MONITOR
[2019-09-30 06:43] LABS: ALBUMIN 2.8 gm/dl (3.1-4.5); ALKALINE PHOSPHATASE 181 U/L (45-117); BUN 22 mg/dl (7-24); CHLORIDE 97 mmol/L (98-107); CREATININE 0.87 mg/dL (0.70-1.30); POTASSIUM 3.6 mmol/L (3.5-5.1); SGOT/AST 19 IU/L (3-35); SGPT/ALT 31 U/L (12-78); SODIUM 139 mmol/L (136-145); TOTAL PROTEIN 6.3 gm/dL (6.4-8.2)
--- NOTE | 2019-09-30 06:55 | NUR ---
MADE AWARE OF CO2 LEVEL OF 41. NO NEW ORDERS AT THIS TIME
--- NOTE | 2019-09-30 07:27 | NUR ---
Shift chart check completed.24 HR chart check completed.
[2019-09-30 08:00] VITALS: BP 106/60
--- NOTE | 2019-09-30 08:30 | NUR ---
ON ASSESSMENT PATIENT SITTING IN HIGH FOWLERS POSITION. ABLE TO FREELY CONVERSE. HIGH FLOW NASAL CANNULA IN USE AT 10L/MIN. PULSE OX 95% ON TELEMETRY. HEART IRREGULARLY IRREGULAR. BILATERAL LOWER LEG EDEMA RT>LT. PASTOR ISAAK URINE. ABD SOFT. IV SITES X 2. SEE ALL APPROPRIATE INTERVENTIONS.
[2019-09-30 12:00] VITALS: BP 110/52
[2019-09-30 16:00] VITALS: BP 117/69
[2019-09-30 20:00] VITALS: BP 90/58
--- NOTE | 2019-09-30 21:30 | NUR ---
PATIENT TAKEN OFF BIPAP PER REQUEST. PATIENT TOLERTING 10L HFNC SPO2 MAINTAINING MID-HIGH 90'S.
--- NOTE | 2019-09-30 21:35 | NUR ---
PATIENT MEDICATED WITH TRAZODONE AND XANAX FOR AGITAION AND INSOMNIA. WILL MONITOR
--- NOTE | 2019-09-30 22:35 | NUR ---
TRAZODONE/XANAX EFFECTIVE
[2019-10-01] VITALS: BP 98/54
--- NOTE | 2019-10-01 00:10 | NUR ---
PATIENT PLACED BACK ON BIPAP PER WISHES. PATIENT TOLERATING BIPAP WELL, SPO2 MAINTAINING MID-HIGH 90'S. CALL LIGHT WITHIN REACH
[2019-10-01 06:21] LABS: BASO # 0.1 10*3/uL (0.0-0.1); BASO % 0.3 % (0.0-1.0); EOS # 0.2 10*3/uL (0.0-0.4); EOS % 0.8 % (1.0-4.0); HEMATOCRIT 27.2 % (42.0-52.0); LYMPH # 1.2 10*3/uL (1.3-4.4); LYMPH % 6.4 % (27.0-41.0); MEAN CORPUSCULAR HGB 27.4 pg (27.0-31.0); MEAN CORPUSCULAR HGB CONC 30.1 g/dl (33.0-37.0); MEAN PLATELET VOLUME 12.4 fl (9.6-12.3); MONO # 1.4 10*3/uL (0.1-1.0); MONO % 7.6 % (3.0-9.0); NEUT # 15.7 10*3/uL (2.3-7.9); NEUT % 84.5 % (47.0-73.0); PLATELET COUNT AUTOMATED 120 10*3/uL (130-400); RED BLOOD COUNT 2.99 10*6/uL (4.50-5.90); RED CELL DISTRI WIDTH 20.2 % (0-14.5); WHITE BLOOD COUNT 18.6 10*3/uL (4.8-10.8)
--- NOTE | 2019-10-01 06:29 | NUR ---
PATIENT MEDICATED WITH XANAX AND NORCO FOR C/O AGITAITON AND BACK PAIN 09/14. WILL MONITOR
--- NOTE | 2019-10-01 06:35 | NUR ---
PATIENT TAKEN OFF BIPAP PER REQUEST. PLACED ON 10L HFNC, TOLERATING WELL SPO2 MAINTAINING MID-HIGH 90'S
[2019-10-01 06:38] LABS: ALBUMIN 2.7 gm/dl (3.1-4.5); ALKALINE PHOSPHATASE 161 U/L (45-117); BUN 21 mg/dl (7-24); CHLORIDE 97 mmol/L (98-107); CREATININE 0.85 mg/dL (0.70-1.30); POTASSIUM 3.1 mmol/L (3.5-5.1); SGOT/AST 15 IU/L (3-35); SGPT/ALT 28 U/L (12-78); SODIUM 139 mmol/L (136-145)
[2019-10-01] MEDS ORDERED: VANCO 1 GR1 GM/250 M IV (10:10)
[2019-10-01] MEDS ORDERED: CEFTRIAXONE1 G1 IV (10:10)
[2019-10-01 12:00] VITALS: BP 112/56
[2019-10-01 16:00] VITALS: BP 101/57
--- NOTE | 2019-10-01 17:25 | NUR ---
NORCO ADMINISTERED AT THIS TIME FOR COMPLAINTS OF PAIN. WILL MONITOR FOR EFFECTIVENESS.
--- NOTE | 2019-10-01 18:25 | NUR ---
PT ASLEEP. PRN NORCO CONSIDERED EFFECTIVE.
[2019-10-01 20:00] VITALS: BP 91/79
--- NOTE | 2019-10-01 22:09 | NUR ---
PATIENT MEDICATED WITH XANAX AND TRAZODONE FOR C/O AGITATION AND BACK PAIN 09/14. WILL MONITOR
--- NOTE | 2019-10-01 23:09 | NUR ---
XANAX AND TRAZODONE EFFECTIVE
[2019-10-02] VITALS: BP 117/59
[2019-10-02 06:20] LABS: BASO % 0.2 % (0.0-1.0); EOS # 0.4 10*3/uL (0.0-0.4); HEMATOCRIT 28.5 % (42.0-52.0); LYMPH # 1.2 10*3/uL (1.3-4.4); LYMPH % 6.9 % (27.0-41.0); MEAN CELL VOLUME 92.2 fl (80.0-94.0); MEAN CORPUSCULAR HGB 27.2 pg (27.0-31.0); MEAN CORPUSCULAR HGB CONC 29.5 g/dl (33.0-37.0); MEAN PLATELET VOLUME 11.7 fl (9.6-12.3); MONO # 1.4 10*3/uL (0.1-1.0); MONO % 7.6 % (3.0-9.0); NEUT # 14.8 10*3/uL (2.3-7.9); NEUT % 82.9 % (47.0-73.0); PLATELET COUNT AUTOMATED 141 10*3/uL (130-400); RED BLOOD COUNT 3.09 10*6/uL (4.50-5.90); RED CELL DISTRI WIDTH 19.9 % (0-14.5); WHITE BLOOD COUNT 17.9 10*3/uL (4.8-10.8)
--- NOTE | 2019-10-02 06:37 | NUR ---
PATIENT MEDICATED WITH XANAX AND NORCO FOR C/O AGITATION AND BACK PAIN 10/15 WILL MONITOR
--- NOTE | 2019-10-02 06:55 | NUR ---
Hep Lock discontinued, L ARM. Site symptomatic, LEAKING. Pressure applied. Sterile dressing applied. DEBBY ROSENBERG
--- NOTE | 2019-10-02 06:56 | NUR ---
IV started right antecubital with #22 protective cath after 0 attempts. Site prepped with Chloroprep. Sterile dressing applied. Patient tolerated procedure well. DEBBY ROSENBERG
[2019-10-02 08:00] VITALS: BP 94/52
--- NOTE | 2019-10-02 08:57 | NUR ---
JASPER HILTON,ELISA Silverman [id number] Please refer to the physician's history and physical for past medical history, comorbid conditions, and allergies. Diagnosis: HISTORY OF COPD, RESPIRATORY FAILURE, ACUTE Gerard Score: 13,MODERATE RISK WOUND DESCRIPTIONS: Wound Number:1 left lower extremity red blanchable areas noted. No open areas noted at time of assessment. No draiange noted at time of assessment. Bilateral feet cool to the touch. Wound Number:2 right lower extremity red blanchable areas noted. No open areas noted at time of assessment. No draiange noted at time of assessment. Bilateral feet cool to the touch. Patient left side of neck pink and blanchable at time of assessment. Bridge of nose pink and blanchable at time of assessment. No open areas noted at time of assessment. No drainage at time of assessment. Surface the patient is resting on: Isoflex SKIN PREVENTION RECOMMENDATION: 1. Pressure redistribution support surface as appropriate 2. Elevate heels 3. Remove boots/TEDS every shift and reapply 4. Head of bed 30 degrees as tolerated 5. Assess nutrition and hydration 6. Manage moisture 7. Avoid the use of containment devices while in bed 8. Use absorptive products on surfaces limit layers of linens on bed 9. Turn and reposition every 1-2 hours in bed and every 1 hour in chair as tolerated 10. Weight shifts every 15 minutes while up in chair 11. Offloading with pillows or device to keep heels elevated off bed 12. Monitor skin at least every shift 13. Inspect under medical devices twice a day WOUND TREATMENT RECOMMENDATIONS: Continue lac hydrin to bilateral lower extremitie per provider. Continue heel raiser pro boots to bilateral feet patient refusing at time of assessment.
--- NOTE | 2019-10-02 09:24 | NUR ---
Discussed discharge planning with Dr. Kahn. Possible discharge pending precert. protective services social worker following.
--- NOTE | 2019-10-02 09:50 | NUR ---
PHYSICAL THERAPY Patient seen this am 1;1 for therapy visit and was supine in bed with continuos hi flow O2-10L via NC upon therapist arrival. Patient identified by name / and was actually very pleasant this morning, reporting no new c/o's at this time. Patient recorded resting SpO2 93%, HR 89 bpm prior to transfering supine to sit EOB with MIN A. SpO2 dropped to 85% briefly upon sitting up, HR 90 bpm, but quickly recovered within 20 seconds to 94%, SpO2, HR 86 bpm. Patient needed a few minutes static EOB sit to collect himself then completed sit to stand transfer, CGA, use of wh walker standing support, while tolerating approx 3 minutes static stand. Patient also ambulated 15'x 1, wh walker, CGA, demonstrating very slow mell and cautious gait pattern, returning to [facility]. Patient recorded SpO2 89%, HR 95 bpm and after brief seated rest ambulated additional 10'x 1 upon returning to supine in bed. Patient recorded SpO2 93%, HR 87 bpm following treatment and remained in bed with B LE's elevated on pillow, call light, tray table, telephone, bed alarm for safety. Will continue per POC as tolerated, total treatment time 18 minutes. Dwight Braden, ALUM PLANT OPERATOR
--- NOTE | 2019-10-02 10:05 | NUR ---
OT NOTE Pt was seen this A.M. 1:1 for 20 minute OT session. Upon arrival pt was supine in bed. Pt identified by name and and had no complaints at this time. Pt presented to therapy with continuous 10L-O2 via high flow NC. Pt's resting SpO2 reading 93% and heart rate 84 bpm. Pt transferred supine to sit EOB with Darion for assist with UB. Upon inital rise to the EOB pt's SpO2 dropped to 85% and heart rate 90 bpm within aprox 20 seconds SpO2 raised to 94% and heart rate 86 bpm. Pt completed sit to stand transfer from bed level with CGA and use of w/w for UE support. Challenged pt's static standing tolerance needed for increased I in self care tasks and functional transfers, pt was able to tolerate aprox 3 minutes at a time before sitting due to fatigue. Throughout static standing pt's SpO2 remained within functional limits. After a seated rest break pt completed functional mobility to the bathroom and back with CGA and use of w/w with SpO2 dropping to 89% and heart rate 95 bpm. Pt transferred on to the bedside commode with CGA for a seated rest break and within aprox 10 seconds SpO2 rasied to 93% and heart rate 87 bpm. Sit to stand then completed from the bedside commode with CGA and use of w/w followed by functional mobility to the EOB with CGA. There he transferred sit to supine with Darion and was left with call light in hand, tray table in place, bed alarm activated, and SpO2 within functional limits. Continue with rec D/C plan to SNF. ANGELES Sotelo
--- NOTE | 2019-10-02 10:40 | NUR ---
RAIL CAR LOADER FAXED UPDATE TO [facility] AND ASKED FOR PRECERT TO BE STARTED.
[2019-10-02 12:00] VITALS: BP 99/58
--- NOTE | 2019-10-02 14:07 | NUR ---
[facility] IS CHECKING PRECERT STATUS.
--- NOTE | 2019-10-02 15:02 | NUR ---
CORK CUTTER REACHED OUT TO THE PATIENTS ON [place] AND EXPLAINED WAITING ON PRECERT FOR PLACEMENT. LEYDI EXPLAINED THE PRECERT MAY COME THIS EVENING AFTER HOURS. IF THIS WERE THE CASE [facility] WOULD REACH OUT TO THE FLOOR AND THE PATIENT WOULD BE DISCHARGED AT THAT TIME. HE UNDERSTOOD.
[2019-10-02 16:00] VITALS: BP 107/67
--- NOTE | 2019-10-02 19:40 | NUR ---
24 HOUR CHART CHECK COMPLETE
[2019-10-02 20:00] VITALS: BP 102/64
--- NOTE | 2019-10-02 20:05 | NUR ---
PATIENT ASSESSMENT COMPLETED AT THIS TIME WITHOUT INCIDENT.PATIENT REFUSING TO ALLOW NURSING TO REMOVE PASTOR CATHETER AT THIS TIME, EXPLAINED TO PATIENT RISK OF INFECTION AND URINARY RETENTION/INABILITY TO URINATE. PATIENT CONTINUES TO REFUSE. WILL ATTEMPT LATER. A&O X3, CALL LIGHT WITHIN REACH WILL CONTINUE TO MONITOR. PATIENT NOSE BLEEDING AT THIS TIME, PATIENT CONTINUE TO BLOW NOSE AND DIG IN HIS NOSE WITH HIS FINGERS, ASKED PATIENT TO PLEASE REFRAIN FROM DIGGING IN HIS NOSE AND OFFERED PATIENT TISSUES AND SWABS HE REFUSED.
--- NOTE | 2019-10-02 20:10 | NUR ---
PT PLACED ON BIPAP AND DRUG AEROSOLS GIVEN VIA AEROGEN
--- NOTE | 2019-10-02 21:33 | NUR ---
PRN NORCO GIVEN AT THIS TIME FOR 8/10 PAIN IN HIS BACK AND HIPS, PATIENT ALSO GIVEN PRN XANANX AND TRAZADONE AT THIS TIME FOR ANXIETY AND SLEEP. A&O X3, CALL LIGHT WITHIN REACH WILL CONTINUE TO MONITOR.
--- NOTE | 2019-10-02 22:15 | NUR ---
PATIENT STATED THAT PRN NORCO WAS EFFECTIVE AT THIS TIME STATED "IF MY PAIN HADN'T IMPROVED I WOULD'VE CALLED FOR MORE". A&O X3, CALL LIGHT WITHIN REACH, WILL CONTINUE TO MONITOR.
[2019-10-03] VITALS: BP 90/70
--- NOTE | 2019-10-03 02:30 | NUR ---
PATIENT RESTING IN BED IN A POSITION OF COMFORT AT THIS TIME WITH EYES CLOSED. REMAINS ON BIPAP AT THIS TIME, CALL LIGHT WITHIN REACH, WILL CONTINUE TO MONITOR.
--- NOTE | 2019-10-03 07:11 | NUR ---
LATE NOTE: STEREO PLOTTER OPERATOR RECEIVED CALL FROM [facility] AFTER HOURS YESTERDAY EVENING STATING THAT THE PATIENTS INSURANCE IS REQUESTING A "VERY DETAILED" DISCHARGE SUMMARY BEFORE APPROVING PRECERT. STEREO PLOTTER OPERATOR NOTIFIED DR. MCMILLAN OF THIS. PER DR. SORTO LATEST PROGRESS NOTE, IT WILL BE DONE TODAY. QUALITY ASSURANCE SUPERVISOR CHASSIS HERBER IS AWARE.
[2019-10-03 08:00] VITALS: BP 118/80
--- NOTE | 2019-10-03 08:03 | NUR ---
07:50 PT TAKEN OFF OF BIPAP. PT WAS ON T/O THE NIGHT.
--- NOTE | 2019-10-03 08:26 | NUR ---
ELECTRICIAN HELPER POWERHOUSE FAXED UPDATES TO [facility], AWAITING DISCHARGE SUMMARY.
--- NOTE | 2019-10-03 08:32 | NUR ---
NOTIFIED DR GONZALES THAT PT WAS C/O ANXIETY AND HAD MULTIPLE IRRATIONAL C/O REGARDING "HAVING AN ALLERGIC RXN" TO "PANIC ATTACK.". PT ROCKING BACK AND FORTH,TONGUE ROLLING. NOTIFIED DR ORTIZ WHO CAME AND SEEN THE PT. ORDER FOR STAT CT.
--- NOTE | 2019-10-03 09:47 | NUR ---
PT GIVEN NORCO 10/325MG FOR C/O 10 PAIN. PT ALSO GIVEN XANEX FOR ANXIETY AT THIS TIME.
--- NOTE | 2019-10-03 10:30 | NUR ---
PHYSICAL THERAPY Patient seen this am 1;1 for therapy visit and was resting supine in bed with continuos O2-10L hi flow via NC / IV treatment. Patient identified by name / , recording resting SpO2 98%, HR 86 bpm and was quite pleasant this morning, transfering supine to sit EOB with MIN A x 1. Patient tolerated several minutes static EOB sit to collect himself then competed sit to stand transfer, CGA, tolerating 6 minutes static stand, recording SpO2 90%, HR 95 bpm. Following brief seated rest break, patient ambulated 20'x 1, wh walker, CGA, demonstrating very slow mell, decreased stride and quick onset of fatigue, returning to EOB sit for rest. Patient transfered sit to supine, SBA and remained in bed with call light, tray table, telephone, bed alarm for safety. Will continue per POC as tolerated, total treatment time 17 minutes. Dwight Braden, DAMAGE ASSESSOR
--- NOTE | 2019-10-03 10:45 | NUR ---
OT NOTE Pt was seen this A.M. 1:1 for 27 minute OT session. Upon arrival pt was supine in bed. Pt identified by name and and had complaints of "back muscle spasms". Pt presented to therapy with continuous 10L-O2 high flow via NC with a resting SpO2 reading of 96% and heart rate 82 bpm. Pt transferred supine to sit EOB with Darion for assist with UB, while sitting EOB pt's SpO2 reading 98% and heart rate 86 bpm. Pt completed sit to stand from bed level with CGA and use of w/w for UE support. Challenged pt's static standing tolerance needed for increased I and enhanced endurance in self care tasks. Pt was able to tolerate aprox 6 minutes before sitting due to fatigue and SpO2 reading 90% and heart rate 95 bpm. After a seated rest break pt completed functional mobility to the bathroom and back with CGA and use of w/w. Throughout mobility pt's SpO2 read 92% and heart rate 95 bpm. Pt then transferred back into bed sit to supine with SBA. There he was left with call light in hand, tray table in place, and bed alarm activated for safety. Continue with rec D/C plan to SNF. SPIKE Sotelo/Stevo
--- NOTE | 2019-10-03 11:30 | NUR ---
11:15 PT PLACED ON BIPAP. PTREQUESTING BIPAP WITH DA. RESPS REGULAR AND UNLABORED.
[2019-10-03 12:00] VITALS: BP 90/52
[2019-10-03 12:17] LABS: BUN 20 mg/dl (7-24); CHLORIDE 97 mmol/L (98-107); CREATININE 1.01 mg/dL (0.70-1.30); POTASSIUM 3.3 mmol/L (3.5-5.1); SODIUM 139 mmol/L (136-145)
--- NOTE | 2019-10-03 12:38 | NUR ---
PASTOR D/C'D PER DR MCMILLAN'S ORDER. DR MCMILLAN ROUNDED AND SPOKE TO PT REGARDING NOT ALLOWING US TO D/C PASTOR. PT NOW COMPLIANT. D/C'D WITHOUT DIFFICULTY AND URINAL AT BEDSIDE. WILL CONTINUE TO MONITOR.ALARM INTACT. CALL LIGHT IN REACH.
--- NOTE | 2019-10-03 12:47 | NUR ---
GENERAL PRACTICE RECEIVED NOTICE THE PATIENT WAS DENIED BY INSURANCE ADMISSION TO [place]. GENERAL PRACTICE NOTIFIED DR. MCMILLAN OF THIS. PEER TO PEER NUMBER IS [phone] REFERENCE NUMBER IS [phone].
[2019-10-03 16:00] VITALS: BP 118/51
--- NOTE | 2019-10-03 16:04 | NUR ---
1547 PT PLACED ON BIPAP. PT REQUESTED BIPAP FOR DA ADMINISTRATION. RESPS REGULAR AND UNLABORED. SYSTEM CHECKED AND FX'ING.
[2019-10-03 20:00] VITALS: BP 112/60
--- NOTE | 2019-10-03 21:11 | NUR ---
PRN TRAZADONE GIVEN PO AT THIS TIME AT PATIENT REQUEST FOR SLEEP PRIOR TO BIPAP BEING PLACED ON FOR THE NIGHT. A&O X3, CALL LIGHT WITHIN REACH WILL CONTINUE TO MONITOR.
--- NOTE | 2019-10-03 22:25 | NUR ---
24 HOUR CHART CHECK COMPLETE
--- NOTE | 2019-10-03 23:15 | NUR ---
DR. CLEMENTE CALLED AND REQUESTED TO HAVE PATIENT VOID AND CHECK POST VOID RESIDUAL AND CALL HER BACK WITH RESULTS. ALSO SHE ORDERED K-DUR 40MEQ AND IV KCL TIMES ONE.
--- NOTE | 2019-10-03 23:27 | NUR ---
RETURNED REQUESTED CALL TO DR. CLEMENTE AND NOTIFIED HER THAT PATIENT HAD VOIDED 525ML THAT HAD NOT BEEN PLACED INTO I&O AND HIS POST VOID RESIDUAL WAS LESS THAN 25ML. NO NEW ORDERS AT THIS TIME.
[2019-10-04] VITALS: BP 107/65
--- NOTE | 2019-10-04 07:42 | NUR ---
Discussed discharge planning with Dr. Kahn. He states he did the peer to peer yesterday and the insurance stated he can be discharged to [facility] today. reinforced ironworker notified.
--- NOTE | 2019-10-04 08:58 | NUR ---
WAITING ON VERIFICATION THAT THE [facility].
--- NOTE | 2019-10-04 09:00 | NUR ---
Meat Service Team Member in to see patient. He is sitting on the edge of his bed. PT/OT in room. Patient states he is out of this place today one way or another. He states he will put on a gown backwards and walk out. Discussed his insurance not approving his SNF stay at [facility] because he is not medically stable. Discussed hospice and he is agreeable. Asked patient where home was going to be. He states his home. Asked about his home previously being sold to his granddaughter. No reply. Discussed him going home with his son, Michael, or his friend, Omer. Will look into home options. pantry worker notified and following.
--- NOTE | 2019-10-04 09:09 | NUR ---
PER TARRY- PATIENTS DENIAL OF SNF WAS UPHELD INSURANCE STATED THE PATIENTS BLOOD PESSURE MEDICATION WERE BEING ADJUSTED AND THE PAIENT IS NOT READY FOR DISCHARGE. DRILLER PORTABLE HERBER HAS BEEN INFORMED.
--- NOTE | 2019-10-04 09:15 | NUR ---
Discussed discharge planning with Dr. Kahn regarding patient's insurance does not approve LTACs and SNF continues to deny because they state he is not ready to be discharged form the facility. Orders received to contact Dr. Acosta again for palliative care vs hospice. Notified Dr. Acosta.
--- NOTE | 2019-10-04 09:21 | NUR ---
NORCO 10/325 GIVEN TO PATIENT FOR C/O 10/10 PAIN ALL OVER.
--- NOTE | 2019-10-04 09:22 | NUR ---
XANAX GIVEN TO PATIENT AT THIS TIME FOR C/O OF ANXIETY.
--- NOTE | 2019-10-04 10:00 | NUR ---
PHYSICAL THERAPY Patient seen this am 1:1 for therapy visit and was supine in bed upon therapist arrival. Patient identified by name / and presents with continuos IV treatment, O2-10L hi flow via NC. Patient resting SpO2 99%, HR86 bpm. Patient transfers supine to sit EOB with SBA, tolerating static EOB sit x several minutes to collect himself. Patient completed several sit to stand transfers CGA, use of wh walker standing support, demonstrating "slouched" standing posture, however able to improve following v/c. Patient tolerated 4-5 minutes static stand, recording SpO2 99%, HR 91 bpm before returning to supine in bed. Patient remained in bed with call light, tray table, telephone and bed alarm for safety. Will continue per POC as tolerated, total treatment time 16 minutes. Dwight Braden, PACKAGE SEALER MACHINE
--- NOTE | 2019-10-04 10:17 | NUR ---
OT NOTE Pt was seen this A.M. 1:1 for 30 minute OT session. Upon arrival pt was supine in bed. Pt identified by name and and had no complaints at this time. Pt presented to therapy with continuous 10L-O2 high flow via NC with a resting SpO2 reading of 99% and heart rate 86 bpm. Pt transferred supine to sit EOB with SBA. While sitting EOB pt was educated and demonstrated on use of LB dressing adaptive equipment consisting of sock aid due to pt requiring maxA to jojo B socks. Pt donned B socks with use of sock aid and supervision with one verbal prompt for inital start. Pt then donned a new gown with modA due to requiring assist donning his LUE, educated pt on compensatory technique and importance of dressing his LUE first. Sit to stand completed from bed level with CGA and use of w/w for UE support. Challenged pt's static standing tolerance needed for increased I and enhanced endurance in self care tasks and functional transfers. Pt was able to tolerate aprox 7 minutes before sitting due to fatigue, throughout pt's SpO2 reading 100% and heart rate 91 bpm. Pt then transferred back into bed sit to supine with SBA. There he was left with call light in hand, tray table in place, and bed alarm activated for safety. Continue with POC as able. SPIKE Sotelo/Stevo
--- NOTE | 2019-10-04 11:24 | NUR ---
PT. PLACED ON BIPAP TO REST.
[2019-10-04 12:00] VITALS: BP 117/93
--- NOTE | 2019-10-04 12:20 | NUR ---
NOTIFIED DR CLEMENTE THAT PT REFUSED AM LABS AND PT ASKED THAT HE "NOT HAVE IV LASIX ANYMORE". ORDER RECIEVED TO CHANGE TO PO LASIX 40 MG BID.
--- NOTE | 2019-10-04 13:59 | NUR ---
SENIOR COLDFUSION DEVELOPER RECEIVED PHONE CALL FROM PATIENTS JAC WATTERS. DUONG AND PATIENTS FRIEND ELZBIETA ARE DISCUSSING THE PATIENT RETURNING HOME WITH HOSPICE TO ELZBIETA'S HOME. SENIOR COLDFUSION DEVELOPER WILL FOLLOW UP.
--- NOTE | 2019-10-04 14:37 | NUR ---
LEYDI REACHED OUT TO ELZBIETA. THE PLAN IS FOR THE PATIENT TO RETURN WITH HOSPICE. PER ELZBIETA SHE WOULD LIKE A REFERRAL SENT TO [facility]. LEYDI SPOKE WITH JUSTIN P: [phone] F:[phone] AND FAXED A REFERRAL. PER JUSTIN THEY WILL REVIEW THE REFERRAL IF DME IS NEEDED THEY WOULD BE ABLE TO HAVE IT POSSIBLY BY WEDNESDAY IN THE PATIENTS HOME. WILL AWAIT TO SEE IF THEY CAN ACCEPT THE PATIENT.
[2019-10-04 16:00] VITALS: BP 111/56
[2019-10-04 20:00] VITALS: BP 108/72
--- NOTE | 2019-10-04 21:28 | NUR ---
PATIENT ASSESSMENT COMPLETED AT THIS TIME WITHOUT INCIDENT AT THIS TIME. PATIENT GIVEN PRN TRAZADONE, AND XANAX AT THIS TIME TO RELAX FOR BIPAP AND SLEEP. PRN NORCO GIVEN FOR 7/10 PAIN IN BILATERAL HIPS AND BACK. A&O X3, CALL LIGHT WITHIN REACH, WILL CONTINUE TO MONITOR.
--- NOTE | 2019-10-04 22:45 | NUR ---
PATIENT PLACED ON BIPAP AT THIS TIME AT HIS REQUEST FOR SLEEP. CONTINUOUS PULSE OX IN USE, CALL LIGHT WITHIN REACH. WILL CONTINUE TO MONITOR. RESPIRATORY THERAPY NOTIFIED.
[2019-10-05] VITALS: BP 106/59
--- NOTE | 2019-10-05 04:05 | NUR ---
03:50 PT PLACED ON BIPAP AT TIS TIME. PT HAD COME OFF APPROX 01:30 AM PER RN. RESPS REGULAR AND UNLABORED. SYSTEM CHECKED AND FX'ING.
--- NOTE | 2019-10-05 05:50 | NUR ---
PATIENT REFUSED BGL AT THIS TIME, STATED "MY SUGAR HAS BEEN FINE AND I FEEL OKAY RIGHT NOW"
--- NOTE | 2019-10-05 07:30 | NUR ---
PT REFUSE 0730 AM BLOOD SUGAR CHECK.
--- NOTE | 2019-10-05 10:05 | NUR ---
PHYSICAL THERAPY Patient seen this am 1:1 for therapy visit and was resting supine in bed upon therapist arrival. Patient identified by name / and presents with contiuous O2-7L via NC. Patient records resting SpO2 99%, HR 98 bpm prior to transfering supine to sit EOB with CGA. Patient needed a few minutes static EOB sit before completing several sit to stand transfers, use of wh walker, tolerating 1-2 minutes static stand, recording SpO2 94%, HR 89 bpm. Patient also ambulated 25'x 1 ad rome in room, CGA, wh walker, demonstrating slow, steady mell and returned to bedside chair with quickk onset of fatigue. Patient recorded SpO2 88%, HR 108 bpm and returnded to near baseline following seated rest < 30 seconds. Patient remained in chair with call light, tray table, telephone and body alarm for safety. Will continue per POC as tolerated, total treatment time 18 minutes. Dwight Braden, PROFESSOR OF GRAPHIC DESIGN
--- NOTE | 2019-10-05 10:24 | NUR ---
OT NOTE Pt was seen this A.M. 1:1 for 24 minute OT session. Upon arrival pt was supine in bed. Pt identified by name and and presented to therapy with continuous 7L-O2 high flow via NC which he remained on throughout the entire session. Pt transferred supine to sit EOB with CGA with SpO2 reading 99% and heart rate 98 bpm. Pt then donned B socks while sitting EOB with supervision while bringing leg up to bed level, no SOB was noted and SpO2 still reading 99%. Sit to stand completed from bed level with CGA and use of w/w followed by functional mobility to the bedside commode with CGA and use of w/w. There he transferred on to the bedside commode with CGA, clothing management completed with Darion, and toilet hygiene completed with maxA. Pt then completed sit to stand from bedside commode with CGA. Functional mobility then completed back to the EOB with CGA and use of w/w. Upon return to the EOB after ambulating from the commode pt's Spo2 read 88% and heart rate 108 bpm after aprox 15 seconds SpO2 reading 94% and heart rate 89 bpm. Standing pivot then completed to the recliner with CGA and use of w/w. There he was left sitting upright with call light in hand, tray table in place, and body alarm activated for safety. Continue with POC as able. SPIKE Sotelo/Stevo
[2019-10-05 11:28] VITALS: BP 96/58
--- NOTE | 2019-10-05 11:41 | NUR ---
PT ROBERTO COPPOLA FOR GENERALIZED PAIN,
--- NOTE | 2019-10-05 11:47 | NUR ---
PT. PLACED ON BIPAP TO REST.
[2019-10-05 12:00] VITALS: BP 133/92
--- NOTE | 2019-10-05 12:08 | NUR ---
DIAMOND ASSORTER RECEIVED CALL FROM [facility]. PER JUSTIN ELZBIETA STATED THAT SHE IS UNABLE TO ACCEPT THE PATIENT HOME UNTIL THE 10/10/2019. DIAMOND ASSORTER EXPLAINED WOULD REACH OUT TO ELZBIETA. DIAMOND ASSORTER REACHED OUT TO ELZBIETA. SHE STATED SHE DID INFORM HOSPICE SHE IS NOT ABLE TO ACCEPT THE PATIENT UNTIL 10/10/2019, WITH THE PLAN BEING DME WOULD BE DELIVERED ON 10/09/2019 SHE HAS [facility] FOR A SAFE RETURN OF THE PATIENT. DR. CLEMENTE AND PERFUME COMPOUNDER HERBER ARE AWARE.
--- NOTE | 2019-10-05 12:30 | NUR ---
NORCO EFFECTIVE FOR PAIN
--- NOTE | 2019-10-05 12:40 | NUR ---
PT. TAKEN OFF BIPAP AND PLACED ON 6L HFNC.
--- NOTE | 2019-10-05 14:05 | NUR ---
MEDIA CENTER ASSISTANT LEFT MESSAGE FOR PATIENTS JAC WATTERS TO RETURN THE PHONE CALL.
--- NOTE | 2019-10-05 14:35 | NUR ---
PT SLEEPING, NO DISTRESS NOTED
--- NOTE | 2019-10-05 15:35 | NUR ---
PHYSICAL THERAPY CO-SIGN I approve of the Physical Therapy notes written above. HERBER FOX PT, DPT
[2019-10-05 16:00] VITALS: BP 99/40
[2019-10-05 20:00] VITALS: BP 102/54
--- NOTE | 2019-10-05 20:00 | NUR ---
PATIENT RESTING QUIETLY DENIES ANY NEEDS OR CONCERNS AT THIS TIME
--- NOTE | 2019-10-05 21:15 | NUR ---
XANAX, NORCO, TRAZADONE GIVEN TO PATIENT PER REQUEST. STATES PAIN TO BACK IS A 8 OUT OF 10.
--- NOTE | 2019-10-05 22:15 | NUR ---
MEDICATION MODERATELY EFFECTIVE PATIENT STATES PAIN IS 3 OUT 0F 10
--- NOTE | 2019-10-05 23:08 | NUR ---
Pt placed on BiPap at this time.
[2019-10-06] VITALS: BP 107/64
--- NOTE | 2019-10-06 03:19 | NUR ---
24 HR chart check completed.
[2019-10-06 06:17] LABS: HEMATOCRIT 31.3 % (42.0-52.0); MEAN CELL VOLUME 91.3 fl (80.0-94.0); MEAN CORPUSCULAR HGB 26.2 pg (27.0-31.0); MEAN CORPUSCULAR HGB CONC 28.8 g/dl (33.0-37.0); MEAN PLATELET VOLUME 10.9 fl (9.6-12.3); PLATELET COUNT AUTOMATED 361 10*3/uL (130-400); RED BLOOD COUNT 3.43 10*6/uL (4.50-5.90); RED CELL DISTRI WIDTH 18.8 % (0-14.5); WHITE BLOOD COUNT 15.2 10*3/uL (4.8-10.8)
--- NOTE | 2019-10-06 06:22 | NUR ---
[facility] CALLED WITH VANC TROUGH OF 23.7. FELY PHARMACIST STATED TO HOLD 0600 VANC
--- NOTE | 2019-10-06 07:00 | NUR ---
ARRIVED ON SHIFT, REPORT RECEIVED FROM OFFGOING NURSE, ASSUMED CARE OF PATIENT.
[2019-10-06 07:07] LABS: TOTAL CELLS COUNTED 100 #CELLS
[2019-10-06 07:08] LABS: BURR CELLS FEW; OVALOCYTES FEW; PLATELET SUFFICIENCY NORMAL (NORMAL); POLYCHROMASIA SLIGHT
[2019-10-06 07:11] LABS: ALBUMIN 3.1 gm/dl (3.1-4.5); ALKALINE PHOSPHATASE 147 U/L (45-117); BUN 26 mg/dl (7-24); CHLORIDE 100 mmol/L (98-107); CREATININE 1.13 mg/dL (0.70-1.30); SGOT/AST 15 IU/L (3-35); SGPT/ALT 27 U/L (12-78); SODIUM 137 mmol/L (136-145); TOTAL PROTEIN 7.1 gm/dL (6.4-8.2)
--- NOTE | 2019-10-06 07:30 | NUR ---
INTRODUCED SELF TO PATIENT, BED IN LOW POSITION WITH WHEEL LOCKS ENGAGED, SIDE RAILS UP X 2 FOR TURNING AND REPOSITIONG, CALL LIGHT WITHIN REACH, NO NEEDS VOICED AT THIS TIME, WHITE BOARD UPDATED.
--- NOTE | 2019-10-06 07:37 | NUR ---
CEMENT BASED MATERIALS PUMP TENDER FAXED REFERRAL TO [facility] FOR RECONSIDERATION.
[2019-10-06 08:00] VITALS: BP 100/60
--- NOTE | 2019-10-06 08:20 | NUR ---
PHYSICAL THERAPY Continue skilled PT services to meet stated goals. Extend PT Plan of Care to 10/20/19. Patient progressing well with bed mobility, transfers, and gait. Patient would benefit from continued skilled PT services to progress toward goals and improve functional mobility. Goals to progress include: consistent CGA supine<-->sitting EOB, consistent sit to stand transfer with CGA and use of FWW, Gait 25'x2 with FWW and CGA while maintaining SpO2 >88%, Fair+ balance with encouragement to perform 180/360 degree turns to improve dynamic balance with gait, TUG <18 seconds to demonstrate reduced risk for recurrent falls, and BLE LE exercises to maintain strength. Progress to meet stated goals. Recommend SNF vs 24hr care and assist for safety. Haley Kraus,PT,DPT
--- NOTE | 2019-10-06 10:27 | NUR ---
PATIENT C/O OF ANXIETY AND PAIN, PAIN IS IN SHOULDERS AND BACK, AND SIDES, RATES PAIN 6/10 AND ACHING GIVEN XANAX AND NORCO ORDERED.
--- NOTE | 2019-10-06 11:26 | NUR ---
PATIENT REPORTS GOOD RELEIF FROM NORCO AND XANAX GIVEN X 1 HOUR AGO.
--- NOTE | 2019-10-06 11:59 | NUR ---
PHYSICAL THERAPY Pt was identified by name and . Pt was agreeable to skilled PT services. Upon entry to room pt was standing next to bed utilizing urinal. Pt was assisted to recliner. Pt was pleasent and excited to be transfering to SNF on this date. OT present throughout treatment for observation. Pt completed standing reaching activites CGA with FWW. Pt amb 1x50ft CGA FWW with assistance needed for oxygen/IV management. No LOB noted with turning with good dynamic balance. Pt pulse ox was inconsistnet with reading but maintained 88 to 98 when reading. Pt reported no SOB with ambulation. Pt then completed 2x15 AROM of BLE knee extension noting fatigue limiting. Pt was left in recliner with chair alarm engaged with call mancilla in reach. total treatment time 30 mins. Nate Valladares SPT Haley Kraus PT
--- NOTE | 2019-10-06 11:59 | NUR ---
OT NOTE Patient was seen this date for 35 minutes of occupational therapy treatment to maximize safety and independence with ADLs, transfers, and mobility. Nursing gave approval to see patient. Physical therapy and PT student present for observation only. Upon entering room, patient was standing at bedside using his hand-held urinal. OTR assisted patient with completing toileting with CGA and assisted into recliner chair. At rest, patient on 6LO2 [place] NC at 94-99% SpO2. Patient donned B/L socks with CGA assist with increased difficulty due to L shoulder pain, did not rate on a scale of 1-10. Patient's gown soiled and was able to change front gown with Min A due to 2 RUE IVs and heart/pulse ox monitor. Patient completed a functional sit/stand from chair with CGA with cues for safe hand placement with good carryover throughout remainder of treatment. Patient completed functional mobility within room, patient's SpO2 fluctuated 88-96% on 6L [place]. Patient returned to chair for seated rest break for approx 3 mins. Patient completed one final sit/stand from chair level with CGA to complete standing grooming task. Patient concluded in chair, alarm on, all needs within reach, and SpO2 at 98% at rest. Nursing notified of patient location, functional status post treatment. Continue with POC as able recommend d/c to SNF. Ifeoma Cline, ALBAROR/L
[2019-10-06 12:00] VITALS: BP 94/51
--- NOTE | 2019-10-06 12:02 | NUR ---
Shift chart check completed.
--- NOTE | 2019-10-06 12:16 | NUR ---
REEL FILM INSPECTOR SPOKE WITH THE PATIENT ABOUT PLACEMENT AT [facility]. PATIENT IS VERY EXCITED AND READY TO BE DISCHARGED. PATIENTS FAMILY HAS BEEN NOTIFIED. DR MCMILLAN AND DR CLEMENTE HAVE BEEN MADE AWARE OF THE PATIENTS NEED TO BE DISCHARGED TO [facility] TODAY.
--- NOTE | 2019-10-06 12:18 | NUR ---
Notified Dr. Tsang, resident with Dr. Kahn and Dr. Vazquez, of patient being able to discharge to [place] today if medically stable.
[2019-10-06] MEDS ORDERED: LACTULOSE20 GM/30 M PO (12:40)
[2019-10-06] MEDS ORDERED: LOPRESSOR25 MG PO (12:40)
[2019-10-06] MEDS ORDERED: XARE15TA PO (12:40)
[2019-10-06] MEDS ORDERED: FUROSEMIDE40 MG PO (12:40)
[2019-10-06] MEDS ORDERED: PAROXETINE HCL30 MG PO (12:40)
[2019-10-06] MEDS ORDERED: TRAZODONE50 MG PO (12:40)
[2019-10-06] MEDS ORDERED: ACETAZOLAMIDE250 MG PO (12:40)
[2019-10-06] MEDS ORDERED: KLOR-CON M2020 ME1 PO (12:40)
[2019-10-06] MEDS ORDERED: LIPITOR10 MG PO (12:40)
--- NOTE | 2019-10-06 14:06 | NUR ---
ANIMATION ARTIST NOTIFIED OF DISCHARGE. ANIMATION ARTIST SPOKE WITH BECKI COLE AND SCHEDULED A 4PM TRANSPORT TO [facility] WITH [facility]. ANIMATION ARTIST NOTIFIED JOEY MOLINA, [facility], AND PATIENTS SONS CHIVO CAMPOS OF DISCHARGE. ANIMATION ARTIST FAXED DISCHARGE ORDERS TO [facility].
[2019-10-06] MEDS ORDERED: NICODERM CQ1 EAC1 T (14:35)
[2019-10-06] MEDS ORDERED: XARE20MG PO (14:35)
--- NOTE | 2019-10-06 14:49 | NUR ---
TRAINING ASSOCIATE NOTIFIED [facility] OF PATIENT DISCHARGING TO [facility] TODAY.
--- NOTE | 2019-10-06 15:48 | NUR ---
CALL PLACED TO [facility], NURSE TO NURSE REPORT GIVEN TO ALOK COOK.
[2019-10-06 16:00] VITALS: BP 113/66
--- NOTE | 2019-10-06 16:08 | NUR ---
OCCUPATIONAL THERAPY CO-SIGN I approve of the Occupational Therapy notes written above. SUNI HOOVER, OTR/L
--- NOTE | 2019-10-06 18:28 | NUR ---
PATIENT MEDICATED WITH XANZX AND NORCO PRIOR TO LEAVING FOR [facility].
--- NOTE | 2019-10-06 18:30 | NUR ---
Discharge instructions reviewed with patient/family. Patient receptive and verbalizes understanding. Follow-up care arranged. Written instructions given to patient/family, MONITOR REMOVED, PATIENT HAS PICC LINE IN PLACE LEFT VIA CART WITH [facility], ALL PERSONAL ITEMS SENT. TRACY DUKES
== END 2019-10-06 18:30 | disposition other institution (70) | DRG 291 ==
LOC: ED 01:49 → ICCU 03:32 → 5E 03:32 → EDHOLD 03:32 → 4E 03:32 → ICCU 03:44 → 5E 09-05 07:54 → ICCU 09-16 20:55 → 4E 09-20 15:58 → ICCU 09-22 16:53 → 5E 09-26 01:55
PROVIDERS: Emergency Medicine Emergency Medical Services; Internal Medicine; Internal Medicine Cardiovascular Disease; Internal Medicine Critical Care Medicine; Internal Medicine Nephrology; ADMIT Internal Medicine
PROC: 5A09357 Assistance with Respiratory Ventilation, Less than 24 Consecutive Hours, Continuous Positive Airway Pressure (ICD-10-PCS; principal; 2019-09-02)
PROC: 5A09357 Assistance with Respiratory Ventilation, Less than 24 Consecutive Hours, Continuous Positive Airway Pressure (ICD-10-PCS; 2019-09-03)
PROC: 5A09357 Assistance with Respiratory Ventilation, Less than 24 Consecutive Hours, Continuous Positive Airway Pressure (ICD-10-PCS; 2019-09-04)
PROC: 5A09357 Assistance with Respiratory Ventilation, Less than 24 Consecutive Hours, Continuous Positive Airway Pressure (ICD-10-PCS; 2019-09-05)
PROC: 5A09357 Assistance with Respiratory Ventilation, Less than 24 Consecutive Hours, Continuous Positive Airway Pressure (ICD-10-PCS; 2019-09-06)
PROC: 5A09357 Assistance with Respiratory Ventilation, Less than 24 Consecutive Hours, Continuous Positive Airway Pressure (ICD-10-PCS; 2019-09-07)
PROC: 5A09357 Assistance with Respiratory Ventilation, Less than 24 Consecutive Hours, Continuous Positive Airway Pressure (ICD-10-PCS; 2019-09-10)
PROC: 5A09357 Assistance with Respiratory Ventilation, Less than 24 Consecutive Hours, Continuous Positive Airway Pressure (ICD-10-PCS; 2019-09-11)
PROC: 5A09357 Assistance with Respiratory Ventilation, Less than 24 Consecutive Hours, Continuous Positive Airway Pressure (ICD-10-PCS; 2019-09-12)
PROC: 5A09357 Assistance with Respiratory Ventilation, Less than 24 Consecutive Hours, Continuous Positive Airway Pressure (ICD-10-PCS; 2019-09-13)
PROC: 5A09357 Assistance with Respiratory Ventilation, Less than 24 Consecutive Hours, Continuous Positive Airway Pressure (ICD-10-PCS; 2019-09-14)
PROC: 5A09457 Assistance with Respiratory Ventilation, 24-96 Consecutive Hours, Continuous Positive Airway Pressure (ICD-10-PCS; 2019-09-15)
PROC: 5A09357 Assistance with Respiratory Ventilation, Less than 24 Consecutive Hours, Continuous Positive Airway Pressure (ICD-10-PCS; 2019-09-15)
PROC: 5A09357 Assistance with Respiratory Ventilation, Less than 24 Consecutive Hours, Continuous Positive Airway Pressure (ICD-10-PCS; 2019-09-17)
PROC: 5A09357 Assistance with Respiratory Ventilation, Less than 24 Consecutive Hours, Continuous Positive Airway Pressure (ICD-10-PCS; 2019-09-19)
PROC: 5A09357 Assistance with Respiratory Ventilation, Less than 24 Consecutive Hours, Continuous Positive Airway Pressure (ICD-10-PCS; 2019-09-20)
PROC: 5A09357 Assistance with Respiratory Ventilation, Less than 24 Consecutive Hours, Continuous Positive Airway Pressure (ICD-10-PCS; 2019-09-21)
PROC: B246ZZ4 Ultrasonography of Right and Left Heart, Transesophageal (ICD-10-PCS; 2019-09-22)
PROC: 5A09357 Assistance with Respiratory Ventilation, Less than 24 Consecutive Hours, Continuous Positive Airway Pressure (ICD-10-PCS; 2019-09-22)
PROC: 5A09357 Assistance with Respiratory Ventilation, Less than 24 Consecutive Hours, Continuous Positive Airway Pressure (ICD-10-PCS; 2019-09-23)
PROC: 5A09357 Assistance with Respiratory Ventilation, Less than 24 Consecutive Hours, Continuous Positive Airway Pressure (ICD-10-PCS; 2019-09-24)
PROC: 5A09357 Assistance with Respiratory Ventilation, Less than 24 Consecutive Hours, Continuous Positive Airway Pressure (ICD-10-PCS; 2019-09-25)
PROC: 30233N1 Transfusion of Nonautologous Red Blood Cells into Peripheral Vein, Percutaneous Approach (ICD-10-PCS; 2019-09-25)
PROC: 5A09357 Assistance with Respiratory Ventilation, Less than 24 Consecutive Hours, Continuous Positive Airway Pressure (ICD-10-PCS; 2019-09-26)
PROC: 5A09357 Assistance with Respiratory Ventilation, Less than 24 Consecutive Hours, Continuous Positive Airway Pressure (ICD-10-PCS; 2019-09-27)
PROC: 5A09357 Assistance with Respiratory Ventilation, Less than 24 Consecutive Hours, Continuous Positive Airway Pressure (ICD-10-PCS; 2019-09-28)
PROC: 5A09357 Assistance with Respiratory Ventilation, Less than 24 Consecutive Hours, Continuous Positive Airway Pressure (ICD-10-PCS; 2019-09-29)
PROC: 5A09357 Assistance with Respiratory Ventilation, Less than 24 Consecutive Hours, Continuous Positive Airway Pressure (ICD-10-PCS; 2019-09-30)
PROC: 5A09457 Assistance with Respiratory Ventilation, 24-96 Consecutive Hours, Continuous Positive Airway Pressure (ICD-10-PCS; 2019-10-01)
PROC: 02HV33Z Insertion of Infusion Device into Superior Vena Cava, Percutaneous Approach (ICD-10-PCS; 2019-10-02)
PROC: 5A09357 Assistance with Respiratory Ventilation, Less than 24 Consecutive Hours, Continuous Positive Airway Pressure (ICD-10-PCS; 2019-10-03)
PROC: 5A09357 Assistance with Respiratory Ventilation, Less than 24 Consecutive Hours, Continuous Positive Airway Pressure (ICD-10-PCS; 2019-10-04)
PROC: 5A09357 Assistance with Respiratory Ventilation, Less than 24 Consecutive Hours, Continuous Positive Airway Pressure (ICD-10-PCS; 2019-10-05)
PROC: 5A09357 Assistance with Respiratory Ventilation, Less than 24 Consecutive Hours, Continuous Positive Airway Pressure (ICD-10-PCS; 2019-10-06)
DX: I13.2 Hypertensive heart and chronic kidney disease with heart failure and with stage 5 chronic kidney disease, or end stage renal disease (principal); J18.9 Pneumonia, unspecified organism; I50.43 Acute on chronic combined systolic (congestive) and diastolic (congestive) heart failure; N17.0 Acute kidney failure with tubular necrosis; G93.41 Metabolic encephalopathy; R65.11 Systemic inflammatory response syndrome (SIRS) of non-infectious origin with acute organ dysfunction; J96.21 Acute and chronic respiratory failure with hypoxia; J96.22 Acute and chronic respiratory failure with hypercapnia; E43 Unspecified severe protein-calorie malnutrition; E87.3 Alkalosis; E87.4 Mixed disorder of acid-base balance; N18.5 Chronic kidney disease, stage 5; E87.0 Hyperosmolality and hypernatremia; I48.19 Other persistent atrial fibrillation; K25.9 Gastric ulcer, unspecified as acute or chronic, without hemorrhage or perforation; G47.00 Insomnia, unspecified; I27.20 Pulmonary hypertension, unspecified; I25.10 Atherosclerotic heart disease of native coronary artery without angina pectoris; D69.6 Thrombocytopenia, unspecified; Z66 Do not resuscitate; Z51.5 Encounter for palliative care; I25.5 Ischemic cardiomyopathy; K59.00 Constipation, unspecified; R91.1 Solitary pulmonary nodule; D64.9 Anemia, unspecified; F32.9 Major depressive disorder, single episode, unspecified; I34.0 Nonrheumatic mitral (valve) insufficiency; E87.5 Hyperkalemia; T50.2X5A Adverse effect of carbonic-anhydrase inhibitors, benzothiadiazides and other diuretics, initial encounter; Y92.89 Other specified places as the place of occurrence of the external cause; E87.6 Hypokalemia; R21 Rash and other nonspecific skin eruption; K21.9 Gastro-esophageal reflux disease without esophagitis; R74.0 Nonspecific elevation of levels of transaminase and lactic acid dehydrogenase [LDH]; F41.1 Generalized anxiety disorder; G89.29 Other chronic pain; M54.9 Dorsalgia, unspecified; Z20.828 Contact with and (suspected) exposure to other viral communicable diseases; T41.295A Adverse effect of other general anesthetics, initial encounter; Y92.238 Other place in hospital as the place of occurrence of the external cause; M25.519 Pain in unspecified shoulder; J43.9 Emphysema, unspecified; E78.00 Pure hypercholesterolemia, unspecified; N40.0 Benign prostatic hyperplasia without lower urinary tract symptoms; G40.909 Epilepsy, unspecified, not intractable, without status epilepticus; Z87.891 Personal history of nicotine dependence; Z88.8 Allergy status to other drugs, medicaments and biological substances; Z91.81 History of falling; Z87.01 Personal history of pneumonia (recurrent); I25.2 Old myocardial infarction; Z87.440 Personal history of urinary (tract) infections; Z79.82 Long term (current) use of aspirin; Z79.899 Other long term (current) drug therapy; Z79.01 Long term (current) use of anticoagulants; Z95.5 Presence of coronary angioplasty implant and graft; Z87.11 Personal history of peptic ulcer disease

== ENCOUNTER 2020-12-05 14:49 | Emergency (ER) | payer OTHER ==
[~2020-12-05] VITALS: Wt 65.8 kg
[~2020-12-05 14:49] MED LIST changes: +ACETAZOLAMIDE250 MG PO; +CEFTRIAXONE1 G1 IV; +FUROSEMIDE40 MG PO; +LACTULOSE20 GM/30 M PO; +LIPITOR10 MG PO; +LOPRESSOR25 MG PO; +NICODERM CQ1 EAC1 T; +NICODERM CQ1 EAC2 T; +PAROXETINE HCL30 MG PO; +PROAIR RESPICL90 MCG INH; +PULMICORT0.5 MG/2 M INH; +TRAZODONE50 MG PO; +VANCO 1 GR1 GM/250 M IV; +XARE15TA PO; +[UNRECOGNIZED DRUG - OTHER] IM
[2020-12-05 16:00] LABS: BASO # 0.1 10*3/uL (0.0-0.1); BASO % 0.8 % (0.0-1.0); EOS # 0.1 10*3/uL (0.0-0.4); EOS % 1.6 % (1.0-4.0); HEMATOCRIT 41.4 % (42.0-52.0); LYMPH # 2.1 10*3/uL (1.3-4.4); LYMPH % 28.6 % (27.0-41.0); MEAN CELL VOLUME 91.6 fl (80.0-94.0); MEAN CORPUSCULAR HGB 30.5 pg (27.0-31.0); MEAN CORPUSCULAR HGB CONC 33.3 g/dl (33.0-37.0); MEAN PLATELET VOLUME 10.1 fl (9.6-12.3); MONO # 0.8 10*3/uL (0.1-1.0); MONO % 10.9 % (3.0-9.0); NEUT # 4.3 10*3/uL (2.3-7.9); NEUT % 57.8 % (47.0-73.0); PLATELET COUNT AUTOMATED 220 10*3/uL (130-400); RED BLOOD COUNT 4.52 10*6/uL (4.50-5.90); WHITE BLOOD COUNT 7.4 10*3/uL (4.8-10.8)
[2020-12-05 16:15] LABS: ALBUMIN 3.4 gm/dl (3.1-4.5); ALKALINE PHOSPHATASE 72 U/L (45-117); BUN 21 mg/dl (7-24); CHLORIDE 100 mmol/L (98-107); CREATININE 1.59 mg/dL (0.70-1.30); POTASSIUM 3.6 mmol/L (3.5-5.1); SGOT/AST 29 IU/L (3-35); SGPT/ALT 23 U/L (12-78); SODIUM 135 mmol/L (136-145); TOTAL PROTEIN 7.2 gm/dL (6.4-8.2)
[2020-12-05 16:18] LABS: ETHYL ALCOHOL < 3.0 mg/dl (<3)
[2020-12-05 18:05] LABS: BILIRUBIN Negative (Negative); BLOOD Trace-Lysed (Negative); CLARITY Clear (Clear); COLOR Yellow (Yellow); GLUCOSE Negative (Negative); KETONE Negative (Negative); LEUKO ESTERASE Negative (Negative); NITRITE Negative (Negative); PH 6.5 (4.5-8.0); UROBILINOGEN 0.2 E.U./dl (0.0-1.0)
[2020-12-05 18:12] LABS: URINE AMPHETAMINES < 1000 (1000ng/ml); URINE BARBITURATES < 200 (200ng/ml); URINE BENZODIAZEPINES > 200 (200ng/ml); URINE CANNABINOIDS (THC) > 50 (50ng/ml); URINE COCAINE < 300 (300ng/ml); URINE METHADONE < 300 (300ng/ml); URINE OPIATES > 300 (300ng/ml)
[2020-12-05 18:18] LABS: BACTERIA TRACE; RBC 16-20 rbc/hpf (0-2)
[2020-12-05 18:20] LABS: URINE PHENCYCLIDINE < 25 (25ng/ml)
== END 2020-12-05 18:28 | disposition home or self-care (01) ==
LOC: ED 14:49
PROVIDERS: Student in an Organized Health Care Education/Training Program
DX: F10.10 Alcohol abuse, uncomplicated (principal); F17.200 Nicotine dependence, unspecified, uncomplicated; Z88.8 Allergy status to other drugs, medicaments and biological substances; Z79.899 Other long term (current) drug therapy; Z79.82 Long term (current) use of aspirin; Y90.9 Presence of alcohol in blood, level not specified

== ENCOUNTER 2021-02-02 22:14 | Emergency (ER) | payer OTHER ==
[2021-02-02 23:04] LABS: BASO % 0.4 % (0.0-1.0); EOS # 0.1 10*3/uL (0.0-0.4); EOS % 1.3 % (1.0-4.0); HEMATOCRIT 37.1 % (42.0-52.0); LYMPH # 1.7 10*3/uL (1.3-4.4); LYMPH % 24.7 % (27.0-41.0); MEAN CELL VOLUME 99.2 fl (80.0-94.0); MEAN CORPUSCULAR HGB 32.4 pg (27.0-31.0); MEAN CORPUSCULAR HGB CONC 32.6 g/dl (33.0-37.0); MEAN PLATELET VOLUME 10.4 fl (9.6-12.3); MONO # 0.6 10*3/uL (0.1-1.0); MONO % 9.4 % (3.0-9.0); NEUT # 4.3 10*3/uL (2.3-7.9); NEUT % 64.1 % (47.0-73.0); PLATELET COUNT AUTOMATED 205 10*3/uL (130-400); RED BLOOD COUNT 3.74 10*6/uL (4.50-5.90); RED CELL DISTRI WIDTH 16.1 % (0-14.5); WHITE BLOOD COUNT 6.7 10*3/uL (4.8-10.8)
[2021-02-02 23:13] LABS: INTERNATIONAL NORM RATIO 1.1 (2.0-3.5)
[2021-02-02 23:27] LABS: ALBUMIN 3.2 gm/dl (3.1-4.5); ALKALINE PHOSPHATASE 60 U/L (45-117); BUN 22 mg/dl (7-24); CHLORIDE 102 mmol/L (98-107); CREATININE 1.51 mg/dL (0.70-1.30); POTASSIUM 3.5 mmol/L (3.5-5.1); SGOT/AST 18 IU/L (3-35); SGPT/ALT 18 U/L (12-78); SODIUM 140 mmol/L (136-145); TOTAL PROTEIN 6.9 gm/dL (6.4-8.2)
[2021-02-02 23:34] LABS: ETHYL ALCOHOL < 3.0 mg/dl (<3)
[2021-02-03] MEDS ORDERED: CEPHALEXIN500 M1 PO (05:46)
== END 2021-02-03 05:57 | disposition home or self-care (01) ==
LOC: ED 22:14
PROVIDERS: Physician Assistant
DX: S01.112A Laceration without foreign body of left eyelid and periocular area, initial encounter (principal); Z88.8 Allergy status to other drugs, medicaments and biological substances; Z79.899 Other long term (current) drug therapy; Z79.82 Long term (current) use of aspirin; W18.39XA Other fall on same level, initial encounter; Y93.89 Activity, other specified; Y92.89 Other specified places as the place of occurrence of the external cause; Y99.8 Other external cause status

== ENCOUNTER 2021-04-03 21:54 | Emergency (ER) | payer OTHER ==
[~2021-04-03] VITALS: Ht 172.7 cm; Wt 64.4 kg
[~2021-04-03 21:54] MED LIST changes: +CEPHALEXIN500 M1 PO
[2021-04-03 23:51] LABS: BASO % 0.3 % (0.0-1.0); EOS # 0.1 10*3/uL (0.0-0.4); EOS % 1.7 % (1.0-4.0); HEMATOCRIT 38.4 % (42.0-52.0); LYMPH # 2.1 10*3/uL (1.3-4.4); LYMPH % 31.9 % (27.0-41.0); MEAN CORPUSCULAR HGB 31.4 pg (27.0-31.0); MEAN CORPUSCULAR HGB CONC 33.1 g/dl (33.0-37.0); MEAN PLATELET VOLUME 10.6 fl (9.6-12.3); MONO # 0.5 10*3/uL (0.1-1.0); MONO % 7.4 % (3.0-9.0); NEUT # 3.9 10*3/uL (2.3-7.9); NEUT % 58.5 % (47.0-73.0); PLATELET COUNT AUTOMATED 137 10*3/uL (130-400); RED BLOOD COUNT 4.04 10*6/uL (4.50-5.90); RED CELL DISTRI WIDTH 15.9 % (0-14.5); WHITE BLOOD COUNT 6.6 10*3/uL (4.8-10.8)
[2021-04-03 23:59] LABS: INTERNATIONAL NORM RATIO 1.2 (2.0-3.5)
[2021-04-04 00:32] LABS: ALBUMIN 2.8 gm/dl (3.1-4.5); CREATININE 1.49 mg/dL (0.70-1.30); POTASSIUM 3.9 mmol/L (3.5-5.1); TOTAL PROTEIN 6.7 gm/dL (6.4-8.2)
== END 2021-04-04 06:51 | disposition left against medical advice (07) ==
LOC: ED 21:54
PROVIDERS: Emergency Medicine
DX: U07.1 COVID-19 (principal); F17.200 Nicotine dependence, unspecified, uncomplicated; Z88.8 Allergy status to other drugs, medicaments and biological substances; Z79.899 Other long term (current) drug therapy; Z79.82 Long term (current) use of aspirin

== ENCOUNTER → 2021-04-09 | Outpatient (CLI) | payer OTHER | END | disposition home or self-care (01) | LOC: COVID19 16:44 | PROVIDERS: ATTEND Internal Medicine | DX: U07.1 COVID-19 (principal) ==

== ENCOUNTER 2021-08-06 23:44 | Emergency (ER) | payer MEDICAID ==
[~2021-08-06] VITALS: Wt 45.4 kg
[2021-08-07] MEDS ORDERED: HYDROCODONE-AC1 EACH PO (00:16)
[2021-08-08] MEDS ORDERED: LISINOPRIL5 MG PO (20:19)
[2021-08-08] MEDS ORDERED: PRAVASTATIN SOD40 MG PO (20:20)
[2021-08-08] MEDS ORDERED: AMIODARONE HYD200 MG PO (20:21)
[2021-08-08] MEDS ORDERED: MELATONIN10 M2 PO (20:22)
== END 2021-08-07 07:17 | disposition home or self-care (01) ==
LOC: ED 23:44
DX: S46.911A Strain of unspecified muscle, fascia and tendon at shoulder and upper arm level, right arm, initial encounter (principal); S70.01XA Contusion of right hip, initial encounter; S09.90XA Unspecified injury of head, initial encounter; I25.10 Atherosclerotic heart disease of native coronary artery without angina pectoris; J44.9 Chronic obstructive pulmonary disease, unspecified; I50.9 Heart failure, unspecified; Z79.899 Other long term (current) drug therapy; Z87.891 Personal history of nicotine dependence; W18.39XA Other fall on same level, initial encounter; Y93.89 Activity, other specified; Y92.89 Other specified places as the place of occurrence of the external cause; Y99.8 Other external cause status

== ENCOUNTER 2021-08-08 15:44 | Inpatient (IN) | payer OTHER ==
[~2021-08-08] VITALS: Ht 157.5 cm; Wt 37.7 kg
[~2021-08-08 15:44] MED LIST changes: +HYDROCODONE-AC1 EACH PO
[2021-08-08 16:25] VITALS: BP 100/57
[2021-08-08 16:28] LABS: BASO # 0.1 10*3/uL (0.0-0.1); BASO % 0.6 % (0.0-1.0); EOS % 0.2 % (1.0-4.0); HEMATOCRIT 45.8 % (42.0-52.0); LYMPH # 0.9 10*3/uL (1.3-4.4); LYMPH % 6.9 % (27.0-41.0); MEAN CELL VOLUME 97.2 fl (80.0-94.0); MEAN CORPUSCULAR HGB 31.2 pg (27.0-31.0); MEAN CORPUSCULAR HGB CONC 32.1 g/dl (33.0-37.0); MEAN PLATELET VOLUME 10.3 fl (9.6-12.3); MONO # 1.1 10*3/uL (0.1-1.0); MONO % 8.1 % (3.0-9.0); NEUT # 11.1 10*3/uL (2.3-7.9); PLATELET COUNT AUTOMATED 241 10*3/uL (130-400); RED BLOOD COUNT 4.71 10*6/uL (4.50-5.90); RED CELL DISTRI WIDTH 14.9 % (0-14.5); WHITE BLOOD COUNT 13.2 10*3/uL (4.8-10.8)
[2021-08-08 16:41] LABS: CREATININE 1.66 mg/dL (0.70-1.30); POTASSIUM 4.2 mmol/L (3.5-5.1); TOTAL PROTEIN 8.2 gm/dL (6.4-8.2)
[2021-08-08 16:47] LABS: ACT PARTIAL THROMBO TIME 43.9 SECONDS (20.0-32.1); INTERNATIONAL NORM RATIO 1.2 (2.0-3.5)
[2021-08-08 17:12] LABS: ABG BASE EXCESS 0.9 mmol/L (-2.0-2.0); ARTERIAL BLOOD GAS PH 7.375 (7.35-7.45); ARTERIAL BLOOD GAS PO2 46.7 (80-90)
[2021-08-08 18:41] VITALS: BP 97/47
[2021-08-08 19:30] VITALS: BP 105/41
[2021-08-08 20:00] VITALS: BP 105/41
[2021-08-08] MEDS ORDERED: LISINOPRIL5 MG PO (20:19)
[2021-08-08] MEDS ORDERED: PRAVASTATIN SOD40 MG PO (20:20)
[2021-08-08] MEDS ORDERED: AMIODARONE HYD200 MG PO (20:21)
[2021-08-08] MEDS ORDERED: MELATONIN10 M2 PO (20:22)
[2021-08-08 23:49] LABS: BILIRUBIN Negative (Negative); BLOOD Negative (Negative); CLARITY Clear (Clear); COLOR Yellow (Yellow); GLUCOSE Negative (Negative); KETONE Negative (Negative); LEUKO ESTERASE Negative (Negative); NITRITE Negative (Negative); SPECIFIC GRAVITY 1.015 (1.001-1.030)
[2021-08-09] VITALS (27 sets, daily range): BP systolic 67–110; BP diastolic 41–62
[2021-08-09 00:08] LABS: HYALINE CAST 31-40
[2021-08-09 05:22] LABS: CREATININE 1.91 mg/dL (0.70-1.30); POTASSIUM 4.7 mmol/L (3.5-5.1); TOTAL PROTEIN 7.2 gm/dL (6.4-8.2)
[2021-08-09 06:06] LABS: HEMATOCRIT 41.2 % (42.0-52.0); MEAN CELL VOLUME 97.2 fl (80.0-94.0); MEAN CORPUSCULAR HGB 31.6 pg (27.0-31.0); MEAN CORPUSCULAR HGB CONC 32.5 g/dl (33.0-37.0); MEAN PLATELET VOLUME 10.7 fl (9.6-12.3); PLATELET COUNT AUTOMATED 224 10*3/uL (130-400); RED BLOOD COUNT 4.24 10*6/uL (4.50-5.90); RED CELL DISTRI WIDTH 14.9 % (0-14.5); WHITE BLOOD COUNT 19.4 10*3/uL (4.8-10.8)
[2021-08-09 06:12] LABS: MANUAL DIFF REFLEX YES
[2021-08-09 06:49] LABS: PLATELET SUFFICIENCY NORMAL (NORMAL); TOTAL CELLS COUNTED 100 #CELLS
[2021-08-09] MEDS ORDERED: ELIQUIS5 M1 PO (07:09)
[2021-08-09] MEDS ORDERED: FUROSEMIDE40 MG PO (07:11)
[2021-08-09 12:47] LABS: VENOUS PH 7.207 (7.37-7.45)
[2021-08-09 12:56] LABS: CREATININE 2.3 mg/dL (0.70-1.30); POTASSIUM 4.7 mmol/L (3.5-5.1)
[2021-08-10] VITALS: BP 92/49
[2021-08-10 04:00] VITALS: BP 94/55
[2021-08-10 06:03] LABS: CREATININE 1.77 mg/dL (0.70-1.30); POTASSIUM 5.1 mmol/L (3.5-5.1)
[2021-08-10 08:00] VITALS: BP 94/57
[2021-08-10 12:00] VITALS: BP 90/50
[2021-08-10 16:00] VITALS: BP 88/46
[2021-08-10 20:00] VITALS: BP 116/56
[2021-08-11] VITALS: BP 104/60
[2021-08-11 04:32] LABS: CREATININE 1.42 mg/dL (0.70-1.30); POTASSIUM 4.8 mmol/L (3.5-5.1)
[2021-08-11 05:45] VITALS: BP 91/72
[2021-08-11 08:00] VITALS: BP 117/63
[2021-08-11 12:00] VITALS: BP 115/73
[2021-08-11 16:00] VITALS: BP 125/52
[2021-08-11 20:00] VITALS: BP 143/60
[2021-08-12] VITALS: BP 124/65
[2021-08-12 06:04] LABS: BUN 33 mg/dl (7-24); CHLORIDE 109 mmol/L (98-107); CREATININE 1.12 mg/dL (0.70-1.30); POTASSIUM 4.9 mmol/L (3.5-5.1); SODIUM 141 mmol/L (136-145)
[2021-08-12 08:00] VITALS: BP 120/60
[2021-08-12 12:00] VITALS: BP 132/60
[2021-08-12] MEDS ORDERED: PREDNISONE10 MG PO (13:31)
[2021-08-12] MEDS ORDERED: DOXYCYCLINE HY100 M3 PO (13:31)
== END 2021-08-12 16:00 | disposition home health service (06) | DRG 189 ==
LOC: ED 15:44 → ICCU 17:42 → EDHOLD 17:42 → ICCU 19:29 → 4E 08-11 14:48
PROVIDERS: Emergency Medicine; Internal Medicine; Student in an Organized Health Care Education/Training Program; ADMIT Internal Medicine; ATTEND Internal Medicine
PROC: 5A0935A Assistance with Respiratory Ventilation, Less than 24 Consecutive Hours, High Flow/Velocity Cannula (ICD-10-PCS; principal; 2021-08-08)
DX: J96.01 Acute respiratory failure with hypoxia (principal); R65.11 Systemic inflammatory response syndrome (SIRS) of non-infectious origin with acute organ dysfunction; N17.0 Acute kidney failure with tubular necrosis; J44.1 Chronic obstructive pulmonary disease with (acute) exacerbation; I47.1 Supraventricular tachycardia; I48.21 Permanent atrial fibrillation; F33.0 Major depressive disorder, recurrent, mild; N18.9 Chronic kidney disease, unspecified; D64.9 Anemia, unspecified; I25.5 Ischemic cardiomyopathy; F41.9 Anxiety disorder, unspecified; I95.9 Hypotension, unspecified; F51.01 Primary insomnia; I25.10 Atherosclerotic heart disease of native coronary artery without angina pectoris; F51.04 Psychophysiologic insomnia; K21.00 Gastro-esophageal reflux disease with esophagitis, without bleeding; E78.2 Mixed hyperlipidemia; Z95.5 Presence of coronary angioplasty implant and graft; Z79.51 Long term (current) use of inhaled steroids; Z79.82 Long term (current) use of aspirin; Z79.899 Other long term (current) drug therapy; Z79.1 Long term (current) use of non-steroidal anti-inflammatories (NSAID)

== ENCOUNTER 2021-09-02 23:30 | Emergency (ER) | payer OTHER ==
[~2021-09-02] VITALS: Ht 170.1 cm; Wt 49.9 kg
[~2021-09-02 23:30] MED LIST changes: +DOXYCYCLINE HY100 M3 PO; +LISINOPRIL5 MG PO; +MELATONIN10 M2 PO; +PRAVASTATIN SOD40 MG PO; +PREDNISONE10 MG PO
[2021-09-03 00:14] LABS: HEMATOCRIT 34.4 % (42.0-52.0); MEAN CELL VOLUME 99.1 fl (80.0-94.0); MEAN CORPUSCULAR HGB 31.4 pg (27.0-31.0); MEAN CORPUSCULAR HGB CONC 31.7 g/dl (33.0-37.0); MEAN PLATELET VOLUME 10.1 fl (9.6-12.3); PLATELET COUNT AUTOMATED 240 10*3/uL (130-400); RED BLOOD COUNT 3.47 10*6/uL (4.50-5.90); RED CELL DISTRI WIDTH 15.5 % (0-14.5); WHITE BLOOD COUNT 6.4 10*3/uL (4.8-10.8)
[2021-09-03 00:15] LABS: BASO # 0.1 10*3/uL (0.0-0.1); BASO % 0.8 % (0.0-1.0); EOS # 0.1 10*3/uL (0.0-0.4); EOS % 1.7 % (1.0-4.0); LYMPH # 1.9 10*3/uL (1.3-4.4); LYMPH % 28.8 % (27.0-41.0); MONO # 0.6 10*3/uL (0.1-1.0); MONO % 9.8 % (3.0-9.0); NEUT # 3.8 10*3/uL (2.3-7.9); NEUT % 58.7 % (47.0-73.0)
[2021-09-03 00:29] LABS: CREATININE 1.72 mg/dL (0.70-1.30); POTASSIUM 4.1 mmol/L (3.5-5.1); TOTAL PROTEIN 7.2 gm/dL (6.4-8.2)
== END 2021-09-03 06:06 | disposition home or self-care (01) ==
LOC: ED 23:30
PROVIDERS: Emergency Medicine
DX: Z13.89 Encounter for screening for other disorder (principal); E86.0 Dehydration

== ENCOUNTER 2021-09-16 11:39 | Emergency (ER) | payer OTHER ==
[~2021-09-16] VITALS: Ht 167.6 cm; Wt 45.8 kg
[2021-09-16 13:40] LABS: BASO # 0.1 10*3/uL (0.0-0.1); BASO % 0.8 % (0.0-1.0); EOS # 0.1 10*3/uL (0.0-0.4); EOS % 0.5 % (1.0-4.0); HEMATOCRIT 39.5 % (42.0-52.0); LYMPH # 1.7 10*3/uL (1.3-4.4); LYMPH % 18.5 % (27.0-41.0); MEAN CELL VOLUME 98.8 fl (80.0-94.0); MEAN CORPUSCULAR HGB 31.5 pg (27.0-31.0); MEAN CORPUSCULAR HGB CONC 31.9 g/dl (33.0-37.0); MEAN PLATELET VOLUME 9.9 fl (9.6-12.3); MONO # 0.9 10*3/uL (0.1-1.0); MONO % 9.9 % (3.0-9.0); NEUT # 6.6 10*3/uL (2.3-7.9); NEUT % 70.1 % (47.0-73.0); PLATELET COUNT AUTOMATED 232 10*3/uL (130-400); RED CELL DISTRI WIDTH 15.2 % (0-14.5); WHITE BLOOD COUNT 9.4 10*3/uL (4.8-10.8)
[2021-09-16 13:50] LABS: ACT PARTIAL THROMBO TIME 40.5 SECONDS (20.0-32.1); INTERNATIONAL NORM RATIO 1.1 (2.0-3.5)
[2021-09-16 13:57] LABS: BILIRUBIN Negative (Negative); BLOOD Negative (Negative); CLARITY Clear (Clear); COLOR Yellow (Yellow); GLUCOSE Negative (Negative); KETONE Negative (Negative); LEUKO ESTERASE Negative (Negative); NITRITE Negative (Negative); PH 6.5 (4.5-8.0); UROBILINOGEN 0.2 E.U./dl (0.0-1.0)
[2021-09-16 13:58] LABS: CREATININE 1.45 mg/dL (0.70-1.30); POTASSIUM 4.4 mmol/L (3.5-5.1); TOTAL PROTEIN 8.1 gm/dL (6.4-8.2)
[2021-09-16 14:36] LABS: BACTERIA TRACE; EPITHELIAL CELLS 0-2; RBC 0-2 rbc/hpf (0-2); WBC 0-2 wbc/hpf (0-5)
== END 2021-09-16 16:44 | disposition left against medical advice (07) ==
LOC: ED
PROVIDERS: Emergency Medicine
DX: M25.552 Pain in left hip (principal); J32.0 Chronic maxillary sinusitis; F17.200 Nicotine dependence, unspecified, uncomplicated; Z79.899 Other long term (current) drug therapy; Z79.82 Long term (current) use of aspirin; Z88.8 Allergy status to other drugs, medicaments and biological substances; W18.30XA Fall on same level, unspecified, initial encounter; Y93.01 Activity, walking, marching and hiking; Y92.098 Other place in other non-institutional residence as the place of occurrence of the external cause; Y99.9 Unspecified external cause status

== ENCOUNTER 2021-09-19 17:50 | Emergency (ER) | payer OTHER | END 2021-09-19 19:26 | disposition short-term general hospital (02) | LOC: ED 17:50 | DX: T20.04XA Burn of unspecified degree of nose (septum), initial encounter (principal); T28.0XXA Burn of mouth and pharynx, initial encounter; X08.8XXA Exposure to other specified smoke, fire and flames, initial encounter; Y93.89 Activity, other specified; Y92.89 Other specified places as the place of occurrence of the external cause; Y99.8 Other external cause status ==

== ENCOUNTER 2021-10-09 21:30 | Emergency (ER) | payer OTHER ==
[~2021-10-09] VITALS: Ht 170.1 cm; Wt 52.2 kg
[2021-10-09 22:18] LABS: BASO # 0.1 10*3/uL (0.0-0.1); BASO % 0.9 % (0.0-1.0); EOS # 0.2 10*3/uL (0.0-0.4); EOS % 2.1 % (1.0-4.0); HEMATOCRIT 27.8 % (42.0-52.0); LYMPH # 2.2 10*3/uL (1.3-4.4); LYMPH % 22.9 % (27.0-41.0); MEAN CELL VOLUME 102.2 fl (80.0-94.0); MEAN CORPUSCULAR HGB 31.3 pg (27.0-31.0); MEAN CORPUSCULAR HGB CONC 30.6 g/dl (33.0-37.0); MEAN PLATELET VOLUME 9.7 fl (9.6-12.3); MONO # 1.3 10*3/uL (0.1-1.0); MONO % 13.4 % (3.0-9.0); NEUT # 5.6 10*3/uL (2.3-7.9); PLATELET COUNT AUTOMATED 269 10*3/uL (130-400); RED BLOOD COUNT 2.72 10*6/uL (4.50-5.90); RED CELL DISTRI WIDTH 15.7 % (0-14.5); WHITE BLOOD COUNT 9.4 10*3/uL (4.8-10.8)
[2021-10-09 22:20] LABS: ARTERIAL BLOOD GAS PH 7.382 (7.35-7.45); ARTERIAL BLOOD GAS PO2 99.4 (80-90)
[2021-10-09 22:28] LABS: INTERNATIONAL NORM RATIO 1.1 (2.0-3.5)
[2021-10-09 22:33] LABS: ALKALINE PHOSPHATASE 79 U/L (45-117); BUN 34 mg/dl (7-24); CHLORIDE 104 mmol/L (98-107); CREATININE 1.34 mg/dL (0.70-1.30); POTASSIUM 4.1 mmol/L (3.5-5.1); SGOT/AST 16 IU/L (3-35); SGPT/ALT 11 U/L (12-78); SODIUM 143 mmol/L (136-145); TOTAL PROTEIN 6.7 gm/dL (6.4-8.2)
== END 2021-10-10 06:32 | disposition left against medical advice (07) ==
LOC: ED 21:30
PROVIDERS: Emergency Medicine
DX: R04.0 Epistaxis (principal); D64.9 Anemia, unspecified; R06.89 Other abnormalities of breathing; I11.0 Hypertensive heart disease with heart failure; I50.9 Heart failure, unspecified; F17.200 Nicotine dependence, unspecified, uncomplicated; I25.10 Atherosclerotic heart disease of native coronary artery without angina pectoris; I48.91 Unspecified atrial fibrillation; Z79.899 Other long term (current) drug therapy; Z79.82 Long term (current) use of aspirin; Z88.8 Allergy status to other drugs, medicaments and biological substances

== ENCOUNTER 2022-01-21 18:53 | Inpatient (IN) | payer OTHER ==
[~2022-01-21] VITALS: Ht 170.2 cm; Wt 45.8 kg
[2022-01-21] VITALS (19 sets, daily range): BP systolic 52–141; BP diastolic 21–118
[2022-01-21] MEDS ORDERED: PAROXETINE HCL40 MG PO (19:35)
[2022-01-21 19:37] LABS: ABG BASE EXCESS -10.3 mmol/L (-2.0-2.0)
[2022-01-21] MEDS ORDERED: DICLOFENAC SOD100 G1 T (19:37)
[2022-01-21 19:38] LABS: BASO # 0.1 10*3/uL (0.0-0.1); BASO % 0.5 % (0.0-1.0); EOS # 0.2 10*3/uL (0.0-0.4); EOS % 1.9 % (1.0-4.0); HEMATOCRIT 43.9 % (42.0-52.0); LYMPH # 3.6 10*3/uL (1.3-4.4); LYMPH % 39.5 % (27.0-41.0); MEAN CORPUSCULAR HGB 30.6 pg (27.0-31.0); MEAN CORPUSCULAR HGB CONC 29.4 g/dl (33.0-37.0); MEAN PLATELET VOLUME 10.7 fl (9.6-12.3); MONO # 0.3 10*3/uL (0.1-1.0); MONO % 2.8 % (3.0-9.0); NEUT % 54.6 % (47.0-73.0); PLATELET COUNT AUTOMATED 245 10*3/uL (130-400); RED BLOOD COUNT 4.22 10*6/uL (4.50-5.90); RED CELL DISTRI WIDTH 16.6 % (0-14.5); WHITE BLOOD COUNT 9.2 10*3/uL (4.8-10.8)
[2022-01-21] MEDS ORDERED: TRAZODONE100 MG PO (19:40)
[2022-01-21 19:41] LABS: ARTERIAL BLOOD GAS PH 7.12 (7.35-7.45)
[2022-01-21 19:50] LABS: ACT PARTIAL THROMBO TIME 57.3 SECONDS (20.0-32.1); INTERNATIONAL NORM RATIO 1.9 (2.0-3.5)
[2022-01-21 19:57] LABS: CREATININE 2.36 mg/dL (0.70-1.30); POTASSIUM 3.8 mmol/L (3.5-5.1); TOTAL PROTEIN 6.7 gm/dL (6.4-8.2)
[2022-01-21] MEDS ORDERED: AMMONIUM LACTA385 GM T (21:26)
[2022-01-21 23:47] LABS: ABG BASE EXCESS -12.2 mmol/L (-2.0-2.0); ARTERIAL BLOOD GAS PO2 110.4 (80-90)
[2022-01-21 23:48] LABS: ARTERIAL BLOOD GAS PH 7.061 (7.35-7.45)
[2022-01-22] VITALS (106 sets, daily range): BP systolic 51–138; BP diastolic 25–82
[2022-01-22 05:37] LABS: CREATININE 2.54 mg/dL (0.70-1.30); POTASSIUM 3.1 mmol/L (3.5-5.1); TOTAL PROTEIN 5.7 gm/dL (6.4-8.2)
[2022-01-22 06:41] LABS: ACT PARTIAL THROMBO TIME 110.1 SECONDS (20.0-32.1)
[2022-01-22 08:01] LABS: MEAN CELL VOLUME 102.9 fl (80.0-94.0); MEAN CORPUSCULAR HGB 30.9 pg (27.0-31.0); MEAN PLATELET VOLUME 11.1 fl (9.6-12.3); NUCLEATED RED BLOOD CELL 0.2 % (0.0-0.0); RED CELL DISTRI WIDTH 16.4 % (0-14.5); WHITE BLOOD COUNT 9.8 10*3/uL (4.8-10.8)
[2022-01-22 08:07] LABS: MANUAL DIFF REFLEX YES; PLATELET COUNT AUTOMATED 77 10*3/uL (130-400)
[2022-01-22 08:36] LABS: PLATELET SUFFICIENCY LOW (NORMAL); POLYCHROMASIA SLIGHT; TOTAL CELLS COUNTED 100 #CELLS; TOXIC GRANULATION SLIGHT
[2022-01-22 08:37] LABS: OVALOCYTES FEW; ROULEAUX SLIGHT
[2022-01-22 10:40] LABS: HEMATOCRIT 34.3 % (42.0-52.0); MEAN CELL VOLUME 102.1 fl (80.0-94.0); MEAN CORPUSCULAR HGB 30.4 pg (27.0-31.0); MEAN CORPUSCULAR HGB CONC 29.7 g/dl (33.0-37.0); MEAN PLATELET VOLUME 12.6 fl (9.6-12.3); NUCLEATED RED BLOOD CELL 0.3 % (0.0-0.0); RED BLOOD COUNT 3.36 10*6/uL (4.50-5.90); RED CELL DISTRI WIDTH 16.5 % (0-14.5); WHITE BLOOD COUNT 7.9 10*3/uL (4.8-10.8)
[2022-01-22 10:58] LABS: MANUAL DIFF REFLEX YES; PLATELET COUNT AUTOMATED 44 10*3/uL (130-400)
[2022-01-22 11:10] LABS: INTERNATIONAL NORM RATIO 1.9 (2.0-3.5)
[2022-01-22 11:11] LABS: PLATELET SUFFICIENCY LOW (NORMAL); TOTAL CELLS COUNTED 100 #CELLS
[2022-01-22 11:23] LABS: ACT PARTIAL THROMBO TIME > 139.0 SECONDS (20.0-32.1)
[2022-01-22 13:45] LABS: HEMATOCRIT 31.5 % (42.0-52.0); MEAN CELL VOLUME 102.3 fl (80.0-94.0); MEAN CORPUSCULAR HGB 30.5 pg (27.0-31.0); MEAN CORPUSCULAR HGB CONC 29.8 g/dl (33.0-37.0); MEAN PLATELET VOLUME 11.9 fl (9.6-12.3); NUCLEATED RED BLOOD CELL 0.4 % (0.0-0.0); RED BLOOD COUNT 3.08 10*6/uL (4.50-5.90); RED CELL DISTRI WIDTH 16.5 % (0-14.5); WHITE BLOOD COUNT 7.8 10*3/uL (4.8-10.8)
[2022-01-22 13:53] LABS: MANUAL DIFF REFLEX YES
[2022-01-22 13:55] LABS: PLATELET COUNT AUTOMATED 24 10*3/uL (130-400)
[2022-01-22 13:58] LABS: CREATININE 2.85 mg/dL (0.70-1.30); POTASSIUM 3.8 mmol/L (3.5-5.1); TOTAL PROTEIN 5.8 gm/dL (6.4-8.2)
[2022-01-22 14:00] LABS: PLATELET SUFFICIENCY LOW (NORMAL); POLYCHROMASIA SLIGHT; ROULEAUX SLIGHT; SCHISTOCYTES FEW; TOTAL CELLS COUNTED 100 #CELLS
[2022-01-22 15:00] LABS: ARTERIAL BLOOD GAS PO2 74.1 (80-90)
[2022-01-22 15:03] LABS: ABG BASE EXCESS -8.6 mmol/L (-2.0-2.0); ARTERIAL BLOOD GAS PH 7.193 (7.35-7.45)
[2022-01-22 19:26] LABS: ARTERIAL BLOOD GAS PH 7.327 (7.35-7.45); ARTERIAL BLOOD GAS PO2 56.8 (80-90)
[2022-01-23 11:07] LABS: HBSAG Negative (Negative); HEP B CORE AB, IGM Negative (Negative); HEPATITIS C ANTIBODY <0.1 (0.0-0.9)
== END 2022-01-22 23:50 | disposition short-term general hospital (02) | DRG 871 ==
LOC: ED 18:53 → ICCU 01-22 00:27 → EDHOLD 01-22 00:27 → ICCU 01-22 00:51
PROVIDERS: Emergency Medicine; Internal Medicine; Internal Medicine Critical Care Medicine; Registered Nurse; Student in an Organized Health Care Education/Training Program; ADMIT Internal Medicine; ATTEND Internal Medicine
PROC: 30233P1 Transfusion of Nonautologous Frozen Red Cells into Peripheral Vein, Percutaneous Approach (ICD-10-PCS; principal; 2022-01-22)
PROC: 30233N1 Transfusion of Nonautologous Red Blood Cells into Peripheral Vein, Percutaneous Approach (ICD-10-PCS; 2022-01-22)
PROC: 5A1935Z Respiratory Ventilation, Less than 24 Consecutive Hours (ICD-10-PCS; 2022-01-22)
PROC: 0BH17EZ Insertion of Endotracheal Airway into Trachea, Via Natural or Artificial Opening (ICD-10-PCS; 2022-01-22)
PROC: 05HY33Z Insertion of Infusion Device into Upper Vein, Percutaneous Approach (ICD-10-PCS; 2022-01-22)
DX: A41.9 Sepsis, unspecified organism (principal); J69.0 Pneumonitis due to inhalation of food and vomit; N17.0 Acute kidney failure with tubular necrosis; J96.01 Acute respiratory failure with hypoxia; K72.01 Acute and subacute hepatic failure with coma; R65.21 Severe sepsis with septic shock; K56.7 Ileus, unspecified; E87.20 Acidosis, unspecified; I48.21 Permanent atrial fibrillation; I50.9 Heart failure, unspecified; I25.10 Atherosclerotic heart disease of native coronary artery without angina pectoris; J43.9 Emphysema, unspecified; D69.6 Thrombocytopenia, unspecified; K59.00 Constipation, unspecified; I25.2 Old myocardial infarction; Z88.8 Allergy status to other drugs, medicaments and biological substances